=== PATIENT | male | born 1950 | race Caucasian/White ===

== ENCOUNTER 2020-08-14 07:22 | Day surgery (SDC) | payer MEDICARE, SELFPAY ==
[2020-08-08 12:00] VITALS: BMI 36.3
--- NOTE | 2020-08-13 12:37 | HO.ANESPROP2 ---
Documented by User: Aliza Marley 08/13/20 12:39 HPI - Anesthesia Eval Consult details Narrative: 70yo M for colonoscopy PMFSH Past Medical History Medical History Benign prostatic hyperplasia COVID-19 virus antibody negative CVA (cerebral vascular accident) Elevated cholesterol Gout History of postoperative nausea History of snoring HTN (hypertension) Murmur Renal cyst Thyroid nodule Surgical History Surgical History H/O arthroscopic knee surgery H/O partial thyroidectomy H/O varicose vein ligation and stripping Hx of colonoscopy Social History Social History Smoking Status: Never smoker Use of substances other than those prescribed or required for medical reasons: No Advance Directives: No (unknwon) Advance Directives Information Provided: Yes Recently lost weight without trying: No Meds Allergies Allergy/AdvReac Type Severity Reaction Status Date / Time Penicillins Allergy Unknown Verified 08/08/20 12:11 irbesartan AdvReac Stomach Verified 08/14/20 07:37 Upset Home Medications Medication Instructions Recorded Confirmed Type aspirin 81 mg PO DAILY 08/08/20 08/08/20 History atorvastatin 80 mg PO BEDTIME 08/08/20 08/08/20 History finasteride 5 mg PO DAILY 08/08/20 08/08/20 History hydralazine 25 mg PO QAM 08/08/20 08/14/20 History hydralazine 50 mg PO BEDTIME 08/08/20 08/08/20 History losartan 100 mg PO DAILY 08/08/20 08/08/20 History Exam Exam Date and Time: August 13, 2020 1237 Height,Weight and Vital Signs: Height 5 ft 4 in Weight 96.162 kg Pertinent Lab Results Pertinent Lab Results: Laboratory Tests 02/16/20 05/20/20 05/20/20 09:05 10:05 10:05 WBC 5.2 Hgb 13.4 L Hct 40.6 L Plt Count 244 Sodium 145 Potassium 3.3 Chloride 105 Bicarbonate 32 H Anion Gap 11 L BUN 25 H Creatinine 1.68 H Est GFR (Non-Af Amer) 41 Free T4 0.97 TSH 3rd Generation 2.16 Assessment and Plan Assessment Anesthesia Assessment: Chart Reviewed Documented by User: Dominique Gallo 08/14/20 08:02 PMF Past Medical History Medical History Benign prostatic hyperplasia COVID-19 virus antibody negative CVA (cerebral vascular accident) Elevated cholesterol Gout History of postoperative nausea History of snoring HTN (hypertension) Murmur Renal cyst Thyroid nodule Surgical History Surgical History H/O arthroscopic knee surgery H/O partial thyroidectomy H/O varicose vein ligation and stripping Hx of colonoscopy Social History Social History Smoking Status: Never smoker Use of substances other than those prescribed or required for medical reasons: No Advance Directives: No (unknwon) Advance Directives Information Provided: Yes Recently lost weight without trying: No Meds Allergies Allergy/AdvReac Type Severity Reaction Status Date / Time Penicillins Allergy Unknown Verified 08/08/20 12:11 irbesartan AdvReac Stomach Verified 08/14/20 07:37 Upset Home Medications Medication Instructions Recorded Confirmed Type aspirin 81 mg PO DAILY 08/08/20 08/08/20 History atorvastatin 80 mg PO BEDTIME 08/08/20 08/08/20 History finasteride 5 mg PO DAILY 08/08/20 08/08/20 History hydralazine 25 mg PO QAM 08/08/20 08/14/20 History hydralazine 50 mg PO BEDTIME 08/08/20 08/08/20 History losartan 100 mg PO DAILY 08/08/20 08/08/20 History Assessment and Plan Assessment Anesthesia Assessment: Anesthesia Plan Discussed and PAT Visit Final Anesthetic Review NPO: Yes ASA Class: II Final Preanesthetic Review: No Changes in Pt Med Stat, Meds/Allgs Chart Reviewed, Consent Obtained/Reviewed and Anes Risks/Benef Reviewed Patient Risk: Low Procedure Risk: Low Assessment/Block/Sedation in SS: Assess/Block/Sedation-SS Anesthetic Plan Anesthetic Plan: MAC: Disposition: Standard PACU
[2020-08-14 07:54] VITALS: BP 158/111; PULSE 90; RESP 18; TEMP 36.3; O2SAT 95
--- NOTE | 2020-08-14 08:02 | P.CONAN_ITS ---
[facility] Past Medical History Medical History Benign prostatic hyperplasia COVID-19 virus antibody negative CVA (cerebral vascular accident) Elevated cholesterol Gout History of postoperative nausea History of snoring HTN (hypertension) Murmur Renal cyst Thyroid nodule Surgical History Surgical History H/O arthroscopic knee surgery H/O partial thyroidectomy H/O varicose vein ligation and stripping Hx of colonoscopy Social History Social History Smoking Status: Never smoker Use of substances other than those prescribed or required for medical reasons: No Advance Directives: No (unknwon) Advance Directives Information Provided: Yes Recently lost weight without trying: No Meds Allergies Allergy/AdvReac Type Severity Reaction Status Date / Time Penicillins Allergy Unknown Verified 08/08/20 12:11 irbesartan AdvReac Stomach Verified 08/14/20 07:37 Upset Home Medications Medication Instructions Recorded Confirmed Type aspirin 81 mg PO DAILY 08/08/20 08/08/20 History atorvastatin 80 mg PO BEDTIME 08/08/20 08/08/20 History finasteride 5 mg PO DAILY 08/08/20 08/08/20 History hydralazine 25 mg PO QAM 08/08/20 08/14/20 History hydralazine 50 mg PO BEDTIME 08/08/20 08/08/20 History losartan 100 mg PO DAILY 08/08/20 08/08/20 History Exam Exam Date and Time: August 14, 2020 0802 Height,Weight and Vital Signs: Height 5 ft 4 in Weight 96.162 kg Last Vital Signs Temp 97.3 F 08/14/20 07:54 Pulse 90 08/14/20 07:54 Resp 18 08/14/20 07:54 BP 158/111 H 08/14/20 07:54 Pulse Ox 95 08/14/20 07:54 Airway Mallampati Class: II TM Dist: >3cm Neck ROM: Full Heart: RRR Lungs: CTA BL
--- NOTE | 2020-08-14 08:14 | PC.NURSE ---
PATIENT HAS KNOWN GANGLION CYST ON POST R HAND, IV PLACED MEDIALLY TO CYST
[2020-08-14] MEDS: Lactated Ringers 1,000 ML 100 ML IVCONT (08:15)
--- NOTE | 2020-08-14 08:42 | P.HPSUR_ITS ---
Pre-Procedural Eval Section B Chief Complaint: Constipation Details of Present Illness: constipation, rectal bleeding, FH of colon polyps Relevant Family History (Specify if Yes): Yes Relevant Social History: None Present Medications: see Short Stay Collaborative assessment Medical History: Significant History (possible sleep apnea, HTN) History of Previous Operations: Relevant previous surgery/procedure and date(s) (colonoscopy) Allergies: Allergies Allergy/AdvReac Type Severity Reaction Status Date / Time Penicillins Allergy Unknown Verified 08/08/20 12:11 irbesartan AdvReac Stomach Verified 08/14/20 07:37 Upset Review of Systems Sugical H&P ROS: Negative: Constitution, Cardiovascular, Respiratory, Neurological, Psychiatric, Hem-Onc, Allergic/Immunologic, Gastrointestinal, Genitourinary, Musculoskeletal, Integumentary, Endocrine and Eyes /Ears/Nose/Throat Exam Surgical H&P Exam: Normal: HEENT, Normal: Heart, Normal: Lungs, Normal: Extremities, Normal: Abdomen, Normal: Skin and Normal: Neurological Plan Diagnosis/Plan: Unchanged Patient has been examined and remains a candidate for the planned procedure
--- NOTE | 2020-08-14 09:13 | P.BOP_ITS ---
Brief Operative Note Date of procedure: 08/14/20 Pre-op diagnosis: constipation, rectal bleeding Post-op diagnosis: same Procedure: Operative Information Procedure Description: Colonoscopy COLONOSCOPY Instrument: Olympus variable stiffness pediatric scope 190L Colonoscopy Monitoring: Vital signs and clinical assessment, continuous EKG monitoring, Pulse oximetry, Carbon Dioxide monitoring and blood pressure monitoring were done throughout the procedure. Colon withdrawal time was 15 minutes. Procedure: The patient was placed in the left lateral decubitis position and pre-procedure medications were administered. After a digital rectal examination of the ano-rectum, the video colonoscope was inserted into the rectum and advanced through the colon to the cecum/TI. The colonoscope was slowly withdrawn in a retrograde panoramic fashion and the colon mucosa was carefully examined including a retroflexed view of the rectum. Findings and interventions are described below. Procedure Difficulty: Findings: RECTAL EXAM: normal, no masses felt Terminal Ileum-normal Cecum: small polyp 6-7 mm sessile, removed with biopsy forceps Ascending Colon: 8-9 mm sessile polyp removed with cold snare Transverse Colon -normal Descending Colon: 9-10 mm sessile polyp removed w/ cold snare Sigmoid Colon: numeorus diverticual seen of varying sizes with mucosal hypertrophy Rectum: Retroflexion with moderate sized internal hemorrhoids, grade I, prominent erythema noted in distal rectum adjacent to dentate line, bx taken Anorectum - normal Colon preparation: [place] Bowel Preparation Scale Right colon; 3 Transverse colon: 3 Left colon; 3 (0 = Unprepared colon segment with mucosa not seen due to solid stool that cannot be cleared. 1 = Portion of mucosa of the colon segment seen, but other areas of the colon segment not well seen due to staining, residual stool and/or opaque liquid. 2 = Minor amount of residual staining, small fragments of stool and/or opaque liquid, but mucosa of colon segment seen well. 3 = Entire mucosa of colon segment seen well with no residual staining, small fragments of stool or opaque liquid) Impression and Post Procedure Diagnosis: Internal hemerrhoids, inflammed diverticulosis polyps Plan: High fiber diet leaflet Avoid straining at stool, epsom salts and sitz bath, anusol supps or cream Repeat Colonoscopy in 3-5 years or earlier if clinically indicated, pending pathology f/u in office in 4-8 weeks Above findings were reviewed with the patient and relevant handouts were provided if indicated. Surgeon: Sy Navarro MD Anesthesia: MAC Condition: stable Disposition: same day
[2020-08-14 09:15] VITALS: BP 113/73; PULSE 69; RESP 16; TEMP 36.7
[2020-08-14 09:30] VITALS: BP 126/85; PULSE 73; RESP 16; O2SAT 97
[2020-08-14 09:45] VITALS: BP 137/93; PULSE 82; RESP 18; O2SAT 95
[2020-08-14 10:00] VITALS: BP 141/89; PULSE 75; RESP 18; O2SAT 95
--- NOTE | 2020-08-14 10:43 | HO.POSTANES ---
Post Anesthesia Evaluation Post Anesthesia Evaluation Vital Signs: Vital Signs Temp Pulse Resp BP Pulse Ox 08/14/20 10:00 75 18 141/89 H 95 08/14/20 09:45 82 18 137/93 H 95 08/14/20 09:30 73 16 126/85 97 08/14/20 09:15 98.1 F 69 16 113/73 08/14/20 07:54 97.3 F 90 18 158/111 H 95 Anesthesia: Monitored Mental Status: Awake Pain Control: Satisfactory Nausea/Vomiting: None Hydration: Adequate Anesthesia-Related Issues: No Anes. Related Issues
== END 2020-08-14 10:57 | disposition home or self-care (01) ==
PROVIDERS: PCP Internal Medicine; Visit Provider Internal Medicine Gastroenterology
PROC: 0DJD8ZZ Inspection of Lower Intestinal Tract, Via Natural or Artificial Opening Endoscopic (ICD-10-PCS; CPT 45378; principal; 2020-08-14 08:30)
DX: K62.5 Hemorrhage of anus and rectum (principal); K59.00 Constipation, unspecified; Z83.71 Family history of colonic polyps; D12.2 Benign neoplasm of ascending colon; D12.4 Benign neoplasm of descending colon; K63.5 Polyp of colon; K57.30 Diverticulosis of large intestine without perforation or abscess without bleeding; K64.1 Second degree hemorrhoids; K63.89 Other specified diseases of intestine; I10 Essential (primary) hypertension; E78.00 Pure hypercholesterolemia, unspecified; E89.0 Postprocedural hypothyroidism; Z86.73 Personal history of transient ischemic attack (TIA), and cerebral infarction without residual deficits; Z79.899 Other long term (current) drug therapy; Z79.82 Long term (current) use of aspirin; N40.0 Benign prostatic hyperplasia without lower urinary tract symptoms; Z88.0 Allergy status to penicillin; Z88.8 Allergy status to other drugs, medicaments and biological substances
CPT/HCPCS: 45385; 45380; 88305

== ENCOUNTER 2020-08-16 10:41 | Outpatient (REF) | payer MEDICARE, SELFPAY ==
[2020-08-16 12:10] LABS: Basophils Percent Auto 0.8 % (0-2); Eosinophils Absolute Auto 0.2 X10*3/uL (0.0-0.4); Eosinophils Percent Auto 3.9 % (0-4); Hematocrit 40.8 % (42-52); Hemoglobin 13.7 g/dl (14.0-18.0); Imm Gran Abs Auto 0.02 X10*3/uL (0.00-0.03); Imm Gran Pct Auto 0.4 % (0.0-0.4); Lymphocytes Absolute Auto 0.6 X10*3/uL (1.2-4.9); Lymphocytes Percent Auto 13.2 % (20-40); MANUAL DIFF FLAG SCAN; Mean Corpuscular HGB Conc 33.6 g/dl (31.0-36.0); Mean Corpuscular Hemoglobin 28.7 pg (27.0-33.0); Mean Corpuscular Volume 85.4 fL (80-98); Mean Platelet Volume 9.4 fL (9.4-12.4); Monocytes Absolute Auto 0.3 X10*3/uL (0.1-1.2); Monocytes Percent Auto 6.4 % (2-11); Neutrophils Absolute Auto 3.7 X10*3/uL (2.0-8.3); Neutrophils Percent Auto 75.3 % (45-73); Platelet Count 271 X10*3/uL (160-400); Red Blood Count 4.78 X10*6/uL (4.60-5.80); Red Cell Distribution Width 13.3 % (11.0-16.0); SCAN SMEAR FLAG 1; White Blood Count 4.9 X10*3/uL (4.8-10.8)
[2020-08-16 12:38] LABS: Alanine Aminotransferase 19 U/L (0-40); Alkaline Phosphatase 56 U/L (39-117); Anion Gap 11 (12-20); Aspartate Amino Transferase 20 U/L (5-37); Blood Urea Nitrogen 23 mg/dL (9-16); Calcium 8.7 mg/dL (8.4-10.2); Carbon Dioxide 32 mmol/L (22-29); Chloride 104 mmol/L (96-108); Cholesterol 117 mg/dL; Estimated Glomerular Filt Rate 48; Glucose Fasting 96 mg/dL (60-99); HDL Cholesterol 42 mg/dL; LDL Cholesterol Calculated 55 mg/dl; Potassium 3.3 mmol/l (3.3-5.1); Sodium 144 mmol/L (135-145); Total Protein 6.2 g/dL (6.5-8.0); Triglycerides 101 mg/dL
[2020-08-16 13:19] LABS: Glucose Urine UA NEG (NEG); Leukocyte Esterase Urine NEG (NEG); Nitrite Urine NEG (NEG); PH 6.5 (5.0-8.0); Urine Blood NEG (NEG); Urine Ketones NEG (NEG); Urine Protein 1+ MG/DL (NEG-TRACE)
[2020-08-16 13:21] LABS: Appearance Urine CLEAR; Color Urine YELLOW
[2020-08-16 14:12] LABS: Mucus Urine TRACE /LPF; RBC Urine 0 /HPF (0); Squamous Epithelial Cell Urine TRACE /LPF; WBC Urine 0 /HPF (0-4)
[2020-08-16 14:18] LABS: TSH reflex Free T4 1.79 mIU/mL (0.32-4.0)
[2020-08-16 15:08] LABS: SLIDE REVIEW VERIFIED
== END 2020-08-16 10:42 | disposition home or self-care (01) ==
LOC: HO.LAB 10:41
PROVIDERS: PCP Internal Medicine; Referring Provider Internal Medicine; Visit Provider Internal Medicine Endocrinology, Diabetes & Metabolism
DX: E78.5 Hyperlipidemia, unspecified (principal); I10 Essential (primary) hypertension; R73.01 Impaired fasting glucose; E87.6 Hypokalemia; M10.9 Gout, unspecified; Q61.3 Polycystic kidney, unspecified; E55.9 Vitamin D deficiency, unspecified; E03.9 Hypothyroidism, unspecified
CPT/HCPCS: 36415; 80053; 80061; 81001; 82306; 84443; 84550; 85025

== ENCOUNTER → 2020-09-09 12:44 | Outpatient (BNVA) | payer MEDICARE, SELFPAY | PROVIDERS: PCP Internal Medicine; Referring Provider Internal Medicine; Visit Provider Physician Assistant | DX: K57.30 Diverticulosis of large intestine without perforation or abscess without bleeding (principal); K64.9 Unspecified hemorrhoids; D12.2 Benign neoplasm of ascending colon; D12.0 Benign neoplasm of cecum; D12.4 Benign neoplasm of descending colon; Z98.890 Other specified postprocedural states | CPT/HCPCS: 99212 ==

== ENCOUNTER 2020-09-24 12:31 | Outpatient (REF) | payer MEDICARE, SELFPAY ==
[2020-09-24 13:58] LABS: Uric Acid 5.9 mg/dL (3.4-7.0)
[2020-09-24 14:38] LABS: Erythrocyte Sedimentation Rate 3 MM/HR (0-15)
== END 2020-09-24 12:32 | disposition home or self-care (01) ==
LOC: HO.LAB 12:31
PROVIDERS: PCP Internal Medicine; Visit Provider Psychiatry & Neurology Neurology
DX: M10.00 Idiopathic gout, unspecified site (principal); G43.909 Migraine, unspecified, not intractable, without status migrainosus
CPT/HCPCS: 36415; 84550; 85652

== ENCOUNTER 2020-11-21 09:52 | Outpatient (REF) | payer MEDICARE, SELFPAY ==
[2020-11-21 11:18] LABS: MANUAL DIFF FLAG NO
[2020-11-21 11:19] LABS: Glucose Urine UA NEG (NEG); Leukocyte Esterase Urine NEG (NEG); Nitrite Urine NEG (NEG); PH 7.5 (5.0-8.0); Specific Gravity - Urine 1.015 (1.005-1.025); Urine Blood NEG (NEG); Urine Ketones NEG (NEG); Urine Protein 1+ MG/DL (NEG-TRACE)
[2020-11-21 11:24] LABS: Appearance Urine CLEAR; Color Urine STRAW
[2020-11-21 11:33] LABS: Basophils Absolute Auto 0.1 X10*3/uL (0.0-0.2); Basophils Percent Auto 0.9 % (0-2); Eosinophils Absolute Auto 0.3 X10*3/uL (0.0-0.4); Eosinophils Percent Auto 5.1 % (0-4); Hematocrit 41.8 % (42-52); Imm Gran Abs Auto 0.02 X10*3/uL (0.00-0.03); Imm Gran Pct Auto 0.4 % (0.0-0.4); Lymphocytes Absolute Auto 0.8 X10*3/uL (1.2-4.9); Lymphocytes Percent Auto 14.7 % (20-40); Mean Corpuscular HGB Conc 33.5 g/dl (31.0-36.0); Mean Corpuscular Hemoglobin 28.6 pg (27.0-33.0); Mean Corpuscular Volume 85.5 fL (80-98); Mean Platelet Volume 9.4 fL (9.4-12.4); Monocytes Absolute Auto 0.4 X10*3/uL (0.1-1.2); Monocytes Percent Auto 7.7 % (2-11); Neutrophils Absolute Auto 3.8 X10*3/uL (2.0-8.3); Neutrophils Percent Auto 71.2 % (45-73); Platelet Count 275 X10*3/uL (160-400); Red Blood Count 4.89 X10*6/uL (4.60-5.80); Red Cell Distribution Width 12.9 % (11.0-16.0); White Blood Count 5.3 X10*3/uL (4.8-10.8)
[2020-11-21 12:02] LABS: Alanine Aminotransferase 18 U/L (0-40); Albumin Level 3.8 g/dL (3.5-5.0); Alkaline Phosphatase 61 U/L (39-117); Anion Gap 11 (12-20); Aspartate Amino Transferase 18 U/L (5-37); Blood Urea Nitrogen 25 mg/dL (9-16); Calcium 8.7 mg/dL (8.4-10.2); Carbon Dioxide 33 mmol/L (22-29); Chloride 104 mmol/L (96-108); Cholesterol 114 mg/dL; Estimated Glomerular Filt Rate 39; Glucose Fasting 95 mg/dL (60-99); HDL Cholesterol 36 mg/dL; LDL Cholesterol Calculated 58 mg/dl; Potassium 3.7 mmol/l (3.3-5.1); Sodium 144 mmol/L (135-145); Total Protein 6.2 g/dL (6.5-8.0); Triglycerides 103 mg/dL
[2020-11-21 12:23] LABS: TSH reflex Free T4 2.29 mIU/mL (0.32-4.0); Vitamin D 25-OH Total 27.3 ng/mL (>30)
[2020-11-21 13:08] LABS: RBC Urine 0-2 /HPF (0); Squamous Epithelial Cell Urine TRACE /LPF; WBC Urine 0 /HPF (0-4)
== END 2020-11-21 09:53 | disposition home or self-care (01) ==
LOC: HO.LAB 09:52
PROVIDERS: PCP Internal Medicine; Visit Provider Internal Medicine
DX: I13.10 Hypertensive heart and chronic kidney disease without heart failure, with stage 1 through stage 4 chronic kidney disease, or unspecified chronic kidney disease (principal); N18.30 Chronic kidney disease, stage 3 unspecified; R31.9 Hematuria, unspecified; I63.9 Cerebral infarction, unspecified; E78.5 Hyperlipidemia, unspecified; E04.2 Nontoxic multinodular goiter; E55.9 Vitamin D deficiency, unspecified; R73.01 Impaired fasting glucose; E66.9 Obesity, unspecified; Q61.3 Polycystic kidney, unspecified; E87.6 Hypokalemia
CPT/HCPCS: 36415; 80053; 80061; 81001; 82306; 84443; 85025

== ENCOUNTER 2021-02-17 09:23 | Outpatient (REF) | payer MEDICARE, SELFPAY ==
[2021-02-17 10:27] LABS: MANUAL DIFF FLAG NO
[2021-02-17 10:35] LABS: Basophils Absolute Auto 0.1 X10*3/uL (0.0-0.2); Basophils Percent Auto 1.1 % (0-2); Eosinophils Absolute Auto 0.2 X10*3/uL (0.0-0.4); Eosinophils Percent Auto 3.3 % (0-4); Hematocrit 42.9 % (42-52); Hemoglobin 13.8 g/dl (14.0-18.0); Imm Gran Abs Auto 0.01 X10*3/uL (0.00-0.03); Imm Gran Pct Auto 0.2 % (0.0-0.4); Lymphocytes Absolute Auto 0.9 X10*3/uL (1.2-4.9); Lymphocytes Percent Auto 13.7 % (20-40); Mean Corpuscular HGB Conc 32.2 g/dl (31.0-36.0); Mean Corpuscular Hemoglobin 27.7 pg (27.0-33.0); Mean Platelet Volume 9.3 fL (9.4-12.4); Monocytes Absolute Auto 0.4 X10*3/uL (0.1-1.2); Monocytes Percent Auto 6.3 % (2-11); Neutrophils Percent Auto 75.4 % (45-73); Platelet Count 290 X10*3/uL (160-400); Red Blood Count 4.99 X10*6/uL (4.60-5.80); Red Cell Distribution Width 13.5 % (11.0-16.0); White Blood Count 6.6 X10*3/uL (4.8-10.8)
[2021-02-17 10:53] LABS: Glucose Urine UA NEG (NEG); Leukocyte Esterase Urine NEG (NEG); Nitrite Urine NEG (NEG); Urine Blood NEG (NEG); Urine Ketones NEG (NEG); Urine Protein 2+ MG/DL (NEG-TRACE)
[2021-02-17 11:05] LABS: Alanine Aminotransferase 18 U/L (0-40); Alkaline Phosphatase 63 U/L (39-117); Anion Gap 13 (12-20); Aspartate Amino Transferase 18 U/L (5-37); Bilirubin Total 1.1 mg/dL (0.0-1.0); Blood Urea Nitrogen 24 mg/dL (9-16); Calcium 8.8 mg/dL (8.4-10.2); Carbon Dioxide 31 mmol/L (22-29); Chloride 104 mmol/L (96-108); Cholesterol 111 mg/dL; Estimated Glomerular Filt Rate 42; Glucose Fasting 97 mg/dL (60-99); HDL Cholesterol 35 mg/dL; LDL Cholesterol Calculated 50 mg/dl; Potassium 3.6 mmol/L (3.3-5.1); Sodium 144 mmol/L (135-145); Total Protein 6.4 g/dL (6.5-8.0); Triglycerides 131 mg/dL; Uric Acid 6.2 mg/dL (3.4-7.0)
[2021-02-17 11:10] LABS: Appearance Urine CLEAR; Color Urine YELLOW
[2021-02-17 11:23] LABS: RBC Urine 0-2 /HPF (0); Squamous Epithelial Cell Urine TRACE /LPF; WBC Urine 0-2 /HPF (0-4)
[2021-02-17 11:28] LABS: TSH reflex Free T4 1.91 uIU/mL (0.32-4.0); Vitamin D 25-OH Total 33.5 ng/mL (>30)
== END 2021-02-17 09:24 | disposition home or self-care (01) ==
LOC: HO.LAB 09:23
PROVIDERS: PCP Internal Medicine; Visit Provider Internal Medicine
DX: E55.9 Vitamin D deficiency, unspecified (principal); M10.9 Gout, unspecified; E04.2 Nontoxic multinodular goiter; E66.9 Obesity, unspecified; R73.01 Impaired fasting glucose; E78.5 Hyperlipidemia, unspecified; E87.6 Hypokalemia; E78.00 Pure hypercholesterolemia, unspecified; R31.9 Hematuria, unspecified; Q61.3 Polycystic kidney, unspecified; I63.9 Cerebral infarction, unspecified; I12.9 Hypertensive chronic kidney disease with stage 1 through stage 4 chronic kidney disease, or unspecified chronic kidney disease; N18.30 Chronic kidney disease, stage 3 unspecified
CPT/HCPCS: 36415; 80053; 80061; 81001; 81003; 82306; 84443; 84550; 85025

== ENCOUNTER 2021-05-07 12:00 | Outpatient (RCR) | payer MEDICARE, SELFPAY ==
[2021-03-11 12:13] VITALS: BP 154/96; PULSE 61
--- NOTE | 2021-03-11 13:07 | MHC.PT.EP ---
[facility] [place] Office [place] Office [place] Office [address] Silvia Blas [address] [phone] F: [phone] F: [phone] F: [phone] F: [phone] Physical Therapy Plan of Care Date of Evaluation: Date of Surgery: NA Diagnosis: unsteadiness on feet Assessment: 70 year old male referred for unsteadniess on feet . Pt reports of having difficulty with balance in his CVA in 2016. He has PT for the same in 2019 however it was d/c due to COVID. Pt wanted to resume therapy as he found therapy very helpful. On PT examination he presented with decreased muscle strength in L LE, altered posture, impaired static and dynamic balance and impaired gait. He would benefit from skilled PT to address the aforementioned impairments so as to improve his tolerance to standing, walking, stair negotiation, walking on uneven terrain and returning to PLOF. Frequency and Duration: The patient will be seen 2/week for 6 weeks Short Term Goals: 1. Pt will be able to walk on even surfaces for 30 minutes without LOB and fatigue in 3 weeks. 2. Pt will be able to negotiate 1 flight of stairs with one UE support and with good ground clearance in 4 weeks. Unit Aid Goals: 1. 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 2. Pt will be independent with HEPs for symptom management and maintenance following d/c in 6 weeks. Treatment Plan: Modalities to reduce pain, spasms and effusion. Manual therapy to restore motion and function. Therapeutic exercise to improve strength and flexibility. Neuromuscular re-education for posture and balance. Therapeutic activities to return to functional activities of daily living. Electronically signed by: Cheli Negron, PT, DPT Please sign and return to therapist. Thank you for your referral.
--- NOTE | 2021-05-07 12:36 | MHC.PT.DC ---
[facility] [place] Office [place] Office [place] Office [address] Silvia Blas [address] [phone] F: [phone] F: [phone] F: [phone] F: [phone] Physical Therapy Discharge Report Diagnosis: unsteadiness on feet Date of Surgery: NA Date of Evaluation: 03/11/21 Date of Discharge: 05/07/21 Treatments to Date: 13 Cancellations to Date: 1 No Shows to Date: 0 Discharge Status: Achieved Goals Improved Function Independent with HEP Discharge Summary: Wyatt has completed 13 visits with PT. He has shown improvement with his strength, endurance, and static & dynamic balance. He has met all goals and is independent with his HEP. Today was his last visit, this was discussed with him and he is in agreement with this plan. He is discharged from PT. Electronically signed by: Cheli Negron PT DPT Please sign and return to therapist. Thank you for your referral.
== END 2021-05-07 12:37 | disposition home or self-care (01) ==
LOC: HO.PT 12:00
PROVIDERS: Visit Provider Internal Medicine
DX: R26.81 Unsteadiness on feet (principal)
CPT/HCPCS: 97110; 97162; 97530

== ENCOUNTER 2021-05-26 09:28 | Outpatient (REF) | payer MEDICARE, SELFPAY ==
[2021-05-26 10:07] LABS: MANUAL DIFF FLAG NO
[2021-05-26 10:13] LABS: Basophils Percent Auto 0.7 % (0-2); Eosinophils Absolute Auto 0.3 X10*3/uL (0.0-0.4); Eosinophils Percent Auto 4.6 % (0-4); Imm Gran Abs Auto 0.01 X10*3/uL (0.00-0.03); Imm Gran Pct Auto 0.2 % (0.0-0.4); Lymphocytes Absolute Auto 0.8 X10*3/uL (1.2-4.9); Lymphocytes Percent Auto 13.9 % (20-40); Mean Corpuscular HGB Conc 32.6 g/dl (31.0-36.0); Mean Corpuscular Hemoglobin 28.1 pg (27.0-33.0); Mean Corpuscular Volume 86.3 fL (80-98); Mean Platelet Volume 9.3 fL (9.4-12.4); Monocytes Absolute Auto 0.4 X10*3/uL (0.1-1.2); Monocytes Percent Auto 6.2 % (2-11); Neutrophils Absolute Auto 4.3 X10*3/uL (2.0-8.3); Neutrophils Percent Auto 74.4 % (45-73); Platelet Count 281 X10*3/uL (160-400); Red Blood Count 4.98 X10*6/uL (4.60-5.80); Red Cell Distribution Width 13.4 % (11.0-16.0); White Blood Count 5.8 X10*3/uL (4.8-10.8)
[2021-05-26 10:22] LABS: Estimated Average Glucose 114 mg/dL; Hemoglobin A1c % 5.6 %
[2021-05-26 10:48] LABS: Glucose Urine UA NEG (NEG); Leukocyte Esterase Urine NEG (NEG); Nitrite Urine NEG (NEG); PH 6.5 (5.0-8.0); Urine Blood NEG (NEG); Urine Ketones NEG (NEG); Urine Protein 1+ MG/DL (NEG-TRACE)
[2021-05-26 10:50] LABS: Alanine Aminotransferase 17 U/L (0-40); Albumin Level 3.9 g/dL (3.5-5.0); Alkaline Phosphatase 63 U/L (39-117); Anion Gap 9 (12-20); Aspartate Amino Transferase 18 U/L (5-37); Bilirubin Total 0.9 mg/dL (0.0-1.0); Blood Urea Nitrogen 27 mg/dL (9-16); Calcium 9.2 mg/dL (8.4-10.2); Carbon Dioxide 34 mmol/L (22-29); Chloride 105 mmol/L (96-108); Cholesterol 129 mg/dL; Estimated Glomerular Filt Rate 41; Glucose Fasting 104 mg/dL (60-99); HDL Cholesterol 37 mg/dL; LDL Cholesterol Calculated 69 mg/dl; Potassium 3.8 mmol/L (3.3-5.1); Sodium 144 mmol/L (135-145); Total Protein 6.3 g/dL (6.5-8.0); Triglycerides 115 mg/dL; Uric Acid 6.7 mg/dL (3.4-7.0)
[2021-05-26 10:52] LABS: Appearance Urine CLEAR; Color Urine YELLOW
[2021-05-26 11:07] LABS: RBC Urine 0 /HPF (0); WBC Urine 0 /HPF (0-4)
[2021-05-26 11:08] LABS: Free T4 (Free Thyroxine) 1.01 ng/dL (0.71-1.85); Thyroid Stimulating Hormone 2.14 uIU/mL (0.32-4.0); Vitamin D 25-OH Total 37.6 ng/mL (>30)
== END 2021-05-26 09:29 | disposition home or self-care (01) ==
LOC: HO.LAB 09:28
PROVIDERS: PCP Internal Medicine; Visit Provider Internal Medicine
DX: I63.9 Cerebral infarction, unspecified (principal); E04.2 Nontoxic multinodular goiter; I12.9 Hypertensive chronic kidney disease with stage 1 through stage 4 chronic kidney disease, or unspecified chronic kidney disease; N18.30 Chronic kidney disease, stage 3 unspecified; Q61.3 Polycystic kidney, unspecified; R31.9 Hematuria, unspecified; E78.5 Hyperlipidemia, unspecified; M10.9 Gout, unspecified; E87.6 Hypokalemia; E55.9 Vitamin D deficiency, unspecified; R73.01 Impaired fasting glucose
CPT/HCPCS: 36415; 80053; 80061; 81001; 82306; 83036; 84439; 84443; 84550; 85025

== ENCOUNTER 2021-06-30 15:04 | Outpatient (REF) | payer MEDICARE, SELFPAY ==
--- NOTE | ~2021-06-30 | XR_ITS ---
EXAMINATION: XR SHOULDER, RIGHT XR HAND, RIGHT CLINICAL INFORMATION: Pain. COMPARISON: None TECHNIQUE: 3 views of the right hand and 4 views of the right shoulder. FINDINGS: RIGHT HAND: There is mild loss of PIP, DIP joint and 1st MCP joint space with minimal periarticular spurring. No fracture, bony erosive changes or loose body seen. There is moderate dorsal hand soft tissue swelling RIGHT SHOULDER: The glenohumeral joint space and AC joint space is maintained normal. No fracture, dislocation or bony erosive changes seen. The soft tissues are normal. XR/XR hand RT min 3V IMPRESSION: RIGHT HAND: Mild early degenerative changes 1st carpometacarpal joint, PIP and DIP joints. No fracture or dislocation seen. There is moderate dorsal proximal hand soft tissue swelling. RIGHT SHOULDER: Unremarkable right shoulder exam.
--- NOTE | ~2021-06-30 | XR_ITS ---
EXAMINATION: XR SHOULDER, RIGHT XR HAND, RIGHT CLINICAL INFORMATION: Pain. COMPARISON: None TECHNIQUE: 3 views of the right hand and 4 views of the right shoulder. FINDINGS: RIGHT HAND: There is mild loss of PIP, DIP joint and 1st MCP joint space with minimal periarticular spurring. No fracture, bony erosive changes or loose body seen. There is moderate dorsal hand soft tissue swelling RIGHT SHOULDER: The glenohumeral joint space and AC joint space is maintained normal. No fracture, dislocation or bony erosive changes seen. The soft tissues are normal. XR/XR shoulder RT min 2V IMPRESSION: RIGHT HAND: Mild early degenerative changes 1st carpometacarpal joint, PIP and DIP joints. No fracture or dislocation seen. There is moderate dorsal proximal hand soft tissue swelling. RIGHT SHOULDER: Unremarkable right shoulder exam.
== END 2021-06-30 15:05 | disposition home or self-care (01) ==
LOC: HO.XRAY 15:04
PROVIDERS: PCP Internal Medicine; Visit Provider Internal Medicine
DX: M79.644 Pain in right finger(s) (principal); M25.511 Pain in right shoulder
CPT/HCPCS: 73030; 73130

== ENCOUNTER 2021-09-29 08:54 | Outpatient (REF) | payer MEDICARE, SELFPAY ==
[2021-09-29 09:19] LABS: MANUAL DIFF FLAG NO
[2021-09-29 09:36] LABS: Basophils Percent Auto 0.7 % (0-2); Eosinophils Absolute Auto 0.3 X10*3/uL (0.0-0.4); Eosinophils Percent Auto 4.6 % (0-4); Hemoglobin 13.8 g/dl (14.0-18.0); Imm Gran Abs Auto 0.01 X10*3/uL (0.00-0.03); Imm Gran Pct Auto 0.2 % (0.0-0.4); Lymphocytes Absolute Auto 0.7 X10*3/uL (1.2-4.9); Mean Corpuscular HGB Conc 33.7 g/dl (31.0-36.0); Mean Corpuscular Hemoglobin 28.4 pg (27.0-33.0); Mean Corpuscular Volume 84.4 fL (80.0-98.0); Mean Platelet Volume 9.7 fL (9.4-12.4); Monocytes Absolute Auto 0.4 X10*3/uL (0.1-1.2); Monocytes Percent Auto 7.4 % (2-11); Neutrophils Absolute Auto 4.2 x10*3/uL (2.0-8.3); Neutrophils Percent Auto 75.1 % (45-73); Platelet Count 271 X10*3/uL (160-400); Red Blood Count 4.86 X10*6/uL (4.60-5.80); Red Cell Distribution Width 13.4 % (11.0-16.0); White Blood Count 5.7 X10*3/uL (4.8-10.8)
[2021-09-29 09:46] LABS: Estimated Average Glucose 117 mg/dL; Hemoglobin A1c % 5.7 %
[2021-09-29 10:17] LABS: Alanine Aminotransferase 23 U/L (0-40); Albumin Level 3.9 g/dL (3.5-5.0); Alkaline Phosphatase 64 U/L (39-117); Anion Gap 11 (12-20); Aspartate Amino Transferase 20 U/L (5-37); Bilirubin Total 0.9 mg/dL (0.0-1.0); Blood Urea Nitrogen 23 mg/dL (9-16); Calcium 8.9 mg/dL (8.4-10.2); Carbon Dioxide 31 mmol/L (22-29); Chloride 106 mmol/L (96-108); Cholesterol 114 mg/dL; Estimated Glomerular Filt Rate 40; Glucose Fasting 102 mg/dL (60-99); HDL Cholesterol 36 mg/dL; LDL Cholesterol Calculated 56 mg/dl; Potassium 3.4 mmol/L (3.3-5.1); Sodium 145 mmol/L (135-145); Total Protein 6.1 g/dL (6.5-8.0); Triglycerides 113 mg/dL
[2021-09-29 10:25] LABS: Free T4 (Free Thyroxine) 0.93 ng/dL (0.71-1.85); Thyroid Stimulating Hormone 2.46 uIU/mL (0.32-4.0)
[2021-09-29 10:31] LABS: Erythrocyte Sedimentation Rate 3 MM/HR (0-15)
[2021-09-29 10:43] LABS: Folate 14.6 ng/mL (> or = 4.0); Vitamin B12 242 pg/mL (200-900)
[2021-09-29 10:48] LABS: Appearance Urine CLEAR; Color Urine YELLOW; Glucose Urine UA NEG (NEG); Leukocyte Esterase Urine NEG (NEG); Nitrite Urine NEG (NEG); UACC Culture Trigger NO; Urine Blood NEG (NEG); Urine Ketones NEG (NEG); Urine Protein 2+ MG/DL (NEG-TRACE)
[2021-09-29 10:53] LABS: Uric Acid 5.8 mg/dL (3.4-7.0)
[2021-09-29 11:27] LABS: Mucus Urine TRACE /LPF; RBC Urine 0-2 /HPF (0); Squamous Epithelial Cell Urine TRACE /LPF; WBC Urine 0-2 /HPF (0-4)
[2021-09-29 11:34] LABS: Creatinine Urine 121.87 mg/dL; Microalbum/Creatinine Ratio Ur 448.8 ug/mg cr
== END 2021-09-29 08:55 | disposition home or self-care (01) ==
LOC: HO.LAB 08:54
PROVIDERS: PCP Internal Medicine; Visit Provider Internal Medicine
DX: Q61.3 Polycystic kidney, unspecified (principal); E11.22 Type 2 diabetes mellitus with diabetic chronic kidney disease; I12.9 Hypertensive chronic kidney disease with stage 1 through stage 4 chronic kidney disease, or unspecified chronic kidney disease; N18.30 Chronic kidney disease, stage 3 unspecified; E55.9 Vitamin D deficiency, unspecified; E53.8 Deficiency of other specified B group vitamins; M10.9 Gout, unspecified; R73.01 Impaired fasting glucose; E78.00 Pure hypercholesterolemia, unspecified; E03.9 Hypothyroidism, unspecified; M79.7 Fibromyalgia
CPT/HCPCS: 36415; 80053; 80061; 81001; 82043; 82306; 82607; 82746; 83036; 84439; 84443; 84550; 85025; 85652

== ENCOUNTER 2022-01-08 09:17 | Outpatient (REF) | payer MEDICARE, SELFPAY ==
[2022-01-08 09:41] LABS: MANUAL DIFF FLAG NO
[2022-01-08 10:01] LABS: Basophils Absolute Auto 0.1 X10*3/uL (0.0-0.2); Eosinophils Absolute Auto 0.2 X10*3/uL (0.0-0.4); Hematocrit 42.6 % (42.0-52.0); Hemoglobin 13.9 g/dl (14.0-18.0); Imm Gran Abs Auto 0.01 X10*3/uL (0.00-0.03); Imm Gran Pct Auto 0.2 % (0.0-0.4); Lymphocytes Absolute Auto 0.9 X10*3/uL (1.2-4.9); Lymphocytes Percent Auto 14.1 % (20-40); Mean Corpuscular HGB Conc 32.6 g/dl (31.0-36.0); Mean Corpuscular Hemoglobin 27.8 pg (27.0-33.0); Mean Corpuscular Volume 85.2 fL (80.0-98.0); Mean Platelet Volume 9.3 fL (9.4-12.4); Monocytes Absolute Auto 0.5 X10*3/uL (0.1-1.2); Monocytes Percent Auto 7.7 % (2-11); Neutrophils Absolute Auto 4.4 x10*3/uL (2.0-8.3); Platelet Count 275 X10*3/uL (160-400); Red Cell Distribution Width 13.5 % (11.0-16.0)
[2022-01-08 10:25] LABS: Estimated Average Glucose 117 mg/dL; Hemoglobin A1c % 5.7 %
[2022-01-08 10:55] LABS: Appearance Urine CLEAR; Color Urine YELLOW; Glucose Urine UA NEG (NEG); Leukocyte Esterase Urine NEG (NEG); Nitrite Urine NEG (NEG); PH 6.5 (5.0-8.0); Specific Gravity - Urine 1.015 (1.005-1.025); UACC Culture Trigger NO; Urine Blood NEG (NEG); Urine Ketones NEG (NEG); Urine Protein 2+ MG/DL (NEG-TRACE)
[2022-01-08 11:02] LABS: Alanine Aminotransferase 17 U/L (0-40); Albumin Level 4.1 g/dL (3.5-5.0); Alkaline Phosphatase 65 U/L (39-117); Anion Gap 12 (12-20); Aspartate Amino Transferase 20 U/L (5-37); Bilirubin Total 1.2 mg/dL (0.0-1.0); Blood Urea Nitrogen 23 mg/dL (9-16); Calcium 9.5 mg/dL (8.4-10.2); Carbon Dioxide 35 mmol/L (22-29); Chloride 104 mmol/L (96-108); Cholesterol 125 mg/dL; Estimated Glomerular Filt Rate 39; Glucose Fasting 104 mg/dL (60-99); HDL Cholesterol 42 mg/dL; LDL Cholesterol Calculated 57 mg/dl; Potassium 3.6 mmol/L (3.3-5.1); Sodium 147 mmol/L (135-145); Total Protein 6.5 g/dL (6.5-8.0); Triglycerides 133 mg/dL; Uric Acid 6.4 mg/dL (3.4-7.0)
[2022-01-08 11:26] LABS: Free T4 (Free Thyroxine) 1.01 ng/dL (0.71-1.85); Thyroid Stimulating Hormone 1.96 uIU/mL (0.32-4.0); Vitamin D 25-OH Total 43.5 ng/mL (>30)
[2022-01-08 11:27] LABS: RBC Urine 0-2 /HPF (0); Squamous Epithelial Cell Urine TRACE /LPF; WBC Urine 0-2 /HPF (0-4)
[2022-01-08 12:00] LABS: Creatinine Urine 87.56 mg/dL; Microalbum/Creatinine Ratio Ur 751.4 ug/mg cr
== END 2022-01-08 09:18 | disposition home or self-care (01) ==
LOC: HO.LAB 09:17
PROVIDERS: PCP Internal Medicine; Visit Provider Internal Medicine
DX: E78.00 Pure hypercholesterolemia, unspecified (principal); E11.9 Type 2 diabetes mellitus without complications; M10.9 Gout, unspecified; E55.9 Vitamin D deficiency, unspecified; E04.2 Nontoxic multinodular goiter; I10 Essential (primary) hypertension
CPT/HCPCS: 36415; 80053; 80061; 81001; 82043; 82306; 83036; 84439; 84443; 84550; 85025

== ENCOUNTER 2022-03-31 09:56 | Outpatient (REF) | payer MEDICARE, SELFPAY ==
[2022-03-31 10:13] LABS: MANUAL DIFF FLAG NO
[2022-03-31 10:40] LABS: Appearance Urine CLEAR; Color Urine YELLOW; Glucose Urine UA NEG (NEG); Leukocyte Esterase Urine NEG (NEG); Nitrite Urine NEG (NEG); Specific Gravity - Urine 1.015 (1.005-1.025); UACC Culture Trigger NO; Urine Blood NEG (NEG); Urine Ketones NEG (NEG); Urine Protein 2+ MG/DL (NEG-TRACE)
[2022-03-31 10:45] LABS: Basophils Percent Auto 0.8 % (0-2); Eosinophils Absolute Auto 0.3 X10*3/uL (0.0-0.4); Eosinophils Percent Auto 5.2 % (0-4); Hematocrit 42.2 % (42.0-52.0); Hemoglobin 13.8 g/dl (14.0-18.0); Imm Gran Abs Auto 0.01 X10*3/uL (0.00-0.03); Imm Gran Pct Auto 0.2 % (0.0-0.4); Lymphocytes Absolute Auto 0.7 X10*3/uL (1.2-4.9); Lymphocytes Percent Auto 14.5 % (20-40); Mean Corpuscular HGB Conc 32.7 g/dl (31.0-36.0); Mean Corpuscular Hemoglobin 27.9 pg (27.0-33.0); Mean Corpuscular Volume 85.3 fL (80.0-98.0); Mean Platelet Volume 9.8 fL (9.4-12.4); Monocytes Absolute Auto 0.4 X10*3/uL (0.1-1.2); Monocytes Percent Auto 7.1 % (2-11); Neutrophils Absolute Auto 3.6 x10*3/uL (2.0-8.3); Neutrophils Percent Auto 72.2 % (45-73); Platelet Count 254 X10*3/uL (160-400); Red Blood Count 4.95 X10*6/uL (4.60-5.80); Red Cell Distribution Width 13.5 % (11.0-16.0)
[2022-03-31 10:57] LABS: Estimated Average Glucose 114 mg/dL; Hemoglobin A1c % 5.6 %
[2022-03-31 11:00] LABS: RBC Urine 0-2 /HPF (0); Squamous Epithelial Cell Urine TRACE /LPF; WBC Urine 0-2 /HPF (0-4)
[2022-03-31 11:15] LABS: Alanine Aminotransferase 23 U/L (0-40); Albumin Level 3.8 g/dL (3.5-5.0); Alkaline Phosphatase 57 U/L (39-117); Anion Gap 10 (12-20); Aspartate Amino Transferase 20 U/L (5-37); Blood Urea Nitrogen 24 mg/dL (9-16); Calcium 9.5 mg/dL (8.4-10.2); Carbon Dioxide 32 mmol/L (22-29); Chloride 105 mmol/L (96-108); Cholesterol 116 mg/dL; Estimated Glomerular Filt Rate 40; Glucose Fasting 100 mg/dL (60-99); HDL Cholesterol 37 mg/dL; LDL Cholesterol Calculated 56 mg/dl; Potassium 3.9 mmol/L (3.3-5.1); Sodium 143 mmol/L (135-145); Total Protein 6.2 g/dL (6.5-8.0); Triglycerides 119 mg/dL
[2022-03-31 11:36] LABS: TSH reflex Free T4 1.91 uIU/mL (0.32-4.0); Vitamin D 25-OH Total 45.2 ng/mL (>30)
== END 2022-03-31 09:57 | disposition home or self-care (01) ==
LOC: HO.LAB 09:56
PROVIDERS: PCP Internal Medicine; Visit Provider Internal Medicine
DX: I10 Essential (primary) hypertension (principal); E78.00 Pure hypercholesterolemia, unspecified; E11.9 Type 2 diabetes mellitus without complications; E55.9 Vitamin D deficiency, unspecified
CPT/HCPCS: 36415; 80053; 80061; 81001; 82306; 83036; 84443; 85025

== ENCOUNTER 2022-08-19 09:18 | Outpatient (REF) | payer MEDICARE, SELFPAY ==
[2022-08-19 09:37] LABS: MANUAL DIFF FLAG NO
[2022-08-19 10:26] LABS: Basophils Percent Auto 0.7 % (0-2); Eosinophils Absolute Auto 0.2 X10*3/uL (0.0-0.4); Eosinophils Percent Auto 4.8 % (0-4); Hematocrit 42.6 % (42.0-52.0); Hemoglobin 13.9 g/dl (14.0-18.0); Imm Gran Abs Auto 0.02 X10*3/uL (0.00-0.03); Imm Gran Pct Auto 0.5 % (0.0-0.4); Lymphocytes Absolute Auto 0.6 X10*3/uL (1.2-4.9); Lymphocytes Percent Auto 12.5 % (20-40); Mean Corpuscular HGB Conc 32.6 g/dl (31.0-36.0); Mean Corpuscular Hemoglobin 27.1 pg (27.0-33.0); Mean Platelet Volume 9.7 fL (9.4-12.4); Monocytes Absolute Auto 0.4 X10*3/uL (0.1-1.2); Monocytes Percent Auto 8.9 % (2-11); Neutrophils Absolute Auto 3.2 x10*3/uL (2.0-8.3); Neutrophils Percent Auto 72.6 % (45-73); Platelet Count 250 X10*3/uL (160-400); Red Blood Count 5.13 X10*6/uL (4.60-5.80); Red Cell Distribution Width 13.9 % (11.0-16.0); White Blood Count 4.4 X10*3/uL (4.8-10.8)
[2022-08-19 10:32] LABS: Estimated Average Glucose 114 mg/dL; Hemoglobin A1c % 5.6 %
[2022-08-19 10:55] LABS: Appearance Urine Clear; Color Urine Yellow; Glucose Urine UA Negative (Negative); Leukocyte Esterase Urine Negative (Negative); Nitrite Urine Negative (Negative); PH 6.5 (5.0-9.0); Specific Gravity - Urine 1.015 (1.005-1.025); UMIC TRIGGER UACC YES; Urine Blood Negative (Negative); Urine Ketones Negative (Negative); Urine Protein 100 (2+) mg/dL (Neg-Trace)
[2022-08-19 10:58] LABS: Bacteria Urine None Seen (None Seen); Hyaline Casts Urine 0-2 /LPF (0-2); RBC Urine 0-2 /HPF (0-2); Squamous Epithelial Cell Urine 0-2 /HPF (0-2); WBC Urine 0-5 /HPF (0-5)
[2022-08-19 11:10] LABS: Alanine Aminotransferase 21 U/L (0-40); Albumin Level 4.1 g/dL (3.5-5.0); Alkaline Phosphatase 64 U/L (39-117); Anion Gap 16 (12-20); Aspartate Amino Transferase 24 U/L (5-37); Bilirubin Total 0.9 mg/dL (0.0-1.0); Blood Urea Nitrogen 31 mg/dL (9-16); Calcium 8.8 mg/dL (8.4-10.2); Carbon Dioxide 28 mmol/L (22-29); Chloride 105 mmol/L (96-108); Cholesterol 112 mg/dL; Estimated Glomerular Filt Rate 35; Glucose Fasting 93 mg/dL (60-99); HDL Cholesterol 40 mg/dL; LDL Cholesterol Calculated 55 mg/dl; Potassium 3.5 mmol/L (3.3-5.1); Sodium 145 mmol/L (135-145); Total Protein 6.5 g/dL (6.5-8.0); Triglycerides 86 mg/dL; Uric Acid 7.3 mg/dL (3.4-7.0)
[2022-08-19 11:17] LABS: TSH reflex Free T4 1.88 uIU/mL (0.32-4.0)
== END 2022-08-19 09:19 | disposition home or self-care (01) ==
LOC: HO.LAB 09:18
PROVIDERS: PCP Internal Medicine; Visit Provider Internal Medicine
DX: I10 Essential (primary) hypertension (principal); E55.9 Vitamin D deficiency, unspecified; M10.9 Gout, unspecified; E78.00 Pure hypercholesterolemia, unspecified; R73.01 Impaired fasting glucose
CPT/HCPCS: 36415; 80053; 80061; 81001; 82306; 83036; 84443; 84550; 85025

== ENCOUNTER 2022-10-14 14:16 | Outpatient (REF) | payer MEDICARE, SELFPAY ==
--- NOTE | ~2022-10-14 | XR_ITS ---
EXAMINATION: XR ELBOW, LEFT CLINICAL INFORMATION: Pain. COMPARISON: None TECHNIQUE: AP, lateral, and oblique views of the left elbow. FINDINGS: The bones and soft tissues are normal. No fracture or joint effusion. Alignment is anatomic. Joint spaces are maintained. XR/XR elbow LT min 3V IMPRESSION: Normal left elbow.
== END 2022-10-14 14:17 | disposition home or self-care (01) ==
LOC: HO.XRAY 14:16
PROVIDERS: PCP Internal Medicine; Visit Provider Internal Medicine
DX: M25.522 Pain in left elbow (principal); L40.9 Psoriasis, unspecified
CPT/HCPCS: 73080

== ENCOUNTER 2022-11-04 08:58 | Outpatient (REF) | payer MEDICARE, SELFPAY ==
[2022-11-04 09:14] LABS: MANUAL DIFF FLAG NO
[2022-11-04 09:25] LABS: Basophils Percent Auto 0.8 % (0-2); Eosinophils Absolute Auto 0.2 X10*3/uL (0.0-0.4); Hematocrit 44.3 % (42.0-52.0); Hemoglobin 14.4 g/dl (14.0-18.0); Imm Gran Abs Auto 0.01 X10*3/uL (0.00-0.03); Imm Gran Pct Auto 0.2 % (0.0-0.4); Lymphocytes Absolute Auto 0.8 X10*3/uL (1.2-4.9); Mean Corpuscular HGB Conc 32.5 g/dl (31.0-36.0); Mean Corpuscular Hemoglobin 27.5 pg (27.0-33.0); Mean Corpuscular Volume 84.7 fL (80.0-98.0); Mean Platelet Volume 9.2 fL (9.4-12.4); Monocytes Absolute Auto 0.4 X10*3/uL (0.1-1.2); Monocytes Percent Auto 8.7 % (2-11); Neutrophils Absolute Auto 3.4 x10*3/uL (2.0-8.3); Neutrophils Percent Auto 70.3 % (45-73); Platelet Count 265 X10*3/uL (160-400); Red Blood Count 5.23 X10*6/uL (4.60-5.80); White Blood Count 4.8 X10*3/uL (4.8-10.8)
[2022-11-04 10:08] LABS: Alanine Aminotransferase 25 U/L (0-40); Albumin Level 4.1 g/dL (3.5-5.0); Alkaline Phosphatase 69 U/L (39-117); Anion Gap 11 (12-20); Aspartate Amino Transferase 22 U/L (5-37); Bilirubin Total 0.9 mg/dL (0.0-1.0); Blood Urea Nitrogen 34 mg/dL (9-16); C Reactive Protein 0.12 mg/dL (< or = 0.50); Carbon Dioxide 32 mmol/L (22-29); Chloride 104 mmol/L (96-108); Cholesterol 116 mg/dL; Estimated Glomerular Filt Rate 32; Glucose Fasting 109 mg/dL (60-99); HDL Cholesterol 42 mg/dL; LDL Cholesterol Calculated 56 mg/dl; Potassium 3.4 mmol/L (3.3-5.1); Sodium 144 mmol/L (135-145); TSH reflex Free T4 2.41 uIU/mL (0.32-4.0); Total Protein 6.4 g/dL (6.5-8.0); Triglycerides 91 mg/dL; Uric Acid 7.5 mg/dL (3.4-7.0); Vitamin D 25-OH Total 43.4 ng/mL (>30)
[2022-11-04 10:16] LABS: Erythrocyte Sedimentation Rate 2 MM/HR (0-15)
[2022-11-04 10:36] LABS: Appearance Urine Clear; Color Urine Yellow; Glucose Urine UA Negative (Negative); Leukocyte Esterase Urine Negative (Negative); Nitrite Urine Negative (Negative); PH 6.5 (5.0-9.0); Specific Gravity - Urine 1.015 (1.005-1.025); UMIC TRIGGER UACC YES; Urine Blood Negative (Negative); Urine Ketones Negative (Negative); Urine Protein 30 (1+) mg/dL (Neg-Trace)
[2022-11-04 10:41] LABS: Bacteria Urine None Seen (None Seen); Hyaline Casts Urine 0-2 /LPF (0-2); RBC Urine 0-2 /HPF (0-2); Squamous Epithelial Cell Urine 0-2 /HPF (0-2); WBC Urine 0-5 /HPF (0-5)
[2022-11-04 11:30] LABS: Creatinine Urine 75.24 mg/dL; Microalbum/Creatinine Ratio Ur 369.4 ug/mg cr
[2022-11-06 13:59] LABS: IgA 153 mg/dL (70-320); IgG 982 mg/dL (600-1540); IgM 33 mg/dL (50-300)
== END 2022-11-04 08:59 | disposition home or self-care (01) ==
LOC: HO.LAB 08:58
PROVIDERS: PCP Internal Medicine; Visit Provider Internal Medicine
DX: L40.9 Psoriasis, unspecified (principal); M25.522 Pain in left elbow; M79.7 Fibromyalgia; E78.00 Pure hypercholesterolemia, unspecified; E11.9 Type 2 diabetes mellitus without complications; I10 Essential (primary) hypertension; M10.9 Gout, unspecified; E55.9 Vitamin D deficiency, unspecified
CPT/HCPCS: 36415; 80053; 80061; 81001; 82043; 82306; 82784; 84443; 84550; 85025; 85652; 86140

== ENCOUNTER → 2022-12-08 10:59 | Outpatient (BNVA) | payer MEDICARE, SELFPAY | PROVIDERS: PCP Internal Medicine; Visit Provider Physician Assistant | DX: M79.602 Pain in left arm (principal); M25.522 Pain in left elbow | CPT/HCPCS: 99202 ==

== ENCOUNTER 2023-01-11 15:30 | Outpatient (RCR) | payer MEDICARE, SELFPAY ==
--- NOTE | 2022-12-23 16:17 | MHC.OT.EP ---
[address] [phone] Occupational Therapy Plan of Care Date of Evaluation: 12/23/22 Diagnosis: Left elbow pain Pain Location: Left proximal forearm 4 cm distal to lateral epicondyl Pain Score: 3 Pain Scale Used: Numeric (0 - 10) Aggravating Factors: Lifting . With use Alleviating Factors: Resting arm. Assessment: Pt is a 72 old male with complaint of recurrent left lateral elbow pain. 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 Today pt presents with S+S consistent with a diagnosis of mild left lateral epicondylitis He will benefit from OT for education in ergonomics ,jt protection , ther ex for lateral epicondylitis. 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 Thank you once again for your referral.
--- NOTE | 2023-01-11 16:15 | MHC.OT.DC ---
[address] [phone] F: [phone] Occupational Therapy Discharge Note Patient Name: Wyatt Lechuga Provider: Carmen Pulido Diagnosis: Left elbow pain Date of Surgery: Date of Evaluation: 12/23/22 Date of Discharge: 01/11/23 Treatments to Date: 4 Cancellations to Date: 1 No Shows to Date: Discharge Status: Achieved Goals Improved Function Independent with HEP Discharge Summary: Pain improved . 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 Pt is planning to return to the next week. Goals met Electronically Signed By: Nurys Rocha OT CHT CLT Reviewed/agree with student documentation: Therapist: Please Sign and return to therapist, thank you for your referral.
== END 2023-01-11 16:15 | disposition home or self-care (01) ==
LOC: HO.OT 15:30
PROVIDERS: PCP Internal Medicine; Visit Provider Physician Assistant
DX: M79.602 Pain in left arm (principal)
CPT/HCPCS: 97035; 97110; 97140; 97166; 97535

== ENCOUNTER 2023-02-22 08:40 | Outpatient (REF) | payer MEDICARE, SELFPAY ==
[2023-02-22 09:28] LABS: Appearance Urine Clear; Color Urine Yellow; Glucose Urine UA Negative (Negative); Leukocyte Esterase Urine Negative (Negative); Nitrite Urine Negative (Negative); PH 6.5 (5.0-9.0); Specific Gravity - Urine 1.015 (1.005-1.025); UMIC TRIGGER UACC YES; Urine Blood Negative (Negative); Urine Ketones Negative (Negative); Urine Protein 30 (1+) mg/dL (Neg-Trace)
[2023-02-22 09:33] LABS: Bacteria Urine None Seen (None Seen); Hyaline Casts Urine 0-2 /LPF (0-2); RBC Urine 0-2 /HPF (0-2); Squamous Epithelial Cell Urine 0-2 /HPF (0-2); WBC Urine 0-5 /HPF (0-5)
== END 2023-02-22 08:41 | disposition home or self-care (01) ==
LOC: HO.LAB 08:40
PROVIDERS: PCP Internal Medicine; Visit Provider Internal Medicine
DX: I10 Essential (primary) hypertension (principal)
CPT/HCPCS: 81001

== ENCOUNTER 2023-02-26 16:50 | Outpatient (REF) | payer MEDICARE, SELFPAY ==
[2023-02-26 17:01] LABS: MANUAL DIFF FLAG NO
[2023-02-26 18:16] LABS: Eosinophils Absolute Auto 0.2 X10*3/uL (0.0-0.4); Hematocrit 39.8 % (42.0-52.0); Hemoglobin 13.2 g/dl (14.0-18.0); Imm Gran Abs Auto 0.01 X10*3/uL (0.00-0.03); Imm Gran Pct Auto 0.3 % (0.0-0.4); Lymphocytes Absolute Auto 0.6 X10*3/uL (1.2-4.9); Lymphocytes Percent Auto 16.2 % (20-40); Mean Corpuscular HGB Conc 33.2 g/dl (31.0-36.0); Mean Corpuscular Hemoglobin 28.1 pg (27.0-33.0); Mean Corpuscular Volume 84.7 fL (80.0-98.0); Mean Platelet Volume 9.6 fL (9.4-12.4); Monocytes Absolute Auto 0.4 X10*3/uL (0.1-1.2); Neutrophils Absolute Auto 2.5 x10*3/uL (2.0-8.3); Neutrophils Percent Auto 66.5 % (45-73); Platelet Count 260 X10*3/uL (160-400); Red Cell Distribution Width 13.8 % (11.0-16.0); White Blood Count 3.8 X10*3/uL (4.8-10.8)
[2023-02-26 18:29] LABS: Alanine Aminotransferase 18 U/L (0-40); Albumin Level 3.9 g/dL (3.5-5.0); Alkaline Phosphatase 62 U/L (39-117); Anion Gap 11 (12-20); Aspartate Amino Transferase 20 U/L (5-37); Bilirubin Total 0.9 mg/dL (0.0-1.0); Blood Urea Nitrogen 32 mg/dL (9-16); Carbon Dioxide 32 mmol/L (22-29); Chloride 104 mmol/L (96-108); Estimated Glomerular Filt Rate 35; Glucose Random 89 mg/dL (60-115); Potassium 3.6 mmol/L (3.3-5.1); Sodium 143 mmol/L (135-145)
== END 2023-02-26 16:51 | disposition home or self-care (01) ==
LOC: HO.LAB 16:50
PROVIDERS: PCP Internal Medicine; Visit Provider Internal Medicine
DX: I12.9 Hypertensive chronic kidney disease with stage 1 through stage 4 chronic kidney disease, or unspecified chronic kidney disease (principal); N18.30 Chronic kidney disease, stage 3 unspecified
CPT/HCPCS: 36415; 80053; 85025

== ENCOUNTER 2023-03-18 11:41 | Outpatient (REF) | payer MEDICARE, SELFPAY ==
--- NOTE | ~2023-03-18 | US_ITS ---
EXAMINATION: US VENOUS ULTRASOUND WITH DOPPLER LOWER EXTREMITY, LEFT CLINICAL INFORMATION: Swelling COMPARISON: None available. TECHNIQUE: Ultrasound of the deep veins is performed from the hip to the calf with compression sonography and color and pulse Doppler assessment. Spectral analysis with color-flow imaging is performed. FINDINGS: There is normal venous compression and respiratory variation and augmented flow. The visualized common femoral vein, superficial femoral vein, profunda femoral vein, popliteal vein, and the trifurcation region shows no evidence of deep venous thrombosis. There is no significant popliteal fossa cyst. Limited visualization of the peroneals. If the patient's symptoms persist, followup ultrasound in 5 days 7 days might be of value to exclude proximal propagation from a non-visualized calf vein. US/US venous duplex LE LT IMPRESSION: No DVT demonstrated in the left lower extremity.
== END 2023-03-18 11:42 | disposition home or self-care (01) ==
LOC: HO.US 11:41
PROVIDERS: Visit Provider Nurse Practitioner Family
DX: I82.402 Acute embolism and thrombosis of unspecified deep veins of left lower extremity (principal); M79.89 Other specified soft tissue disorders
CPT/HCPCS: 93971

== ENCOUNTER 2023-05-20 07:23 | Outpatient (REF) | payer MEDICARE, SELFPAY ==
[2023-05-20 07:57] LABS: MANUAL DIFF FLAG NO
[2023-05-20 09:10] LABS: Basophils Percent Auto 0.3 % (0-2); Eosinophils Percent Auto 0.2 % (0-4); Hematocrit 37.5 % (42.0-52.0); Hemoglobin 12.4 g/dl (14.0-18.0); Imm Gran Abs Auto 0.07 X10*3/uL (0.00-0.03); Imm Gran Pct Auto 0.6 % (0.0-0.4); Lymphocytes Absolute Auto 0.4 X10*3/uL (1.2-4.9); Lymphocytes Percent Auto 3.8 % (20-40); Mean Corpuscular HGB Conc 33.1 g/dl (31.0-36.0); Mean Corpuscular Volume 84.7 fL (80.0-98.0); Mean Platelet Volume 10.3 fL (9.4-12.4); Monocytes Absolute Auto 0.7 X10*3/uL (0.1-1.2); Monocytes Percent Auto 6.4 % (2-11); Neutrophils Absolute Auto 9.8 x10*3/uL (2.0-8.3); Neutrophils Percent Auto 88.7 % (45-73); Platelet Count 202 X10*3/uL (160-400); Red Blood Count 4.43 X10*6/uL (4.60-5.80); Red Cell Distribution Width 14.4 % (11.0-16.0)
[2023-05-20 09:38] LABS: Appearance Urine Clear; Color Urine Yellow; Glucose Urine UA Negative (Negative); Leukocyte Esterase Urine Negative (Negative); Nitrite Urine Negative (Negative); PH 5.5 (5.0-9.0); Specific Gravity - Urine 1.015 (1.005-1.025); UMIC TRIGGER UACC YES; Urine Blood Negative (Negative); Urine Ketones Negative (Negative); Urine Protein 100 (2+) mg/dL (Neg-Trace)
[2023-05-20 09:44] LABS: Bacteria Urine None Seen (None Seen); RBC Urine 0-2 /HPF (0-2); WBC Urine 0-5 /HPF (0-5)
[2023-05-20 09:53] LABS: Estimated Average Glucose 105 mg/dL; Hemoglobin A1c % 5.3 %
[2023-05-20 09:59] LABS: Alanine Aminotransferase 30 U/L (0-40); Albumin Level 3.5 g/dL (3.5-5.0); Alkaline Phosphatase 46 U/L (39-117); Anion Gap 14 (12-20); Aspartate Amino Transferase 55 U/L (5-37); Bilirubin Total 1.7 mg/dL (0.0-1.0); Blood Urea Nitrogen 44 mg/dL (9-16); Carbon Dioxide 28 mmol/L (22-29); Chloride 105 mmol/L (96-108); Cholesterol 98 mg/dL; Estimated Glomerular Filt Rate 23; Glucose Fasting 106 mg/dL (60-99); HDL Cholesterol 30 mg/dL; LDL Cholesterol Calculated 47 mg/dl; Potassium 2.9 mmol/L (3.3-5.1); Sodium 144 mmol/L (135-145); Total Protein 6.3 g/dL (6.5-8.0); Triglycerides 107 mg/dL
[2023-05-20 10:07] LABS: Prostate Specific Antigen 1.74 ng/mL (<0.05-4.0)
[2023-05-20 10:19] LABS: TSH reflex Free T4 1.12 uIU/mL (0.32-4.0)
[2023-05-20 10:46] LABS: Creatinine Urine 149.45 mg/dL; Microalbum/Creatinine Ratio Ur 190.6 ug/mg cr
== END 2023-05-20 07:24 | disposition home or self-care (01) ==
LOC: HO.LAB 07:23
PROVIDERS: Nurse Practitioner Family; PCP Internal Medicine; Visit Provider Internal Medicine
DX: Z12.5 Encounter for screening for malignant neoplasm of prostate (principal); E11.9 Type 2 diabetes mellitus without complications; E78.00 Pure hypercholesterolemia, unspecified; E55.9 Vitamin D deficiency, unspecified; I10 Essential (primary) hypertension
CPT/HCPCS: 36415; 80053; 80061; 81001; 82043; 82306; 83036; 84153; 84443; 85025

== ENCOUNTER 2023-05-24 15:00 | Outpatient (AMB) | payer MEDICARE, SELFPAY ==
--- NOTE | 2023-05-24 15:31 | AM.OFFWIN_ITS ---
Intake Vital Signs 05/24/23 15:33 Height 5 ft 5 in BP 130/80 Blood Pressure Location Rt brachial Position Sitting Pulse 77 Pulse Source Pulse Oximeter Temp 98.6 F Temp Source Oral Pulse Oximetry (%) 97 Oxygen Delivery Method Room Air Intake Visit Reasons: EP, Left Lower Leg Sw Intake Note: pt is here for c/o left lower leg swollen Patient Tobacco Use Status: Former Tobacco user Allergies Penicillins Allergy (Verified 05/24/23 15:32) Unknown irbesartan Adverse Reaction (Verified 05/24/23 15:32) Stomach Upset HPI EP, Left Lower Leg Sw HPI Details 73-year-old male presents to the office for a sick visit. Patient is complaining of redness and swelling in the left leg. Symptoms are present for the last week. He has had her cellulitis in the leg before. Patient has had elevated blood sugar in the past and would like to be checked for a. [facility] Medical History Benign essential hypertension Benign prostatic hyperplasia Cerebrovascular accident (CVA) Chronic kidney disease (CKD), stage III (moderate) COVID-19 virus antibody negative CVA (cerebral vascular accident) Dyslipidemia Elevated cholesterol Gait instability Gout Hematuria History of postoperative nausea History of snoring Hypokalemia Impaired fasting glucose Left leg DVT Multiple thyroid nodules Murmur Obesity (BMI 30-39.9) Onychomycosis Polycystic kidney disease Pure hypercholesterolemia Renal cyst Thyroid nodule Vitamin D deficiency Surgical History H/O arthroscopic knee surgery H/O partial thyroidectomy (~10/22/14) H/O varicose vein ligation and stripping Hx of colonoscopy (~08/2020) Family History Father Diabetes Mother Chronic mental illness Other Mental health problem Social History Housing: Apartment Alcohol intake: current Alcohol intake frequency: does not drink Alcohol type: beer Patient Tobacco Use Status: Former Tobacco user Second Hand Smoke Exposure: Yes Current occupational status: employed 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 Cognitive needs: No Hearing needs: No Vision needs: Yes Physical Exam Vital Signs: Last Vital Signs Temp 98.6 F 05/24/23 15:33 Pulse 77 05/24/23 15:33 BP 130/80 05/24/23 15:33 Pulse Ox 97 05/24/23 15:33 Oxygen Delivery Method Room Air 05/24/23 15:33 Const General: cooperative and healthy appearing Nutritional Appearance: well nourished Orientation/consciousness: patient oriented x3 Limitations: no limitations HEENT Head: Yes normal to inspection Eyes General: appearance normal, both eyes and all related structures Neck Neck: Yes normal visual inspection Chest Chest palpation & inspection: normal palpation of entire chest wall Resp Effort & Inspection: normal respiratory effort Neuro General: patient oriented x3 Extrem Other: Left leg: Erythema below the knee with induration and edema. Assessment & Plan Assessment & Plan (1) Cellulitis of left leg: Code(s): L03.116 - Cellulitis of left lower limb Plan: Keep leg elevated. Bactrim for 7 days. If symptoms do not improve to follow-up here. Coding Level of Care Code Est Pt Level 3 (52151) Diagnoses Cellulitis of left leg L03.116
[2023-05-24 15:33] VITALS: BP 130/80; PULSE 77; TEMP 37; O2SAT 97
== END 2023-05-24 16:24 | disposition home or self-care (01) ==
PROVIDERS: PCP Internal Medicine; Visit Provider Internal Medicine
DX: L03.116 Cellulitis of left lower limb (principal); Z13.9 Encounter for screening, unspecified
CPT/HCPCS: 82948; 99213

== ENCOUNTER 2023-05-29 09:18 | Outpatient (AMB) | payer MEDICARE, SELFPAY ==
--- NOTE | 2023-05-29 09:54 | AM.OFFWIN_ITS ---
Intake Vital Signs 05/29/23 09:56 Height 5 ft 5 in BP 132/82 Blood Pressure Location Rt brachial Position Sitting Pulse 68 Pulse Source Pulse Oximeter Temp 98.0 F Temp Source Oral Pulse Oximetry (%) 97 Intake Visit Reasons: EST/left leg inf Intake Note: pt is here for left leg infection Patient Tobacco Use Status: Former Tobacco user Allergies Penicillins Allergy (Verified 05/29/23 09:55) Unknown irbesartan Adverse Reaction (Verified 05/29/23 09:55) Stomach Upset Do you need a note to return to daycare/school/sports/work: No HPI HPI Comments History of Present Illness Details This is a 73-year-old male who presents to the office today for sick visit. Patient complaining of persistent left lower extremity erythema. Patient was evaluated here on 05/24/2023 and was diagnosed with left lower extremity cellulitis. He was sent home on p.o. trimethoprim sulfamethoxazole twice a day x7 days. Patient states he has been taking this antibiotic for 4 days but the left lower extremity erythema has not improved. He has also noticed weeping and purulence discharge from the left lower extremity. He denies any fevers or chills. He denies any systemic symptoms this time. [facility] Medical History Benign essential hypertension Benign prostatic hyperplasia Cerebrovascular accident (CVA) Chronic kidney disease (CKD), stage III (moderate) COVID-19 virus antibody negative CVA (cerebral vascular accident) Dyslipidemia Elevated cholesterol Gait instability Gout Hematuria History of postoperative nausea History of snoring Hypokalemia Impaired fasting glucose Left leg DVT Multiple thyroid nodules Murmur Obesity (BMI 30-39.9) Onychomycosis Polycystic kidney disease Pure hypercholesterolemia Renal cyst Thyroid nodule Vitamin D deficiency Surgical History H/O arthroscopic knee surgery H/O partial thyroidectomy (~10/22/14) H/O varicose vein ligation and stripping Hx of colonoscopy (~08/2020) Family History Father Diabetes Mother Chronic mental illness Other Mental health problem Social History Housing: Apartment Alcohol intake: current Alcohol intake frequency: does not drink Alcohol type: beer Patient Tobacco Use Status: Former Tobacco user Second Hand Smoke Exposure: Yes Current occupational status: employed 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 Cognitive needs: No Hearing needs: No Vision needs: Yes Review of Systems Const All systems reviewed & are unremarkable except as noted in HPI and below Reports no additional complaints Eyes Reports no additional complaints ENT Reports no additional complaints Card Reports no additional complaints Resp Reports no additional complaints GI Reports no additional complaints Musc Reports no additional complaints Skin/Breast Reports system reviewed and no additional complaints, except as documented, Reports change in pigmentation and Reports erythema Neuro Reports no additional complaints Psych Reports no additional complaints Endo Reports no additional complaints Ahsan/Lymph Reports no additional complaints Aller/Immun Reports no additional complaints Physical Exam Vital Signs: Last Vital Signs Temp 98.0 F 05/29/23 09:56 Pulse 68 05/29/23 09:56 BP 132/82 05/29/23 09:56 Pulse Ox 97 05/29/23 09:56 Const General: cooperative, healthy appearing, no acute distress and well developed Orientation/consciousness: patient oriented x3 HEENT Head: Yes normal to inspection Ears: hearing grossly normal bilaterally General nose exam: Normal external nose present Face and sinus: Yes normal facial exam Mouth: Normal oral and palatal mucosa present Eyes General: appearance normal, both eyes and all related structures Pupils: Equal, round and reactive pupils present EOM: EOMs intact bilaterally Resp Effort & Inspection: normal respiratory effort and no respiratory distress Auscultation: clear to auscultation bilaterally Cardio Rate: regular rate Rhythm: regular rhythm Heart sounds: no gallops, no murmurs and no rubs Peripheral pulses: Peripheral pulses 2+ throughout GI Inspection: No distended Palpation (GI): Soft to palpation and nontender Auscultation: normal bowel sounds Skin Other: Circumferential erythema of the left lower extremity extending from the ankle to just inferior to his knee. There is an area of induration with overlying purulent drainage and there is significant serosanguineous discharge from the left lower extremity. Neuro General: patient oriented x3 Cranial nerves: Yes CN's II-XII intact bilaterally and Yes Equal, round and reactive pupils present Gait exam (Neuro): Normal gait present Motor exam (neuro): 5/5 motor strength present throughout Extrem General: Yes normal to inspection, Yes full ROM and Yes no clubbing, cyanosis or edema Psych Appearance: grossly normal Mental Status: mental status grossly normal Assessment & Plan Assessment & Plan (1) Cellulitis of left anterior lower leg: Code(s): L03.116 - Cellulitis of left lower limb Plan: This is a 73-year-old male who presents to the office today with persistent left lower extremity erythema and swelling as well as significant drainage/discharge from the left lower extremity. Patient has been on trimethoprim sulfamethoxazole for 4 days but has not noticed any improvement. Given failure of outpatient oral antibiotics, I recommended the patient proceed to the emergency room as he may require IV antibiotics. Patient was initially hesitant but I explained to the patient that extensive infections like he has can travel to his blood stream and cause sepsis. Patient agrees to proceed to the emergency room for further evaluation and management. Coding Level of Care Code Est Pt Level 3 (43843) Diagnoses Cellulitis of left anterior lower leg L03.116
[2023-05-29 09:56] VITALS: BP 132/82; PULSE 68; TEMP 36.7; O2SAT 97
== END 2023-05-29 11:05 | disposition home or self-care (01) ==
PROVIDERS: PCP Internal Medicine; Visit Provider Physician Assistant Medical
DX: L03.116 Cellulitis of left lower limb (principal)
CPT/HCPCS: 99213

== ENCOUNTER 2023-05-29 12:15 | Inpatient (IN) | payer MEDICARE, SELFPAY ==
--- NOTE | ~2023-05-29 | CT_ITS ---
EXAMINATION: CT LOWER EXTREMITY NON JOINT WITHOUT CONTRAST, LEFT CLINICAL INFORMATION: Evaluate for abscess. COMPARISON: None. TECHNIQUE: A noncontrast CT of the left lower leg is performed with sagittal and coronal reformats. This CT examination was performed using dose optimization techniques as appropriate, variously including the following: *Automated exposure control *Adjustment of mA and/or kV according to patient size (this includes techniques or standardized protocols for targeted exams where dose is matched to indication/reason for exam; i.e. extremities or head) *Use of iterative reconstruction technique Dose Length Product: 265 mGycm. FINDINGS: There is diffuse subcutaneous edema throughout the lower leg with areas of skin thickening most prominent anterolaterally. At the anterolateral aspect, within the subcutaneous fat abutting the fascia overlying the muscles of the anterior compartment there is an elongated collection with subtle peripheral rim suggesting an abscess. This measures 4.6 x 1.1 cm in transverse dimensions, approximately 6 cm in length. No acute osseous abnormality. No underlying evidence of osteomyelitis. CT/CT lower leg LT wo IV con IMPRESSION: There is a 4.6 x 1.1 x 6 cm collection within the subcutaneous fat of the anterolateral aspect of the lower leg. This abuts the fascia overlying the muscles of the anterior compartment and may represent an abscess in the setting of infection/cellulitis. A contrast-enhanced study, MRI, or ultrasound may provide better visualization.
[2023-05-29 12:18] VITALS: BP 155/87; PULSE 82; RESP 16; TEMP 36.9; O2SAT 94; BMI 34.9
--- NOTE | 2023-05-29 12:21 | ED_ITS ---
HPI - Skin/Abscess/Foreign Bdy General Chief complaint: Extremity Injury, Lower Stated complaint: infection in legs Time Seen by Provider: 05/29/23 13:17 Related Data Home Medications Medication Instructions Recorded Confirmed aspirin 81 mg tablet 81 mg PO DAILY 08/08/20 05/29/23 losartan 50 mg tablet 50 mg PO DAILY 02/25/23 05/29/23 acetaminophen 500 mg tablet 500 mg PO Q4H PRN Pain 05/29/23 05/29/23 clobetasol 0.05 % topical cream 1 appl topical BID PRN Skin 05/29/23 05/29/23 Irritation diltiazem HCl 240 mg 240 mg PO DAILY 05/29/23 05/29/23 capsule,extended release 24 hr, controlled (DILT-XR) hydralazine 25 mg tablet 50 mg PO BID 05/29/23 05/29/23 sulfamethoxazole 800 1 tab PO BID 05/29/23 05/29/23 mg-trimethoprim 160 mg tablet Previous Rx's Medication Instructions Recorded atorvastatin 80 mg tablet 80 mg PO BEDTIME 90 days #90 tabs 11/11/22 finasteride 5 mg tablet 5 mg PO DAILY 90 days #90 tabs 02/25/23 Allergies Allergy/AdvReac Type Severity Reaction Status Date / Time Penicillins Allergy Unknown Verified 05/29/23 09:55 irbesartan AdvReac Stomach Verified 05/29/23 09:55 Upset PMFSH Past Medical History Medical History (Updated 05/29/23 @ 16:15 by Timmy Hodgson MD) Abscess of leg Benign essential hypertension Benign prostatic hyperplasia Cerebrovascular accident (CVA) Chronic kidney disease (CKD), stage III (moderate) COVID-19 virus antibody negative CVA (cerebral vascular accident) Dyslipidemia Elevated cholesterol Gait instability Gout Hematuria History of postoperative nausea History of snoring Hypokalemia Impaired fasting glucose Multiple thyroid nodules Murmur Obesity (BMI 30-39.9) Onychomycosis Polycystic kidney disease Pure hypercholesterolemia Renal cyst Thyroid nodule Vitamin D deficiency Surgical History H/O arthroscopic knee surgery H/O partial thyroidectomy (~10/22/14) H/O varicose vein ligation and stripping Hx of colonoscopy (~08/2020) Family History Family History Father Diabetes Mother Chronic mental illness Other Mental health problem Social History Social History Household Members: None Housing: Apartment Do you presently have visiting nurse or other home services: No Alcohol intake: current Alcohol intake frequency: does not drink Alcohol type: beer Patient Tobacco Use Status: Former Tobacco user e-Cigarette/Vaping Use: Former Use Second Hand Smoke Exposure: Yes Current occupational status: employed 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 Patient is a 73-year-old male who presents to the emergency department for is evaluated reports in March 2023 sustained laceration to LLE. Has been treated for recurrent infections since then. States earlier this week he was placed on Bactrim by his primary care provider. Today he presented to Urgent Care for wound evaluation and was advised to come to the emergency department for evaluation. He reports that the redness is overall improving however the swelling has increased and he has developed weeping and a lump present with yellow drainage. Medications Administered Discontinued Medications Generic Name Dose Route Start Last Admin Trade Name Lindsay PRN Reason Stop Dose Admin Acetaminophen 650 mg 05/29/23 14:13 05/29/23 16:09 Acetaminophen 325 Mg Tablet PO 650 mg Q6H PRN Administration Pain, Mild (Pain Scale 1-3) Aspirin 81 mg 05/30/23 09:00 05/30/23 08:36 Aspirin Enteric Coated 81 Mg Tablet. PO 81 mg DAILY KENDRICK Administration Atorvastatin Calcium 80 mg 05/29/23 21:00 05/29/23 21:16 Atorvastatin Calcium 80 Mg Tablet PO 80 mg BEDTIME KENDRICK Administration Diltiazem HCl 240 mg 05/30/23 09:00 05/30/23 08:36 Diltiazem Hcl Cd 240 Mg Cap.Er.Deg PO 240 mg DAILY KENDRICK Administration Protocol Finasteride 5 mg 05/30/23 21:00 05/29/23 21:31 Finasteride 5 Mg Tablet PO 5 mg BEDTIME KENDRICK Administration Heparin Sodium (Porcine) 5,000 unit 05/29/23 14:00 05/30/23 05:57 Heparin Sodium,Porcine 5,000 Unit/Ml Vial SUBCUT 5,000 unit Q8H KENDRICK Administration Hydralazine HCl 50 mg 05/29/23 21:00 05/30/23 08:37 Hydralazine Hcl 50 Mg Tablet PO 50 mg BID KENDRICK Administration Protocol Vancomycin HCl 2,000 mg in 500 mls @ 250 mls/hr 05/29/23 13:30 05/29/23 19:45 Vancomycin/Ns IV 05/29/23 15:29 Infused ONCE ONE Infusion Losartan Potassium 50 mg 05/30/23 09:00 05/30/23 08:36 Losartan Potassium 50 Mg Tablet PO 50 mg DAILY KENDRICK Administration Protocol Sodium Chloride 3 ml 05/29/23 16:00 05/30/23 08:40 0.9 % Sodium Chloride Flush 3 Ml Syringe IVFLUSH 3 ml QSHIFT KENDRICK Administration Medical Decision Making Lab Data 05/30/23 06:12 05/30/23 06:12 Labs: Lab Results 05/29/23 05/29/23 05/29/23 Range/Units 12:35 12:35 12:35 WBC 5.3 (4.8-10.8) X10*3/uL RBC 4.22 L (4.60-5.80) X10*6/uL Hgb 11.8 L (14.0-18.0) g/dl Hct 35.9 L (42.0-52.0) % MCV 85.1 (80.0-98.0) fL MCH 28.0 (27.0-33.0) pg MCHC 32.9 (31.0-36.0) g/dl RDW 14.0 (11.0-16.0) % Plt Count 479 H D (160-400) X10*3/uL MPV 9.1 L (9.4-12.4) fL Immature Gran % (Auto) 0.8 H (0.0-0.4) % Neut % (Auto) 85.1 H (45-73) % Lymph % (Auto) 7.3 L (20-40) % [place] % (Auto) 4.7 (2-11) % Eos % (Auto) 1.3 (0-4) % Baso % (Auto) 0.8 (0-2) % Lymph # (Auto) 0.4 L (1.2-4.9) X10*3/uL [place] # (Auto) 0.3 (0.1-1.2) X10*3/uL Eos # (Auto) 0.1 (0.0-0.4) X10*3/uL Baso # (Auto) 0.0 (0.0-0.2) X10*3/uL Abs Immat Gran (auto) 0.04 H (0.00-0.03) X10*3/uL Absolute Neuts (auto) 4.5 (2.0-8.3) x10*3/uL Absolute Nucleated RBC 0.000 (0.0-0.012) X10*3/uL Nucleated RBC % (auto) 0.0 (0.0-0.2) /100WBC Sodium 141 (135-145) mmol/L Potassium 3.3 (3.3-5.1) mmol/L Chloride 104 (96-108) mmol/L Carbon Dioxide 28 (22-29) mmol/L Anion Gap 12 (12-20) BUN 28 H (9-16) mg/dL Creatinine 2.35 H (0.5-1.4) mg/dL Estim Creat Clear Calc 30.5 Estimated GFR 27 Random Glucose 113 (60-115) mg/dL Lactic Acid 0.9 (0.5-2.0) mmol/L Calcium 8.9 (8.4-10.2) mg/dL Discharge Plan Discharge Clinical Impression: Cellulitis of left leg, Renal failure, chronic Patient Disposition: Admitted As Inpatient Discharge Date/Time: 05/29/23 17:22
[2023-05-29 12:42] LABS: MANUAL DIFF FLAG NO
[2023-05-29 12:58] LABS: Lactic Acid 0.9 mmol/L (0.5-2.0)
[2023-05-29 13:00] LABS: Anion Gap 12 (12-20); Blood Urea Nitrogen 28 mg/dL (9-16); Calcium 8.9 mg/dL (8.4-10.2); Carbon Dioxide 28 mmol/L (22-29); Chloride 104 mmol/L (96-108); Creatinine Clr Calc Pharmacy 30.5; Estimated Glomerular Filt Rate 27; Glucose Random 113 mg/dL (60-115); Potassium 3.3 mmol/L (3.3-5.1); Sodium 141 mmol/L (135-145)
[2023-05-29 13:04] LABS: Basophils Percent Auto 0.8 % (0-2); Eosinophils Absolute Auto 0.1 X10*3/uL (0.0-0.4); Eosinophils Percent Auto 1.3 % (0-4); Hematocrit 35.9 % (42.0-52.0); Hemoglobin 11.8 g/dl (14.0-18.0); Imm Gran Abs Auto 0.04 X10*3/uL (0.00-0.03); Imm Gran Pct Auto 0.8 % (0.0-0.4); Lymphocytes Absolute Auto 0.4 X10*3/uL (1.2-4.9); Lymphocytes Percent Auto 7.3 % (20-40); Mean Corpuscular HGB Conc 32.9 g/dl (31.0-36.0); Mean Corpuscular Volume 85.1 fL (80.0-98.0); Mean Platelet Volume 9.1 fL (9.4-12.4); Monocytes Absolute Auto 0.3 X10*3/uL (0.1-1.2); Monocytes Percent Auto 4.7 % (2-11); Neutrophils Absolute Auto 4.5 x10*3/uL (2.0-8.3); Neutrophils Percent Auto 85.1 % (45-73); Platelet Count 479 X10*3/uL (160-400); Red Blood Count 4.22 X10*6/uL (4.60-5.80); White Blood Count 5.3 X10*3/uL (4.8-10.8)
--- NOTE | 2023-05-29 13:21 | ED_ITS ---
HPI - General Adult General Chief complaint: Extremity Injury, Lower Stated complaint: infection in legs Time Seen by Provider: 05/29/23 13:17 Source: patient Mode of arrival: ambulatory Limitations: no limitations History of Present Illness HPI narrative: This is a pleasant 73 years old male presented to the emergency department complaining of left leg infection he has been on antibiotic day 4 (Bactrim), but he states that he has fever and no getting better. He was referred to us by the urgent care ,he has history of chronic renal failure Onset (ago): day(s) (4) Location: lower extremity Radiation: non-radiation Severity: moderate Pain Consistency: constant Relieving factors: none Exacerbating factors: none Associated symptoms: denies other symptoms Related Data Home Medications Medication Instructions Recorded Confirmed aspirin 81 mg tablet 81 mg PO DAILY 08/08/20 05/29/23 losartan 50 mg tablet 50 mg PO DAILY 02/25/23 05/29/23 acetaminophen 500 mg tablet 500 mg PO Q4H PRN Pain 05/29/23 05/29/23 clobetasol 0.05 % topical cream 1 appl topical BID PRN Skin 05/29/23 05/29/23 Irritation diltiazem HCl 240 mg 240 mg PO DAILY 05/29/23 05/29/23 capsule,extended release 24 hr, controlled (DILT-XR) hydralazine 25 mg tablet 50 mg PO BID 05/29/23 05/29/23 sulfamethoxazole 800 1 tab PO BID 05/29/23 05/29/23 mg-trimethoprim 160 mg tablet Previous Rx's Medication Instructions Recorded atorvastatin 80 mg tablet 80 mg PO BEDTIME 90 days #90 tabs 11/11/22 finasteride 5 mg tablet 5 mg PO DAILY 90 days #90 tabs 02/25/23 Allergies Allergy/AdvReac Type Severity Reaction Status Date / Time Penicillins Allergy Unknown Verified 05/29/23 09:55 irbesartan AdvReac Stomach Verified 05/29/23 09:55 Upset Review of Systems Eyes: Eyes: Reports no additional eye complaints ENT: Reports system reviewed and no additional complaints, except as documented Cardiovascular: Cardiovascular: Reports no additional cardiovascular complaints Respiratory: Respiratory: Reports no additional respiratory complaints Musculoskeletal: Musculoskeletal: Reports other (left leg pain) [facility] Past Medical History Medical History (Updated 05/29/23 @ 14:03 by Jimmie Fountain MD) Benign essential hypertension Benign prostatic hyperplasia Cerebrovascular accident (CVA) Chronic kidney disease (CKD), stage III (moderate) COVID-19 virus antibody negative CVA (cerebral vascular accident) Dyslipidemia Elevated cholesterol Gait instability Gout Hematuria History of postoperative nausea History of snoring Hypokalemia Impaired fasting glucose Multiple thyroid nodules Murmur Obesity (BMI 30-39.9) Onychomycosis Polycystic kidney disease Pure hypercholesterolemia Renal cyst Thyroid nodule Vitamin D deficiency Surgical History H/O arthroscopic knee surgery H/O partial thyroidectomy (~10/22/14) H/O varicose vein ligation and stripping Hx of colonoscopy (~08/2020) Family History Family History Father Diabetes Mother Chronic mental illness Other Mental health problem Social History Social History Housing: Apartment Alcohol intake: current Alcohol intake frequency: does not drink Alcohol type: beer Patient Tobacco Use Status: Former Tobacco user Second Hand Smoke Exposure: Yes Advance Directives: No Advance Directives Information Provided: Yes Current occupational status: employed 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 Cognitive needs: No Hearing needs: No Vision needs: Yes Physical Exam ED Vital Signs: Vital Signs - 24 hr 05/29/23 12:18 Temperature 98.4 F Pulse Rate 82 Respiratory Rate 16 Blood Pressure 155/87 H Pulse Oximetry 94 Oxygen Delivery Method Room Air BMI result Body Mass Index 34.9 Const General: cooperative Nutritional Appearance: well nourished Orientation/consciousness: patient oriented x3 Limitations: no limitations HENMT Head: Yes normal to inspection Face and sinus: Yes normal facial exam Neck Neck: Yes normal visual inspection and Yes full ROM Chest Chest palpation & inspection: normal inspection of the chest Resp Effort & Inspection: normal respiratory effort Auscultation: clear to auscultation bilaterally Cardio Jugular venous distension: no JVD Rate: regular rate Rhythm: regular rhythm GI Inspection: Yes normal to inspection Palpation (GI): Soft to palpation, not firm and nontender Auscultation: normal bowel sounds Neuro General: patient oriented x3 Cranial nerves: Yes CN's II-XII intact bilaterally Extrem Other: Redness in the right leg small ulceration see picture Medications Administered Generic Name Dose Route Start Last Admin Trade Name Freq PRN Reason Stop Dose Admin Heparin Sodium (Porcine) 5,000 unit 05/29/23 14:00 05/29/23 15:21 Heparin Sodium,Porcine 5,000 Unit/Ml Vial SUBCUT 5,000 unit Q8H KENDRICK Administration Sodium Chloride 3 ml 05/29/23 16:00 05/29/23 15:20 0.9 % Sodium Chloride Flush 3 Ml Syringe IVFLUSH Not Given QSHIFT KENDRICK Discontinued Medications Generic Name Dose Route Start Last Admin Trade Name Lindsay PRN Reason Stop Dose Admin Vancomycin HCl 2,000 mg in 500 mls @ 250 mls/hr 05/29/23 13:30 05/29/23 14:40 Vancomycin/Ns IV 05/29/23 15:29 250 mls/hr ONCE ONE Administration Medical Decision Making Medical Decision Making [facility] Narrative: Patient presented with cellulitis of of the leg failure of the outpatient antibiotic therapy will admit him for IV antibiotic Differential Diagnosis Differential Diagnoses: The differential diagnosis associated with the presentation includes Cellulitis/osteomyelitis/vasculitis Admission/Observation Consideration of admission/observation: Escalation of care including admission/observation considered Consult Healthcare Provider Management of the patient was discussed with: Hospitalist dr George Lab Data [facility] Lab Attestation statement: I reviewed the patient's lab results. 05/29/23 12:35 05/29/23 12:35 Labs: Lab Results 05/29/23 05/29/23 05/29/23 Range/Units 12:35 12:35 12:35 WBC 5.3 (4.8-10.8) X10*3/uL RBC 4.22 L (4.60-5.80) X10*6/uL Hgb 11.8 L (14.0-18.0) g/dl Hct 35.9 L (42.0-52.0) % MCV 85.1 (80.0-98.0) fL MCH 28.0 (27.0-33.0) pg MCHC 32.9 (31.0-36.0) g/dl RDW 14.0 (11.0-16.0) % Plt Count 479 H D (160-400) X10*3/uL MPV 9.1 L (9.4-12.4) fL Immature Gran % (Auto) 0.8 H (0.0-0.4) % Neut % (Auto) 85.1 H (45-73) % Lymph % (Auto) 7.3 L (20-40) % [place] % (Auto) 4.7 (2-11) % Eos % (Auto) 1.3 (0-4) % Baso % (Auto) 0.8 (0-2) % Lymph # (Auto) 0.4 L (1.2-4.9) X10*3/uL [place] # (Auto) 0.3 (0.1-1.2) X10*3/uL Eos # (Auto) 0.1 (0.0-0.4) X10*3/uL Baso # (Auto) 0.0 (0.0-0.2) X10*3/uL Abs Immat Gran (auto) 0.04 H (0.00-0.03) X10*3/uL Absolute Neuts (auto) 4.5 (2.0-8.3) x10*3/uL Absolute Nucleated RBC 0.000 (0.0-0.012) X10*3/uL Nucleated RBC % (auto) 0.0 (0.0-0.2) /100WBC Sodium 141 (135-145) mmol/L Potassium 3.3 (3.3-5.1) mmol/L Chloride 104 (96-108) mmol/L Carbon Dioxide 28 (22-29) mmol/L Anion Gap 12 (12-20) BUN 28 H (9-16) mg/dL Creatinine 2.35 H (0.5-1.4) mg/dL Estim Creat Clear Calc 30.5 Estimated GFR 27 Random Glucose 113 (60-115) mg/dL Lactic Acid 0.9 (0.5-2.0) mmol/L Calcium 8.9 (8.4-10.2) mg/dL Independent Interpretation I performed an independent interpretation of an: CT Scan Radiology Impression Discussion of test interpretation with radiology: I have reviewed the radiologist's reading. Tests considered The following testing was considered but not selected: I consider an ultrasound normal there is no calf tenderness I do not think he h as DVT Prescription Management I considered prescription management with: Antibiotic Discharge Plan Discharge Clinical Impression: Cellulitis of left leg, Renal failure, chronic Patient Disposition: Admitted As Inpatient
--- NOTE | 2023-05-29 13:52 | PHA.MEDREC ---
Addendum entered by Sherrie Reid RPh 05/29/23 13:59: hydralazine changed to 50mg bid as reflected in list Original Note: Pharmacy Consult ? Medication Reconciliation Pharmacy has completed the medication reconciliation. spoke with patient and confirmed medications.
[2023-05-29 13:58] VITALS: BP 163/101; PULSE 75; RESP 18; TEMP 37.1; O2SAT 95
--- NOTE | 2023-05-29 13:59 | PM.IMHP ---
History of Present Illness Date of Service: 05/29/23 Chief Complaint: LLE drainage 73M PMH CVA (mild residual expressive aphasia), CKD IIIB (polycystic kidney disease), HTN, HLD presented with LLE erythema, pain, drainage. in march 2023 patient tripped on concrete outdoor stairs and scrape his left aguila. at that time was treated for cellulitis. about 2 weeks ptp, patient had recurrence of erythema, swelling, low grade fever, was started on bactrim several days ptp, minimal improvement. has notice drainage. went to urgent care and sent to ED. Review of Systems Review of Systems: Yes all other systems are reviewed and are negative [facility] Medical History (Updated 05/29/23 @ 14:03 by Jimmie Fountain MD) Benign essential hypertension Benign prostatic hyperplasia Cerebrovascular accident (CVA) Chronic kidney disease (CKD), stage III (moderate) COVID-19 virus antibody negative CVA (cerebral vascular accident) Dyslipidemia Elevated cholesterol Gait instability Gout Hematuria History of postoperative nausea History of snoring Hypokalemia Impaired fasting glucose Multiple thyroid nodules Murmur Obesity (BMI 30-39.9) Onychomycosis Polycystic kidney disease Pure hypercholesterolemia Renal cyst Thyroid nodule Vitamin D deficiency Family History Father Diabetes Mother Chronic mental illness Other Mental health problem Surgical History H/O arthroscopic knee surgery H/O partial thyroidectomy (~10/22/14) H/O varicose vein ligation and stripping Hx of colonoscopy (~08/2020) Social History Housing: Apartment Alcohol intake: current Alcohol intake frequency: does not drink Alcohol type: beer Patient Tobacco Use Status: Former Tobacco user Second Hand Smoke Exposure: Yes Advance Directives: No Advance Directives Information Provided: Yes Current occupational status: employed 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 Cognitive needs: No Hearing needs: No Vision needs: Yes Meds Allergies Allergy/AdvReac Type Severity Reaction Status Date / Time Penicillins Allergy Unknown Verified 05/29/23 09:55 irbesartan AdvReac Stomach Verified 05/29/23 09:55 Upset Active Medications: Current Medications Atorvastatin Calcium (Atorvastatin Calcium 80 Mg Tablet) 80 mg PO BEDTIME [facility] Diltiazem HCl (Diltiazem Hcl Cd 240 Mg Cap.Er.Deg) 240 mg PO DAILY [facility]; Protocol Finasteride (Finasteride 5 Mg Tablet) 5 mg PO DAILY [facility] Heparin Sodium (Porcine) (Heparin Sodium,Porcine 5,000 Unit/Ml Vial) 5,000 unit SUBCUT Q8H [facility] Hydralazine HCl (Hydralazine Hcl 50 Mg Tablet) 50 mg PO BID [facility]; Protocol Vancomycin HCl (Vancomycin/Ns) 2,000 mg in 500 mls @ 250 mls/hr IV ONCE ONE Stop: 05/29/23 15:29 Losartan Potassium (Losartan Potassium 50 Mg Tablet) 50 mg PO DAILY [facility]; Protocol Non-Formulary Medication (Acetaminophen) 500 mg PO Q4H PRN PRN Reason: Pain, Mild (Pain Scale 1-3) Non-Formulary Medication (Aspirin) 81 mg PO DAILY [facility] Pharmacy Consult (Consult Rx Vancomycin Dosing) 1 each MISCELLANE DAILY PRN PRN Reason: Consult order Pharmacy Consult (Consult Rx Perform Med Rec) 1 each MISCELLANE ONCE PRN PRN Reason: Consult order Sodium Chloride (0.9 % Sodium Chloride Flush 3 Ml Syringe) [facility] Medications Medication Instructions Recorded Confirmed Last Taken Type aspirin 81 mg tablet 81 mg PO DAILY 08/08/20 05/29/23 Unknown History losartan 50 mg tablet 50 mg PO DAILY 02/25/23 05/29/23 Unknown History acetaminophen 500 mg tablet 500 mg PO Q4H PRN Pain 05/29/23 05/29/23 Unknown History clobetasol 0.05 % topical cream 1 appl topical BID PRN Skin 05/29/23 05/29/23 Unknown History Irritation diltiazem HCl 240 mg 240 mg PO DAILY 05/29/23 05/29/23 Unknown History capsule,extended release 24 hr, controlled (DILT-XR) hydralazine 25 mg tablet 50 mg PO BID 05/29/23 05/29/23 Unknown History sulfamethoxazole 800 1 tab PO BID 05/29/23 05/29/23 05/29/23 History mg-trimethoprim 160 mg tablet Physical Exam Vital Signs and Narrative: Vital Signs: Last Vital Signs Temp 98.7 F 05/29/23 13:58 Pulse 75 05/29/23 13:58 Resp 18 05/29/23 13:58 BP 163/101 H 05/29/23 13:58 Pulse Ox 95 05/29/23 13:58 O2 Del Method Room Air 05/29/23 13:58 BMI result Body Mass Index 34.9 LLE ertyhema, swelling, fluctuance, drainage from wound (see pic in ED note) Results Labs 05/29/23 12:35 05/29/23 12:35 Labs: Laboratory Results - last 24 hr 05/29/23 05/29/23 05/29/23 12:35 12:35 12:35 MCV 85.1 MCH 28.0 MCHC 32.9 RDW 14.0 Plt Count 479 H D MPV 9.1 L Immature Gran % (Auto) 0.8 H Neut % (Auto) 85.1 H Lymph % (Auto) 7.3 L [place] % (Auto) 4.7 Eos % (Auto) 1.3 Baso % (Auto) 0.8 Lymph # (Auto) 0.4 L [place] # (Auto) 0.3 Eos # (Auto) 0.1 Baso # (Auto) 0.0 Abs Immat Gran (auto) 0.04 H Absolute Neuts (auto) 4.5 Absolute Nucleated RBC 0.000 Nucleated RBC % (auto) 0.0 Anion Gap 12 Estim Creat Clear Calc 30.5 Estimated GFR 27 Random Glucose 113 Lactic Acid 0.9 Calcium 8.9 Assessment and Plan (1) Cellulitis of left leg: Status: Acute Plan 73M PMH CVA (mild residual expressive aphasia), CKD IIIB (polycystic kidney disease), HTN, HLD presented with LLE erythema, pain, drainage LLE abscess and cellulitis iv vanc, cultures, CT, surgery eval obesity weight loss recommended history of CVA asa, statin CKD IIIB, polycystic kidneys monitor HTN losartan, hydralazine, cardizem hld statin dvt prophylaxis - hep sq full code patient with failure of po abx, requiring iv abx, will likely need 2 midnights inpatient Time Spent With Patient Time: Total time managing care of this patient today ____ minutes. Quality Stroke Does the patient have a stroke diagnosis?: No VTE Prior VTE?: No VTE Risk Level:: Medical - moderate - high VTE Device Contraindication: Treatment Not Indicated VTE Drug Contraindication: N/A - Med Ordered
[2023-05-29] MEDS: vancomycin/NS 2,000 MG/500 ML PLAST..BAG 250 MG IV (14:40)
--- NOTE | 2023-05-29 14:51 | PHA.PROG ---
Admission Date/Time: May 29, 2023 13:57 Indication: skin Weight in k.254 kg Adjusted body weight in Kg: [place] body weight in Kg: Obesity Dosing Indication % IBW: Serum Creatinine - Last 168 Hours 05/29/23 12:35 Creatinine 2.35 H Estimated CrCl and GFR - Last 168 Hours 05/29/23 12:35 Estim Creat Clear Calc 30.5 Estimated GFR 27 Vancomycin Loading Dose: 2000mg Current Vancomycin Dosing Regimen: 750mg q24h Vancomycin Monitoring using AUC goal of 400 - 600 range with trough as surrogate marker: auc 552, trough 18.2 Date and Time for next Vancomycin Level to be drawn: random 05/31 @1300 Pharmacist Comments on Vancomycin Plan: Vancomycin dosing will take advantage of [employer] [place] as a clinical decision support tool that uses Bayesian modeling to calculate individual patient's pharmacokinetic parameters and forecast the patient's drug concentration time course with the target goal AUC 24 range of 400 - 600 mg/L/hr.
--- NOTE | 2023-05-29 14:59 | PC.NURSE ---
pt ambulates independently in the department, he does have some leaking from left lower leg wound site. IV antibiotics infusing
[2023-05-29] MEDS: Heparin Sodium,Porcine 5,000 UNIT/ML VIAL 5000 UNIT SUBCUT ×2 (15:21→21:17)
--- NOTE | 2023-05-29 16:08 | P.CONGS_ITS ---
History of Present Illness Consult details Consult date: 05/29/23 Narrative: 73M referred for left leg cellulitis and question of abscess. The patient describes having fallen last March 2023, hitting his left lower leg on a hard surface with subsequent swelling on an area on the anterolateral aspect. He says this improved but he has has some mild persistent swelling and redness since then. About 10 days ago, he says this seemed to have worsened again. He was brought to the ED by his sister who lives outside of [place]. The patient lives alone and seems to have had limited mobility. He has multiple medical problems including previous CVA, Polyscystic kidney, and CKD. He describes pain and drainage on this area. Review of Systems Constitutional: Constitutional: Denies chills and Denies fever(s) Cardiovascular: Cardiovascular: Denies chest pain and Reports dyspnea on exertion Respiratory: Respiratory: Denies cough and Reports dyspnea on exertion Gastrointestinal: Gastrointestinal: Denies abdominal pain Genitourinary: Genitourinary: Denies dysuria Musculoskeletal: Musculoskeletal: Reports abnormal gait Neurologic: Reports abnormal gait [facility] Past Medical History Medical History (Updated 05/29/23 @ 16:15 by Timmy Hodgson MD) Abscess of leg Benign essential hypertension Benign prostatic hyperplasia Cerebrovascular accident (CVA) Chronic kidney disease (CKD), stage III (moderate) COVID-19 virus antibody negative CVA (cerebral vascular accident) Dyslipidemia Elevated cholesterol Gait instability Gout Hematuria History of postoperative nausea History of snoring Hypokalemia Impaired fasting glucose Multiple thyroid nodules Murmur Obesity (BMI 30-39.9) Onychomycosis Polycystic kidney disease Pure hypercholesterolemia Renal cyst Thyroid nodule Vitamin D deficiency Family History Family History Father Diabetes Mother Chronic mental illness Other Mental health problem Surgical History Surgical History H/O arthroscopic knee surgery H/O partial thyroidectomy (~10/22/14) H/O varicose vein ligation and stripping Hx of colonoscopy (~08/2020) Social History Social History Housing: Apartment Alcohol intake: current Alcohol intake frequency: does not drink Alcohol type: beer Patient Tobacco Use Status: Former Tobacco user Second Hand Smoke Exposure: Yes Advance Directives: No Advance Directives Information Provided: Yes Current occupational status: employed 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 Cognitive needs: No Hearing needs: No Vision needs: Yes Meds Allergies Allergy/AdvReac Type Severity Reaction Status Date / Time Penicillins Allergy Unknown Verified 05/29/23 09:55 irbesartan AdvReac Stomach Verified 05/29/23 09:55 Upset Active Medications: Current Medications Acetaminophen (Acetaminophen 325 Mg Tablet) 650 mg PO Q6H PRN PRN Reason: Pain, Mild (Pain Scale 1-3) Aspirin (Aspirin Enteric Coated 81 Mg Tablet.Dr) 81 mg PO DAILY [facility] Atorvastatin Calcium (Atorvastatin Calcium 80 Mg Tablet) 80 mg PO BEDTIME [facility] Diltiazem HCl (Diltiazem Hcl Cd 240 Mg Cap.Er.Deg) 240 mg PO DAILY [facility]; Protocol Finasteride (Finasteride 5 Mg Tablet) 5 mg PO DAILY [facility] Heparin Sodium (Porcine) (Heparin Sodium,Porcine 5,000 Unit/Ml Vial) 5,000 unit SUBCUT Q8H [facility] Last Admin: 05/29/23 15:21 Dose: 5,000 unit Hydralazine HCl (Hydralazine Hcl 50 Mg Tablet) 50 mg PO BID [facility]; Protocol Vancomycin HCl 750 mg/ Sodium (Chloride) 265 mls @ 265 mls/hr IV Q24H [facility] Losartan Potassium (Losartan Potassium 50 Mg Tablet) 50 mg PO DAILY [facility]; Protocol Pharmacy Consult (Consult Rx Vancomycin Dosing) 1 each MISCELLANE DAILY PRN PRN Reason: Consult order Pharmacy Consult (Consult Rx Perform Med Rec) 1 each MISCELLANE ONCE PRN PRN Reason: Consult order Sodium Chloride (0.9 % Sodium Chloride Flush 3 Ml Syringe) 3 ml IVFLUSH QSHIFT [facility] Last Admin: 05/29/23 15:20 Dose: Not Given Home Medications Medication Instructions Recorded Confirmed Last Taken Type aspirin 81 mg tablet 81 mg PO DAILY 08/08/20 05/29/23 Unknown History losartan 50 mg tablet 50 mg PO DAILY 02/25/23 05/29/23 Unknown History acetaminophen 500 mg tablet 500 mg PO Q4H PRN Pain 05/29/23 05/29/23 Unknown History clobetasol 0.05 % topical cream 1 appl topical BID PRN Skin 05/29/23 05/29/23 Unknown History Irritation diltiazem HCl 240 mg 240 mg PO DAILY 05/29/23 05/29/23 Unknown History capsule,extended release 24 hr, controlled (DILT-XR) hydralazine 25 mg tablet 50 mg PO BID 05/29/23 05/29/23 Unknown History sulfamethoxazole 800 1 tab PO BID 05/29/23 05/29/23 05/29/23 History mg-trimethoprim 160 mg tablet Physical Exam Vital Signs: Vital Signs: Last Vital Signs Temp 98.7 F 05/29/23 13:58 Pulse 75 05/29/23 13:58 Resp 18 05/29/23 13:58 BP 163/101 H 05/29/23 13:58 Pulse Ox 95 05/29/23 13:58 O2 Del Method Room Air 05/29/23 13:58 BMI result Body Mass Index 34.9 Const: General: comfortable and no acute distress Resp: Effort & Inspection: normal respiratory effort Cardio: Rate: regular rate GI: Palpation (GI): Soft to palpation and nontender Extrem: Other: left lower leg on anterolateral aspect - redness, induration about 6 cm, with central fluctuance, sone skin breakdown with weeping in the middle Results Labs 05/29/23 12:35 05/29/23 12:35 Labs: Abnormal lab results 05/29/23 05/29/23 Range/Units 12:35 12:35 RBC 4.22 L (4.60-5.80) X10*6/uL Hgb 11.8 L (14.0-18.0) g/dl Hct 35.9 L (42.0-52.0) % Plt Count 479 H D (160-400) X10*3/uL MPV 9.1 L (9.4-12.4) fL Immature Gran % (Auto) 0.8 H (0.0-0.4) % Neut % (Auto) 85.1 H (45-73) % Lymph % (Auto) 7.3 L (20-40) % Lymph # (Auto) 0.4 L (1.2-4.9) X10*3/uL Abs Immat Gran (auto) 0.04 H (0.00-0.03) X10*3/uL BUN 28 H (9-16) mg/dL Creatinine 2.35 H (0.5-1.4) mg/dL Short CBC 05/29/23 Range/Units 12:35 WBC 5.3 (4.8-10.8) X10*3/uL Hgb 11.8 L (14.0-18.0) g/dl Hct 35.9 L (42.0-52.0) % Plt Count 479 H D (160-400) X10*3/uL BMP 05/29/23 12:35 Sodium 141 Potassium 3.3 Chloride 104 Carbon Dioxide 28 BUN 28 H Creatinine 2.35 H Calcium 8.9 All other labs normal. Laboratory Results WBC 5.3 X10*3/uL (4.8-10.8) 05/29/23 12:35 RBC 4.22 X10*6/uL (4.60-5.80) L 05/29/23 12:35 Hgb 11.8 g/dl (14.0-18.0) L 05/29/23 12:35 Hct 35.9 % (42.0-52.0) L 05/29/23 12:35 MCV 85.1 fL (80.0-98.0) 05/29/23 12:35 MCH 28.0 pg (27.0-33.0) 05/29/23 12:35 MCHC 32.9 g/dl (31.0-36.0) 05/29/23 12:35 RDW 14.0 % (11.0-16.0) 05/29/23 12:35 Plt Count 479 X10*3/uL (160-400) H D 05/29/23 12:35 MPV 9.1 fL (9.4-12.4) L 05/29/23 12:35 Immature Gran % (Auto) 0.8 % (0.0-0.4) H 05/29/23 12:35 Neut % (Auto) 85.1 % (45-73) H 05/29/23 12:35 Lymph % (Auto) 7.3 % (20-40) L 05/29/23 12:35 [place] % (Auto) 4.7 % (2-11) 05/29/23 12:35 Eos % (Auto) 1.3 % (0-4) 05/29/23 12:35 Baso % (Auto) 0.8 % (0-2) 05/29/23 12:35 Lymph # (Auto) 0.4 X10*3/uL (1.2-4.9) L 05/29/23 12:35 [place] # (Auto) 0.3 X10*3/uL (0.1-1.2) 05/29/23 12:35 Eos # (Auto) 0.1 X10*3/uL (0.0-0.4) 05/29/23 12:35 Baso # (Auto) 0.0 X10*3/uL (0.0-0.2) 05/29/23 12:35 Abs Immat Gran (auto) 0.04 X10*3/uL (0.00-0.03) H 05/29/23 12:35 Absolute Neuts (auto) 4.5 x10*3/uL (2.0-8.3) 05/29/23 12:35 Absolute Nucleated RBC 0.000 X10*3/uL (0.0-0.012) 05/29/23 12:35 Nucleated RBC % (auto) 0.0 /100WBC (0.0-0.2) 05/29/23 12:35 Sodium 141 mmol/L (135-145) 05/29/23 12:35 Potassium 3.3 mmol/L (3.3-5.1) 05/29/23 12:35 Chloride 104 mmol/L (96-108) 05/29/23 12:35 Carbon Dioxide 28 mmol/L (22-29) 05/29/23 12:35 Anion Gap 12 (12-20) 05/29/23 12:35 BUN 28 mg/dL (9-16) H 05/29/23 12:35 Creatinine 2.35 mg/dL (0.5-1.4) H 05/29/23 12:35 Estim Creat Clear Calc 30.5 05/29/23 12:35 Estimated GFR 27 05/29/23 12:35 Random Glucose 113 mg/dL (60-115) 05/29/23 12:35 Lactic Acid 0.9 mmol/L (0.5-2.0) 05/29/23 12:35 Calcium 8.9 mg/dL (8.4-10.2) 05/29/23 12:[address] 05/29/23 15:01 IMPRESSION: There is a 4.6 x 1.1 x 6 cm collection within the subcutaneous fat of the anterolateral aspect of the lower leg. This abuts the fascia overlying the muscles of the anterior compartment and may represent an abscess in the setting of infection/cellulitis. A contrast-enhanced study, MRI, or ultrasound may provide better visualization. Assessment and Plan (1) Cellulitis of left leg: Status: Acute (2) Abscess of leg: Status: Acute In view of the fluctuant area, cellulitis and CT scan findings, I explained to h im it is best to proceed with I and D. I explained to him the technique of the procedure. I reviewed the risks, benefits and alternatives and he had given verbal consent. I prepped and draped the area. Lidocaine 1% was used for local anesthesia. I made a cruciate incision on the skin using a blade 11 and carried this down throught the full thickness of the skin into the suncutanoeus layer. A cavity with fluid collection was entered. Large amounts of thick, oily-looking fluid was drained. This appeared to be c/w subcutaneous falt necrosis. I blunty debrided the cavity with a qtip. I then applied dressings and wrapped the leg with Kerlix and Scooby. Cultures were taken. He tolerated the procedure well. The cultures should be followed. Dressing changes daily with dry gauze should be done. He has been started on antibiotics. Time Spent With Patient Time: Total time managing care of this patient today ____ minutes. Procedures Date of Service Date of Service: 05/29/23 Abscess I/D Consent for Procedure: Elective - informed consent obtained Site: lower extremity Anesthetic used: lidocaine 1% Technique: incised with #11 blade Amount of fluid (mL): 5 Irrigation: No Packing used?: none
[2023-05-29] MEDS: Acetaminophen 325 MG TABLET 650 MG PO (16:09)
--- NOTE | 2023-05-29 16:13 | PC.NURSE ---
DR ZENG AT THE BEDSIDE TO I+D LEFT LOWER LEG ABSCESS, WOUND CULTURE OBTAINED AND SENT, PT TOLERATED THE PROCEDURE AND WAS MEDICATED FOR RESIDUAL PAIN, DSD REPLACED
[2023-05-29 16:21] VITALS: BP 155/87; PULSE 68; RESP 16; TEMP 36.8; O2SAT 96
[2023-05-29 17:12] VITALS: BP 159/96; PULSE 68; RESP 20; TEMP 36.7; O2SAT 94
[2023-05-29 19:45] VITALS: BP 134/84; PULSE 64; RESP 16; TEMP 36.3; O2SAT 94
[2023-05-29] MEDS: hydrALAZINE HCl 50 MG TABLET PO (21:16)
[2023-05-29] MEDS: Atorvastatin Calcium 80 MG TABLET PO (21:16)
[2023-05-29] MEDS: 0.9 % Sodium Chloride Flush 3 ML SYRINGE IVFLUSH (21:18)
[2023-05-29] MEDS: Finasteride 5 MG TABLET PO (21:31)
[2023-05-30] MEDS: Heparin Sodium,Porcine 5,000 UNIT/ML VIAL 5000 UNIT SUBCUT (05:57)
[2023-05-30 06:47] LABS: Hematocrit 35.2 % (42.0-52.0); Hemoglobin 11.5 g/dl (14.0-18.0); Mean Corpuscular HGB Conc 32.7 g/dl (31.0-36.0); Mean Corpuscular Hemoglobin 27.8 pg (27.0-33.0); Mean Platelet Volume 9.2 fL (9.4-12.4); Platelet Count 422 X10*3/uL (160-400); Red Blood Count 4.14 X10*6/uL (4.60-5.80); Red Cell Distribution Width 13.9 % (11.0-16.0)
[2023-05-30 07:02] LABS: Anion Gap 13 (12-20); Blood Urea Nitrogen 22 mg/dL (9-16); Calcium 8.6 mg/dL (8.4-10.2); Carbon Dioxide 26 mmol/L (22-29); Chloride 105 mmol/L (96-108); Creatinine Clr Calc Pharmacy 36.1; Estimated Glomerular Filt Rate 33; Glucose Fasting 94 mg/dL (60-99); Potassium 3.5 mmol/L (3.3-5.1); Sodium 140 mmol/L (135-145)
[2023-05-30 08:00] VITALS: BP 170/100; PULSE 84; RESP 16; TEMP 36.3; O2SAT 94
[2023-05-30] MEDS: dilTIAZem HCL CD 240 MG CAP.ER.DEG PO (08:36)
[2023-05-30] MEDS: Losartan Potassium 50 MG TABLET PO (08:36)
[2023-05-30] MEDS: Aspirin Enteric Coated 81 MG TABLET.DR PO (08:36)
[2023-05-30] MEDS: hydrALAZINE HCl 50 MG TABLET PO (08:37)
[2023-05-30] MEDS: 0.9 % Sodium Chloride Flush 3 ML SYRINGE IVFLUSH (08:40)
--- NOTE | 2023-05-30 08:43 | PM.DS ---
DS: Providers Provider Date of Service: 05/30/23 Date of admission: 05/29/23 13:57 Primary care physician: Bhavesh Arora MD Consults: 05/29/23 13:55 Consult to General Surgery Routine Consulting Provider: [facility] General Surgeons Reason for consultation: LLE ?abscess DS: Diagnosis Discharge Diagnosis (1) Cellulitis of left leg: Status: Acute (2) Abscess of leg: Status: Acute DS: Summary Hospital Course Hospital Course: from initial hpi: 73M PMH CVA (mild residual expressive aphasia), CKD IIIB (polycystic kidney disease), HTN, HLD presented with LLE erythema, pain, drainage. in march 2023 patient tripped on concrete outdoor stairs and scrape his left aguila. at that time was treated for cellulitis. about 2 weeks ptp, patient had recurrence of erythema, swelling, low grade fever, was started on bactrim several days ptp, minimal improvement. has notice drainage. went to urgent care and sent to ED. hospital course: Patient was admitted for left lower extremity abscess and cellulitis. He was started on IV vancomycin. Cultures were done and are still pending, this should be followed up as outpatient. Underwent CT which revealed 6 cm abscess. Was seen by surgery performed incision and drainage and to cultures which are pending. Recommendations were for daily dry gauze dressing. Patient will be discharged home to complete course of Bactrim (to be adjusted as needed once culture results back). He will follow up outpatient with surgery. For obesity weight loss recommended. For history of CVA he was continued on aspirin statin. For CKD 3B due to polycystic kidney disease he was stable. For hypertension he was continued on losartan, hydralazine, diltiazem. Hyperlipidemia is continue on statin. Patient is feeling better will be discharged home. Time Spent with Patient Time attestation: Total time managing care of this patient today ____ minutes. Discharge coordination time: Greater than 30 minutes Quality: Safe Use of Opioids Does Pt have an Active Cancer Diagnosis on the Problem List?: No Quality: Stroke Does the patient have a stroke diagnosis?: No Physical Exam Vital Signs: Vital Signs: Last Vital Signs Temp 97.4 F 05/30/23 08:00 Pulse 84 05/30/23 08:00 Resp 16 05/30/23 08:00 BP 170/100 H 05/30/23 08:00 Pulse Ox 94 07/23/23 08:00 O2 Del Method Room Air 05/30/23 08:00 BMI result Body Mass Index 34.9 General: AO X 3, no acute distress Resp: CTA bilateral, no accessory muscles used CVS: S1,S2,RRR GI: soft, non tender, non distended Psych: appropriate affect, appropriate insight DS: Data Data Completed and Pending Labs on day of discharge: Laboratory Results - last 24 hr 05/29/23 05/29/23 05/29/23 12:35 12:35 12:35 WBC 5.3 RBC 4.22 L Hgb 11.8 L Hct 35.9 L MCV 85.1 MCH 28.0 MCHC 32.9 RDW 14.0 Plt Count 479 H D MPV 9.1 L Immature Gran % (Auto) 0.8 H Neut % (Auto) 85.1 H Lymph % (Auto) 7.3 L [place] % (Auto) 4.7 Eos % (Auto) 1.3 Baso % (Auto) 0.8 Lymph # (Auto) 0.4 L [place] # (Auto) 0.3 Eos # (Auto) 0.1 Baso # (Auto) 0.0 Abs Immat Gran (auto) 0.04 H Absolute Neuts (auto) 4.5 Absolute Nucleated RBC 0.000 Nucleated RBC % (auto) 0.0 Sodium 141 Potassium 3.3 Chloride 104 Carbon Dioxide 28 Anion Gap 12 BUN 28 H Creatinine 2.35 H Estim Creat Clear Calc 30.5 Estimated GFR 27 Random Glucose 113 Fasting Glucose Lactic Acid 0.9 Calcium 8.9 05/30/23 05/30/23 06:12 06:12 WBC 4.0 L RBC 4.14 L Hgb 11.5 L Hct 35.2 L MCV 85.0 MCH 27.8 MCHC 32.7 RDW 13.9 Plt Count 422 H MPV 9.2 L Immature Gran % (Auto) Neut % (Auto) Lymph % (Auto) [place] % (Auto) Eos % (Auto) Baso % (Auto) Lymph # (Auto) [place] # (Auto) Eos # (Auto) Baso # (Auto) Abs Immat Gran (auto) Absolute Neuts (auto) Absolute Nucleated RBC 0.000 Nucleated RBC % (auto) 0.0 Sodium 140 Potassium 3.5 Chloride 105 Carbon Dioxide 26 Anion Gap 13 BUN 22 H Creatinine 1.99 H Estim Creat Clear Calc 36.1 Estimated GFR 33 Random Glucose Fasting Glucose 94 Lactic Acid Calcium 8.6 Discharge Plan Discharge Anticipated Discharge Date/Time: 05/30/23 08:40 Patient Disposition: Home, Self-Care Discharge Diagnosis: abscess Referrals: Bhavesh Arora MD [Primary Care Provider] - 1 Week Timmy Hodgson MD [Physician] - 1 Week Discharge Medications: Continued aspirin 81 mg Tablet 81 mg PO DAILY hydralazine 25 mg tablet 50 mg PO BID diltiazem HCl [DILT-XR] 240 mg capsule,ext.rel 24h degradable 240 mg PO DAILY clobetasol 0.05 % cream 1 appl topical BID PRN (Reason: Skin Irritation) sulfamethoxazole-trimethoprim 800-160 mg tablet 1 tab PO BID acetaminophen 500 mg Tablet 500 mg PO Q4H PRN (Reason: Pain) atorvastatin 80 mg tablet 80 mg PO BEDTIME 90 Days Qty: 90 3RF losartan 50 mg tablet 50 mg PO DAILY finasteride 5 mg tablet 5 mg PO DAILY 90 Days Qty: 90 3RF Discharge Orders: Discharge Order (Routine); Ordered 05/30/23 Ordered By: Jimmie Fountain Diet: Advance to usual diet Activity on Discharge: As tolerated Stand Alone Forms: Patient Portal Discharge page Care Plan Goals: recovery Health Concerns: abscess Plan of Treatment: daily dressing changes with dry gauze, follow up with surgery, complete bactrim course Assessment: see above
--- NOTE | 2023-05-30 08:52 | MHC.CM.PN ---
PT CLEARED TO DC HOME TODAY WITH NO SERVICES
[2023-05-30 09:14] VITALS: BP 146/90
--- NOTE | 2023-05-30 10:08 | P.PNGS_ITS ---
Subjective Subjective Date of Service: 05/30/23 Interval history: no new complaints feels well Physical Exam Vital Signs: Vital Signs: Last Vital Signs Temp 97.4 F 05/30/23 08:00 Pulse 84 05/30/23 08:00 Resp 16 05/30/23 08:00 BP 146/90 H 05/30/23 09:14 Pulse Ox 94 05/30/23 08:00 O2 Del Method Room Air 05/30/23 08:00 BMI result Body Mass Index 34.9 Const: General: comfortable and no acute distress Resp: Effort & Inspection: normal respiratory effort Cardio: Rate: regular rate GI: Palpation (GI): Soft to palpation Extrem: Other: left lower leg - some redness, I and D site dry, no pus, induration better Objective Data Active Medications Acetaminophen (Acetaminophen 325 Mg Tablet) 650 mg PO Q6H PRN PRN Reason: Pain, Mild (Pain Scale 1-3) Last Admin: 05/29/23 16:09 Dose: 650 mg Documented By: BANDAR Aspirin (Aspirin Enteric Coated 81 Mg Tablet.Dr) 81 mg PO DAILY [facility] Last Admin: 05/30/23 08:36 Dose: 81 mg Documented By: DORIS Atorvastatin Calcium (Atorvastatin Calcium 80 Mg Tablet) 80 mg PO BEDTIME [facility] Last Admin: 05/29/23 21:16 Dose: 80 mg Documented By: JU Diltiazem HCl (Diltiazem Hcl Cd 240 Mg Cap.Er.Deg) 240 mg PO DAILY [facility]; Protocol Last Admin: 05/30/23 08:36 Dose: 240 mg Documented By: DORIS Finasteride (Finasteride 5 Mg Tablet) 5 mg PO BEDTIME [facility] Last Admin: 05/29/23 21:31 Dose: 5 mg Documented By: JU Heparin Sodium (Porcine) (Heparin Sodium,Porcine 5,000 Unit/Ml Vial) 5,000 unit SUBCUT Q8H [facility] Last Admin: 05/30/23 05:57 Dose: 5,000 unit Documented By: JU Hydralazine HCl (Hydralazine Hcl 50 Mg Tablet) 50 mg PO BID [facility]; Protocol Last Admin: 05/30/23 08:37 Dose: 50 mg Documented By: DORIS Vancomycin HCl 750 mg/ Sodium (Chloride) 265 mls @ 265 mls/hr IV Q24H [facility] Losartan Potassium (Losartan Potassium 50 Mg Tablet) 50 mg PO DAILY [facility]; Protocol Last Admin: 05/30/23 08:36 Dose: 50 mg Documented By: DORIS Oxycodone HCl (Oxycodone Hcl Immed Release 5 Mg Tablet) 5 mg PO Q4H PRN PRN Reason: Pain, Moderate(Pain Scale 4-6) Pharmacy Consult (Consult Rx Vancomycin Dosing) 1 each MISCELLANE DAILY PRN PRN Reason: Consult order Pharmacy Consult (Consult Rx Perform Med Rec) 1 each MISCELLANE ONCE PRN PRN Reason: Consult order Sodium Chloride (0.9 % Sodium Chloride Flush 3 Ml Syringe) 3 ml IVFLUSH QSHIFT [facility] Last Admin: 05/30/23 08:40 Dose: 3 ml Documented By: DORIS Labs 05/30/23 06:12 05/30/23 06:12 Labs: Laboratory Results - last 24 hr 05/29/23 05/29/23 05/29/23 12:35 12:35 12:35 MCV 85.1 MCH 28.0 MCHC 32.9 RDW 14.0 Plt Count 479 H D MPV 9.1 L Immature Gran % (Auto) 0.8 H Neut % (Auto) 85.1 H Lymph % (Auto) 7.3 L Douglas % (Auto) 4.7 Eos % (Auto) 1.3 Baso % (Auto) 0.8 Lymph # (Auto) 0.4 L Douglas # (Auto) 0.3 Eos # (Auto) 0.1 Baso # (Auto) 0.0 Abs Immat Gran (auto) 0.04 H Absolute Neuts (auto) 4.5 Absolute Nucleated RBC 0.000 Nucleated RBC % (auto) 0.0 Anion Gap 12 Estim Creat Clear Calc 30.5 Estimated GFR 27 Random Glucose 113 Fasting Glucose Lactic Acid 0.9 Calcium 8.9 05/30/23 05/30/23 06:12 06:12 MCV 85.0 MCH 27.8 MCHC 32.7 RDW 13.9 Plt Count 422 H MPV 9.2 L Immature Gran % (Auto) Neut % (Auto) Lymph % (Auto) Douglas % (Auto) Eos % (Auto) Baso % (Auto) Lymph # (Auto) Douglas # (Auto) Eos # (Auto) Baso # (Auto) Abs Immat Gran (auto) Absolute Neuts (auto) Absolute Nucleated RBC 0.000 Nucleated RBC % (auto) 0.0 Anion Gap 13 Estim Creat Clear Calc 36.1 Estimated GFR 33 Random Glucose Fasting Glucose 94 Lactic Acid Calcium 8.6 Procedures Date of Service Date of Service: 05/30/23 Progress Note: A&P Assessment and plan (1) Abscess of leg: Status: Acute Assessment and Plan: I and D done likely has subcutaneous fat necrosis induration better I changed his dressings wrapped leg with walker roll ffup cultures dry dressing changes daily Time Spent With Patient Time: Total time managing care of this patient today ____ minutes. Quality Stroke Does the patient have a stroke diagnosis?: No VTE Prior VTE?: No VTE Risk Level:: Medical - moderate - high VTE Device Contraindication: Treatment Not Indicated VTE Drug Contraindication: N/A - Med Ordered
== END 2023-05-30 12:58 | disposition home or self-care (01) | DRG 580 ==
LOC: HO.ED 13:32 → HO.EDOVER 14:00 → HO.S3 15:47
PROVIDERS: Nurse Practitioner Family; Admitting Provider Internal Medicine; Emergency Provider Emergency Medicine; PCP Internal Medicine; Visit Provider Internal Medicine
DX: L02.416 Cutaneous abscess of left lower limb (principal); Q61.3 Polycystic kidney, unspecified; L03.116 Cellulitis of left lower limb; I69.320 Aphasia following cerebral infarction; N18.32 Chronic kidney disease, stage 3b; E66.9 Obesity, unspecified; Z68.34 Body mass index [BMI] 34.0-34.9, adult; Z71.3 Dietary counseling and surveillance; M79.89 Other specified soft tissue disorders; I12.9 Hypertensive chronic kidney disease with stage 1 through stage 4 chronic kidney disease, or unspecified chronic kidney disease; E78.5 Hyperlipidemia, unspecified; Z87.891 Personal history of nicotine dependence; Z88.0 Allergy status to penicillin; Z79.82 Long term (current) use of aspirin; Z79.899 Other long term (current) drug therapy
CPT/HCPCS: 36415; 73700; 80048; 83605; 85025; 85027; 87040; 87070; 87147; 87205; 99283; J1643; J3370

== ENCOUNTER → 2023-05-29 13:57 | Outpatient (BNV) | payer MEDICARE, SELFPAY | PROVIDERS: Admitting Provider Internal Medicine; Emergency Provider Emergency Medicine; PCP Internal Medicine; Visit Provider Internal Medicine | DX: L03.116 Cellulitis of left lower limb (principal); L02.416 Cutaneous abscess of left lower limb | CPT/HCPCS: 99223; 99239 ==

== ENCOUNTER → 2023-05-29 13:57 | Outpatient (BNV) | payer MEDICARE, SELFPAY | PROVIDERS: Admitting Provider Internal Medicine; Emergency Provider Emergency Medicine; PCP Internal Medicine; Visit Provider Surgery | DX: L02.419 Cutaneous abscess of limb, unspecified (principal) | CPT/HCPCS: 10060; 99223; 99232 ==

== ENCOUNTER 2023-06-01 12:30 | Outpatient (AMB) | payer MEDICARE, SELFPAY ==
[2023-06-01 12:32] VITALS: BP 128/80; PULSE 82; O2SAT 96; BMI 35.2
--- NOTE | 2023-06-01 12:32 | A.OFFPC_ITS ---
Vital Signs 06/01/23 12:32 Height 5 ft 5 in Weight 211 lb 6 oz BMI 35.2 BP 128/80 Blood Pressure Location Lt brachial Position Sitting Pulse 82 Pulse Source Pulse Oximeter Pulse Oximetry (%) 96 Oxygen Delivery Method Room Air Intake Visit Reasons: CKD, hyperlipidemia, HTN Cigarette Examiner Required: No Accompanied by: Self / Same As Patient Allergies Penicillins Allergy (Verified 06/01/23 12:54) Unknown irbesartan Adverse Reaction (Verified 06/01/23 12:54) Stomach Upset Medication List - Last Reconciled 06/01/23 by Bhavesh Arora MD acetaminophen 500 mg PO Q4H PRN aspirin 81 mg PO DAILY atorvastatin 80 mg PO BEDTIME 90 days clobetasol 0.05% 1 appl topical BID PRN diltiazem HCl ER (DILT-XR) 240 mg PO DAILY finasteride 5 mg PO DAILY 90 days hydralazine 50 mg PO BID losartan 50 mg PO DAILY sulfamethoxazole-trimethoprim 800-160 mg 1 tab PO BID Tobacco use date assessed: 06/01/23 Fall risk assessment: 1 Fall in past year Last assessed Fall Risk: 06/01/23 Dental Screening Dental Screen Date: 06/01/23 Did you have a dental visit in the last 12 months?: Yes Did you have a dental problem in the last 6 months where you did not have access to dental care?: No Was dental information given to patient?: Patient has dentist HPI CKD, hyperlipidemia, HTN HPI Details Patient comes in today for his follow up visit Was [place] [facility] [place] last week for left lower extremity abscess and cellulitis - states that the infection started at the same area where he hit his aguila on the edge of the stairs when he tripped back in March 2023 States that he was treated for something similar with oral Abx by [facility] here back in April 2023 Went to the walk-in clinic last week when he started running a low grade fever and he noticed that the area on his left leg was getting red and somewhat swollen - was started on oral Bactrim DS at the time but he went to the ER a few days later when his leg symptoms got worse despite being on oral Abx and he was subsequently admitted An I & D was performed in the ER when a leg CT done confirmed the presence of an abscess He was given a dose of IV Vancomycin and after the I & D was done, was switched back to oral Bactrim DS and discharged home upon patient's request States that his left leg wound still has some oozing at present but is feeling a lot better - has been doing dry dressing changes as instructed Is currently still finishing up on his oral Bactrim DS He denies any fever, headaches or dizziness Denies any chest pains, no SOB No nausea/vomiting, no abdominal pain No change in bowel habits noted Needs his Hydralazine Rx refilled Had his follow up labs done a couple of weeks ago - to discuss his results Adds that he has a skin tag near his groin area that has been present for years but noticed recently that it appears to be changing in appearance - turning black, and is requesting for a referral to dermatology to get this checked out Would also like to request for a referral to a dietitian if possible to help him improve his diet PFS Medical History Abscess of leg Benign essential hypertension Benign prostatic hyperplasia Cerebrovascular accident (CVA) Chronic kidney disease (CKD), stage III (moderate) COVID-19 virus antibody negative CVA (cerebral vascular accident) Dyslipidemia Elevated cholesterol Gait instability Gout Hematuria History of postoperative nausea History of snoring Hypokalemia Impaired fasting glucose Multiple thyroid nodules Murmur Obesity (BMI 30-39.9) Onychomycosis Polycystic kidney disease Pure hypercholesterolemia Renal cyst Thyroid nodule Vitamin D deficiency Surgical History H/O arthroscopic knee surgery H/O partial thyroidectomy (~10/22/14) H/O varicose vein ligation and stripping Hx of colonoscopy (~08/2020) Family History Father Diabetes Mother Chronic mental illness Other Mental health problem Social History Household Members: None Housing: Apartment Do you presently have visiting nurse or other home services: No Alcohol intake: current Alcohol intake frequency: does not drink Alcohol type: beer Patient Tobacco Use Status: Former Tobacco user e-Cigarette/Vaping Use: Former Use Second Hand Smoke Exposure: Yes Current occupational status: employed 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 1. Little interest or pleasure in doing things: not at all 2. Feeling down, depressed, or hopeless: not at all 3. Trouble falling or staying asleep, or sleeping too much: not at all 4. Feeling tired or having little energy: several days 5. Poor appetite or overeating: not at all 6. Feeling bad about yourself - or that you are a failure or have let yourself or your family down: not at all 7. Trouble concentrating on things, such as reading the newspaper or watching television: not at all 8. Moving or speaking so slowly that other people could have noticed. Or the opposite - being so fidgety or restless that you have been moving around a lot more than usual: several days 9. Thoughts that you would be better off or of hurting yourself in some way: not at all Total score: 2 Depression Screening Interpretation: Negative [id number] - PHQ-9 Billing: Yes Source: Developed by Drs. Dilip Tian, Mirna Banuelos, Juan Lipscomb and colleagues, with an educational attila from [employer]. Thrive Questionnaire Date Thrive assessed: 06/01/23 I am a: Patient What is your living situation today?: I have a steady place to live Within the past 12 months, did the food you bought not last and you didn't have the money to get more?: Never true Within the past 12 months, did you worry whether your food would run out before you got money to buy more?: Never true Do you have trouble paying for medicines?: No Do you have trouble getting transportation to medical appointments?: No Do you have trouble paying your heating and electricity bill?: No Do you have trouble taking care of your child, family member or friend?: No Do you have trouble with day-to-day activities such as bathing, preparing meals, shopping, managing finances, etc.?: No Are you currently unemployed and looking for a job?: No Are you interested in more education?: No Please select the resources that you would like help with: None Currently or been in a relationship where the following occur: no concerns reported AUDIT C Alcohol Use Questionnaire (AUDIT-C) 1. How often do you have a drink containing alcohol?: Never 3. How often do you have six or more drinks on one occasion?: Never Total Score: 0 Score Reviewed/Action Taken: Yes MARIA ESTHER-7 AMB Questionnaire MARIA ESTHER-7 Date MARIA ESTHER - 7 assessed: 06/01/23 Feeling nervous, anxious, or on edge: 0 = Not at all Not being able to stop or control worryin = Not at all Worrying too much about different things: 0 = Not at all Trouble relaxin = Not at all Being so restless that it is hard to sit still: 0 = Not at all Becoming easily annoyed or irritable: 0 = Not at all Feeling afraid as if something awful might happen: 0 = Not at all Total MARIA ESTHER-7 score (0-4 normal; 5-9 mild; 10-14 moderate; 15-21 severe): 0 Source: Developed by Drs. Dilip Tian, Mirna Banuelos, Juan Lipscomb and colleagues, with an educational attila from [employer]. MARIA ESTHER-7 Assessment Billing MARIA ESTHER-7 Assessment Tool: MARIA ESTHER-7 Assessment 51673 Review of Systems Const Denies chills, Denies fatigue, Denies fever(s) and Denies headache(s) ENT Denies dysphagia, Denies dizziness, Denies otalgia, Denies headache(s) and Denies sore throat Card Denies chest pain, Denies palpitations and Denies dyspnea Resp Denies cough, Denies dyspnea and Denies wheezing GI Denies abdominal pain, Denies constipation, Denies dysphagia, Denies heartburn, Denies diarrhea, Denies nausea and Denies vomiting Denies dysuria, Denies nocturia and Denies urinary frequency Musc Reports abnormal gait (poor balance) Skin/Breast Details: (+) redness and some swelling over the anterior aspect of the left lower leg; (+) bandages in place at this time Reports rash (over extensor surface of both elbows) Neuro Reports abnormal gait (poor balance), Denies dizziness and Denies headache(s) Endo Denies fatigue and Denies palpitations Aller/Immun Denies wheezing Physical exam (Primary Care) Vital Signs: Last Vital Signs Pulse 82 06/01/23 12:32 BP 128/80 06/01/23 12:32 Pulse Ox 96 06/01/23 12:32 Oxygen Delivery Method Room Air 06/01/23 12:32 BMI result Body Mass Index 35.2 Tobacco/Smoking Status: Tobacco use Status Tobacco use date assessed 06/01/23 06/01/23 12:40 Patient Tobacco Use Status Former Tobacco user 06/01/23 12:40 e-Cigarette/Vaping Use Former Use 06/01/23 12:40 PHQ-9: PHQ-9 Score PHQ-9: Total score 2 06/01/23 12:40 Depression Screening Interpretation: Negative Thrive Assessment: Date of Thrive Assessment Date Thrive assessed 06/01/23 06/01/23 12:40 Currently or been in a relationship where the following occur: no concerns reported Const General: no acute distress and alert HENMT Ears: TM's normal bilaterally and EAC's normal Throat: Yes posterior oropharynx normal and Yes tonsils normal (no TP congestion noted) Neck Neck: Yes no lymphadenopathy and Yes supple Resp Auscultation: clear to auscultation bilaterally, no rales and no wheezes Cardio Rate: regular rate Rhythm: regular rhythm Heart sounds: no murmurs GI Palpation (GI): Soft to palpation and nontender Auscultation: normal bowel sounds Skin Other: (+) patchy scaling rash (with whitish/silvery scales) over the extensor aspect of both elbows Extrem Other: (+) erythema with a small open wound over the anterior aspect of the left lower leg; (+) minimal clear fluid oozing from the wound - leg is covered with a dry dressing and wrapped up in bandages General: No clubbing, No cyanosis and Yes edema (2+ bipedal edema) Results Reviewed Results Reviewed: Laboratory Tests 05/20/23 05/20/23 05/20/23 07:54 07:54 07:54 WBC 11.0 H Hgb 12.4 L Hct 37.5 L Plt Count 202 Sodium 144 Potassium 2.9 L Creatinine 2.72 H Estimated GFR 23 Fasting Glucose 106 H Hemoglobin A1c % Calcium 9.0 AST 55 H ALT 30 Triglycerides 107 Cholesterol 98 LDL Cholesterol, Calc 47 HDL Cholesterol 30 Prostate Specific Ag 25-OH Vitamin D Total 24.0 TSH 1.12 Ur Specific [place] 1.015 Urine Protein 100 (2+) H Urine Glucose (UA) Negative Urine Blood Negative 07/13/23 07/13/23 07/23/23 07:54 07:54 06:12 WBC Hgb Hct Plt Count Sodium Potassium 3.5 Creatinine 1.99 H Estimated GFR 33 Fasting Glucose Hemoglobin A1c % 5.3 Calcium AST ALT Triglycerides Cholesterol LDL Cholesterol, Calc HDL Cholesterol Prostate Specific Ag 1.74 25-OH Vitamin D Total TSH Ur Specific [place] Urine Protein Urine Glucose (UA) Urine Blood Assessment and Plan Assessment & Plan (1) Cellulitis of left leg: Code(s): L03.116 - Cellulitis of left lower limb Plan: Resolving - S/P I & D and 1 dose of IV Vancomycin Continue Bactrim DS 1 tablet BID Wound C & S done recently grew only (+) Strep Instructed to continue with daily wound care (2) Benign essential hypertension: Code(s): I10 - Essential (primary) hypertension Plan: Reinforced? low-sodium diet -? goal is systolic BP of at least 130 to 140 mm or less due to his CKD Patient reminded to continue monitoring his blood pressure regularly Continue Diltiazem ER 240 mg QD, Hydralazine 50 mg BID (Rx refilled) and Losartan 50 mg QD Follow up with nephrology as scheduled (3) Chronic kidney disease (CKD), stage III (moderate): Code(s): N18.30 - Chronic kidney disease, stage 3 unspecified Qualifiers: Chronic kidney disease stage 3 subtype: unspecified whether 3a or 3b Qualified Code(s): N18.30 - Chronic kidney disease, stage 3 unspecified Plan: Advised that his serum creatinine and GFR have been mostly stable but his numbers have also been slowly declining over the past year or so and he is now bordering on stage 4 CKD Will continue to monitor his renal function regularly Follow up with nephrology as scheduled (4) Polycystic kidney disease: Comment: MRI of the abdomen and pelvis done on 07/04/2019 revealed multiple bilateral renal cysts compatible with polycystic kidney disease Code(s): Q61.3 - Polycystic kidney, unspecified Plan: Patient remains asymptomatic at present and will continue to monitor his renal function closely (5) Pure hypercholesterolemia: Code(s): E78.00 - Pure hypercholesterolemia, unspecified Plan: Results of his labs done a couple of weeks ago reviewed and discussed with patient Reinforced low cholesterol diet Continue Atorvastatin 80 mg QD Will recheck labs in 3 months for follow up (6) Cerebrovascular accident (CVA): Comment: 2015 Code(s): I63.9 - Cerebral infarction, unspecified Qualifiers: CVA mechanism: unspecified Qualified Code(s): I63.9 - Cerebral infarction, unspecified Plan: Patient currently has minimal residual neurologic deficits from his CVA that occurred back in 2016 Follow-up with Neurology as scheduled or as needed (7) Impaired fasting glucose: Code(s): R73.01 - Impaired fasting glucose Plan: HgbA1c remains normal at 5.3% on his labs done a couple of weeks ago; in-office HgbA1c was at 5.5% a few months ago Reinforced low calorie diet/exercise as tolerated Have reassured patient that he is not a diabetic and does not need to see dietitian at this time as there is a chance that his insurance will not cover his visit as he does not have diabetes (8) Multiple thyroid nodules: Code(s): E04.2 - Nontoxic multinodular goiter Plan: Follow up with [facility] endocrinology as scheduled S/P FNA biopsy a couple of years ago - results came back normal/benign Will continue to monitor his TFTs closely (9) Gout: Code(s): M10.9 - Gout, unspecified Qualifiers: Gout site: unspecified site Gout etiology: idiopathic Chronicity: unspecified Qualified Code(s): M10.00 - Idiopathic gout, unspecified site Plan: Reinforced low purine diet -? patient has had no acute gout flares for several months Will recheck his serum uric acid level in 3 months for follow up (10) Vitamin D deficiency: Code(s): E55.9 - Vitamin D deficiency, unspecified Plan: Continue Vitamin-D 04899 units once a week Will recheck vitamin-D level in 3 months for follow-up (11) Hypokalemia: Code(s): E87.6 - Hypokalemia Plan: Corrected previously and currently remains normal -?will continue to monitor serum potassium level Continue Potassium Chloride ER 10 mEq?BID (12) Acquired skin tag: Code(s): L91.8 - Other hypertrophic disorders of the skin Plan: Per request, will refer him to dermatology for further evaluation and management (13) Hematuria: Code(s): R31.9 - Hematuria, unspecified Qualifiers: Hematuria type: unspecified type Qualified Code(s): R31.9 - Hematuria, unspecified Plan: Resolved with no recurrence lately -?sees urology for follow-up (14) Obesity (BMI 30-39.9): Code(s): E66.9 - Obesity, unspecified Plan: Reinforced diet/exercise as tolerated/lose weight Plan Follow up in 3 months Orders: Orders Comprehensive [place]. Panel Fast 3 Months E78.00 - Pure hypercholesterolemia, un specified Lipid Panel 3 Months E78.00 - Pure hypercholesterolemia, unspecified TSH reflex Free T4 3 Months E78.00 - Pure hypercholesterolemia, unspecified Vitamin D 25-OH Total 3 Months E55.9 - Vitamin D deficiency, unspecified Complete Blood Count Auto Diff 3 Months I10 - Essential (primary) hypertension UA CC w/rflx Micro + Cult 3 Months R30.0 - Dysuria Uric Acid 3 Months M10.9 - Gout, unspecified Referrals Dermatology Referral L91.8 - Other hypertrophic disorders of the skin Medications: Changed From hydralazine 50 mg PO BID To hydralazine 50 mg (2 x 25 mg) PO BID 90 days 360 tabs 1RF Discontinued diltiazem HCl ER 240 mg PO QAM 90 caps 0RF I10 - Essential (primary) hypertension Coding Level of Care Code Est Pt Level 4 (97310) Diagnoses Cellulitis of left leg L03.116 Benign essential hypertension I10 Chronic kidney disease (CKD), stage III (moderate) N18.30 Chronic kidney disease stage 3 subtype: unspecified whether 3a or 3b Polycystic kidney disease Q61.3 Pure hypercholesterolemia E78.00 Cerebrovascular accident (CVA) I63.9 CVA mechanism: unspecified Impaired fasting glucose R73.01 Multiple thyroid nodules E04.2 Gout M10.00 Gout site: unspecified site Gout etiology: idiopathic Chronicity: unspecified Vitamin D deficiency E55.9 Hypokalemia E87.6 Acquired skin tag L91.8 Hematuria R31.9 Hematuria type: unspecified type Obesity (BMI 30-39.9) E66.9 Additional Codes MARIA ESTHER-7 Assessment Billing - MARIA ESTHER-7 Assessment Tool: MARIA ESTHER-7 Assessment [id number] ([id number])
== END 2023-06-01 13:24 | disposition home or self-care (01) ==
PROVIDERS: PCP Internal Medicine; Visit Provider Internal Medicine
DX: L03.116 Cellulitis of left lower limb (principal); I12.9 Hypertensive chronic kidney disease with stage 1 through stage 4 chronic kidney disease, or unspecified chronic kidney disease; N18.30 Chronic kidney disease, stage 3 unspecified; Z86.73 Personal history of transient ischemic attack (TIA), and cerebral infarction without residual deficits; E04.2 Nontoxic multinodular goiter; Q61.3 Polycystic kidney, unspecified; E78.00 Pure hypercholesterolemia, unspecified; R73.01 Impaired fasting glucose; M10.00 Idiopathic gout, unspecified site; E55.9 Vitamin D deficiency, unspecified; E87.6 Hypokalemia; L91.8 Other hypertrophic disorders of the skin
CPT/HCPCS: 99214

== ENCOUNTER 2023-06-02 13:02 | Outpatient (AMB) | payer MEDICARE, SELFPAY ==
--- NOTE | 2023-06-02 13:11 | MHC.OFFVIS ---
Intake Vital Signs 06/02/23 13:30 Height 5 ft 5 in Weight 205 lb BMI 34.1 BP 117/66 Blood Pressure Location Lt brachial Position Sitting Pulse 73 Intake Visit Reasons: Pre colonoscopy screening Intake Note: Patient follow up for pre colonoscopy screening. Patient denies any GI issues. 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 Accompanied by: Self / Same As Patient Allergies Penicillins Allergy (Verified 06/02/23 13:28) Unknown irbesartan Adverse Reaction (Verified 06/02/23 13:28) Stomach Upset Medication List - Last Reconciled 06/02/23 by Helen Glasgow PA-C acetaminophen 500 mg PO Q4H PRN aspirin 81 mg PO DAILY atorvastatin 80 mg PO BEDTIME 90 days clobetasol 0.05% 1 appl topical BID PRN diltiazem HCl ER (DILT-XR) 240 mg PO DAILY finasteride 5 mg PO DAILY 90 days hydralazine 50 mg (2 x 25 mg) PO BID 90 days losartan 50 mg PO DAILY sulfamethoxazole-trimethoprim 800-160 mg 1 tab PO BID HPI HPI Comments History of Present Illness Details A 73 y/o male history of colon polyps 2019- here for 3 year repeat colonoscopy discussion Normal stool pattern-typically did have some upset well he was had on a course of antibiotics for a recent leg abscess. He is now recovering well. appetite is good- No respiratory or cardiac issues Lives alone, walks with a cane He has no nausea, vomiting, hematemesis, hematochezia fever or chills PFSH Medical History Abscess of leg Benign essential hypertension Benign prostatic hyperplasia Cerebrovascular accident (CVA) Chronic kidney disease (CKD), stage III (moderate) COVID-19 virus antibody negative CVA (cerebral vascular accident) Dyslipidemia Elevated cholesterol Gait instability Gout Hematuria History of postoperative nausea History of snoring Hypokalemia Impaired fasting glucose Multiple thyroid nodules Murmur Obesity (BMI 30-39.9) Onychomycosis Polycystic kidney disease Pure hypercholesterolemia Renal cyst Thyroid nodule Vitamin D deficiency Surgical History H/O arthroscopic knee surgery H/O partial thyroidectomy (~10/22/14) H/O varicose vein ligation and stripping Hx of colonoscopy (~08/2020) Family History Father Diabetes Mother Chronic mental illness Other Mental health problem Social History Household Members: None Housing: Apartment Do you presently have visiting nurse or other home services: No Alcohol intake: current Alcohol intake frequency: does not drink Alcohol type: beer Patient Tobacco Use Status: Former Tobacco user e-Cigarette/Vaping Use: Former Use Second Hand Smoke Exposure: Yes Current occupational status: employed 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 Cognitive needs: No Hearing needs: No Vision needs: Yes Review of Systems Const All systems reviewed & are unremarkable except as noted in HPI and below Card Denies chest pain and Denies dyspnea Resp Denies dyspnea GI Denies abdominal pain, Denies change in bowel habits and Denies heartburn Physical Exam Vital Signs: Last Vital Signs Pulse 73 06/02/23 13:30 BP 117/66 06/02/23 13:30 BMI result Body Mass Index 34.1 Const General: cooperative, healthy appearing and comfortable Orientation/consciousness: patient oriented x3 Limitations: no limitations Resp Effort & Inspection: normal respiratory effort and able to speak in complete sentences Auscultation: clear to auscultation bilaterally Cardio Rate: regular rate Rhythm: regular rhythm Heart sounds: S1 normal heart sound present and S2 normal heart sound present GI Palpation (GI): Soft to palpation and nontender Auscultation: normal bowel sounds Skin General skin exam: ecchymosis (upper extremities- s/p IV-soft NT) Neuro General: patient oriented x3 Extrem Left lower extremity: abnormal to inspection (christ wrap-D&I) Psych Appearance: grossly normal and well kempt Mental Status: mental status grossly normal Speech and movement: Normal speech and movement present and Clear speech present Attitude: cooperative Thought process: Normal thought process present Thought content: Normal thought content present Results Reviewed Results Reviewed: Impression and Post Procedure Diagnosis: Internal hemerrhoids, inflammed diverticulosis polyps Plan: High fiber diet leaflet Avoid straining at stool, epsom salts and sitz bath, anusol supps or cream Repeat Colonoscopy in 3-5 years or earlier if clinically indicated, pending pathology f/u in office in 4-8 weeks Name:?Wyatt Lechuga Specimen #:?[id number] Age/Sex: 70/M Attending: Sy Navarro MD : 1950 Submitted by: Sy Navarro MD Collected: 08/14/20 MR #: [id number] Received: 08/14/20 Status: [facility] [place] Location: [facility] Diagnosis A.? Cecum, polypectomy:? Colonic mucosa with focally dilated crypt suggestive of sessile serrated polyp. B.? Colon, ascending, polypectomy:? Tubular adenoma; no high grade dysplasia or carcinoma seen. C.? Colon, descending, polypectomy:? Tubular adenoma; no high grade dysplasia or carcinoma seen. D.? Rectum, biopsy:? Rectal mucosa with prolapse changes and lamina propria congestion. Clinical History Pre-Op Dx:? Constipation Post-Op Dx: Colon polyps, diverticulosis, hemorrhoids Assessment & Plan Assessment & Plan (1) Tubular adenoma: Comment: Dr. Navarro Code(s): D36.9 - Benign neoplasm, unspecified site Plan 3 yr repeat colon w/ Melanie MG prep Orders: Orders Colonoscopy - GI Use Only 06/02/23 D36.9 - Benign neoplasm, unspecified site Medications: New bisacodyl (Dulcolax (bisacodyl)) Take 4 tablets by mouth at 12:00pm the day before your procedure. 20 mg (4 x 5 mg) PO ONCE 1 day 4 tabs 0RF colonoscopy prep Z12.11 - Encounter for screening for malignant neoplasm of colon polyethylene glycol 3350 (Miralax) Take as directed by mouth the day before your procedure. 238 grams PO ONCE 1 day PRN 238 grams 0RF laxative effect Discontinued diltiazem HCl ER 240 mg PO QAM 90 caps 0RF I10 - Essential (primary) hypertension Patient Instructions: Very pleasant alert 73-year-old male no GI complaints Three year Polyp surveillance colonoscopy-with Dr. Navarro MiraLax Gatorade prep Needs escort due to anesthesia Coding Level of Care Code Est Pt Level 3 (10882) Diagnoses Tubular adenoma D36.9 Time Spent (min) 30
[2023-06-02 13:30] VITALS: BP 117/66; PULSE 73; BMI 34.1
== END 2023-06-02 14:26 | disposition home or self-care (01) ==
PROVIDERS: PCP Nurse Practitioner Family; Visit Provider Physician Assistant
DX: D36.9 Benign neoplasm, unspecified site (principal)
CPT/HCPCS: 99213

== ENCOUNTER → 2023-06-02 13:02 | Outpatient (BNVA) | payer MEDICARE, SELFPAY | PROVIDERS: PCP Nurse Practitioner Family; Visit Provider Physician Assistant | DX: D36.9 Benign neoplasm, unspecified site (principal) | CPT/HCPCS: 99212 ==

== ENCOUNTER 2023-06-09 12:40 | Outpatient (AMB) | payer MEDICARE, SELFPAY ==
--- NOTE | 2023-06-09 12:43 | MHC.OFFWIV ---
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 Patient Tobacco Use Status: Former Tobacco user Allergies Penicillins Allergy (Verified 06/09/23 12:59) Unknown irbesartan Adverse Reaction (Verified 06/09/23 12:59) Stomach Upset Medication List - Last Reconciled 06/09/23 by Medhat Pires MD acetaminophen 500 mg PO Q4H PRN aspirin 81 mg PO DAILY atorvastatin 80 mg PO BEDTIME 90 days bisacodyl (Dulcolax (bisacodyl)) 20 mg (4 x 5 mg) PO ONCE 1 day clobetasol 0.05% 1 appl topical BID PRN diltiazem HCl ER (DILT-XR) 240 mg PO DAILY finasteride 5 mg PO DAILY 90 days hydralazine 50 mg (2 x 25 mg) PO BID 90 days losartan 50 mg PO DAILY polyethylene glycol 3350 (Miralax) 238 grams PO ONCE PRN 1 day sulfamethoxazole-trimethoprim 800-160 mg 1 tab PO BID Do you need a note to return to daycare/school/sports/work: No 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 Patient was seen on May 24 for cellulitis in the leg. He completed a 10 day course of antibiotics. He is returning to the office to have his wound checked. Patient has not followed up with his primary care provider. [facility] Medical History Abscess of leg Benign essential hypertension Benign prostatic hyperplasia Cerebrovascular accident (CVA) Chronic kidney disease (CKD), stage III (moderate) COVID-19 virus antibody negative CVA (cerebral vascular accident) Dyslipidemia Elevated cholesterol Gait instability Gout Hematuria History of postoperative nausea History of snoring Hypokalemia Impaired fasting glucose Multiple thyroid nodules Murmur Obesity (BMI 30-39.9) Onychomycosis Polycystic kidney disease Pure hypercholesterolemia Renal cyst Thyroid nodule Vitamin D deficiency Surgical History H/O arthroscopic knee surgery H/O partial thyroidectomy (~10/22/14) H/O varicose vein ligation and stripping Hx of colonoscopy (~08/2020) Family History Father Diabetes Mother Chronic mental illness Other Mental health problem Social History Household Members: None Housing: Apartment Do you presently have visiting nurse or other home services: No Alcohol intake: current Alcohol intake frequency: does not drink Alcohol type: beer Patient Tobacco Use Status: Former Tobacco user e-Cigarette/Vaping Use: Former Use Second Hand Smoke Exposure: Yes Current occupational status: employed 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 surrounding erythema, swelling and minimal in duration. No tenderness. Assessment & Plan Assessment & Plan (1) Cellulitis of left leg: Code(s): L03.116 - Cellulitis of left lower limb Plan: Additional antibiotics are not required. Patient needs evaluation at the [facility]. He should follow-up with his primary care provider and get an appointment. Medications: Discontinued diltiazem HCl ER 240 mg PO QAM 90 caps 0RF I10 - Essential (primary) hypertension Coding Level of Care Code Est Pt Level 3 (13453) Diagnoses Cellulitis of left leg L03.116
[2023-06-09 12:44] VITALS: BP 132/70; PULSE 74; TEMP 36.3; O2SAT 98
== END 2023-06-09 13:01 | disposition home or self-care (01) ==
PROVIDERS: PCP Nurse Practitioner Family; Visit Provider Internal Medicine
DX: L03.116 Cellulitis of left lower limb (principal)
CPT/HCPCS: 99213

== ENCOUNTER 2023-06-15 10:38 | Outpatient (AMB) | payer MEDICARE, SELFPAY ==
[2023-06-15 10:44] VITALS: BP 138/90; PULSE 72; O2SAT 97; BMI 35.1
--- NOTE | 2023-06-15 10:44 | MHC.PC.OV ---
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 Allergies Penicillins Allergy (Verified 06/15/23 10:52) Unknown irbesartan Adverse Reaction (Verified 06/15/23 10:52) Stomach Upset Medication List - Last Reconciled 06/15/23 by KATERINA Salmon acetaminophen 500 mg PO Q4H PRN aspirin 81 mg PO DAILY atorvastatin 80 mg PO BEDTIME 90 days bisacodyl (Dulcolax (bisacodyl)) 20 mg (4 x 5 mg) PO ONCE 1 day clobetasol 0.05% 1 appl topical BID PRN diltiazem HCl ER (DILT-XR) 240 mg PO DAILY finasteride 5 mg PO DAILY 90 days hydralazine 50 mg (2 x 25 mg) PO BID 90 days losartan 50 mg PO DAILY polyethylene glycol 3350 (Miralax) 238 grams PO ONCE PRN 1 day Tobacco use date assessed: 06/15/23 Fall risk assessment: No Falls in past year Last assessed Fall Risk: 06/15/23 HPI Follow up from walk in, left leg swelling HPI Details Patient is a 73-year-old male who presents today to follow-up after walk-in visit 06/09/2023 due to left leg swelling. Patient of Dr. Arora. Patient was seen in the emergency department 05/30/2023 for left lower extremity abscess, he did have I&D and was treated with Bactrim. Patient was seen in the walk-in clinic no need for antibiotics, patient was advised to follow up with PCP to request wound care referral. Patient denies fever or chills, reports intermittent bloody discharge from left lower extremity. Reports changing dressing daily. [facility] Medical History Abscess of leg Benign essential hypertension Benign prostatic hyperplasia Cerebrovascular accident (CVA) Chronic kidney disease (CKD), stage III (moderate) COVID-19 virus antibody negative CVA (cerebral vascular accident) Dyslipidemia Elevated cholesterol Gait instability Gout Hematuria History of postoperative nausea History of snoring Hypokalemia Impaired fasting glucose Multiple thyroid nodules Murmur Obesity (BMI 30-39.9) Onychomycosis Polycystic kidney disease Pure hypercholesterolemia Renal cyst Thyroid nodule Vitamin D deficiency Surgical History H/O arthroscopic knee surgery H/O partial thyroidectomy (~10/22/14) H/O varicose vein ligation and stripping Hx of colonoscopy (~08/2020) Family History Father Diabetes Mother Chronic mental illness Other Mental health problem Social History Household Members: None Housing: Apartment Do you presently have visiting nurse or other home services: No Alcohol intake: current Alcohol intake frequency: does not drink Alcohol type: beer Patient Tobacco Use Status: Former Tobacco user e-Cigarette/Vaping Use: Former Use Second Hand Smoke Exposure: Yes Current occupational status: employed 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 How often do you have a drink containing alcohol?: Never 3. How often do you have six or more drinks on one occasion?: Never Total Score: 0 Score Reviewed/Action Taken: No MARIA ESTHER-7 AMB Questionnaire MARIA ESTHER-7 Date MARIA ESTHER - 7 assessed: 06/01/23 Source: Developed by Drs. Dilip Tian, Mirna Banuelos, Juan Lipscomb and colleagues, with an educational attila from [employer]. Review of Systems Const Denies body aches, Denies chills, Denies fever(s) and Denies headache(s) Eyes Denies change in vision ENT Denies dizziness, Denies otalgia, Denies headache(s), Denies nasal discharge, Denies sinus pain and Denies sore throat Card Denies chest pain, Denies edema, Denies lightheadedness and Denies dyspnea Resp Denies cough and Denies dyspnea GI Denies constipation, Denies diarrhea, Denies nausea and Denies vomiting Denies dysuria Musc Denies myalgias Skin/Breast Reports as per HPI and Denies rash Neuro Denies dizziness and Denies headache(s) Physical exam (Primary Care) Vital Signs: Last Vital Signs Pulse 72 06/15/23 10:44 BP 138/90 H 06/15/23 10:44 Pulse Ox 97 06/15/23 10:44 Oxygen Delivery Method Room Air 06/15/23 10:44 BMI result Body Mass Index 35.1 Tobacco/Smoking Status: Tobacco use Status Tobacco use date assessed 06/15/23 06/15/23 10:48 Patient Tobacco Use Status Former Tobacco user 06/15/23 10:44 e-Cigarette/Vaping Use Former Use 06/15/23 10:44 Thrive Assessment: Date of Thrive Assessment Date Thrive assessed 06/01/23 06/15/23 10:44 Const General: cooperative and no acute distress Orientation/consciousness: patient oriented x3 HENMT Head: Yes normocephalic and Yes atraumatic Throat: Yes posterior oropharynx normal Eyes General: appearance normal, both eyes and all related structures Neck Neck: Yes normal visual inspection and Yes full ROM Resp Effort & Inspection: normal respiratory effort and able to speak in complete sentences Auscultation: clear to auscultation bilaterally, no crackles, no rales, no rhonchi and no wheezes Cardio Rate: regular rate Rhythm: regular rhythm Heart sounds: S1 normal heart sound present and S2 normal heart sound present GI Auscultation: normal bowel sounds Skin Other: Left lower extremity lateral aspect wound [id number], slough noted, mild erythema surrounding wound, nontender, mild swelling noted, mild bloody discharge noted on dressing Neuro General: patient oriented x3 Gait exam (Neuro): Normal gait present Extrem General: Yes full ROM Assessment and Plan Assessment & Plan (1) Leg wound, left: Code(s): S81.802A - Unspecified open wound, left lower leg, initial encounter Plan: Left lower extremity lateral aspect wound [id number], slough noted, mild erythema surrounding wound, nontender, mild swelling noted, mild bloody discharge noted on dressing. Wound was cleansed with normal saline and NAD and rolling gauze applied. Patient is to change dressing daily. Urgent referral to wound care. No need for p.o. antibiotic at this time. Patient agreed with the plan. Signs and symptoms reviewed when to notify provider or go to the emergency department. Orders: Referrals Wound Care Referral S81.805U - Unspecified open wound, left lower leg, initial encounter Medications: Discontinued diltiazem HCl ER 240 mg PO QAM 90 caps 0RF I10 - Essential (primary) hypertension Coding Level of Care Code Est Pt Level 3 (29023) Diagnoses Leg wound, left S81.642P
== END 2023-06-15 11:13 | disposition home or self-care (01) ==
PROVIDERS: PCP Internal Medicine; Visit Provider Nurse Practitioner Family
DX: S81.802A Unspecified open wound, left lower leg, initial encounter (principal)
CPT/HCPCS: 99213

== ENCOUNTER 2023-06-28 13:00 | Outpatient (RCR) | payer MEDICARE, SELFPAY ==
--- NOTE | 2023-05-17 12:49 | MHC.PT.EP ---
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 THE Pt WOUILD BENEFIT FROM PT TO ADDRESS THE ABOVE FINDINGS AND IMPROVE DYNAMIC BALANCE. Frequency and Duration: The patient will be seen 2 x WK x 5 WKS Short Term Goals: *INCREASE FLEXIBILITY IN PRIYANKA LEs *DEV HEP TO ADDRESS LEs STRENGTH *IMPROVE STATIC-> DYNAMIC BALANCE W GAIT ON LEVEL AND STAIRS Hardware Developer Goals: *Pt INDEP W HEP AND SELF-SX MGMT TECHN *Pt DEMON EFFICIENT GAIT MECH ON LEVEL GROUND, STAIRS, OUTSIDE TERRAIN *IMPROVED TUG TEST (AT EVAL 24 SEC) Treatment Plan: Modalities to reduce pain, spasms and effusion. Manual therapy to restore motion and function. Therapeutic exercise to improve strength and flexibility. Neuromuscular re-education for posture and balance. Therapeutic activities to return to functional activities of daily living. Electronically signed by: ZACH PUENTESPT Please sign and return to therapist. Thank you for your referral.
--- NOTE | 2023-07-14 07:19 | MHC.PT.DC ---
[facility] [place] [facility] [place] [facility] [place] [facility] [address] Silvia Blas [address] [facility] [phone] F: [phone] F: [phone] F: [phone] F: [phone] Physical Therapy Discharge Report Diagnosis: BALANCE DISORDER, ABNORMAL GAIT Date of Surgery: Date of Evaluation: 05/17/23 Date of Discharge: 07/14/23 Treatments to Date: 6 Cancellations to Date: 4 No Shows to Date: 1 Discharge Status: Improved Function Independent with HEP Patient Elected to Stop Discharge Summary: THE Pt HAS A THOROUGH HEP AND HE VOCALIZED HE WAS PLANNING TO RETURN TO THE GYM. 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 HE HAS MET HIS PT GOALS TO MAX POTENTIAL AT THIS TIME- HE HAD SOME OTHER MEDIUCAL DXS WARRANTING HIS ATTENTION. Electronically signed by: ZACH PUENTES,PT Please sign and return to therapist. Thank you for your referral.
== END 2023-07-14 07:20 | disposition home or self-care (01) ==
LOC: HO.PT 13:00
PROVIDERS: PCP Internal Medicine; Visit Provider Nurse Practitioner Family
DX: R26.89 Other abnormalities of gait and mobility (principal)
CPT/HCPCS: 97110; 97112; 97162

== ENCOUNTER 2023-06-29 09:19 | Outpatient (RCR) | payer MEDICARE, SELFPAY | END 2023-08-10 16:10 | disposition home or self-care (01) | LOC: HO.WCC 09:19 | PROVIDERS: PCP Internal Medicine; Visit Provider Physician Assistant | DX: I87.312 Chronic venous hypertension (idiopathic) with ulcer of left lower extremity (principal); L97.821 Non-pressure chronic ulcer of other part of left lower leg limited to breakdown of skin; I12.9 Hypertensive chronic kidney disease with stage 1 through stage 4 chronic kidney disease, or unspecified chronic kidney disease; N18.30 Chronic kidney disease, stage 3 unspecified; Z86.73 Personal history of transient ischemic attack (TIA), and cerebral infarction without residual deficits | CPT/HCPCS: 11042; 97597; 99212; 99213 ==

== ENCOUNTER 2023-08-25 08:50 | Outpatient (REF) | payer MEDICARE, SELFPAY ==
[2023-08-25 09:02] LABS: MANUAL DIFF FLAG NO
[2023-08-25 09:15] LABS: Basophils Absolute Auto 0.1 X10*3/uL (0.0-0.2); Basophils Percent Auto 1.4 % (0-2); Eosinophils Absolute Auto 0.2 X10*3/uL (0.0-0.4); Eosinophils Percent Auto 4.9 % (0-4); Hematocrit 39.2 % (42.0-52.0); Hemoglobin 13.2 g/dl (14.0-18.0); Imm Gran Abs Auto 0.01 X10*3/uL (0.00-0.03); Imm Gran Pct Auto 0.3 % (0.0-0.4); Lymphocytes Absolute Auto 0.6 X10*3/uL (1.2-4.9); Lymphocytes Percent Auto 16.8 % (20-40); Mean Corpuscular HGB Conc 33.7 g/dl (31.0-36.0); Mean Corpuscular Volume 86.2 fL (80.0-98.0); Mean Platelet Volume 8.9 fL (9.4-12.4); Monocytes Absolute Auto 0.4 X10*3/uL (0.1-1.2); Monocytes Percent Auto 10.2 % (2-11); Neutrophils Absolute Auto 2.4 x10*3/uL (2.0-8.3); Neutrophils Percent Auto 66.4 % (45-73); Platelet Count 235 X10*3/uL (160-400); Red Blood Count 4.55 X10*6/uL (4.60-5.80); Red Cell Distribution Width 13.5 % (11.0-16.0); White Blood Count 3.6 X10*3/uL (4.8-10.8)
[2023-08-25 09:44] LABS: Alanine Aminotransferase 17 U/L (0-40); Alkaline Phosphatase 57 U/L (39-117); Anion Gap 14 (12-20); Aspartate Amino Transferase 20 U/L (5-37); Bilirubin Total 0.9 mg/dL (0.0-1.0); Blood Urea Nitrogen 28 mg/dL (9-16); Carbon Dioxide 30 mmol/L (22-29); Chloride 104 mmol/L (96-108); Cholesterol 119 mg/dL (<200); Estimated Glomerular Filt Rate 38; Glucose Fasting 98 mg/dL (60-99); HDL Cholesterol 42 mg/dL (>40); LDL Cholesterol Calculated 60 mg/dL (<100); Potassium 3.5 mmol/L (3.3-5.1); Sodium 144 mmol/L (135-145); Total Protein 6.5 g/dL (6.5-8.0); Triglycerides 89 mg/dL (<150)
[2023-08-25 10:00] LABS: Uric Acid 7.1 mg/dL (3.4-7.0)
[2023-08-25 10:08] LABS: TSH reflex Free T4 1.99 uIU/mL (0.32-4.0); Vitamin D 25-OH Total 30.7 ng/mL (>30)
[2023-08-25 10:41] LABS: Appearance Urine Clear; Color Urine Yellow; Glucose Urine UA Negative (Negative); Leukocyte Esterase Urine Negative (Negative); Nitrite Urine Negative (Negative); PH 6.5 (5.0-9.0); Specific Gravity - Urine 1.015 (1.005-1.025); UMIC TRIGGER UACC YES; Urine Blood Negative (Negative); Urine Ketones Negative (Negative); Urine Protein 30 (1+) mg/dL (Neg-Trace)
[2023-08-25 10:43] LABS: Bacteria Urine None Seen (None Seen); Hyaline Casts Urine 0-2 /LPF (0-2); RBC Urine 0-2 /HPF (0-2); Squamous Epithelial Cell Urine 0-2 /HPF (0-2); WBC Urine 0-5 /HPF (0-5)
== END 2023-08-25 08:51 | disposition home or self-care (01) ==
LOC: HO.LAB 08:50
PROVIDERS: PCP Internal Medicine; Visit Provider Internal Medicine
DX: I10 Essential (primary) hypertension (principal); E78.00 Pure hypercholesterolemia, unspecified; M10.9 Gout, unspecified; E55.9 Vitamin D deficiency, unspecified
CPT/HCPCS: 36415; 80053; 80061; 81001; 82306; 84443; 84550; 85025

== ENCOUNTER 2023-09-01 13:05 | Outpatient (AMB) | payer MEDICARE, SELFPAY ==
[2023-09-01 13:07] VITALS: BP 122/80; PULSE 57; O2SAT 97; BMI 34.8
--- NOTE | 2023-09-01 13:07 | MHC.PC.OV ---
Vital Signs 09/01/23 13:07 Height 5 ft 5 in Weight 209 lb 2 oz BMI 34.8 BP 122/80 Blood Pressure Location Lt brachial Position Sitting Pulse 57 Pulse Source Pulse Oximeter Pulse Oximetry (%) 97 Oxygen Delivery Method Room Air Intake Visit Reasons: HTN, CKD, hyperlipidemia Hop Grower Required: No Accompanied by: Self / Same As Patient Allergies Penicillins Allergy (Verified 09/01/23 13:17) Unknown irbesartan Adverse Reaction (Verified 09/01/23 13:17) Stomach Upset Medication List - Last Reconciled 09/01/23 by Bhavesh Arora MD acetaminophen 500 mg PO Q4H PRN aspirin 81 mg PO DAILY atorvastatin 80 mg PO BEDTIME 90 days bisacodyl (Dulcolax (bisacodyl)) 20 mg (4 x 5 mg) PO ONCE 1 day clobetasol 0.05% 1 appl topical BID PRN diltiazem HCl ER (DILT-XR) 240 mg PO QAM finasteride 5 mg PO DAILY 90 days hydralazine 50 mg (2 x 25 mg) PO BID 90 days losartan 50 mg PO DAILY polyethylene glycol 3350 (Miralax) 238 grams PO ONCE PRN 1 day Tobacco use date assessed: 09/01/23 Fall risk assessment: No Falls in past year Last assessed Fall Risk: 09/01/23 Dental Screening Dental Screen Date: 09/01/23 Did you have a dental visit in the last 12 months?: Yes Did you have a dental problem in the last 6 months where you did not have access to dental care?: No Was dental information given to patient?: Patient has dentist HPI HTN, CKD, hyperlipidemia HPI Details Patient comes in today for his follow up visit States that he feels okay He denies any headaches or dizziness Denies any chest pains, no SOB No nausea/vomiting, no abdominal pain No change in bowel habits noted States that he has been experiencing a recurrent sharp pain over his left lower back / left flank area for the past few days now - notes that the pain feels worse towards the end of the day or when he is upright for an extended period of time Needs his Diltiazem and Hydralazine Rx refilled Would also like to get a referral to see Dr. Parra here at [facility] - was seeing Dr. Parra in [place] for follow up of his CKD but Dr. Parra has now moved here to [facility] and he would like to continue following up with him here Had his follow up labs done last week - to discuss his results [facility] Medical History Abscess of leg Pure hypercholesterolemia Onychomycosis Chronic kidney disease (CKD), stage III (moderate) Obesity (BMI 30-39.9) Hematuria Gait instability Vitamin D deficiency Hypokalemia Polycystic kidney disease Multiple thyroid nodules Impaired fasting glucose Cerebrovascular accident (CVA) Dyslipidemia Benign essential hypertension History of postoperative nausea Gout Thyroid nodule Renal cyst Benign prostatic hyperplasia CVA (cerebral vascular accident) COVID-19 virus antibody negative History of snoring Murmur Elevated cholesterol Surgical History H/O partial thyroidectomy (~10/22/14) H/O arthroscopic knee surgery H/O varicose vein ligation and stripping Hx of colonoscopy (~08/2020) Family History Father Diabetes Mother Chronic mental illness Other Mental health problem Social History Household Members: None Housing: Apartment Do you presently have visiting nurse or other home services: No Alcohol intake: current Alcohol intake frequency: does not drink Alcohol type: beer Patient Tobacco Use Status: Former Tobacco user e-Cigarette/Vaping Use: Former Use Second Hand Smoke Exposure: Yes Current occupational status: employed 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 1. Little interest or pleasure in doing things: not at all 2. Feeling down, depressed, or hopeless: not at all 3. Trouble falling or staying asleep, or sleeping too much: not at all 4. Feeling tired or having little energy: several days 5. Poor appetite or overeating: not at all 6. Feeling bad about yourself - or that you are a failure or have let yourself or your family down: not at all 7. Trouble concentrating on things, such as reading the newspaper or watching television: not at all 8. Moving or speaking so slowly that other people could have noticed. Or the opposite - being so fidgety or restless that you have been moving around a lot more than usual: several days 9. Thoughts that you would be better off or of hurting yourself in some way: not at all Total score: 2 Depression Screening Interpretation: Negative Depression Screening Done: Yes 46153 - PHQ-9 Billing: Yes Source: Developed by Drs. Dilip Tian, Mirna Banuelos, Juan Lipscomb and colleagues, with an educational attila from [employer]. Thrive Questionnaire Date Thrive assessed: 09/01/23 I am a: Patient What is your living situation today?: I have a steady place to live Within the past 12 months, did the food you bought not last and you didn't have the money to get more?: Never true Within the past 12 months, did you worry whether your food would run out before you got money to buy more?: Never true Do you have trouble paying for medicines?: No Do you have trouble getting transportation to medical appointments?: No Do you have trouble paying your heating and electricity bill?: No Do you have trouble taking care of your child, family member or friend?: No Do you have trouble with day-to-day activities such as bathing, preparing meals, shopping, managing finances, etc.?: No Are you currently unemployed and looking for a job?: No Are you interested in more education?: No Please select the resources that you would like help with: None Currently or been in a relationship where the following occur: no concerns reported AUDIT C Alcohol Use Questionnaire (AUDIT-C) 1. How often do you have a drink containing alcohol?: Never 3. How often do you have six or more drinks on one occasion?: Never Total Score: 0 Score Reviewed/Action Taken: Yes MARIA ESTHER-7 AMB Questionnaire MARIA ESTHER-7 Date MARIA ESTHER - 7 assessed: 09/01/23 Feeling nervous, anxious, or on edge: 0 = Not at all Not being able to stop or control worryin = Not at all Worrying too much about different things: 0 = Not at all Trouble relaxin = Not at all Being so restless that it is hard to sit still: 0 = Not at all Becoming easily annoyed or irritable: 0 = Not at all Feeling afraid as if something awful might happen: 0 = Not at all Total MARIA ESTHER-7 score (0-4 normal; 5-9 mild; 10-14 moderate; 15-21 severe): 0 Source: Developed by Drs. Dilip Tian, Mirna Banuelos, Juan Lipscomb and colleagues, with an educational attila from [employer]. Review of Systems Const Denies chills, Denies fatigue, Denies fever(s) and Denies headache(s) ENT Denies dysphagia, Denies dizziness, Denies otalgia, Denies headache(s), Denies odynophagia and Denies sore throat Card Denies chest pain, Denies palpitations and Denies dyspnea Resp Denies cough, Denies dyspnea and Denies wheezing GI Denies abdominal pain, Denies constipation, Denies dysphagia, Denies heartburn, Denies diarrhea, Denies nausea, Denies odynophagia and Denies vomiting Denies dysuria, Denies nocturia and Denies urinary frequency Musc Reports abnormal gait (poor balance) and Reports back pain (recurrent, over the left lower back/flank area) Skin/Breast Reports rash (over extensor surface of both elbows) Neuro Reports abnormal gait (poor balance), Denies dizziness and Denies headache(s) Endo Denies fatigue and Denies palpitations Aller/Immun Denies wheezing Physical exam (Primary Care) Vital Signs: Last Vital Signs Pulse 57 09/01/23 13:07 BP 122/80 09/01/23 13:07 Pulse Ox 97 09/01/23 13:07 Oxygen Delivery Method Room Air 09/01/23 13:07 BMI result Body Mass Index 34.8 Tobacco/Smoking Status: Tobacco use Status Tobacco use date assessed 09/01/23 09/01/23 13:13 Patient Tobacco Use Status Former Tobacco user 09/01/23 13:13 e-Cigarette/Vaping Use Former Use 09/01/23 13:13 PHQ-9: PHQ-9 Score PHQ-9: Total score 2 09/01/23 13:17 Depression Screening Interpretation: Negative Thrive Assessment: Date of Thrive Assessment Date Thrive assessed 09/01/23 09/01/23 13:13 Currently or been in a relationship where the following occur: no concerns reported Const General: no acute distress and alert HENMT Ears: TM's normal bilaterally and EAC's normal Throat: Yes posterior oropharynx normal and Yes tonsils normal (no TP congestion noted) Neck Neck: Yes no lymphadenopathy and Yes supple Resp Auscultation: clear to auscultation bilaterally, no rales and no wheezes Cardio Rate: regular rate Rhythm: regular rhythm Heart sounds: no murmurs GI Palpation (GI): Soft to palpation and nontender Auscultation: normal bowel sounds General: Yes CVA tenderness (left - mild) Back/Spine/Pelvis Back: CVA tenderness (left - mild) Skin Other: (+) patchy scaling rash (with whitish/silvery scales) over the extensor aspect of both elbows Extrem General: No clubbing, No cyanosis and Yes edema (1+ bipedal edema) Results Reviewed Results Reviewed: Laboratory Tests 08/25/23 08/25/23 08/25/23 08:55 09:02 09:02 WBC 3.6 L Hgb 13.2 L Hct 39.2 L Plt Count 235 D Sodium 144 Potassium 3.5 Creatinine 1.79 H Estimated GFR 38 Fasting Glucose 98 Uric Acid 7.1 H Calcium 9.0 AST 20 ALT 17 Triglycerides 89 Cholesterol 119 LDL Cholesterol, Calc 60 HDL Cholesterol 42 25-OH Vitamin D Total 30.7 L TSH 1.99 Ur Specific [place] 1.015 Urine Protein 30 (1+) H Urine Glucose (UA) Negative Urine Blood Negative Assessment and Plan Assessment & Plan (1) Benign essential hypertension: Code(s): I10 - Essential (primary) hypertension Plan: Reinforced? low-sodium diet -? goal is systolic BP of at least 130 to 140 mm or less due to his CKD Continue Diltiazem ER 240 mg QD, Hydralazine 50 mg BID (Rx refilled) and Losartan 50 mg QD Patient is reminded to continue monitoring his blood pressure regularly Follow up with nephrology as scheduled (2) Chronic kidney disease (CKD), stage III (moderate): Code(s): N18.30 - Chronic kidney disease, stage 3 unspecified Qualifiers: Chronic kidney disease stage 3 subtype: unspecified whether 3a or 3b Qualified Code(s): N18.30 - Chronic kidney disease, stage 3 unspecified Plan: Advised that his serum creatinine and GFR have been mostly stable and his numbers have improved slightly from previous on his recent labs Will continue to monitor his renal function regularly Follow up with nephrology as scheduled - referral to Dr. Fidel alvarez at [facility] made out, per patient request (3) Polycystic kidney disease: Comment: MRI of the abdomen and pelvis done on 07/04/2019 revealed multiple bilateral renal cysts compatible with polycystic kidney disease Code(s): Q61.3 - Polycystic kidney, unspecified Plan: Patient remains asymptomatic at present Will continue to monitor his renal function closely (4) Pure hypercholesterolemia: Code(s): E78.00 - Pure hypercholesterolemia, unspecified Plan: Results of his labs done last week reviewed and discussed with patient Reinforced low cholesterol diet Continue Atorvastatin 80 mg QD Will recheck his labs and fasting lipids in 3 months for follow up (5) Cerebrovascular accident (CVA): Comment: 2015 Code(s): I63.9 - Cerebral infarction, unspecified Qualifiers: CVA mechanism: unspecified Qualified Code(s): I63.9 - Cerebral infarction, unspecified Plan: Patient currently has minimal residual neurologic deficits from his CVA that occurred back in 2015 Follow-up with Neurology as scheduled or as needed (6) Impaired fasting glucose: Code(s): R73.01 - Impaired fasting glucose Plan: HgbA1c was normal at 5.3% and 5.5% when previously checked Reinforced low calorie/low carb diet; exercise as tolerated (7) Multiple thyroid nodules: Code(s): E04.2 - Nontoxic multinodular goiter Plan: S/P FNA biopsy a couple of years ago - results came back normal/benign Will continue to monitor his TFTs regularly Follow up with [facility] as scheduled (8) Gout: Code(s): M10.9 - Gout, unspecified Qualifiers: Gout site: unspecified site Gout etiology: idiopathic Chronicity: unspecified Qualified Code(s): M10.00 - Idiopathic gout, unspecified site Plan: Reinforced low purine diet -? patient has had no acute gout flares for several months Will recheck his serum uric acid level in 3 months for follow up (9) Vitamin D deficiency: Code(s): E55.9 - Vitamin D deficiency, unspecified Plan: Continue Vitamin-D 73090 units once a week Will recheck his Vitamin-D level in 3 months for follow-up (10) Hypokalemia: Code(s): E87.6 - Hypokalemia Plan: Corrected previously and his serum potassium level currently remains normal Continue Potassium Chloride ER 10 mEq?BID Will continue to monitor his serum potassium level regularly (11) Hematuria: Code(s): R31.9 - Hematuria, unspecified Qualifiers: Hematuria type: unspecified type Qualified Code(s): R31.9 - Hematuria, unspecified Plan: Resolved with no recurrence lately -?sees urology for follow-up (12) Acute left-sided low back pain: Code(s): M54.50 - Low back pain, unspecified Qualifiers: Sciatica presence: unspecified whether sciatica present Qualified Code(s): M54.50 - Low back pain, unspecified Plan: Advised patient that his symptoms are most likely musculoskeletal in origin - can try applying some warm compress over his left flank area PRN Lumbar spine x-rays done back in 2019 revealed (+) sclerotic facet arthrosis that is most severe at L5-S1; (+) mild multilevel endplate spurring and no compression fractures or significant loss of disc height noted Will send patient for repeat lumbar spine x-rays for further evaluation (13) Obesity (BMI 30-39.9): Code(s): E66.9 - Obesity, unspecified Plan: Reinforced diet/exercise as tolerated/lose weight Plan Follow up in 3 months Orders: Orders Complete Blood Count Auto Diff 3 Months I10 - Essential (primary) hypertension Comprehensive [place]. Panel Fast 3 Months E78.00 - Pure hypercholesterolemia, unspecified XR lumbar spine 2-3V Today M54.50 - Low back pain, unspecified Lipid Panel 3 Months E78.00 - Pure hypercholesterolemia, unspecified TSH reflex Free T4 3 Months E78.00 - Pure hypercholesterolemia, unspecified UA CC w/rflx Micro + Cult 3 Months R30.0 - Dysuria Vitamin D 25-OH Total 3 Months E55.9 - Vitamin D deficiency, unspecified Referrals Nephrology Referral N18.30 - Chronic kidney disease, stage 3 unspecified Medications: Refilled hydralazine 50 mg (2 x 25 mg) PO BID 90 days 360 tabs 1RF diltiazem HCl ER (DILT-XR) 240 mg PO QAM 90 caps 1RF I10 - Essential (primary) hypertension Coding Level of Care Code Est Pt Level 4 (91400) Diagnoses Benign essential hypertension I10 Stage 3 chronic kidney disease, unspecified whether stage 3a or 3b CKD N18.30 Chronic kidney disease stage 3 subtype: unspecified whether 3a or 3b Polycystic kidney disease Q61.3 Pure hypercholesterolemia E78.00 Cerebrovascular accident (CVA), unspecified mechanism I63.9 CVA mechanism: unspecified Impaired fasting glucose R73.01 Multiple thyroid nodules E04.2 Idiopathic gout, unspecified chronicity, unspecified site M10.00 Gout site: unspecified site Gout etiology: idiopathic Chronicity: unspecified Vitamin D deficiency E55.9 Hypokalemia E87.6 Hematuria, unspecified type R31.9 Hematuria type: unspecified type Acute left-sided low back pain, unspecified whether sciatica present M54.50 Sciatica presence: unspecified whether sciatica present Obesity (BMI 30-39.9) E66.9
== END 2023-09-01 14:01 | disposition home or self-care (01) ==
PROVIDERS: PCP Internal Medicine; Visit Provider Internal Medicine
DX: I12.9 Hypertensive chronic kidney disease with stage 1 through stage 4 chronic kidney disease, or unspecified chronic kidney disease (principal); N18.30 Chronic kidney disease, stage 3 unspecified; E78.00 Pure hypercholesterolemia, unspecified; R73.01 Impaired fasting glucose; E04.2 Nontoxic multinodular goiter; M10.00 Idiopathic gout, unspecified site; E55.9 Vitamin D deficiency, unspecified; E87.6 Hypokalemia; R31.9 Hematuria, unspecified; M54.50 Low back pain, unspecified; I69.319 Unspecified symptoms and signs involving cognitive functions following cerebral infarction
CPT/HCPCS: 99214

== ENCOUNTER 2023-09-21 16:23 | Outpatient (REF) | payer MEDICARE, SELFPAY ==
--- NOTE | ~2023-09-21 | XR_ITS ---
EXAMINATION: XR LUMBOSACRAL SPINE CLINICAL INFORMATION: Low back pain. COMPARISON: Lumbar spine 12/26/2019. TECHNIQUE: Three views of the lumbosacral spine. FINDINGS: Again seen are some spondylitic endplate changes at L1-L2 and at the superior endplates of L5 and L4. Vertebral body heights are well maintained as are disc spaces. Compared to the study from 12/26/2019, there has been no significant interval change. XR/XR lumbar spine 2-3V IMPRESSION: Mild degenerative changes. No interval change.
[2023-09-21 16:42] LABS: MANUAL DIFF FLAG NO
[2023-09-21 17:10] LABS: Basophils Percent Auto 0.8 % (0-2); Eosinophils Absolute Auto 0.3 X10*3/uL (0.0-0.4); Hematocrit 37.8 % (42.0-52.0); Hemoglobin 12.5 g/dl (14.0-18.0); Imm Gran Abs Auto 0.01 X10*3/uL (0.00-0.03); Imm Gran Pct Auto 0.2 % (0.0-0.4); Lymphocytes Absolute Auto 0.6 X10*3/uL (1.2-4.9); Lymphocytes Percent Auto 12.6 % (20-40); Mean Corpuscular HGB Conc 33.1 g/dl (31.0-36.0); Mean Corpuscular Volume 87.7 fL (80.0-98.0); Mean Platelet Volume 9.6 fL (9.4-12.4); Monocytes Absolute Auto 0.4 X10*3/uL (0.1-1.2); Monocytes Percent Auto 7.7 % (2-11); Neutrophils Absolute Auto 3.5 x10*3/uL (2.0-8.3); Neutrophils Percent Auto 71.7 % (45-73); Platelet Count 262 X10*3/uL (160-400); Red Blood Count 4.31 X10*6/uL (4.60-5.80); Red Cell Distribution Width 13.2 % (11.0-16.0); White Blood Count 4.8 X10*3/uL (4.8-10.8)
[2023-09-21 17:37] LABS: Creatinine Urine 100.84 mg/dL; Protein/Creatinine Ratio, Ur 0.32 (<0.2); Total Protein Urine Random 32 mg/dL (<12)
[2023-09-21 17:39] LABS: Anion Gap 12 (12-20); Blood Urea Nitrogen 38 mg/dL (9-16); Calcium 8.8 mg/dL (8.4-10.2); Carbon Dioxide 30 mmol/L (22-29); Chloride 106 mmol/L (96-108); Estimated Glomerular Filt Rate 36; Phosphorus 3.5 mg/dL (2.7-4.5); Potassium 3.4 mmol/L (3.3-5.1); Sodium 145 mmol/L (135-145)
[2023-09-21 17:56] LABS: Vitamin D 25-OH Total 29.2 ng/mL (>30)
[2023-09-22 16:28] LABS: Calcium (PTHI) 8.9 mg/dL (8.6-10.3); PTHI 101 pg/mL (16-77)
== END 2023-09-21 16:24 | disposition home or self-care (01) ==
LOC: HO.LAB 16:23
PROVIDERS: PCP Internal Medicine; Visit Provider Internal Medicine Nephrology
DX: N18.30 Chronic kidney disease, stage 3 unspecified (principal); M54.50 Low back pain, unspecified
CPT/HCPCS: 36415; 72100; 80051; 82306; 82310; 82565; 82570; 83970; 84100; 84156; 84520; 85025

== ENCOUNTER 2023-09-22 11:32 | Outpatient (AMB) | payer MEDICARE, SELFPAY ==
--- NOTE | 2023-09-22 11:39 | HO.NEPHOV_ITS ---
HPI HPI Comments History of Present Illness Details I had the pleasure of meeting Mr Lechuga in follow-up of his chronic kidney disease and hypertension on a backdrop of her polycystic kidney disease. He has been having left flank pain without any fever, nausea, vomiting, hematuria. He had undergone some x-rays which were unrevealing as per the patient. His vitamin-D levels had been on the low side. He is on multiple antihypertensive medications including losartan, hydralazine and diltiazem. His blood pressure control is quite optimal. He recently had COVID and was taking Paxalovid over. He denies nausea, vomiting, diarrhea, chest pain, shortness of breath, hematuria. He has not had any recent antibiotic intake. He tries to maintain good hydration. He feels well otherwise. [facility] Medical History Abscess of leg Pure hypercholesterolemia Onychomycosis Chronic kidney disease (CKD), stage III (moderate) Obesity (BMI 30-39.9) Hematuria Gait instability Vitamin D deficiency Hypokalemia Polycystic kidney disease Multiple thyroid nodules Impaired fasting glucose Cerebrovascular accident (CVA) Dyslipidemia Benign essential hypertension History of postoperative nausea Gout Thyroid nodule Renal cyst Benign prostatic hyperplasia CVA (cerebral vascular accident) COVID-19 virus antibody negative History of snoring Murmur Elevated cholesterol Surgical History H/O partial thyroidectomy (~10/22/14) H/O arthroscopic knee surgery H/O varicose vein ligation and stripping Hx of colonoscopy (~08/2020) Family History Father Diabetes Mother Chronic mental illness Other Mental health problem Social History Household Members: None Housing: Apartment Do you presently have visiting nurse or other home services: No Alcohol intake: current Alcohol intake frequency: does not drink Alcohol type: beer Patient Tobacco Use Status: Former Tobacco user e-Cigarette/Vaping Use: Former Use Second Hand Smoke Exposure: Yes Current occupational status: employed 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 Cognitive needs: No Hearing needs: No Vision needs: Yes Vital Signs 09/22/23 11:40 Height 5 ft 5 in Weight 215 lb BMI 35.8 BP 140/92 H Blood Pressure Location Rt brachial Position Sitting Pulse 73 Pulse Source Pulse Oximeter Physical Exam Vital Signs: Last Vital Signs Pulse 73 09/22/23 11:40 BP 140/92 H 09/22/23 11:40 BMI result Body Mass Index 35.8 Const General: comfortable and no acute distress Orientation/consciousness: patient oriented x3 HEENT Head: Yes normocephalic Mouth: Normal oral and palatal mucosa present Eyes EOM: EOMs intact bilaterally Neck Neck: Yes supple Resp Auscultation: clear to auscultation bilaterally Cardio Jugular venous distension: no JVD Rate: regular rate GI Palpation (GI): Soft to palpation Auscultation: normal bowel sounds General: Yes no CVA tenderness Back/Spine/Pelvis Back: no CVA tenderness Skin General skin exam: no rashes or lesions noted Neuro General: patient oriented x3 and moves all extremities Extrem General: Yes no pedal edema Assessment & Plan Assessment & Plan (1) Chronic kidney disease (CKD), stage III (moderate): Code(s): N18.30 - Chronic kidney disease, stage 3 unspecified Qualifiers: Chronic kidney disease stage 3 subtype: unspecified whether 3a or 3b Qualified Code(s): N18.30 - Chronic kidney disease, stage 3 unspecified (2) Polycystic kidney disease: Comment: MRI of the abdomen and pelvis done on 07/04/2019 revealed multiple bilateral renal cysts compatible with polycystic kidney disease Code(s): Q61.3 - Polycystic kidney, unspecified (3) Benign essential hypertension: Code(s): I10 - Essential (primary) hypertension Plan Wyatt has polycystic kidney disease. His renal function had been pretty stable. His blood pressure is at goal. He is tolerating angiotensin receptor juvencio. He is not taking any nonsteroidal anti-inflammatories. He had been having left flank pain without any hematuria. I have ordered a renal ultrasound to see whether he has any nephrolithiasis or bleeding into the cyst. He may be a candidate for tolvaptan. Genetic studies for polycystic kidney disease has not been done for him. He is on statins. He tries to remain himself well hydrated . I did not make any medication changes today. All his questions were answered. Follow-up blood work and urine studies were ordered. Time for treatment of data, coordinating care, documentation and patient encounter 31 minutes. Orders: Orders Electrolytes Today N18.30 - Chronic kidney disease, stage 3 unspecified Blood Urea Nitrogen Today N18.30 - Chronic kidney disease, stage 3 unspecified US renal BI Today M54.50 - Low back pain, unspecified Creatinine Today N18.30 - Chronic kidney disease, stage 3 unspecified Calcium Today N18.30 - Chronic kidney disease, stage 3 unspecified Medications: New cholecalciferol (vitamin D3) 10 mcg PO DAILY 90 caps 11RF Coding Level of Care Code Est Pt Level 4 (53762) Diagnoses Stage 3 chronic kidney disease, unspecified whether stage 3a or 3b CKD N18.30 Chronic kidney disease stage 3 subtype: unspecified whether 3a or 3b Polycystic kidney disease Q61.3 Benign essential hypertension I10
[2023-09-22 11:40] VITALS: BP 140/92; PULSE 73; BMI 35.8
== END 2023-09-22 12:17 | disposition home or self-care (01) ==
PROVIDERS: PCP Internal Medicine; Referring Provider Internal Medicine; Visit Provider Internal Medicine Nephrology
DX: I12.9 Hypertensive chronic kidney disease with stage 1 through stage 4 chronic kidney disease, or unspecified chronic kidney disease (principal); N18.30 Chronic kidney disease, stage 3 unspecified; R10.32 Left lower quadrant pain; Q61.3 Polycystic kidney, unspecified
CPT/HCPCS: 99214

== ENCOUNTER → 2023-09-22 11:32 | Outpatient (BNVA) | payer MEDICARE, SELFPAY | PROVIDERS: PCP Internal Medicine; Referring Provider Internal Medicine; Visit Provider Internal Medicine Nephrology | DX: I11.0 Hypertensive heart disease with heart failure (principal); N18.30 Chronic kidney disease, stage 3 unspecified; Q61.3 Polycystic kidney, unspecified | CPT/HCPCS: 99212 ==

== ENCOUNTER 2023-10-14 11:36 | Outpatient (AMB) | payer MEDICARE, SELFPAY ==
--- NOTE | 2023-10-14 11:44 | A.OFFVIS_ITS ---
Intake Intake Visit Reasons: VV w/ pain Intake Note: [employer]/ VV bilateral LE w/ Hx of vein stripping on both legs in the 1969's at [facility], has had VV for many years, states he has large VV, no itching or burning. Pt does work out at the weekly and states it does help w/ swelling. Pt wears compression socks daily Accompanied by: Self / Same As Patient Allergies Penicillins Allergy (Verified 10/14/23 11:51) Unknown irbesartan Adverse Reaction (Verified 10/14/23 11:51) Stomach Upset HPI VV w/ pain HPI Details Very pleasant 73-year-old gentle patient presents for painful varicose veins. Complaints include pain over varicosities, swelling of lower extremities, cramping, fatigue, and heaviness of the lower extremities. Of note he had a fall in March of 2023 and developed an ulcer on the left leg. 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 It is noted more so in left leg. Patient denies any previous venous surgery or injections. He was seen by Dr. Oropeza back in 2016 and was actually scheduled for right lower extremity ablation. It was canceled due to insurance issues Patient denies any history of DVT/ PE. Patient denies any history of phlebitis. Trial of compression includes - prescription compression of 20-30 mmHg They now present for vascular evaluation regarding their varicose veins. [facility] Medical History Abscess of leg Pure hypercholesterolemia Onychomycosis Chronic kidney disease (CKD), stage III (moderate) Obesity (BMI 30-39.9) Hematuria Gait instability Vitamin D deficiency Hypokalemia Polycystic kidney disease Multiple thyroid nodules Impaired fasting glucose Cerebrovascular accident (CVA) Dyslipidemia Benign essential hypertension History of postoperative nausea Gout Thyroid nodule Renal cyst Benign prostatic hyperplasia CVA (cerebral vascular accident) COVID-19 virus antibody negative History of snoring Murmur Elevated cholesterol Surgical History H/O partial thyroidectomy (~10/22/14) H/O arthroscopic knee surgery H/O varicose vein ligation and stripping Hx of colonoscopy (~08/2020) Family History Father Diabetes Mother Chronic mental illness Other Mental health problem Social History Household Members: None Housing: Apartment Do you presently have visiting nurse or other home services: No Alcohol intake: current Alcohol intake frequency: does not drink Alcohol type: beer Patient Tobacco Use Status: Former Tobacco user e-Cigarette/Vaping Use: Former Use Second Hand Smoke Exposure: Yes Current occupational status: employed 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 Cognitive needs: No Hearing needs: No Vision needs: Yes Review of Systems Const Reports as per HPI ENT Reports no additional complaints Card Denies chest pain, Denies chest pain at rest and Denies chest pain with activity Resp Denies chest congestion and Denies cough GI Reports no additional complaints Musc Details: pain over varicosities, aching of lower extremities, swelling, cramping, heaviness and tiredness, itching Denies abnormal gait Skin/Breast Reports pruritus and Denies wounds Neuro Reports no additional complaints and Denies abnormal gait Psych Denies no additional complaints Physical Exam Const General: cooperative, healthy appearing and comfortable Orientation/consciousness: oriented to person, oriented to place and oriented to time Neck Carotids: no bruits Chest Chest palpation & inspection: normal inspection of the chest and normal palpation of entire chest wall Resp Effort & Inspection: normal respiratory effort and able to speak in complete sentences Cardio Rate: regular rate Heart sounds: S1 normal heart sound present and S2 normal heart sound present Peripheral pulses: Peripheral pulses 2+ throughout GI Inspection: Yes normal to inspection Skin Other: +2 edema, large rope-like varicosities greater than 4 mm CEAP Classification C5 - evidence of healed ulceration Ep - Etiology Primary As - superficial veins P - reflux General skin exam: dry skin Neuro General: oriented to person, oriented to place and oriented to time Extrem Right lower extremity: full ROM, normal capillary refill and edema Left lower extremity: full ROM, normal capillary refill and edema Psych Mental Status: mental status grossly normal Results Reviewed Results Reviewed: Venous insufficiency testing from 06/15/2017 demonstrates bilateral great saphenous vein reflux right greater than left. Written report reviewed only Assessment & Plan Assessment & Plan (1) Varicose veins of left lower extremity with inflammation: Code(s): I83.12 - Varicose veins of left lower extremity with inflammation Plan: In short, the patient has evidence of venous insufficiency. I have discussed the pathophysiology with the patient. In addition I have provided informational material regarding venous disease to the patient. We have discussed conservative measures including compression, elevation, and exercise. I have also provided a handout regarding appropriate use of compression stockings and where to purchase good compression stockings as well. I have taken the liberty of ordering venous insufficiency testing with the patient. They will follow up with me after testing. The patient had an opportunity to ask questions regarding the treatment plan. All questions were answered. Imaging studies, laboratory studies and physical exam results were discussed and reviewed in detail. No major barriers to understanding were identified. The patient expressed understanding and agreement with the above treatment plan. The patient is aware they should contact our office by phone for worsening of the current condition or the appearance of new symptoms. Thank you for allowing me to participate in the vascular care of this patient. If you have any questions or concerns regarding the treatment for the above condition please do not hesitate to contact me. The office telephone contact is [phone]. This note is constructed using voice recognition software. While every effort has been made to ensure accuracy, emery wheel molder errors may have been included. Thank you for allowing me to participate in the care of your patient. Yours sincerely, Wood Newberry MD, FACS, R.P.V.I. Orders: Orders US venous duplex LE BI 1 Week I83.12 - Varicose veins of left lower extremity with inflammation Coding Level of Care Code Est Pt Level 4 (52235) Diagnoses Varicose veins of left lower extremity with inflammation I83.12
== END 2023-10-14 12:24 | disposition home or self-care (01) ==
PROVIDERS: PCP Internal Medicine; Visit Provider Surgery Vascular Surgery
DX: I83.12 Varicose veins of left lower extremity with inflammation (principal)
CPT/HCPCS: 99213

== ENCOUNTER → 2023-10-14 11:36 | Outpatient (BNVA) | payer MEDICARE, SELFPAY | PROVIDERS: PCP Internal Medicine; Visit Provider Surgery Vascular Surgery | DX: I83.12 Varicose veins of left lower extremity with inflammation (principal) | CPT/HCPCS: 99212 ==

== ENCOUNTER 2023-10-27 10:30 | Outpatient (REF) | payer MEDICARE, SELFPAY ==
--- NOTE | ~2023-10-27 | US_ITS ---
EXAMINATION: US LOWER EXTREMITY VENOUS (REFLUX EXAM), BILATERAL CLINICAL INDICATION: Varicose veins of left lower extremity with inflammation COMPARISON: Left lower extremity venous ultrasound with Doppler dated 03/18/2023 TECHNIQUE: Color flow triplex imaging and compression Doppler was performed to evaluate both the deep and the superficial systems bilaterally. To evaluate the superficial system, the examination was performed in the upright position. Color-flow Doppler ultrasound and compression ultrasound were utilized. In addition, maneuvers were utilized to demonstrate reflux. FINDINGS: 1. DEEP VENOUS ULTRASOUND OF THE RIGHT LOWER EXTREMITY: Common Femoral Vein: Compressible, normal respiratory variation and augmented flow. Femoral Vein: Compressible, normal color flow and augmentation. Popliteal Vein: Compressible, normal augmentation. Deep Reflux: There is no evidence of reflux in the deep system in either the common femoral vein, superficial femoral or the popliteal vein. There is no evidence of a Schulte's cyst. 2. SUPERFICIAL ULTRASOUND WITH DOPPLER OF RIGHT LOWER EXTREMITY: GREAT SAPHENOUS VEIN: Saphenofemoral Junction: 0.8 cm; Reflux: 0 ms Proximal Thigh: 0.7 cm; Reflux: 2180 ms Mid Thigh: 0.5 cm; Reflux: 2764 ms Above Knee: 0.5 cm; Reflux: 2744 ms At Knee: 0.2 cm; Reflux: 0 ms Below Knee: 0.2 cm; Reflux: 1600 ms Mid Calf: 0.1 cm; Reflux: 0 ms Ankle: 0.2 cm; Reflux: 0 ms DUPLICATED MEDIAL GREAT SAPHENOUS VEIN: Diameter: None imaged Reflux: NA DUPLICATED LATERAL GREAT SAPHENOUS VEIN: Diameter: None imaged Reflux: NA SMALL SAPHENOUS VEIN: Proximal: 0.3 cm; Reflux: 0 ms Distal: 0.3 cm; Reflux: 2980 ms VEIN OF GIACOMINI: Size: NA Reflux: NA PERFORATORS: Location: Distal SSV Size: 0.3 Reflux: 0 Location: Mid calf Size: 0.4 Reflux: 1804 VARICOSITIES: Location: Distal thigh Size: 0.6 Reflux: 2688 VARICOSITIES: Location: At knee Size: 0.6 Reflux: 2816 VARICOSITIES: Location: Mid calf Size: 0.2 Reflux: 2868 3. DEEP VENOUS ULTRASOUND OF THE LEFT LOWER EXTREMITY: Common Femoral Vein: Compressible, normal respiratory variation and augmented flow. Femoral Vein: Compressible, normal color flow and augmentation. Popliteal Vein: Compressible, normal augmentation. Deep Reflux: There is 1004 ms reflux in the left popliteal vein. There is no evidence of reflux in the remainder of the deep system in either the common femoral vein or superficial femoral vein. There is no evidence of a Schulte's cyst. 4. SUPERFICIAL ULTRASOUND WITH DOPPLER OF LEFT LOWER EXTREMITY: GREAT SAPHENOUS VEIN: Saphenofemoral Junction: 1.1 cm; Reflux: 0 ms Proximal Thigh: 0.3 cm; Reflux: 0 ms Mid Thigh: 0.3 cm; Reflux: 0 ms Above Knee: 0.2 cm; Reflux: 0 ms At Knee: 0.3 cm; Reflux: 0 ms Below Knee: 0.3 cm; Reflux: 0 ms Mid Calf: 0.1 cm; Reflux: 0 ms Ankle: 0.2 cm; Reflux: 740 ms DUPLICATED MEDIAL GREAT SAPHENOUS VEIN: Diameter: None imaged Reflux: NA DUPLICATED LATERAL GREAT SAPHENOUS VEIN: Diameter: 1.1 Reflux: 2280 SMALL SAPHENOUS VEIN: Proximal: 0.3 cm; Reflux: 0 ms Distal: 0.2 cm; Reflux: 0 ms VEIN OF GIACOMINI: Size: NA Reflux: NA PERFORATORS: Location: Mid calf Size: 0.4 Reflux: 0 Location: Proximal calf Size: 0.4 Reflux: 0 Location: Mid calf Size: 0.2 Reflux: 1404 Location: Distal calf Size: 0.3 Reflux: 0 VARICOSITIES: Location: Mid ASV Size: 0.7 Reflux: 2452 Location: Proximal thigh, lateral from ASV Size: 0.4 Reflux: 1828 US/US venous duplex LE BI IMPRESSION: Right: 1. No DVT or reflux in the deep system. 2. Reflux of the right great saphenous vein from the proximal thigh to below the knee. 3. Reflux of the small saphenous vein in the distal calf. 4. Large varices with reflux in the thigh, knee, and midcalf. Left: 1. No DVT. 2. Report from the left popliteal vein. No reflex in the remaining deep system. 3. Duplicated lateral great saphenous vein with reflux from the junction to the midthigh. 4. Several perforators in the calf, one of which has reflux in the mid calf. 5. Large varices with reflux in the proximal and mid thigh.
== END 2023-10-27 10:31 | disposition home or self-care (01) ==
LOC: HO.US 10:30
PROVIDERS: PCP Internal Medicine; Visit Provider Surgery Vascular Surgery
DX: I83.12 Varicose veins of left lower extremity with inflammation (principal)
CPT/HCPCS: 93970

== ENCOUNTER 2023-10-28 15:01 | Outpatient (REF) | payer MEDICARE, SELFPAY ==
--- NOTE | ~2023-10-28 | US_ITS ---
EXAMINATION: US RETROPERITONEAL LIMITED (RENAL ONLY) CLINICAL INFORMATION: Low back pain. Left flank pain with polycystic kidney disease. COMPARISON: None available. TECHNIQUE: Routine retroperitoneal ultrasound was performed. FINDINGS: RIGHT KIDNEY: 11.7 x 7.22 x 7.8 cm (SAG x AP x TRV). The kidney is normal in size, contour, and echogenicity. Renal cortical thickness is normal. No calculi or focal parenchymal lesions. No hydronephrosis. There are multiple anechoic cysts. The largest cyst midpole measures 5.8 x 5.7 x 5.7 cm. LEFT KIDNEY: 12.4 x 6.5 x 4.3 cm (SAG x AP x TRV). The kidney is normal in size, contour, and echogenicity. Renal cortical thickness is normal. No calculi or focal parenchymal lesions. No hydronephrosis. There are multiple anechoic cysts. The largest upper pole cyst measures 11.3 x 6.0 x 9.6 cm and has septation. US/US renal BI IMPRESSION: Bilateral multiple renal cysts. The largest upper pole left renal cyst is complex cyst with septation. No echogenic stones or hydronephrosis seen.
== END 2023-10-28 15:02 | disposition home or self-care (01) ==
LOC: HO.US 15:01
PROVIDERS: PCP Internal Medicine; Visit Provider Internal Medicine Nephrology
DX: M54.50 Low back pain, unspecified (principal)
CPT/HCPCS: 76775

== ENCOUNTER 2023-11-10 09:59 | Outpatient (AMB) | payer MEDICARE, SELFPAY ==
--- NOTE | 2023-11-10 10:50 | MHC.OFFWIV ---
Intake Vital Signs 11/10/23 10:58 Height 5 ft 5 in Weight 216 lb BMI 35.9 BP 140/80 H Blood Pressure Location Lt brachial Position Sitting Pulse 74 Pulse Source Pulse Oximeter Temp 97.6 F Temp Source Temporal Artery Scan Pulse Oximetry (%) 97 Oxygen Delivery Method Room Air Intake Visit Reasons: EP cough congestion loose stool [id number] Intake Note: Pt is here c/o cough, congestion and loose stool for three days. Patient Tobacco Use Status: Former Tobacco user Allergies Penicillins Allergy (Verified 11/10/23 10:50) Unknown irbesartan Adverse Reaction (Verified 11/10/23 10:50) Stomach Upset Do you need a note to return to daycare/school/sports/work: No HPI EP cough congestion loose stool [id number] HPI Details This is a 73 year old male patient who presents today with a 3 day history of cough, nasal congestion, and loose stool. He states he feels the loose stool is a side effect of the Tussin otc he has been taking. Denies any fever/chills. Denies known exposure to sick contacts. Had a headache this morning for which he took Tylenol. [facility] Medical History Abscess of leg Pure hypercholesterolemia Onychomycosis Chronic kidney disease (CKD), stage III (moderate) Obesity (BMI 30-39.9) Hematuria Gait instability Vitamin D deficiency Hypokalemia Polycystic kidney disease Multiple thyroid nodules Impaired fasting glucose Cerebrovascular accident (CVA) Dyslipidemia Benign essential hypertension History of postoperative nausea Gout Thyroid nodule Renal cyst Benign prostatic hyperplasia CVA (cerebral vascular accident) COVID-19 virus antibody negative History of snoring Murmur Elevated cholesterol Surgical History H/O partial thyroidectomy (~10/22/14) H/O arthroscopic knee surgery H/O varicose vein ligation and stripping Hx of colonoscopy (~08/2020) Family History Father Diabetes Mother Chronic mental illness Other Mental health problem Social History Household Members: None Housing: Apartment Do you presently have visiting nurse or other home services: No Alcohol intake: current Alcohol intake frequency: does not drink Alcohol type: beer Patient Tobacco Use Status: Former Tobacco user e-Cigarette/Vaping Use: Former Use Second Hand Smoke Exposure: Yes Current occupational status: employed 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 Cognitive needs: No Hearing needs: No Vision needs: Yes Review of Systems Const All systems reviewed & are unremarkable except as noted in HPI and below Physical Exam Vital Signs: Last Vital Signs Temp 97.6 F 11/10/23 10:58 Pulse 74 11/10/23 10:58 BP 140/80 H 11/10/23 10:58 Pulse Ox 97 11/10/23 10:58 Oxygen Delivery Method Room Air 11/10/23 10:58 BMI result Body Mass Index 35.9 Const General: cooperative and no acute distress HEENT Head: Yes normal to inspection Ears: hearing grossly normal bilaterally General nose exam: Normal external nose present and Normal nasal mucous membranes and turbinates present Face and sinus: Yes normal facial exam Mouth: Normal oral and palatal mucosa present and moist mucous membranes Throat: Yes posterior oropharynx normal Neck Neck: Yes no lymphadenopathy Resp Effort & Inspection: normal respiratory effort, able to speak in complete sentences and Actively coughing Quality: dry Auscultation: clear to auscultation bilaterally Cardio Jugular venous distension: no JVD Palpation: normal PMI Rate: regular rate Rhythm: regular rhythm Skin General skin exam: no rashes or lesions noted Extrem General: Yes capillary refill normal and Yes no clubbing, cyanosis or edema Psych Appearance: grossly normal Mental Status: mental status grossly normal Speech and movement: Normal speech and movement present Assessment & Plan Assessment & Plan (1) Upper respiratory infection: Code(s): J06.9 - Acute upper respiratory infection, unspecified Qualifiers: URI type: unspecified viral URI Qualified Code(s): J06.9 - Acute upper respiratory infection, unspecified Plan: Symptoms consistent with viral URI. Advised ongoing conservative measures with otc cold/flu products for symptomatic treatment. Will prescribe Benzonatate as he feels the Tussin is causing him to have loose stool. Covid/Flu/RSV swab obtained and he is aware he will be notified of results once these are available. If he does not improve with time and conservative measures, he should return to the clinic for further evalution. He verbalizes understanding and agrees to plan. Orders: Orders SARS-CoV2/FLU/RSV Today J06.9 - Acute upper respiratory infection, unspecified Medications: New benzonatate 100 mg PO BID PRN 14 caps 0RF cough 7 days R05.9 - Cough, unspecified Coding Level of Care Code Est Pt Level 3 (31182) Diagnoses Viral upper respiratory tract infection J06.9 URI type: unspecified viral URI
[2023-11-10 10:58] VITALS: BP 140/80; PULSE 74; TEMP 36.4; O2SAT 97; BMI 35.9
== END 2023-11-10 11:29 | disposition home or self-care (01) ==
PROVIDERS: PCP Internal Medicine; Visit Provider Nurse Practitioner Family
DX: J06.9 Acute upper respiratory infection, unspecified (principal)
CPT/HCPCS: 99213

== ENCOUNTER 2023-11-10 11:16 | Outpatient (REF) | payer MEDICARE, SELFPAY | END 2023-11-10 11:17 | disposition home or self-care (01) | LOC: HO.LAB 11:16 | PROVIDERS: Visit Provider Nurse Practitioner Family | DX: J06.9 Acute upper respiratory infection, unspecified (principal); Z11.52 Encounter for screening for COVID-19 | CPT/HCPCS: 0241U ==

== ENCOUNTER 2023-12-14 09:48 | Outpatient (AMB) | payer MEDICARE, SELFPAY ==
[2023-12-14 09:54] VITALS: BMI 35.9
--- NOTE | 2023-12-14 09:54 | MHC.OFFVIS ---
Intake Vital Signs 12/14/23 09:54 Height 5 ft 5 in Weight 216 lb BMI 35.9 Intake Visit Reasons: follow up US 10/27/2023 Intake Note: follow up bilateral LE VV w/ swelling. Pt states left LE may be worse than the right leg but it varies. Pt does exercise daily and goes to the , states he wears compression stockings as well. Hx Hx of bilateral LE stripping in the 1970s @ [facility] but still has large VV Accompanied by: Self / Same As Patient Allergies Penicillins Allergy (Verified 12/14/23 09:58) Unknown irbesartan Adverse Reaction (Verified 12/14/23 09:58) Stomach Upset HPI follow up 10/27/2023 HPI Details Very pleasant 73-year-old gentleman presents for follow-up with venous insufficiency. He reports that he does have significant swelling of bilateral lower extremities. Does report that he does have a prior history of a stripping many years ago. He was not exactly sure what was done. He does wear compression which has provided minimal relief. He now presents with follow-up testing [facility] Medical History Abscess of leg Pure hypercholesterolemia Onychomycosis Chronic kidney disease (CKD), stage III (moderate) Obesity (BMI 30-39.9) Hematuria Gait instability Vitamin D deficiency Hypokalemia Polycystic kidney disease Multiple thyroid nodules Impaired fasting glucose Cerebrovascular accident (CVA) Dyslipidemia Benign essential hypertension History of postoperative nausea Gout Thyroid nodule Renal cyst Benign prostatic hyperplasia CVA (cerebral vascular accident) COVID-19 virus antibody negative History of snoring Murmur Elevated cholesterol Surgical History H/O partial thyroidectomy (~10/22/14) H/O arthroscopic knee surgery H/O varicose vein ligation and stripping Hx of colonoscopy (~08/2020) Family History Father Diabetes Mother Chronic mental illness Other Mental health problem Social History Household Members: None Housing: Apartment Do you presently have visiting nurse or other home services: No Alcohol intake: current Alcohol intake frequency: does not drink Alcohol type: beer Patient Tobacco Use Status: Former Tobacco user e-Cigarette/Vaping Use: Former Use Second Hand Smoke Exposure: Yes Current occupational status: employed 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 Cognitive needs: No Hearing needs: No Vision needs: Yes Review of Systems Const All systems reviewed & are unremarkable except as noted in HPI and below Reports no additional complaints ENT Reports Normal hearing present Card Denies chest pain, Denies chest pain at rest, Denies chest pain with activity and Denies pedal edema Resp Denies cough GI Denies abdominal pain Musc Details: pain over varicosities, aching of lower extremities, swelling, cramping, heaviness and tiredness, itching Denies abnormal gait, Denies muscle cramps and Denies radiating pain into limb Skin/Breast Denies skin ulcer and Denies wounds Neuro Reports Normal hearing present and Denies abnormal gait Psych Reports no additional complaints Physical Exam Vital Signs: BMI result Body Mass Index 35.9 Const General: cooperative, healthy appearing and comfortable Orientation/consciousness: oriented to person, oriented to place and oriented to time HEENT Head: Yes normal to inspection Neck Neck: Yes normal visual inspection Carotids: no bruits Chest Chest palpation & inspection: normal inspection of the chest Resp Effort & Inspection: normal respiratory effort and able to speak in complete sentences Auscultation: clear to auscultation bilaterally, no crackles, no rales, no rhonchi and no wheezes Cardio Rate: regular rate Rhythm: regular rhythm Heart sounds: S1 normal heart sound present and S2 normal heart sound present Bruits: no carotid bruits Peripheral pulses: Peripheral pulses 2+ throughout GI Inspection: Yes normal to inspection Skin Other: +2 edema, large rope-like varicosities greater than 4 mm CEAP Classification C4 - skin color changes Ep - Etiology Primary As - superficial veins P - reflux General skin exam: dry skin Wounds: no wounds Hair: normal Neuro General: oriented to person, oriented to place and oriented to time Cranial nerves: Yes CN's II-XII intact bilaterally and Yes Normal hearing present Cognition (Neuro): normal cognition Motor exam (neuro): 5/5 motor strength present throughout Extrem Other: venous exam: No significant superficial varicosities or spider telangiectasias, minimal edema General: No clubbing, No cyanosis and No edema Right lower extremity: full ROM, normal capillary refill and edema Left lower extremity: full ROM, normal capillary refill and edema Psych Appearance: grossly normal Mental Status: mental status grossly normal Speech and movement: Normal speech and movement present Results Reviewed Results Reviewed: Brief summary of venous insufficiency testing is as follows: right great saphenous vein: Positive right small saphenous vein: negative right accessory vein: none present left great saphenous vein: negative left small saphenous vein: negative left accessory vein: Present and positive Please note there is no evidence of any venous aneurysms or significant tortuosity Assessment & Plan Assessment & Plan (1) Varicose veins of right lower extremity with inflammation: Code(s): I83.11 - Varicose veins of right lower extremity with inflammation Plan: This patient has varicose veins with inflammation. They continue to be a source of discomfort for the patient. The patient has tried conservative treatment with compression, leg elevation and exercise program for over 3 months time. They have been compliant with all treatment. This has provided minimal relief for the patient. I do not anticipate this course of treatment will alter the underlying etiology. The patient has been scheduled for lower extremity venous treatment inclusive of --- right great saphenous vein Cyanoacralate ablation. Risks, benefits, and complications of this procedure has been discussed in detail with the patient including but not limited to bleeding, infection, and the development of a DVT. The patient has demonstrated a clear understanding and has consented. We will schedule the patient as soon as possible. Thank you for allowing us to participate in this patient's care. If there are any questions or concerns please do not hesitate to contact us. Coding Level of Care Code Est Pt Level 4 (41759) Diagnoses Varicose veins of right lower extremity with inflammation I83.11
== END 2023-12-14 10:29 | disposition home or self-care (01) ==
PROVIDERS: PCP Internal Medicine; Visit Provider Surgery Vascular Surgery
DX: I83.11 Varicose veins of right lower extremity with inflammation (principal)
CPT/HCPCS: 99214

== ENCOUNTER → 2023-12-14 09:48 | Outpatient (BNVA) | payer MEDICARE, SELFPAY | PROVIDERS: PCP Internal Medicine; Visit Provider Surgery Vascular Surgery | DX: I83.11 Varicose veins of right lower extremity with inflammation (principal) | CPT/HCPCS: 99212 ==

== ENCOUNTER 2023-12-15 08:17 | Outpatient (REF) | payer MEDICARE, SELFPAY ==
[2023-12-15 08:33] LABS: MANUAL DIFF FLAG NO
[2023-12-15 08:42] LABS: Eosinophils Absolute Auto 0.3 X10*3/uL (0.0-0.4); Eosinophils Percent Auto 6.5 % (0-4); Hematocrit 39.3 % (42.0-52.0); Hemoglobin 13.2 g/dl (14.0-18.0); Imm Gran Abs Auto 0.01 X10*3/uL (0.00-0.03); Imm Gran Pct Auto 0.3 % (0.0-0.4); Lymphocytes Absolute Auto 0.6 X10*3/uL (1.2-4.9); Lymphocytes Percent Auto 14.9 % (20-40); Mean Corpuscular HGB Conc 33.6 g/dl (31.0-36.0); Mean Corpuscular Hemoglobin 28.8 pg (27.0-33.0); Mean Corpuscular Volume 85.8 fL (80.0-98.0); Mean Platelet Volume 8.9 fL (9.4-12.4); Monocytes Absolute Auto 0.4 X10*3/uL (0.1-1.2); Monocytes Percent Auto 9.2 % (2-11); Neutrophils Absolute Auto 2.6 x10*3/uL (2.0-8.3); Neutrophils Percent Auto 68.1 % (45-73); Platelet Count 233 X10*3/uL (160-400); Red Blood Count 4.58 X10*6/uL (4.60-5.80); Red Cell Distribution Width 13.2 % (11.0-16.0); White Blood Count 3.8 X10*3/uL (4.8-10.8)
[2023-12-15 09:13] LABS: Alanine Aminotransferase 17 U/L (0-40); Albumin Level 3.8 g/dL (3.5-5.0); Alkaline Phosphatase 61 U/L (39-117); Anion Gap 12 (12-20); Aspartate Amino Transferase 21 U/L (5-37); Bilirubin Total 0.8 mg/dL (0.0-1.0); Blood Urea Nitrogen 31 mg/dL (9-16); Calcium 9.3 mg/dL (8.4-10.2); Carbon Dioxide 32 mmol/L (22-29); Chloride 105 mmol/L (96-108); Cholesterol 116 mg/dL (<200); Estimated Glomerular Filt Rate 34; Glucose Fasting 99 mg/dL (60-99); HDL Cholesterol 41 mg/dL (>40); LDL Cholesterol Calculated 62 mg/dL (<100); Potassium 3.4 mmol/L (3.3-5.1); Sodium 146 mmol/L (135-145); Total Protein 6.5 g/dL (6.5-8.0); Triglycerides 68 mg/dL (<150)
[2023-12-15 10:49] LABS: Appearance Urine Clear; Color Urine Yellow; Glucose Urine UA Negative (Negative); Leukocyte Esterase Urine Negative (Negative); Nitrite Urine Negative (Negative); Specific Gravity - Urine 1.015 (1.005-1.025); UMIC TRIGGER UACC YES; Urine Blood Negative (Negative); Urine Ketones Negative (Negative); Urine Protein 30 (1+) mg/dL (Neg-Trace)
[2023-12-15 10:52] LABS: Bacteria Urine None Seen (None Seen); Hyaline Casts Urine 0-2 /LPF (0-2); RBC Urine 0-2 /HPF (0-2); Squamous Epithelial Cell Urine 0-2 /HPF (0-2); WBC Urine 0-5 /HPF (0-5)
[2023-12-15 11:59] LABS: TSH reflex Free T4 1.57 uIU/mL (0.32-4.0); Vitamin D 25-OH Total 33.6 ng/mL (>30)
== END 2023-12-15 08:18 | disposition home or self-care (01) ==
LOC: HO.LAB 08:17
PROVIDERS: PCP Internal Medicine; Visit Provider Internal Medicine
DX: I10 Essential (primary) hypertension (principal); E78.00 Pure hypercholesterolemia, unspecified; E55.9 Vitamin D deficiency, unspecified
CPT/HCPCS: 36415; 80053; 80061; 81001; 82306; 84443; 85025

== ENCOUNTER 2023-12-17 09:03 | Outpatient (AMB) | payer MEDICARE, SELFPAY ==
[2023-12-17 09:06] VITALS: BP 122/76; PULSE 67; O2SAT 96; BMI 35.2
--- NOTE | 2023-12-17 09:06 | A.OFFPC_ITS ---
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 Airline Lounge Required: No Accompanied by: Self / Same As Patient Allergies Penicillins Allergy (Verified 12/17/23 09:14) Unknown irbesartan Adverse Reaction (Verified 12/17/23 09:14) Stomach Upset Medication List - Last Reconciled 12/17/23 by Bhavesh Arora MD acetaminophen 500 mg PO Q4H PRN aspirin 81 mg PO DAILY atorvastatin 80 mg PO BEDTIME 90 days benzonatate 100 mg PO BID PRN 7 days cholecalciferol (vitamin D3) 10 mcg PO DAILY clobetasol 0.05% 1 appl topical BID PRN diltiazem HCl ER (DILT-XR) 240 mg PO QAM finasteride 5 mg PO DAILY 90 days hydralazine 50 mg (2 x 25 mg) PO BID 90 days losartan 50 mg PO DAILY Tobacco use date assessed: 12/17/23 Fall risk assessment: 1 Fall in past year Last assessed Fall Risk: 12/17/23 Dental Screening Dental Screen Date: 12/17/23 Did you have a dental visit in the last 12 months?: Yes Did you have a dental problem in the last 6 months where you did not have access to dental care?: No Was dental information given to patient?: Patient has dentist HPI 4 month f/u HPI Details Patient comes in today for his follow up visit States that he feels okay He denies any headaches or dizziness Denies any chest pains, no SOB No nausea/vomiting, no abdominal pain No change in bowel habits noted Needs a couple of his Rx refilled Had his follow up labs done a couple of days ago - to discuss his results [facility] Medical History (Updated 12/17/23 @ 09:36 by Bhavesh Arora MD) Lumbar degenerative disc disease Abscess of leg Pure hypercholesterolemia Onychomycosis Chronic kidney disease (CKD), stage III (moderate) Obesity (BMI 30-39.9) Hematuria Gait instability Vitamin D deficiency Hypokalemia Polycystic kidney disease Multiple thyroid nodules Impaired fasting glucose Cerebrovascular accident (CVA) Dyslipidemia Benign essential hypertension History of postoperative nausea Gout Thyroid nodule Renal cyst Benign prostatic hyperplasia CVA (cerebral vascular accident) COVID-19 virus antibody negative History of snoring Murmur Elevated cholesterol Surgical History H/O partial thyroidectomy (~10/22/14) H/O arthroscopic knee surgery H/O varicose vein ligation and stripping Hx of colonoscopy (~08/2020) Family History Father Diabetes Mother Chronic mental illness Other Mental health problem Social History Household Members: None Housing: Apartment Do you presently have visiting nurse or other home services: No Alcohol intake: current Alcohol intake frequency: does not drink Alcohol type: beer Patient Tobacco Use Status: Former Tobacco user e-Cigarette/Vaping Use: Former Use Second Hand Smoke Exposure: Yes Current occupational status: employed 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 1. Little interest or pleasure in doing things: not at all 2. Feeling down, depressed, or hopeless: not at all 3. Trouble falling or staying asleep, or sleeping too much: not at all 4. Feeling tired or having little energy: several days 5. Poor appetite or overeating: not at all 6. Feeling bad about yourself - or that you are a failure or have let yourself or your family down: not at all 7. Trouble concentrating on things, such as reading the newspaper or watching television: not at all 8. Moving or speaking so slowly that other people could have noticed. Or the opposite - being so fidgety or restless that you have been moving around a lot more than usual: several days 9. Thoughts that you would be better off or of hurting yourself in some way: not at all Total score: 2 Depression Screening Interpretation: Negative Depression Screening Done: Yes 57513 - PHQ-9 Billing: Yes Source: Developed by Drs. Dilip Tian, Mirna Banuelos, Juan Lipscomb and colleagues, with an educational attila from [employer]. Thrive Questionnaire Date Thrive assessed: 12/17/23 I am a: Patient What is your living situation today?: I have a steady place to live Within the past 12 months, did the food you bought not last and you didn't have the money to get more?: Never true Within the past 12 months, did you worry whether your food would run out before you got money to buy more?: Never true Do you have trouble paying for medicines?: No Do you have trouble getting transportation to medical appointments?: No Do you have trouble paying your heating and electricity bill?: No Do you have trouble taking care of your child, family member or friend?: No Do you have trouble with day-to-day activities such as bathing, preparing meals, shopping, managing finances, etc.?: No Are you currently unemployed and looking for a job?: No Are you interested in more education?: No Please select the resources that you would like help with: None Currently or been in a relationship where the following occur: no concerns reported THRIVE Score: 0 AUDIT C Alcohol Use Questionnaire (AUDIT-C) 1. How often do you have a drink containing alcohol?: Never 3. How often do you have six or more drinks on one occasion?: Never Total Score: 0 Score Reviewed/Action Taken: Yes MARIA ESTHER-7 AMB Questionnaire MARIA ESTHER-7 Date MARIA ESTHER - 7 assessed: 12/17/23 Feeling nervous, anxious, or on edge: 0 = Not at all Not being able to stop or control worryin = Not at all Worrying too much about different things: 0 = Not at all Trouble relaxin = Not at all Being so restless that it is hard to sit still: 0 = Not at all Becoming easily annoyed or irritable: 0 = Not at all Feeling afraid as if something awful might happen: 0 = Not at all Total MARIA ESTHER-7 score (0-4 normal; 5-9 mild; 10-14 moderate; 15-21 severe): 0 Source: Developed by Drs. Dilip Tina, Mirna Banuelos, Juan Lipscomb and colleagues, with an educational attila from [employer]. Review of Systems Const Denies chills, Denies fatigue, Denies fever(s) and Denies headache(s) ENT Denies dysphagia, Denies dizziness, Denies otalgia, Denies headache(s), Denies neck pain, Denies odynophagia and Denies sore throat Card Denies chest pain, Denies palpitations and Denies dyspnea Resp Denies cough, Denies dyspnea and Denies wheezing GI Denies abdominal pain, Denies constipation, Denies dysphagia, Denies heartburn, Denies diarrhea, Denies nausea, Denies odynophagia and Denies vomiting Denies dysuria, Denies nocturia and Denies urinary frequency Musc Reports abnormal gait (poor balance), Reports back pain (recurrent, over the left lower back/flank area) and Denies neck pain Skin/Breast Reports rash (over extensor surface of both elbows) Neuro Reports abnormal gait (poor balance), Denies dizziness and Denies headache(s) Endo Denies fatigue and Denies palpitations Aller/Immun Denies wheezing Physical exam (Primary Care) Vital Signs: Last Vital Signs Pulse 67 12/17/23 09:06 BP 122/76 12/17/23 09:06 Pulse Ox 96 12/17/23 09:06 Oxygen Delivery Method Room Air 12/17/23 09:06 BMI result Body Mass Index 35.2 Tobacco/Smoking Status: Tobacco use Status Tobacco use date assessed 12/17/23 12/17/23 09:12 Patient Tobacco Use Status Former Tobacco user 12/17/23 09:12 e-Cigarette/Vaping Use Former Use 12/17/23 09:12 PHQ-9: PHQ-9 Score PHQ-9: Total score 2 12/17/23 09:12 Depression Screening Interpretation: Negative Thrive Assessment: Date of Thrive Assessment Date Thrive assessed 12/17/23 12/17/23 09:12 Currently or been in a relationship where the following occur: no concerns reported Const General: no acute distress and alert HENMT Ears: TM's normal bilaterally and EAC's normal Throat: Yes posterior oropharynx normal and Yes tonsils normal (no TP congestion noted) Neck Neck: Yes no lymphadenopathy and Yes supple Resp Auscultation: clear to auscultation bilaterally, no rales and no wheezes Cardio Rate: regular rate Rhythm: regular rhythm Heart sounds: no murmurs GI Palpation (GI): Soft to palpation and nontender Auscultation: normal bowel sounds General: Yes CVA tenderness (left - mild) Back/Spine/Pelvis Back: CVA tenderness (left - mild) Skin Other: (+) patchy scaling rash (with whitish/silvery scales) over the extensor aspect of both elbows Extrem General: No clubbing, No cyanosis and Yes edema (1+ bipedal edema) Results Reviewed Results Reviewed: Laboratory Tests 09/21/23 12/15/23 12/15/23 16:39 08:26 08:28 WBC 3.8 L Hgb 13.2 L Hct 39.3 L Plt Count 233 Sodium 146 H Potassium 3.4 Creatinine 1.93 H Estimated GFR 34 Fasting Glucose 99 Calcium 9.3 AST 21 ALT 17 Triglycerides Cholesterol LDL Cholesterol, Calc 62 HDL Cholesterol 41 25-OH Vitamin D Total 33.6 TSH 1.57 Calcium (PTH Intact) 8.9 Ur Specific Macy 1.015 Urine Protein 30 (1+) H Urine Glucose (UA) Negative Urine Blood Negative Urine Nitrite Negative Ur Leukocyte Esterase Negative 12/15/23 08:28 WBC Hgb Hct Plt Count Sodium Potassium Creatinine Estimated GFR Fasting Glucose Calcium AST ALT Triglycerides 68 Cholesterol 116 LDL Cholesterol, Calc HDL Cholesterol 25-OH Vitamin D Total TSH Calcium (PTH Intact) Ur Specific Macy Urine Protein Urine Glucose (UA) Urine Blood Urine Nitrite Ur Leukocyte Esterase Assessment and Plan Assessment & Plan (1) Benign essential hypertension: Code(s): I10 - Essential (primary) hypertension Plan: Reinforced? low-sodium diet -? goal is systolic BP of at least 130 to 140 mm or less due to his CKD Continue Diltiazem ER 240 mg QD, Hydralazine 50 mg BID and Losartan 50 mg QD Patient is reminded to continue monitoring his blood pressure regularly Follow up with nephrology as scheduled (2) Chronic kidney disease (CKD), stage III (moderate): Code(s): N18.30 - Chronic kidney disease, stage 3 unspecified Qualifiers: Chronic kidney disease stage 3 subtype: unspecified whether 3a or 3b Qualified Code(s): N18.30 - Chronic kidney disease, stage 3 unspecified Plan: Advised that his serum creatinine and GFR have been mostly stable Will continue to monitor his renal function regularly Follow up with nephrology (Dr. Parra) as scheduled (3) Polycystic kidney disease: Comment: MRI of the abdomen and pelvis done on 07/04/2019 revealed multiple bilateral renal cysts compatible with polycystic kidney disease Code(s): Q61.3 - Polycystic kidney, unspecified Plan: Patient remains asymptomatic at present Renal US done back in September 2023 revealed (+) multiple bilateral renal cysts with the largest cyst on the upper pole of the left kidney, which appears as a complex cyst with multiple septations Will continue to monitor his renal function closely (4) Pure hypercholesterolemia: Code(s): E78.00 - Pure hypercholesterolemia, unspecified Plan: Results of his labs done couple of days ago reviewed and discussed with patient Reinforced low cholesterol diet Continue Atorvastatin 80 mg QD Will recheck his labs and fasting lipids in 3 months for follow up (5) Cerebrovascular accident (CVA): Comment: 2015 Code(s): I63.9 - Cerebral infarction, unspecified Qualifiers: CVA mechanism: unspecified Qualified Code(s): I63.9 - Cerebral infarction, unspecified Plan: Patient currently has minimal residual neurologic deficits from his CVA that occurred back in 2015 Follow-up with Neurology as scheduled or as needed (6) Impaired fasting glucose: Code(s): R73.01 - Impaired fasting glucose Plan: HgbA1c was normal at 5.3% and 5.5% when previously checked Reinforced low calorie/low carb diet; exercise as tolerated (7) Multiple thyroid nodules: Code(s): E04.2 - Nontoxic multinodular goiter Plan: S/P FNA biopsy a couple of years ago - results came back normal/benign TSH remains normal on his recent labs Will continue to monitor his TFTs regularly Thyroid US last done in 2017 revealed enlarged left lobe with multiple bilateral thyroid nodules - 2 nodules appear increased in size and there appears to be a new nodule as well and recommended continued ultrasound follow up He had US ordered in 2019 but did not get that done Will send him for a follow up thyroid US EDD (8) Gout: Code(s): M10.9 - Gout, unspecified Qualifiers: Gout site: unspecified site Gout etiology: idiopathic Chronicity: unspecified Qualified Code(s): M10.00 - Idiopathic gout, unspecified site Plan: Reinforced low purine diet -? patient has had no acute gout flares for several months Will recheck his serum uric acid level in 3 months for follow up (9) Vitamin D deficiency: Code(s): E55.9 - Vitamin D deficiency, unspecified Plan: Corrected - continue Vitamin-D 11091 units once a week (10) Hypokalemia: Code(s): E87.6 - Hypokalemia Plan: Corrected previously and his serum potassium level currently remains normal Continue Potassium Chloride ER 10 mEq?BID Will continue to monitor his serum potassium level regularly (11) Hematuria: Code(s): R31.9 - Hematuria, unspecified Qualifiers: Hematuria type: unspecified type Qualified Code(s): R31.9 - Hematuria, unspecified Plan: Resolved with no recurrence lately -?sees urology for follow-up (12) Lumbar degenerative disc disease: Code(s): M51.36 - Other intervertebral disc degeneration, lumbar region Plan: Lumbar spine x-rays done back in 2019 revealed (+) sclerotic facet arthrosis that is most severe at L5-S1; (+) mild multilevel endplate spurring and no compression fractures or significant loss of disc height noted Repeat x-rays done in September 2023 revealed no interval change Reinforced activity and weight-lifting restrictions (13) Obesity (BMI 30-39.9): Code(s): E66.9 - Obesity, unspecified Plan: Reinforced diet/exercise as tolerated/lose weight Plan Follow up in 3 months Orders: Orders Uric Acid 3 Months M10.9 - Gout, unspecified Complete Blood Count Auto Diff 3 Months D64.9 - Anemia, unspecified Microalbumin, Random (w Creat) 3 Months E11.9 - Type 2 diabetes mellitus without complications TSH reflex Free T4 3 Months E78.00 - Pure hypercholesterolemia, unspecified Lipid Panel 3 Months E78.00 - Pure hypercholesterolemia, unspecified Vitamin D 25-OH Total 3 Months E55.9 - Vitamin D deficiency, unspecified US thyroid Today E04.2 - Nontoxic multinodular goiter Comprehensive [place]. Panel Fast 3 Months E78.00 - Pure hypercholesterolemia, unspecified Hemoglobin A1c 3 Months R73.01 - Impaired fasting glucose Medications: Refilled diltiazem HCl ER (DILT-XR) 240 mg PO QAM 90 caps 1RF I10 - Essential (primary) hypertension hydralazine 50 mg (2 x 25 mg) PO BID 90 days 360 tabs 1RF Coding Level of Care Code Est Pt Level 4 (92423) Diagnoses Benign essential hypertension I10 Stage 3 chronic kidney disease, unspecified whether stage 3a or 3b CKD N18.30 Chronic kidney disease stage 3 subtype: unspecified whether 3a or 3b Polycystic kidney disease Q61.3 Pure hypercholesterolemia E78.00 Cerebrovascular accident (CVA), unspecified mechanism I63.9 CVA mechanism: unspecified Impaired fasting glucose R73.01 Multiple thyroid nodules E04.2 Idiopathic gout, unspecified chronicity, unspecified site M10.00 Gout site: unspecified site Gout etiology: idiopathic Chronicity: unspecified Vitamin D deficiency E55.9 Hypokalemia E87.6 Hematuria, unspecified type R31.9 Hematuria type: unspecified type Lumbar degenerative disc disease M51.36 Obesity (BMI 30-39.9) E66.9
== END 2023-12-17 09:49 | disposition home or self-care (01) ==
PROVIDERS: PCP Internal Medicine; Visit Provider Internal Medicine
DX: I12.9 Hypertensive chronic kidney disease with stage 1 through stage 4 chronic kidney disease, or unspecified chronic kidney disease (principal); Z86.73 Personal history of transient ischemic attack (TIA), and cerebral infarction without residual deficits; N18.30 Chronic kidney disease, stage 3 unspecified; Q61.3 Polycystic kidney, unspecified; E78.00 Pure hypercholesterolemia, unspecified; R73.01 Impaired fasting glucose; E04.2 Nontoxic multinodular goiter; M10.00 Idiopathic gout, unspecified site; E55.9 Vitamin D deficiency, unspecified; E87.6 Hypokalemia; R31.9 Hematuria, unspecified; M51.36 Other intervertebral disc degeneration, lumbar region
CPT/HCPCS: 99214

== ENCOUNTER 2023-12-29 11:35 | Outpatient (AMB) | payer MEDICARE, SELFPAY ==
[2023-12-29 11:57] VITALS: BP 128/80; PULSE 67; O2SAT 97; BMI 35.0
--- NOTE | 2023-12-29 11:57 | HO.NEPHOV ---
HPI HPI Comments History of Present Illness Details I had the pleasure of meeting Mr Lechuga in follow-up of his chronic kidney disease and hypertension on a backdrop of her polycystic kidney disease. He has no flank pain, any fever, nausea, vomiting, hematuria. He had undergone some x-rays which were unrevealing as per the patient. His vitamin-D levels had been on the low side. He is on multiple antihypertensive medications including losartan, hydralazine and diltiazem. His blood pressure control is quite optimal. He denies nausea, vomiting, diarrhea, chest pain, shortness of breath, hematuria. He has not had any recent antibiotic intake. He tries to maintain good hydration. He has been having edema. He feels well otherwise [facility] Medical History (Updated 12/17/23 @ 09:36 by Bhavesh Arora MD) Lumbar degenerative disc disease Abscess of leg Pure hypercholesterolemia Onychomycosis Chronic kidney disease (CKD), stage III (moderate) Obesity (BMI 30-39.9) Hematuria Gait instability Vitamin D deficiency Hypokalemia Polycystic kidney disease Multiple thyroid nodules Impaired fasting glucose Cerebrovascular accident (CVA) Dyslipidemia Benign essential hypertension History of postoperative nausea Gout Thyroid nodule Renal cyst Benign prostatic hyperplasia CVA (cerebral vascular accident) COVID-19 virus antibody negative History of snoring Murmur Elevated cholesterol Surgical History H/O partial thyroidectomy (~10/22/14) H/O arthroscopic knee surgery H/O varicose vein ligation and stripping Hx of colonoscopy (~08/2020) Family History Father Diabetes Mother Chronic mental illness Other Mental health problem Social History Household Members: None Housing: Apartment Do you presently have visiting nurse or other home services: No Alcohol intake: current Alcohol intake frequency: does not drink Alcohol type: beer Patient Tobacco Use Status: Former Tobacco user e-Cigarette/Vaping Use: Former Use Second Hand Smoke Exposure: Yes Current occupational status: employed 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 Cognitive needs: No Hearing needs: No Vision needs: Yes Vital Signs 12/29/23 11:57 Height 5 ft 5 in Weight 210 lb 6 oz BMI 35.0 BP 128/80 Blood Pressure Location Rt brachial Position Sitting Pulse 67 Pulse Source Pulse Oximeter Pulse Oximetry (%) 97 Oxygen Delivery Method Room Air Physical Exam Vital Signs: Last Vital Signs Pulse 67 12/29/23 11:57 BP 142/90 H 12/29/23 11:57 Pulse Ox 97 12/29/23 11:57 Oxygen Delivery Method Room Air 12/29/23 11:57 BMI result Body Mass Index 35.0 Const General: comfortable and no acute distress Orientation/consciousness: patient oriented x3 HEENT Head: Yes normocephalic Mouth: Normal oral and palatal mucosa present Eyes EOM: EOMs intact bilaterally Neck Neck: Yes supple Resp Auscultation: clear to auscultation bilaterally Cardio Jugular venous distension: no JVD Rate: regular rate GI Palpation (GI): Soft to palpation Auscultation: normal bowel sounds General: Yes no CVA tenderness Back/Spine/Pelvis Back: no CVA tenderness Skin General skin exam: no rashes or lesions noted Neuro General: patient oriented x3 and moves all extremities Assessment & Plan Assessment & Plan (1) Polycystic kidney disease: Comment: MRI of the abdomen and pelvis done on 07/04/2019 revealed multiple bilateral renal cysts compatible with polycystic kidney disease Code(s): Q61.3 - Polycystic kidney, unspecified (2) Chronic kidney disease (CKD), stage III (moderate): Code(s): N18.30 - Chronic kidney disease, stage 3 unspecified Qualifiers: Chronic kidney disease stage 3 subtype: unspecified whether 3a or 3b Qualified Code(s): N18.30 - Chronic kidney disease, stage 3 unspecified Plan Wyatt has polycystic kidney disease. His renal function had been pretty stable. His blood pressure is at goal. He is tolerating angiotensin receptor juvencio. He is not taking any nonsteroidal anti-inflammatories. His renal ultrasound showed a complex cyst which will need Urology follow up in the future. He is having some edema likely from Diltiazem which may need a change in edema remains an issue. He may be a candidate for tolvaptan. Genetic studies for polycystic kidney disease has not been done for him. He is on statins. He tries to remain himself well hydrated . I did not make any medication changes today. All his questions were answered. Follow-up blood work ordered. Orders: Orders Creatinine Today N18.30 - Chronic kidney disease, stage 3 unspecified, Q61.3 - Polycystic kidney, unspecified Blood Urea Nitrogen Today N18.30 - Chronic kidney disease, stage 3 unspecified, Q61.3 - Polycystic kidney, unspecified Electrolytes Today N18.30 - Chronic kidney disease, stage 3 unspecified, Q61.3 - Polycystic kidney, unspecified Coding Level of Care Code Est Pt Level 3 (76551) Diagnoses Polycystic kidney disease Q61.3 Stage 3 chronic kidney disease, unspecified whether stage 3a or 3b CKD N18.30 Chronic kidney disease stage 3 subtype: unspecified whether 3a or 3b Results Reviewed Nephrology Results: Hgb 13.2 g/dl (14.0-18.0) L 12/15/23 WBC 3.8 X10*3/uL (4.8-10.8) L 12/15/23 Plt Count 233 X10*3/uL (160-400) 12/15/23 Sodium 146 mmol/L (135-145) H 12/15/23 Potassium 3.4 mmol/L (3.3-5.1) 12/15/23 Chloride 105 mmol/L (96-108) 12/15/23 Carbon Dioxide 32 mmol/L (22-29) H 12/15/23 BUN 31 mg/dL (9-16) H 12/15/23 Creatinine 1.93 mg/dL (0.5-1.4) H 12/15/23 Calcium 9.3 mg/dL (8.4-10.2) 12/15/23 Urine Protein 30 (1+) mg/dL (Neg-Trace) H 12/15/23 Renal US 10/28/23
== END 2023-12-29 12:48 | disposition home or self-care (01) ==
PROVIDERS: PCP Internal Medicine; Visit Provider Internal Medicine Nephrology
DX: Q61.3 Polycystic kidney, unspecified (principal); N18.30 Chronic kidney disease, stage 3 unspecified
CPT/HCPCS: 99213

== ENCOUNTER → 2023-12-29 11:35 | Outpatient (BNVA) | payer MEDICARE, SELFPAY | PROVIDERS: PCP Internal Medicine; Visit Provider Internal Medicine Nephrology | DX: Q61.3 Polycystic kidney, unspecified (principal); N18.30 Chronic kidney disease, stage 3 unspecified | CPT/HCPCS: 99212 ==

== ENCOUNTER 2023-12-30 13:22 | Emergency (ER) | payer MEDICARE, SELFPAY ==
--- NOTE | ~2023-12-30 | CT_ITS ---
EXAMINATION: CT HEAD WITHOUT CONTRAST CLINICAL INFORMATION: Dizziness since 9:30 AM. COMPARISON: None available. TECHNIQUE: Contiguous axial imaging was performed from the skull base to vertex without intravenous administration of contrast. This CT examination was performed using dose optimization techniques as appropriate, variously including the following: *Automated exposure control *Adjustment of mA and/or kV according to patient size (this includes techniques or standardized protocols for targeted exams where dose is matched to indication/reason for exam; i.e. extremities or head) *Use of iterative reconstruction technique DLP: 604 mGy-cm FINDINGS: There is no acute intra-axial, extra-axial bleed, masses or midline shift. There is no acute infarction in evolution. There is no edema. The juarez to white matter differentiation is maintained normal. The lateral ventricles are symmetrical in size but moderately enlarged. Bone windows reveal no calvarial abnormality. Bilateral paranasal sinuses and mastoid air cells are well-aerated. No scalp soft tissue abnormality seen. CT/CT head/brain wo IV con IMPRESSION: No acute intracranial process seen.
[2023-12-30 13:45] VITALS: BP 160/105; PULSE 75; RESP 20; TEMP 36.6; O2SAT 97; BMI 35.1
--- NOTE | 2023-12-30 13:45 | ED_ITS ---
HPI - Dizziness General Chief Complaint: Dizziness Stated Complaint: Dizziness/HBP/Lightheaded Time Seen by Provider: 12/30/23 14:50 Source: patient Mode of arrival: ambulatory Limitations: no limitations History of Present Illness HPI Narrative: Patient presents with lightheadedness and was concerned that he was having a stroke. Patient presents 6 hours after his symptoms started. Patient drove himself to the hospital and walked into the ED MD elicited complaint: lightheadedness Timing: gradual onset Severity: mild Related Data Home Medications Medication Instructions Recorded Confirmed aspirin 81 mg tablet 81 mg PO DAILY 08/08/20 12/17/23 losartan 50 mg tablet 50 mg PO DAILY 02/25/23 12/17/23 acetaminophen 500 mg tablet 500 mg PO Q4H PRN Pain 05/29/23 12/17/23 clobetasol 0.05 % topical cream 1 appl topical BID PRN Skin 05/29/23 12/17/23 Irritation Previous Rx's Medication Instructions Recorded finasteride 5 mg tablet 5 mg PO DAILY 90 days #90 tabs 02/25/23 cholecalciferol (vitamin D3) 10 10 mcg PO DAILY #90 caps 09/22/23 mcg (400 unit) capsule benzonatate 100 mg capsule 100 mg PO BID PRN cough 7 days #14 11/10/23 caps diltiazem HCl 240 mg 240 mg PO QAM #90 caps 12/17/23 capsule,extended release 24 hr, controlled (DILT-XR) hydralazine 25 mg tablet 50 mg (2 x 25 mg) PO BID 90 days 12/17/23 #360 tabs atorvastatin 80 mg tablet 80 mg PO BEDTIME 90 days #90 tabs 12/27/23 Allergies Allergy/AdvReac Type Severity Reaction Status Date / Time Penicillins Allergy Unknown Verified 12/30/23 13:45 irbesartan AdvReac Stomach Verified 12/30/23 13:45 Upset Review of Systems 2 Review of Systems: Yes all other systems are reviewed and are negative Neurologic: Denies Sensory deficit (Neuro) PMFSH Past Medical History Medical History Lumbar degenerative disc disease Abscess of leg Pure hypercholesterolemia Onychomycosis Chronic kidney disease (CKD), stage III (moderate) Obesity (BMI 30-39.9) Hematuria Gait instability Vitamin D deficiency Hypokalemia Polycystic kidney disease Multiple thyroid nodules Impaired fasting glucose Cerebrovascular accident (CVA) Dyslipidemia Benign essential hypertension History of postoperative nausea Gout Thyroid nodule Renal cyst Benign prostatic hyperplasia CVA (cerebral vascular accident) COVID-19 virus antibody negative History of snoring Murmur Elevated cholesterol Surgical History H/O partial thyroidectomy (~10/22/14) H/O arthroscopic knee surgery H/O varicose vein ligation and stripping Hx of colonoscopy (~08/2020) Family History Family History Father Diabetes Mother Chronic mental illness Other Mental health problem Social History Social History Household Members: None Housing: Apartment Do you presently have visiting nurse or other home services: No Alcohol intake: current Alcohol intake frequency: does not drink Alcohol type: beer Patient Tobacco Use Status: Former Tobacco user Smoked in Last 30 Days: No e-Cigarette/Vaping Use: Former Use Second Hand Smoke Exposure: Yes Use of substances other than those prescribed or required for medical reasons: No Advance Directives: No Advance Directives Information Provided: No Current occupational status: employed 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 Cognitive needs: No Hearing needs: No Vision needs: Yes Physical Exam 2 Vital Signs: Vital Signs: Last Vital Signs Temp 98 F 12/30/23 13:45 Pulse 74 12/30/23 16:37 Resp 16 12/30/23 16:37 BP 167/98 H 12/30/23 16:37 Pulse Ox 94 12/30/23 16:37 O2 Del Method Room Air 12/30/23 16:37 BMI result Body Mass Index 35.1 Const: General: healthy appearing Nutritional Appearance: average body habitus Orientation/consciousness: oriented to person and patient oriented x3 Limitations: no limitations HEENT: Head: Yes normal to inspection Ears: external ears normal General nose exam: Normal external nose present Mouth: Normal oral and palatal mucosa present and oropharynx normal Throat: Yes posterior oropharynx normal Eyes: General: appearance normal, both eyes and all related structures Neck: Other: supple Neck: Yes normal visual inspection Chest: Chest palpation & inspection: normal inspection of the chest Resp: Auscultation: clear to auscultation bilaterally Cardio: Jugular venous distension: no JVD Rate: regular rate Rhythm: r egular rhythm Heart sounds: S1 normal heart sound present and S2 normal heart sound present GI: Inspection: Yes normal to inspection Palpation (GI): Soft to palpation, nontender and No hepatosplenomegaly present Auscultation: normal bowel sounds : General: Yes no CVA tenderness Back/Spine/Pelvis: Back: no CVA tenderness Skin: General skin exam: no rashes or lesions noted Neuro: General: oriented to person and patient oriented x3 Cranial nerves: Yes CN's II-XII intact bilaterally Motor exam (neuro): 5/5 motor strength present throughout Sensory Exam: No Sensory deficit (Neuro) Extrem: General: Yes normal to inspection Psych: Appearance: grossly normal Course Course Course Narrative: This is a rapid medical exam. Deferred additional HPI, ROS, PE to primary provider. 73 yo male with history of CVA, CKD, HTN, HLD here with complaints of dizziness, nausea, legs heavy since 930am with waking. Woke up at [facility] at 630am. Last felt normal at 630am. Will obtain labs, EKG, CT head, orthos VSS Reevaluation(s) Reevaluation #1: NIH stroke scale was a 0 Time: 19:04 Reevaluation #2: No evidence of stroke will dc home Time: 19:04 Medications Administered Generic Name Dose Route Start Last Admin Trade Name Freq PRN Reason Stop Dose Admin Sodium Chloride 1,000 mls @ 200 mls/hr 12/30/23 15:00 12/30/23 15:11 Ns IVCONT 12/30/23 19:59 200 mls/hr .Q5H KENDRICK Administration Discontinued Medications Generic Name Dose Route Start Last Admin Trade Name Freq PRN Reason Stop Dose Admin Ondansetron HCl 4 mg 12/30/23 14:56 12/30/23 15:11 Ondansetron Hcl 4 Mg/2 Ml Vial IVPUSH 12/30/23 14:57 4 mg ONCE ONE Administration Medical Decision Making Differential Diagnosis Differential Diagnoses: The differential diagnosis associated with the presentation includes (CVA, vertigo, lightheadedness, electrolyte abnormality, anemia) Admission/Observation Consideration of admission/observation: Escalation of care including admission/observation considered (Upon arrival patient was considered for admission) Lab Data 12/30/23 17:06 12/30/23 17:06 Labs: Lab Results 12/30/23 Range/Units 17:06 WBC 5.4 (4.8-10.8) X10*3/uL RBC 4.55 L (4.60-5.80) X10*6/uL Hgb 14.0 (14.0-18.0) g/dl Hct 38.4 L (42.0-52.0) % MCV 84.4 (80.0-98.0) fL MCH 30.8 (27.0-33.0) pg MCHC 36.5 H (31.0-36.0) g/dl RDW 13.3 (11.0-16.0) % Plt Count 288 (160-400) X10*3/uL MPV 9.9 (9.4-12.4) fL Immature Gran % (Auto) 1.1 H (0.0-0.4) % Neut % (Auto) 90.6 H (45-73) % Lymph % (Auto) 4.4 L (20-40) % [place] % (Auto) 3.1 (2-11) % Eos % (Auto) 0.4 (0-4) % Baso % (Auto) 0.4 (0-2) % Lymph # (Auto) 0.2 L (1.2-4.9) X10*3/uL [place] # (Auto) 0.2 (0.1-1.2) X10*3/uL Eos # (Auto) 0.0 (0.0-0.4) X10*3/uL Baso # (Auto) 0.0 (0.0-0.2) X10*3/uL Abs Immat Gran (auto) 0.06 H (0.00-0.03) X10*3/uL Absolute Neuts (auto) 4.9 (2.0-8.3) x10*3/uL Absolute Nucleated RBC 0.000 (0.0-0.012) X10*3/uL Nucleated RBC % (auto) 0.0 (0.0-0.2) /100WBC Smear Tech's Comments VERIFIED PT 12.8 (11.1-13.3) SEC INR 1.1 (0.9-1.1) Sodium 144 (135-145) mmol/L Potassium 3.0 L (3.3-5.1) mmol/L Chloride 105 (96-108) mmol/L Carbon Dioxide 30 H (22-29) mmol/L Anion Gap 12 (12-20) BUN 24 H (9-16) mg/dL Creatinine 1.56 H (0.5-1.4) mg/dL Estim Creat Clear Calc 46.1 Estimated GFR 44 Random Glucose 132 H (60-115) mg/dL Calcium 9.0 (8.4-10.2) mg/dL Magnesium 1.9 (1.6-2.6) mg/dL Total Bilirubin 0.7 (0.0-1.0) mg/dL Direct Bilirubin 0.3 (0.0-0.5) mg/dL AST 21 (5-37) U/L ALT 18 (0-40) U/L Alkaline Phosphatase 63 (39-117) U/L Troponin I High Sens 7.8 (<3.5-35.0) ng/L Total Protein 6.6 (6.5-8.0) g/dL Albumin 3.9 (3.5-5.0) g/dL COVID-19 ([place]) Negative (Negative) COVID-19 Clin Com See Note Independent Interpretation I performed an independent interpretation of an: EKG (sinus 70, old inferior wall RI, no st or twave changes) and CT Scan (no bleed) Radiology Impression Discussion of test interpretation with radiology: I have reviewed the radiologist's reading. (agree) External Record Review External record reviewed: Outpatient record Tests considered The following testing was considered but not selected: MRI of brain considered but patient with NIH stroke scale 0 Chronic Conditions Patient?s care impacted by: Hypertension and Other (stroke) Discharge Plan Discharge Clinical Impression: Dizziness Patient Disposition: Home, Self-Care Instructions: Dizziness (ED) Prescriptions: No Action atorvastatin 80 mg tablet 80 mg PO BEDTIME 90 Days Qty: 90 3RF aspirin 81 mg Tablet 81 mg PO DAILY clobetasol 0.05 % cream 1 appl topical BID PRN (Reason: Skin Irritation) acetaminophen 500 mg Tablet 500 mg PO Q4H PRN (Reason: Pain) losartan 50 mg tablet 50 mg PO DAILY finasteride 5 mg tablet 5 mg PO DAILY 90 Days Qty: 90 3RF benzonatate 100 mg capsule 100 mg PO BID PRN (Reason: cough) 7 Days Qty: 14 0RF diltiazem HCl [DILT-XR] 240 mg capsule,ext.rel 24h degradable 240 mg PO QAM Qty: 90 1RF hydralazine 25 mg tablet 50 mg PO BID 90 Days Qty: 360 1RF cholecalciferol (vitamin D3) 10 mcg (400 unit) capsule 10 mcg PO DAILY Qty: 90 11RF Referrals: Bhavesh Arora MD [Primary Care Provider] - 5 days
--- NOTE | 2023-12-30 13:49 | ECG_ITS ---
Test Reason : DIZZINESS Blood Pressure : / mmHG Vent. Rate : 076 BPM Atrial Rate : 076 BPM P-R Int : 198 ms QRS Dur : 090 ms QT Int : 404 ms P-R-T Axes : 045 -13 074 degrees QTc Int : 454 ms Sinus rhythm with Premature atrial complexes Inferior infarct , age undetermined Abnormal ECG When compared with ECG of 21-JUL-2016 23:55, Premature atrial complexes are now Present Inferior infarct is now Present Nonspecific T wave abnormality no longer evident in Inferior leads Nonspecific T wave abnormality now evident in Lateral leads Referred By: Sandra Kim Electronically Signed By:MAXIME TREVINO MD
[2023-12-30] MEDS: ondansetron HCL 4 MG/2 ML VIAL IVPUSH (15:11)
[2023-12-30] MEDS: 0.9 % Sodium Chloride 1,000 ML 200 ML IVCONT (15:11)
[2023-12-30 16:37] VITALS: BP 167/98; PULSE 74; RESP 16; O2SAT 94
[2023-12-30 17:17] LABS: INTERNATIONAL NORM RATIO 1.1 (0.9-1.1); Prothrombin Time 12.8 SEC (11.1-13.3)
[2023-12-30 17:24] LABS: IDNOW Serial# 152EDE1D
[2023-12-30 17:25] LABS: COVID-19 Test Negative (Negative)
[2023-12-30 17:27] LABS: Alanine Aminotransferase 18 U/L (0-40); Albumin Level 3.9 g/dL (3.5-5.0); Alkaline Phosphatase 63 U/L (39-117); Anion Gap 12 (12-20); Aspartate Amino Transferase 21 U/L (5-37); Bilirubin Direct 0.3 mg/dL (0.0-0.5); Bilirubin Total 0.7 mg/dL (0.0-1.0); Blood Urea Nitrogen 24 mg/dL (9-16); Carbon Dioxide 30 mmol/L (22-29); Chloride 105 mmol/L (96-108); Creatinine Clr Calc Pharmacy 46.1; Estimated Glomerular Filt Rate 44; Glucose Random 132 mg/dL (60-115); Magnesium 1.9 mg/dL (1.6-2.6); Sodium 144 mmol/L (135-145); Total Protein 6.6 g/dL (6.5-8.0)
[2023-12-30 17:29] LABS: Basophils Percent Auto 0.4 % (0-2); Eosinophils Percent Auto 0.4 % (0-4); Hematocrit 38.4 % (42.0-52.0); Imm Gran Abs Auto 0.06 X10*3/uL (0.00-0.03); Imm Gran Pct Auto 1.1 % (0.0-0.4); Lymphocytes Absolute Auto 0.2 X10*3/uL (1.2-4.9); Lymphocytes Percent Auto 4.4 % (20-40); MANUAL DIFF FLAG SCAN; Mean Corpuscular HGB Conc 36.5 g/dl (31.0-36.0); Mean Corpuscular Hemoglobin 30.8 pg (27.0-33.0); Mean Corpuscular Volume 84.4 fL (80.0-98.0); Mean Platelet Volume 9.9 fL (9.4-12.4); Monocytes Absolute Auto 0.2 X10*3/uL (0.1-1.2); Monocytes Percent Auto 3.1 % (2-11); Neutrophils Absolute Auto 4.9 x10*3/uL (2.0-8.3); Neutrophils Percent Auto 90.6 % (45-73); Platelet Count 288 X10*3/uL (160-400); Red Blood Count 4.55 X10*6/uL (4.60-5.80); Red Cell Distribution Width 13.3 % (11.0-16.0); SCAN SMEAR FLAG 1; White Blood Count 5.4 X10*3/uL (4.8-10.8)
[2023-12-30 17:33] LABS: Troponin-I High Sensitivity 7.8 ng/L (<3.5-35.0)
[2023-12-30 17:45] LABS: SLIDE REVIEW VERIFIED
[2023-12-30] MEDS: Potassium Chloride ER 20 MEQ TAB.ER.PRT PO (19:11)
[2023-12-30] MEDS: Meclizine HCl 25 MG TABLET PO (19:15)
== END 2023-12-30 19:21 | disposition home or self-care (01) ==
PROVIDERS: Nurse Practitioner Family; Emergency Provider Emergency Medicine; PCP Internal Medicine
DX: R42 Dizziness and giddiness (principal); R94.31 Abnormal electrocardiogram [ECG] [EKG]; Z11.52 Encounter for screening for COVID-19; Z79.899 Other long term (current) drug therapy; Z87.891 Personal history of nicotine dependence
CPT/HCPCS: 36415; 70450; 80048; 80076; 83735; 84484; 85025; 85610; 87635; 93005; 96361; 96374; 99284; 99285; J2405

== ENCOUNTER → 2023-12-30 13:49 | Outpatient (BNV) | payer MEDICARE, SELFPAY | PROVIDERS: Emergency Provider Emergency Medicine; PCP Internal Medicine; Visit Provider Internal Medicine Cardiovascular Disease | DX: R94.31 Abnormal electrocardiogram [ECG] [EKG] (principal) | CPT/HCPCS: 93010 ==

== ENCOUNTER 2024-01-13 13:03 | Outpatient (REF) | payer MEDICARE, SELFPAY ==
--- NOTE | ~2024-01-13 | US_ITS ---
EXAMINATION: US THYROID CLINICAL INFORMATION: Nontoxic multinodular goiter, follow up. COMPARISON: Thyroid ultrasound 09/09/2018 and 05/21/2016. TECHNIQUE: Linear transducer juarez-scale and color Doppler examination with attention to the region of the thyroid. FINDINGS: SIZE: Measurements of the solitary left thyroid lobe and nodules are given in sagittal, anteroposterior and transverse dimensions, respectively. Right Thyroid Lobe: Surgically absent. Left Thyroid Lobe: 6.2 x 4.3 x 4.2 cm, volume 57.7 mL. Previously 6.3 x 4.0 x 3.3 cm, volume 42.7 mL. Parenchyma: The gland echotexture is heterogeneous. Thyroid vascularity is increased. Isthmus: Not seen. Previously 0.2 cm. Estimated total number of nodules greater than or equal to 1 cm: 4. Prototype Engineer Manager nodules are described as follows: 1. Location: Left mid. Size: 2.5 x 2.7 x 2.4 cm, volume 8.46 mL. Previously: 2.6 x 2.6 x 2.5 cm, volume 8.84 mL. Nodule characteristics: Composition: Mixed cystic and solid (1). Echogenicity: Cannot be determined (1). Shape: Not taller than wide (0). Margins: Smooth (0). Echogenic Foci: None (0). ACR TI-RADS total points: 2. ACR TI-RADS category: 2. Significant change in size (>/= 20% in 2 dimensions and minimal increase of 2 mm or 50% or greater increase in volume): No. Change in features: No. Change in ACR TI-RADS risk category: No. 2. Location: Left mid. Size: 1.8 x 2.2 x 1.5 cm, volume 3.11 mL. Previously: 2.1 x 1.3 x 1.8 cm, volume 2.57 mL. Nodule characteristics: Composition: Solid/almost completely solid (2). Echogenicity: Isoechoic (1). Shape: Not taller than wide (0). Margins: Smooth (0). Echogenic Foci: None (0). ACR TI-RADS total points: 3. ACR TI-RADS category: 3. Significant change in size (>/= 20% in 2 dimensions and minimal increase of 2 mm or 50% or greater increase in volume): No. Change in features: No. Change in ACR TI-RADS risk category: No. 3. Location: Left superior. Size: 1.0 x 0.9 x 0.6 cm, volume 0.30 mL. Previously: 0.9 x 0.8 x 0.8 cm, volume 0.30 mL. Nodule characteristics: Composition: Solid/almost completely solid (2). Echogenicity: Isoechoic (1). Shape: Not taller than wide (0). Margins: Smooth (0). Echogenic Foci: None (0). ACR TI-RADS total points: 3. ACR TI-RADS category: 3. Significant change in size (>/= 20% in 2 dimensions and minimal increase of 2 mm or 50% or greater increase in volume): No. Change in features: No. Change in ACR TI-RADS risk category: No. 4. Location: Left superior. Size: 1.2 x 1.3 x 1.0 cm, volume 0.83 mL. Previously: Not seen on the previous study. Nodule characteristics: Composition: Mixed cystic and solid (1). Echogenicity: Cannot be determined (1). Shape: Not taller than wide (0). Margins: Smooth (0). Echogenic Foci: None (0). ACR TI-RADS total points: 2. ACR TI-RADS category: 2. NODES: No lymphadenopathy is seen in the tissue surrounding the thyroid gland. US/US thyroid IMPRESSION: Status post right hemithyroidectomy. Enlarged heterogeneous hypervascular left thyroid with multiple nodules, only one of which meets criteria for follow-up (nodule #2 above). Follow-up study in one year is recommended. ACR TI-RADS RECOMMENDATION REFERENCE: Ultrasound-guided fine-needle aspiration, follow up ultrasound, no further followup. * TR1 (0 point) and TR2 (2 points): No FNA or followup * TR3 (3 points): FNA if more than or equal to 2.5 cm in maximum dimension, follow up ultrasound in 1, 3 and 5 years if 1.5 to 2.4 cm in maximum dimension. * TR4 (4-6 points): FNA if more than or equal to 1.5 cm in maximum dimension, follow up ultrasound in 1, 2, 3 and 5 years if 1 to 1.4 cm in maximum dimension. * TR5 (more than or equal to 7 points): FNA if more than or equal to 1 cm in maximum dimension, follow up ultrasound every year for 5 years if 0.5 to 0.9 cm in maximum dimension. * TR3, TR4 or TR5 nodules that are below the size threshold for follow up receive no followup.
== END 2024-01-13 13:04 | disposition home or self-care (01) ==
LOC: HO.US 13:03
PROVIDERS: PCP Internal Medicine; Visit Provider Internal Medicine
DX: E04.2 Nontoxic multinodular goiter (principal)
CPT/HCPCS: 76536

== ENCOUNTER 2024-01-18 09:31 | Day surgery (SDC) | payer MEDICARE, SELFPAY ==
--- NOTE | 2024-01-17 10:53 | HO.ANESPROP2 ---
Documented by User: Aliza Marley NP 01/17/24 11:00 HPI - Anesthesia Eval Consult details Narrative: 73yo M for Colonoscopy Pt to ED with dizziness 12/2023. T/C to patient 01/17/24, dizziness resolved. Also, has been monitoring BP at home and today reports 122/76. Pt had some stressors that he got rid of . PMFSH Active Problems Active Problems: All Active Problems (Updated 12/31/23 @ 00:01 by Olvin Cabrera) Lumbar degenerative disc disease (Acute) Varicose veins of right lower extremity with inflammation (Acute) Varicose veins of left lower extremity with inflammation (Acute) Acute left-sided low back pain (Acute) Leg wound, left (Acute) Acquired skin tag (Acute) Abscess of leg (Acute) Cellulitis of left leg (Acute) Renal failure, chronic (Acute) Cellulitis of left leg (Acute) Screening for prostate cancer (Acute) Balance disorder (Acute) Swelling of left lower extremity (Acute) Colon cancer screening (Acute) Left arm pain (Acute) Left elbow pain (Acute) Pure hypercholesterolemia (Acute) Phlebitis (Acute) Adult general medical exam (Acute) Pain of right thumb (Acute) Right shoulder pain (Acute) Lesion of right upper eyelid (Acute) Onychomycosis (Acute) Hemorrhoids (Acute) Diverticulosis large intestine w/o perforation or abscess w/o bleeding (Acute) Tubular adenoma (Acute) Headache (Acute) Chronic kidney disease (CKD), stage III (moderate) (Acute) Obesity (BMI 30-39.9) (Acute) Hematuria (Acute) Gait instability (Acute) Gout (Acute) Vitamin D deficiency (Acute) Hypokalemia (Acute) Polycystic kidney disease (Acute) Multiple thyroid nodules (Acute) Impaired fasting glucose (Acute) Cerebrovascular accident (CVA) (Acute) Dyslipidemia (Acute) Benign essential hypertension (Acute) Past Medical History Medical History Lumbar degenerative disc disease Abscess of leg Pure hypercholesterolemia Onychomycosis Chronic kidney disease (CKD), stage III (moderate) Obesity (BMI 30-39.9) Hematuria Gait instability Vitamin D deficiency Hypokalemia Polycystic kidney disease Multiple thyroid nodules Impaired fasting glucose Cerebrovascular accident (CVA) Dyslipidemia Benign essential hypertension History of postoperative nausea Gout Thyroid nodule Renal cyst Benign prostatic hyperplasia CVA (cerebral vascular accident) COVID-19 virus antibody negative History of snoring Murmur Elevated cholesterol Family History Family History Father Diabetes Mother Chronic mental illness Other Mental health problem Surgical History Surgical History H/O partial thyroidectomy (~10/22/14) H/O arthroscopic knee surgery H/O varicose vein ligation and stripping Hx of colonoscopy (~08/2020) Social History Social History Household Members: None Housing: Apartment Do you presently have visiting nurse or other home services: No Alcohol intake: current Alcohol intake frequency: does not drink Alcohol type: beer Patient Tobacco Use Status: Former Tobacco user e-Cigarette/Vaping Use: Former Use Second Hand Smoke Exposure: Yes Advance Directives: No Advance Directives Information Provided: Yes Current occupational status: employed 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 Cognitive needs: No Hearing needs: No Vision needs: Yes Meds Allergies Allergy/AdvReac Type Severity Reaction Status Date / Time Penicillins Allergy Unknown Verified 01/18/24 10:49 irbesartan AdvReac Stomach Verified 01/18/24 10:49 Upset Home Medications Medication Instructions Recorded Confirmed Last Taken Type aspirin 81 mg tablet 81 mg PO DAILY 08/08/20 01/18/24 Unknown History losartan 50 mg tablet 50 mg PO DAILY 02/25/23 01/18/24 01/18/24 02:45 History acetaminophen 500 mg tablet 500 mg PO Q4H PRN Pain 05/29/23 01/18/24 01/18/24 02:45 History clobetasol 0.05 % topical cream 1 appl topical BID PRN Skin 05/29/23 01/18/24 Unknown History Irritation Exam Pertinent Lab Results Pertinent Lab Results: Laboratory Tests 12/30/23 17:06 WBC 5.4 Hgb 14.0 Hct 38.4 L Plt Count 288 Sodium 144 Potassium 3.0 L Chloride 105 Carbon Dioxide 30 H BUN 24 H Creatinine 1.56 H Narrative Narrative: EKG 12/2023 Vent. Rate : 076 BPM Atrial Rate : 076 BPM P-R Int : 198 ms QRS Dur : 090 ms QT Int : 404 ms P-R-T Axes : 045 -13 074 degrees QTc Int : 454 ms Sinus rhythm with Premature atrial complexes Inferior infarct , age undetermined Abnormal ECG When compared with ECG of 21-JUL-2016 23:55, Premature atrial complexes are now Present Inferior infarct is now Present Nonspecific T wave abnormality no longer evident in Inferior leads Nonspecific T wave abnormality now evident in Lateral leads Assessment and Plan Assessment Anesthesia Assessment: Chart Reviewed Documented by User: Zenaida Robles MD 01/18/24 10:58 [facility] Past Medical History Medical History Lumbar degenerative disc disease Abscess of leg Pure hypercholesterolemia Onychomycosis Chronic kidney disease (CKD), stage III (moderate) Obesity (BMI 30-39.9) Hematuria Gait instability Vitamin D deficiency Hypokalemia Polycystic kidney disease Multiple thyroid nodules Impaired fasting glucose Cerebrovascular accident (CVA) Dyslipidemia Benign essential hypertension History of postoperative nausea Gout Thyroid nodule Renal cyst Benign prostatic hyperplasia CVA (cerebral vascular accident) COVID-19 virus antibody negative History of snoring Murmur Elevated cholesterol Family History Family History Father Diabetes Mother Chronic mental illness Other Mental health problem Family history of problems with anesthesia: No Surgical History Surgical History H/O partial thyroidectomy (~10/22/14) H/O arthroscopic knee surgery H/O varicose vein ligation and stripping Hx of colonoscopy (~08/2020) History of Problems with Anesthesia: No Social History Social History Household Members: None Housing: Apartment Do you presently have visiting nurse or other home services: No Alcohol intake: current Alcohol intake frequency: does not drink Alcohol type: beer Patient Tobacco Use Status: Former Tobacco user e-Cigarette/Vaping Use: Former Use Second Hand Smoke Exposure: Yes Advance Directives: No Advance Directives Information Provided: Yes Current occupational status: employed 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 Cognitive needs: No Hearing needs: No Vision needs: Yes Meds Allergies Allergy/AdvReac Type Severity Reaction Status Date / Time Penicillins Allergy Unknown Verified 01/18/24 10:49 irbesartan AdvReac Stomach Verified 01/18/24 10:49 Upset Home Medications Medication Instructions Recorded Confirmed Last Taken Type aspirin 81 mg tablet 81 mg PO DAILY 08/08/20 01/18/24 Unknown History losartan 50 mg tablet 50 mg PO DAILY 02/25/23 01/18/24 01/18/24 02:45 History acetaminophen 500 mg tablet 500 mg PO Q4H PRN Pain 05/29/23 01/18/24 01/18/24 02:45 History clobetasol 0.05 % topical cream 1 appl topical BID PRN Skin 05/29/23 01/18/24 Unknown History Irritation Exam Airway Mallampati Class: II TM Dist: >3cm Neck ROM: Full Heart: rrr Lungs: ta Assessment and Plan Assessment Anesthesia Assessment: Anesthesia Plan Discussed Final Anesthetic Review Family History of Problems with Anesthesia: No History of Problems with Anesthesia: No NPO: Yes ASA Class: III Final Preanesthetic Review: No Changes in Pt Med Stat, Meds/Allgs Chart Reviewed, Consent Obtained/Reviewed and Anes Risks/Benef Reviewed Patient Risk: Intermediate Procedure Risk: Low Anesthetic Plan Anesthetic Plan: MAC: Disposition: Inp. Admit - [facility]
[2024-01-18 10:44] VITALS: BMI 36.0
--- NOTE | 2024-01-18 10:48 | MHC.SHP ---
Pre-Procedural Eval Section A - 24 Hr Update-Section A only Date of Service: 01/18/24 Section B - Complete if H&P > 30 days Chief Complaint: Benign neoplasm, unspecified site Relevant Family History (Specify if Yes): No Relevant Social History: None Present Medications: see Short Stay Collaborative assessment Medical History: Significant History ( Lumbar degenerative disc disease Abscess of leg Pure hypercholesterolemia Onychomycosis Chronic kidney disease (CKD), stage III (moderate) Obesity (BMI 30-39.9) Hematuria Gait instability Vitamin D deficiency Hypokalemia Polycystic kidney disease Multiple thyroid nodules Impaired fasting glucose Ce) History of Previous Operations: Relevant previous surgery/procedure and date(s) ( H/O partial thyroidectomy (~10/22/14) H/O arthroscopic knee surgery H/O varicose vein ligation and stripping Hx of colonoscopy (~08/2020)) Allergies: Allergies Allergy/AdvReac Type Severity Reaction Status Date / Time Penicillins Allergy Unknown Verified 12/30/23 13:45 irbesartan AdvReac Stomach Verified 12/30/23 13:45 Upset Review of Systems Sugical H&P ROS: Negative: Constitution, Cardiovascular, Respiratory, Neurological, Psychiatric, Hem-Onc, Allergic/Immunologic, Gastrointestinal, Genitourinary, Musculoskeletal, Integumentary, Endocrine and Eyes/Ears/Nose/Throat Exam Surgical H&P Exam: Normal: HEENT, Normal: Heart, Normal: Lungs, Normal: Extremities, Normal: Abdomen, Normal: Skin and Normal: Neurological Plan Diagnosis/Plan: Unchanged I have reviewed the history and physical and performed a pertinent physical examination on my patient. No changes have occurred unless specified. Time Spent With Patient Time: Total time managing care of this patient today ____ minutes.
--- NOTE | 2024-01-18 11:35 | P.OP_ITS ---
Operative Note Operative Note Date of Service: 01/18/24 Narrative: Operative Information Procedure Description: Colonoscopy Indication: hx of colon polyps Anesthesia: MAC COLONOSCOPY Instrument: Olympus variable stiffness ADULT scope 190L Colonoscopy Monitoring: Vital signs and clinical assessment, continuous EKG monitoring, Pulse oximetry, Carbon Dioxide monitoring and blood pressure monitoring were done throughout the procedure. Colon withdrawal time was 15 minutes. Procedure: The patient was placed in the left lateral decubitis position and pre-procedure medications were administered. After a digital rectal examination of the ano-rectum, the video colonoscope was inserted into the rectum and advanced through the colon to the cecum/TI. The colonoscope was slowly withdrawn in a retrograde panoramic fashion and the colon mucosa was carefully examined including a retroflexed view of the rectum. Findings and interventions are described below. Procedure Difficulty: easy Findings: Terminal Ileum-normal Cecum:normal Ascending Colon: 11-12 mm sessile polyp removed with cold snare and one clip applied for hemostasis Transverse Colon -normal Descending Colon: 5-7 mm sessile polyp removed with cold forceps Sigmoid Colon:moderate severe diverticulosis with mucosal hypertrophy Rectum: Retroflexion with medium sized internal hemorrhoids seen, grade I, 12 mm sessile polyp removed with cold snare Anorectum - normal Intervention: cold snare and cold forceps polypectomy Colon preparation: [place] Bowel Preparation Scale Right colon; 2 Transverse colon: 2 Left colon; 2 (0 = Unprepared colon segment with mucosa not seen due to solid stool that sandy ot be cleared. 1 = Portion of mucosa of the colon segment seen, but other areas of the colon segment not well seen due to staining, residual stool and/or opaque liquid. 2 = Minor amount of residual staining, small fragments of stool and/or opaque liquid, but mucosa of colon segment seen well. 3 = Entire mucosa of colon segment seen well with no residual staining, small fragments of stool or opaque liquid) Impression and Post Procedure Diagnosis: diverticulosis colon polyps internal hemorrhoids Plan: High fiber diet leaflet Avoid straining at stool, epsom salts and sitz bath, anusol supps or cream Repeat Colonoscopy in 3-4 years or earlier if clinically indicated Above findings were reviewed with the patient and relevant handouts were provided if indicated.
[2024-01-18 12:26] VITALS: BP 134/84; PULSE 61; RESP 16; TEMP 36.3; O2SAT 94
[2024-01-18 12:41] VITALS: BP 127/84; PULSE 68; RESP 20; TEMP 37.1; O2SAT 96
== END 2024-01-18 13:30 | disposition home or self-care (01) ==
PROVIDERS: PCP Internal Medicine; Visit Provider Internal Medicine Gastroenterology
PROC: 0DJD8ZZ Inspection of Lower Intestinal Tract, Via Natural or Artificial Opening Endoscopic (ICD-10-PCS; CPT 45378; principal; 2024-01-18 11:50)
DX: Z12.11 Encounter for screening for malignant neoplasm of colon (principal); D12.2 Benign neoplasm of ascending colon; D12.8 Benign neoplasm of rectum; K57.30 Diverticulosis of large intestine without perforation or abscess without bleeding; K64.0 First degree hemorrhoids; Z86.010 Personal history of colon polyps; I12.9 Hypertensive chronic kidney disease with stage 1 through stage 4 chronic kidney disease, or unspecified chronic kidney disease; N18.30 Chronic kidney disease, stage 3 unspecified; E78.00 Pure hypercholesterolemia, unspecified; Z87.891 Personal history of nicotine dependence; Z79.82 Long term (current) use of aspirin; Z79.02 Long term (current) use of antithrombotics/antiplatelets; Z79.899 Other long term (current) drug therapy
CPT/HCPCS: 45385; 45380; 88305; J2704

== ENCOUNTER → 2024-01-18 09:31 | Outpatient (BNV) | payer MEDICARE, SELFPAY | PROVIDERS: PCP Internal Medicine; Visit Provider Internal Medicine Gastroenterology | DX: Z12.11 Encounter for screening for malignant neoplasm of colon (principal); Z86.010 Personal history of colon polyps; K63.5 Polyp of colon; D12.8 Benign neoplasm of rectum; K57.30 Diverticulosis of large intestine without perforation or abscess without bleeding; K64.0 First degree hemorrhoids | CPT/HCPCS: 45380; 45385 ==

== ENCOUNTER 2024-01-31 09:33 | Outpatient (REF) | payer MEDICARE, SELFPAY ==
[2024-01-31 09:56] LABS: MANUAL DIFF FLAG NO
[2024-01-31 10:16] LABS: Basophils Percent Auto 0.7 % (0-2); Eosinophils Absolute Auto 0.2 X10*3/uL (0.0-0.4); Eosinophils Percent Auto 5.7 % (0-4); Hematocrit 38.6 % (42.0-52.0); Hemoglobin 12.8 g/dl (14.0-18.0); Imm Gran Abs Auto 0.01 X10*3/uL (0.00-0.03); Imm Gran Pct Auto 0.2 % (0.0-0.4); Lymphocytes Absolute Auto 0.6 X10*3/uL (1.2-4.9); Lymphocytes Percent Auto 13.8 % (20-40); Mean Corpuscular HGB Conc 33.2 g/dl (31.0-36.0); Mean Corpuscular Hemoglobin 29.3 pg (27.0-33.0); Mean Corpuscular Volume 88.3 fL (80.0-98.0); Mean Platelet Volume 9.2 fL (9.4-12.4); Monocytes Absolute Auto 0.4 X10*3/uL (0.1-1.2); Monocytes Percent Auto 9.1 % (2-11); Neutrophils Absolute Auto 2.9 x10*3/uL (2.0-8.3); Neutrophils Percent Auto 70.5 % (45-73); Platelet Count 225 X10*3/uL (160-400); Red Blood Count 4.37 X10*6/uL (4.60-5.80); Red Cell Distribution Width 13.4 % (11.0-16.0); White Blood Count 4.1 X10*3/uL (4.8-10.8)
[2024-01-31 10:29] LABS: Estimated Average Glucose 105 mg/dL; Hemoglobin A1c % 5.3 % (<6.0)
[2024-01-31 11:07] LABS: Alanine Aminotransferase 23 U/L (0-40); Albumin Level 3.8 g/dL (3.5-5.0); Alkaline Phosphatase 68 U/L (39-117); Anion Gap 10 (12-20); Aspartate Amino Transferase 21 U/L (5-37); Bilirubin Total 0.8 mg/dL (0.0-1.0); Blood Urea Nitrogen 26 mg/dL (9-16); Calcium 8.9 mg/dL (8.4-10.2); Carbon Dioxide 32 mmol/L (22-29); Chloride 107 mmol/L (96-108); Cholesterol 117 mg/dL (<200); Estimated Glomerular Filt Rate 43; Glucose Fasting 99 mg/dL (60-99); HDL Cholesterol 43 mg/dL (>40); LDL Cholesterol Calculated 60 mg/dL (<100); Potassium 3.2 mmol/L (3.3-5.1); Sodium 146 mmol/L (135-145); Total Protein 6.4 g/dL (6.5-8.0); Triglycerides 73 mg/dL (<150); Uric Acid 6.5 mg/dL (3.4-7.0)
[2024-01-31 11:14] LABS: Vitamin D 25-OH Total 32.8 ng/mL (>30)
[2024-01-31 11:15] LABS: Appearance Urine Clear; Color Urine Yellow; Glucose Urine UA Negative (Negative); Leukocyte Esterase Urine Negative (Negative); Nitrite Urine Negative (Negative); PH 6.5 (5.0-9.0); Specific Gravity - Urine 1.015 (1.005-1.025); UMIC TRIGGER UACC YES; Urine Blood Negative (Negative); Urine Ketones Negative (Negative); Urine Protein 100 (2+) mg/dL (Neg-Trace)
[2024-01-31 11:33] LABS: Microalbum/Creatinine Ratio Ur 304.8 ug/mg cr (<30)
[2024-01-31 13:03] LABS: Bacteria Urine None Seen (None Seen); Hyaline Casts Urine 0-2 /LPF (0-2); RBC Urine 0-2 /HPF (0-2); Squamous Epithelial Cell Urine 0-2 /HPF (0-2); WBC Urine 0-5 /HPF (0-5)
== END 2024-01-31 09:34 | disposition home or self-care (01) ==
LOC: HO.LAB 09:33
PROVIDERS: PCP Internal Medicine; Visit Provider Internal Medicine
DX: E78.00 Pure hypercholesterolemia, unspecified (principal); E55.9 Vitamin D deficiency, unspecified; M10.9 Gout, unspecified; D64.9 Anemia, unspecified; E11.9 Type 2 diabetes mellitus without complications; R73.01 Impaired fasting glucose; D36.9 Benign neoplasm, unspecified site; K57.30 Diverticulosis of large intestine without perforation or abscess without bleeding; R30.0 Dysuria; Z79.899 Other long term (current) drug therapy
CPT/HCPCS: 36415; 80053; 80061; 81001; 81003; 82043; 82306; 82570; 83036; 84443; 84550; 85025; 99212

== ENCOUNTER 2024-01-31 10:37 | Outpatient (AMB) | payer MEDICARE, SELFPAY ==
--- NOTE | 2024-01-31 10:44 | MHC.OFFVIS ---
Intake Vital Signs 01/31/24 10:45 Height 5 ft 4 in Weight 213 lb 6.519 oz BMI 36.6 BP 140/77 H Blood Pressure Location Lt brachial Position Sitting Pulse 70 Intake Visit Reasons: S/P [place]; Dr. Navarro Intake Note: Wyatt returns to in office follow up s/p colonoscopy. CC: Patient reports doing well today and denies having any GI concerns. 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: No Accompanied by: Self / Same As Patient Allergies Penicillins Allergy (Verified 01/31/24 10:46) Unknown irbesartan Adverse Reaction (Verified 01/31/24 10:46) Stomach Upset Medication List - Last Reconciled 01/31/24 by Helen Glasgow PA-C acetaminophen 500 mg PO Q4H PRN aspirin 81 mg PO DAILY atorvastatin 80 mg PO BEDTIME 90 days cholecalciferol (vitamin D3) 1,000 units PO DAILY clobetasol 0.05% 1 appl topical BID PRN diltiazem HCl ER (DILT-XR) 240 mg PO QAM finasteride 5 mg PO DAILY 90 days hydralazine 50 mg (2 x 25 mg) PO BID 90 days losartan 50 mg PO DAILY meclizine 25 mg PO TID PRN HPI HPI Comments History of Present Illness Details A 73 y/o male with hx colon polyps f/u after colonoscopy with poypectomy He is very anxious about results Reviewed procedure peport, path and recommendations in detail-recommend repeat colonoscopy he prefers 3 years, Questions answered- to his understanding Follows a high fiber diet No GI complaints Appetite is good Bowels are normal PFSH Medical History Lumbar degenerative disc disease Abscess of leg Pure hypercholesterolemia Onychomycosis Chronic kidney disease (CKD), stage III (moderate) Obesity (BMI 30-39.9) Hematuria Gait instability Vitamin D deficiency Hypokalemia Polycystic kidney disease Multiple thyroid nodules Impaired fasting glucose Cerebrovascular accident (CVA) Dyslipidemia Benign essential hypertension History of postoperative nausea Gout Thyroid nodule Renal cyst Benign prostatic hyperplasia CVA (cerebral vascular accident) COVID-19 virus antibody negative History of snoring Murmur Elevated cholesterol Surgical History H/O partial thyroidectomy (~12/15/14) H/O arthroscopic knee surgery H/O varicose vein ligation and stripping Hx of colonoscopy (~08/2020) Family History Father Diabetes Mother Chronic mental illness Other Mental health problem Social History Household Members: None Housing: Apartment Do you presently have visiting nurse or other home services: No Alcohol intake: current Alcohol intake frequency: holidays/special occasions only Alcohol type: beer Patient Tobacco Use Status: Former Tobacco user e-Cigarette/Vaping Use: Former Use Second Hand Smoke Exposure: Yes Current occupational status: employed 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 Cognitive needs: No Hearing needs: No Vision needs: Yes Review of Systems Const All systems reviewed & are unremarkable except as noted in HPI and below Physical Exam Vital Signs: Last Vital Signs Pulse 70 01/31/24 10:45 BP 140/77 H 01/31/24 10:45 BMI result Body Mass Index 36.6 Const General: cooperative, healthy appearing, comfortable and no acute distress Eyes Sclerae: sclerae normal Resp Effort & Inspection: normal respiratory effort and able to speak in complete sentences Extrem General: Yes full ROM Results Reviewed Results Reviewed: Findings: Terminal Ileum-normal Cecum:normal Ascending Colon: 11-12 mm sessile polyp removed with cold snare and one clip applied for hemostasis Transverse Colon -normal Descending Colon: 5-7 mm sessile polyp removed with cold forceps Sigmoid Colon:moderate severe diverticulosis with mucosal hypertrophy Rectum: Retroflexion with medium sized internal hemorrhoids seen, grade I, 12 mm sessile polyp removed with cold snare Anorectum - normal Intervention: cold snare and cold forceps polypectomy Colon preparation: [place] Bowel Preparation Scale Right colon; 2 Transverse colon: 2 Left colon; 2 (0 = Unprepared colon segment with mucosa not seen due to solid stool that cannot be cleared. 1 = Portion of mucosa of the colon segment seen, but other areas of the colon segment not well seen due to staining, residual stool and/or opaque liquid. 2 = Minor amount of residual staining, small fragments of stool and/or opaque liquid, but mucosa of colon segment seen well. 3 = Entire mucosa of colon segment seen well with no residual staining, small fragments of stool or opaque liquid) Impression and Post Procedure Diagnosis: diverticulosis colon polyps internal hemorrhoids Plan: High fiber diet leaflet Avoid straining at stool, epsom salts and sitz bath, anusol supps or cream Repeat Colonoscopy in 3-4 years or earlier if clinically indicated vicente: Wyatt Lechuga Age/Sex: 73/M Attending: Sy Navarro MD : 1950 Submitted by: Sy Navarro MD Copies to: Bhavesh Arora MD MR #: [id number] Status: [facility] Collected: 01/18/24 Location: [facility] Received: 01/18/24 Diagnosis A. Colon, ascending, polyp: Sessile serrated lesion/polyp without dysplasia. B. Colon, descending, polyp: Polypoid colonic mucosa with no specific change; no adenomatous dysplasia seen. C. Colon, rectal polyp: Tubular adenoma; negative for high-grade dysplasia and carcinoma. Clinical History Pre-Op Dx: Screening Post-Op Dx: Colon polyp, diverticulosis, hemorrhoids Microscopic Description Microscopic sections reviewed. Material Received A. Ascending colon polyp B. Descending colon polyp C. Rectal polyp Gross Description Received in 3 parts. Part A: Received in formalin labeled ?ascending colon polyp? along with scant debris are 5 traedwell and treadwell- pink irregular and papular tissue fragments, submitted in toto in a cassette labeled A. Part B: Received formalin labeled ?descending colon polyp? is a 0.3 cm treadwell-pink irregular tissue fragment, submitted in toto in a cassette labeled B. Part C: Received in formalin labeled ?rectal polyp? are 2 treadwell irregular tissue fragments measuring 0.2 and 0.25 cm, submitted in toto in a cassette labeled C. CEDS Copies To Bhavesh Arora MD [address] [address] Patient: Wyatt Lechuga Age/Sex: 73/M MR#: [id number] Page 1 of 2 Assessment & Plan Assessment & Plan (1) Tubular adenoma: Comment: Pleasant, anxious [place] 2019- & 2023-Dr. Navarro Code(s): D36.9 - Benign neoplasm, unspecified site (2) Diverticulosis large intestine w/o perforation or abscess w/o bleeding: Comment: review symptoms of diverticulitis, importance of high-fiber diet, avoid constipation Code(s): K57.30 - Diverticulosis of large intestine without perforation or abscess without bleeding Plan: HFD ER protocol Plan 3 year repeat colon- hx polypsArmond Navarro HFD ER protocol-diverticular DZ Medications: Changed From cholecalciferol (vitamin D3) 10 mcg PO DAILY 90 caps 11RF To cholecalciferol (vitamin D3) 1,000 units PO DAILY From meclizine 25 mg PO TID 20 tabs 0RF To meclizine 25 mg PO TID PRN Patient Instructions: 3 year repeat colon- hx polypsArmond Navarro-will bring back in 2-1/2 years per his request HFD-literature ER protocol-diverticular DZ Encouraged to call with questions or concerns Coding Level of Care Code Est Pt Level 3 (08053) Diagnoses Tubular adenoma D36.9 Diverticulosis large intestine w/o perforation or abscess w/o bleeding K57.30 Time Spent (min) 20
[2024-01-31 10:45] VITALS: BP 140/77; PULSE 70; BMI 36.6
== END 2024-01-31 11:53 | disposition home or self-care (01) ==
PROVIDERS: PCP Internal Medicine; Visit Provider Physician Assistant
DX: D36.9 Benign neoplasm, unspecified site (principal); K57.30 Diverticulosis of large intestine without perforation or abscess without bleeding
CPT/HCPCS: 99213

== ENCOUNTER 2024-03-06 11:09 | Outpatient (AMB) | payer MEDICARE, SELFPAY ==
[2024-03-06 12:54] VITALS: BP 138/82; PULSE 65; TEMP 36.8; O2SAT 97; BMI 36.1
--- NOTE | 2024-03-06 12:54 | MHC.OFFWIV ---
Intake Vital Signs 03/06/24 12:54 Height 5 ft 4 in Weight 210 lb 6 oz BMI 36.1 BP 138/82 Blood Pressure Location Lt brachial Position Sitting Pulse 65 Pulse Source Pulse Oximeter Temp 98.2 F Temp Source Oral Pulse Oximetry (%) 97 Oxygen Delivery Method Room Air Intake Visit Reasons: EP congestion, mucus Intake Note: Pt presents to the office today for congestion, cough, and mucus that started about 4 days ago. Patient Tobacco Use Status: Former Tobacco user Allergies Penicillins Allergy (Verified 03/06/24 12:57) Unknown irbesartan Adverse Reaction (Verified 03/06/24 12:57) Stomach Upset HPI HPI Comments History of Present Illness Details Patient presents to the walk in for 1 week cough, congestion, fatigue Denies known sick contacts Denies fever, chest pain, shortness of breath, palpitations, syncope, weakness Denies headache, ear pain, sore throat. Has been taking OTC medications with minimal improvement. PFSH Medical History Lumbar degenerative disc disease Abscess of leg Pure hypercholesterolemia Onychomycosis Chronic kidney disease (CKD), stage III (moderate) Obesity (BMI 30-39.9) Hematuria Gait instability Vitamin D deficiency Hypokalemia Polycystic kidney disease Multiple thyroid nodules Impaired fasting glucose Cerebrovascular accident (CVA) Dyslipidemia Benign essential hypertension History of postoperative nausea Gout Thyroid nodule Renal cyst Benign prostatic hyperplasia CVA (cerebral vascular accident) COVID-19 virus antibody negative History of snoring Murmur Elevated cholesterol Surgical History H/O partial thyroidectomy (~10/22/14) H/O arthroscopic knee surgery H/O varicose vein ligation and stripping Hx of colonoscopy (~08/2020) Family History Father Diabetes Mother Chronic mental illness Other Mental health problem Social History Household Members: None Housing: Apartment Do you presently have visiting nurse or other home services: No Alcohol intake: current Alcohol intake frequency: holidays/special occasions only Alcohol type: beer Patient Tobacco Use Status: Former Tobacco user e-Cigarette/Vaping Use: Former Use Second Hand Smoke Exposure: Yes Current occupational status: employed 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 Answers questions appropriately. Fully engaged in examination. Skin: warm, dry, intact HEENT: TMs intact bilaterally, no redness. Posterior pharynx without erythema or exudate. Sclera without icterus or injection. Cardiac: External chest normal in appearance. Respiratory: +cough. LSCTAB. Abdomen: without gross distension. Neurological: Oriented to person, place, time and situation. Thought process intact. Psychiatric: Appropriate mood and affect. Good judgment and insight. Assessment & Plan Assessment & Plan (1) URI (upper respiratory infection): Code(s): J06.9 - Acute upper respiratory infection, unspecified Plan Z-Damian as directed Benzonatate 100mg po bid as needed Rest, drink plenty of fluids, tylenol or motrin as needed. Follow up with pcp or in clinic for any new or worsening symptoms. Go to ER for shortness of breath, chest pain, palpitations, weakness, dizziness. Medications: New azithromycin For 250 mg dose pack: take 500 mg today (day 1), then 250 mg for 4 days (days 2-5) PO 6 tabs 0RF benzonatate 100 mg PO BID PRN 20 caps 0RF cough Coding Level of Care Code Est Pt Level 3 (81920) Diagnoses URI (upper respiratory infection) J06.9
== END 2024-03-06 13:31 | disposition home or self-care (01) ==
PROVIDERS: PCP Internal Medicine; Visit Provider Registered Nurse Emergency
DX: J06.9 Acute upper respiratory infection, unspecified (principal)
CPT/HCPCS: 99213

== ENCOUNTER 2024-03-17 09:08 | Outpatient (AMB) | payer MEDICARE, SELFPAY ==
[2024-03-17 09:18] VITALS: BP 142/90; PULSE 113; TEMP 36.6; O2SAT 98; BMI 36.0
--- NOTE | 2024-03-17 09:18 | MHC.OFFWIV ---
Intake Vital Signs 03/17/24 09:18 Height 5 ft 4 in Weight 210 lb BMI 36.0 BP 142/90 H Blood Pressure Location Lt brachial Position Sitting Pulse 113 H Pulse Source Pulse Oximeter Temp 97.8 F Temp Source Temporal Artery Scan Pulse Oximetry (%) 98 Oxygen Delivery Method Room Air Intake Visit Reasons: EP cough Intake Note: pt is here today for cough that started a few weeks ago. He states he came in to urgent care on 03/06/24 and was given antibiotics. He states he is still having a cough with mucus. Patient Tobacco Use Status: Former Tobacco user Allergies Penicillins Allergy (Verified 03/17/24 09:32) Unknown irbesartan Adverse Reaction (Verified 03/17/24 09:32) Stomach Upset HPI HPI Comments History of Present Illness Details 73 y/o male patient presents to walk in clinic with c/o persistent cough since 02/2024. Pt was seen here at [facility] 03/02 and given Antibiotics. Today he returns because the cough never went away. [facility] Medical History Lumbar degenerative disc disease Abscess of leg Pure hypercholesterolemia Onychomycosis Chronic kidney disease (CKD), stage III (moderate) Obesity (BMI 30-39.9) Hematuria Gait instability Vitamin D deficiency Hypokalemia Polycystic kidney disease Multiple thyroid nodules Impaired fasting glucose Cerebrovascular accident (CVA) Dyslipidemia Benign essential hypertension History of postoperative nausea Gout Thyroid nodule Renal cyst Benign prostatic hyperplasia CVA (cerebral vascular accident) COVID-19 virus antibody negative History of snoring Murmur Elevated cholesterol Surgical History H/O partial thyroidectomy (~10/22/14) H/O arthroscopic knee surgery H/O varicose vein ligation and stripping Hx of colonoscopy (~08/2020) Family History Father Diabetes Mother Chronic mental illness Other Mental health problem Social History Household Members: None Housing: Apartment Do you presently have visiting nurse or other home services: No Alcohol intake: current Alcohol intake frequency: holidays/special occasions only Alcohol type: beer Patient Tobacco Use Status: Former Tobacco user e-Cigarette/Vaping Use: Former Use Second Hand Smoke Exposure: Yes Current occupational status: employed 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 Cognitive needs: No Hearing needs: No Vision needs: Yes Review of Systems Const All systems reviewed & are unremarkable except as noted in HPI and below Physical Exam Vital Signs: Last Vital Signs Temp 97.8 F 03/17/24 09:18 Pulse 113 H 03/17/24 09:18 BP 142/90 H 03/17/24 09:18 Pulse Ox 98 03/17/24 09:18 Oxygen Delivery Method Room Air 03/17/24 09:18 BMI result Body Mass Index 36.0 Const General: comfortable and no acute distress Nutritional Appearance: overweight Orientation/consciousness: patient oriented x3 Resp Effort & Inspection: normal respiratory effort and able to speak in complete sentences Auscultation: clear to auscultation bilaterally, no crackles, no rales, no rhonchi and no wheezes Cardio Rate: regular rate Rhythm: regular rhythm Neuro General: patient oriented x3 Assessment & Plan Assessment & Plan (1) Cough in adult: Code(s): R05.9 - Cough, unspecified Plan: - Chest Xray - SARs - No need for more Abx for now, unless Chest Xray positive. - Home remedies. - Bilateral lungs CTA Orders: Orders XR chest 2V Today R05.9 - Cough, unspecified SARS-CoV2/FLU/RSV Today R05.9 - Cough, unspecified, R09.89 - Other specified symptoms and signs involving the circulatory and respiratory systems Coding Level of Care Code Est Pt Level 3 (46148) Diagnoses Cough in adult R05.9 Time Spent (min) 15
== END 2024-03-17 11:12 | disposition home or self-care (01) ==
PROVIDERS: PCP Internal Medicine; Visit Provider Nurse Practitioner Family
DX: R05.9 Cough, unspecified (principal)
CPT/HCPCS: 99213

== ENCOUNTER 2024-03-17 10:06 | Outpatient (REF) | payer MEDICARE, SELFPAY ==
[2024-03-17 13:51] LABS: Influenza A PCR NEGATIVE (Negative); Influenza B PCR NEGATIVE (Negative); Resp Syncy Virus RNA Qual PCR NEGATIVE (Negative); SARS COV2 PCR INHOUSE NEGATIVE (Negative)
== END 2024-03-17 10:07 | disposition home or self-care (01) ==
LOC: HO.LAB 10:06
PROVIDERS: Visit Provider Nurse Practitioner Family
DX: Z13.89 Encounter for screening for other disorder (principal)
CPT/HCPCS: 0241U

== ENCOUNTER 2024-03-17 10:11 | Outpatient (REF) | payer MEDICARE, SELFPAY ==
--- NOTE | ~2024-03-17 | XR_ITS ---
EXAMINATION: XR CHEST CLINICAL INFORMATION: Cough. COMPARISON: Chest radiograph 07/18/2018. TECHNIQUE: 2 views of the chest were obtained. FINDINGS: Stable prominence of the cardiomediastinal silhouette. Similar degree of slightly increased interstitial markings. No new focal airspace densities. No pleural effusion or pneumothorax. No acute osseous findings. Visualized upper abdomen is within normal limits. XR/XR chest 2V IMPRESSION: No acute cardiopulmonary findings compared to 07/18/2018.
== END 2024-03-17 10:12 | disposition home or self-care (01) ==
LOC: HO.HMGCX 10:11
PROVIDERS: PCP Internal Medicine; Visit Provider Nurse Practitioner Family
DX: R05.9 Cough, unspecified (principal); J06.9 Acute upper respiratory infection, unspecified
CPT/HCPCS: 0241U; 71046

== ENCOUNTER 2024-03-27 16:15 | Outpatient (REF) | payer MEDICARE, SELFPAY ==
[2024-03-27 17:42] LABS: Anion Gap 13 (12-20); Blood Urea Nitrogen 30 mg/dL (9-16); Carbon Dioxide 28 mmol/L (22-29); Chloride 106 mmol/L (96-108); Estimated Glomerular Filt Rate 35; Potassium 3.1 mmol/L (3.3-5.1); Sodium 144 mmol/L (135-145)
== END 2024-03-27 16:16 | disposition home or self-care (01) ==
LOC: HO.LAB 16:15
PROVIDERS: PCP Internal Medicine; Visit Provider Internal Medicine Nephrology
DX: Q61.3 Polycystic kidney, unspecified (principal); N18.30 Chronic kidney disease, stage 3 unspecified
CPT/HCPCS: 36415; 80051; 82565; 84520

== ENCOUNTER 2024-03-29 11:18 | Outpatient (AMB) | payer MEDICARE, SELFPAY ==
--- NOTE | 2024-03-29 11:22 | HO.NEPHOV ---
Vital Signs 03/29/24 11:23 Height 5 ft 4 in Weight 209 lb BMI 35.9 BP 122/80 Blood Pressure Location Rt brachial Position Sitting Pulse 70 Pulse Source Pulse Oximeter Pulse Oximetry (%) 96 Oxygen Delivery Method Room Air Intake Visit Reasons: CKD/ 3 MO FU/ Confirmed Cardiovascular Physician Assistant Required: No Accompanied by: Self / Same As Patient Allergies Penicillins Allergy (Verified 03/29/24 11:24) Unknown irbesartan Adverse Reaction (Verified 03/29/24 11:24) Stomach Upset HPI Comments Details: I had the pleasure of meeting Mr Lechuga in follow-up of his chronic kidney disease and hypertension on a backdrop of her polycystic kidney disease. He has no flank pain, any fever, nausea, vomiting, hematuria. His vitamin-D levels had been on the low side. He is on multiple antihypertensive medications including losartan, hydralazine and diltiazem. His blood pressure control is quite optimal. He denies nausea, vomiting, diarrhea, chest pain, shortness of breath, hematuria. He tries to maintain good hydration. He has been having edema. His K has been low and was replaced recently. He feels well otherwise [facility] Medical History Lumbar degenerative disc disease Abscess of leg Pure hypercholesterolemia Onychomycosis Chronic kidney disease (CKD), stage III (moderate) Obesity (BMI 30-39.9) Hematuria Gait instability Vitamin D deficiency Hypokalemia Polycystic kidney disease Multiple thyroid nodules Impaired fasting glucose Cerebrovascular accident (CVA) Dyslipidemia Benign essential hypertension History of postoperative nausea Gout Thyroid nodule Renal cyst Benign prostatic hyperplasia CVA (cerebral vascular accident) COVID-19 virus antibody negative History of snoring Murmur Elevated cholesterol Surgical History H/O partial thyroidectomy (~10/22/14) H/O arthroscopic knee surgery H/O varicose vein ligation and stripping Hx of colonoscopy (~08/2020) Family History Father Diabetes Mother Chronic mental illness Other Mental health problem Social History Household Members: None Housing: Apartment Do you presently have visiting nurse or other home services: No Alcohol intake: current Alcohol intake frequency: holidays/special occasions only Alcohol type: beer Patient Tobacco Use Status: Former Tobacco user e-Cigarette/Vaping Use: Former Use Second Hand Smoke Exposure: Yes Current occupational status: employed 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 Cognitive needs: No Hearing needs: No Vision needs: Yes Physical Exam Vital Signs: Last Vital Signs Pulse 70 03/29/24 11:23 BP 122/80 03/29/24 11:23 Pulse Ox 96 03/29/24 11:23 Oxygen Delivery Method Room Air 03/29/24 11:23 BMI result Body Mass Index 35.9 Const General: comfortable and no acute distress Orientation/consciousness: patient oriented x3 HEENT Head: Yes normocephalic Mouth: Normal oral and palatal mucosa present Eyes EOM: EOMs intact bilaterally Neck Neck: Yes supple Resp Auscultation: clear to auscultation bilaterally Cardio Jugular venous distension: no JVD Rate: regular rate GI Palpation (GI): Soft to palpation Auscultation: normal bowel sounds General: Yes no CVA tenderness Back/Spine/Pelvis Back: no CVA tenderness Skin General skin exam: no rashes or lesions noted Neuro General: patient oriented x3 and moves all extremities Extrem General: Yes no pedal edema Results Reviewed Nephrology Results: Hgb 12.8 g/dl (14.0-18.0) L 01/31/24 WBC 4.1 X10*3/uL (4.8-10.8) L 01/31/24 Plt Count 225 X10*3/uL (160-400) 01/31/24 Sodium 144 mmol/L (135-145) 03/27/24 Potassium 3.1 mmol/L (3.3-5.1) L 03/27/24 Chloride 106 mmol/L (96-108) 03/27/24 Carbon Dioxide 28 mmol/L (22-29) 03/27/24 BUN 30 mg/dL (9-16) H 03/27/24 Creatinine 1.92 mg/dL (0.5-1.4) H 03/27/24 Calcium 8.9 mg/dL (8.4-10.2) 01/31/24 Urine Protein 100 (2+) mg/dL (Neg-Trace) H 01/31/24 Urine Creatinine 113.50 mg/dL 01/31/24 Assessment & Plan Assessment & Plan (1) Chronic kidney disease (CKD), stage III (moderate): Code(s): N18.30 - Chronic kidney disease, stage 3 unspecified Category: Medical Qualifiers: Chronic kidney disease stage 3 subtype: unspecified whether 3a or 3b Qualified Code(s): N18.30 - Chronic kidney disease, stage 3 unspecified (2) Benign essential hypertension: Code(s): I10 - Essential (primary) hypertension Category: Medical (3) Polycystic kidney disease: Comment: MRI of the abdomen and pelvis done on 07/04/2019 revealed multiple bilateral renal cysts compatible with polycystic kidney disease Code(s): Q61.3 - Polycystic kidney, unspecified Category: Medical Plan Wyatt has polycystic kidney disease. His renal function had been pretty stable. His blood pressure is at goal. He is tolerating angiotensin receptor juvencio. He is not taking any nonsteroidal anti-inflammatories. His renal ultrasound showed a complex cyst which will need Urology follow up in the future. He is having some edema likely from Diltiazem which may need a change in edema remains an issue. He may be a candidate for tolvaptan. Genetic studies for polycystic kidney disease has not been done for him. He is on statins. He tries to remain himself well hydrated . I did not make any medication changes today. All his questions were answered. Follow-up blood work ordered. Orders: Orders Creatinine Today I10 - Essential (primary) hypertension, N18.30 - Chronic kidney disease, stage 3 unspecified, Q61.3 - Polycystic kidney, unspecified Vitamin D 25-OH Total Today I10 - Essential (primary) hypertension, N18.30 - Chronic kidney disease, stage 3 unspecified, Q61.3 - Polycystic kidney, unspecified Blood Urea Nitrogen Today I10 - Essential (primary) hypertension, N18.30 - Chronic kidney disease, stage 3 unspecified, Q61.3 - Polycystic kidney, unspecified Electrolytes Today I10 - Essential (primary) hypertension, N18.30 - Chronic kidney disease, stage 3 unspecified, Q61.3 - Polycystic kidney, unspecified Calcium Today I10 - Essential (primary) hypertension, N18.30 - Chronic kidney disease, stage 3 unspecified, Q61.3 - Polycystic kidney, unspecified Complete Blood Count no Diff Today I10 - Essential (primary) hypertension, N18.30 - Chronic kidney disease, stage 3 unspecified, Q61.3 - Polycystic kidney, unspecified Coding Level of Care Code Est Pt Level 4 (97425) Diagnoses Stage 3 chronic kidney disease, unspecified whether stage 3a or 3b CKD N18.30 Chronic kidney disease stage 3 subtype: unspecified whether 3a or 3b Benign essential hypertension I10 Polycystic kidney disease Q61.3
[2024-03-29 11:23] VITALS: BP 122/80; PULSE 70; O2SAT 96; BMI 35.9
== END 2024-03-29 11:39 | disposition home or self-care (01) ==
PROVIDERS: PCP Internal Medicine; Visit Provider Internal Medicine Nephrology
DX: N18.30 Chronic kidney disease, stage 3 unspecified (principal); I10 Essential (primary) hypertension; Q61.3 Polycystic kidney, unspecified
CPT/HCPCS: 99214

== ENCOUNTER → 2024-03-29 11:18 | Outpatient (BNVA) | payer MEDICARE, SELFPAY | PROVIDERS: PCP Internal Medicine; Visit Provider Internal Medicine Nephrology | DX: I10 Essential (primary) hypertension (principal); N18.30 Chronic kidney disease, stage 3 unspecified; Q61.3 Polycystic kidney, unspecified | CPT/HCPCS: 99212 ==

== ENCOUNTER 2024-04-04 09:13 | Outpatient (REF) | payer MEDICARE, SELFPAY ==
[2024-04-04 10:22] LABS: Hemoglobin 12.9 g/dl (14.0-18.0); Mean Corpuscular HGB Conc 33.9 g/dl (31.0-36.0); Mean Corpuscular Hemoglobin 29.3 pg (27.0-33.0); Mean Corpuscular Volume 86.4 fL (80.0-98.0); Mean Platelet Volume 9.8 fL (9.4-12.4); Platelet Count 242 X10*3/uL (160-400); Red Cell Distribution Width 13.6 % (11.0-16.0); White Blood Count 3.9 X10*3/uL (4.8-10.8)
[2024-04-04 10:34] LABS: Appearance Urine Clear; Color Urine Yellow; Glucose Urine UA Negative (Negative); Leukocyte Esterase Urine Negative (Negative); Nitrite Urine Negative (Negative); Specific Gravity - Urine 1.015 (1.005-1.025); UMIC TRIGGER UACC YES; Urine Blood Negative (Negative); Urine Ketones Negative (Negative); Urine Protein 30 (1+) mg/dL (Neg-Trace)
[2024-04-04 10:41] LABS: Bacteria Urine None Seen (None Seen); Hyaline Casts Urine 0-2 /LPF (0-2); RBC Urine 0-2 /HPF (0-2); Squamous Epithelial Cell Urine 0-2 /HPF (0-2); WBC Urine 0-5 /HPF (0-5)
[2024-04-04 11:16] LABS: Anion Gap 12 (12-20); Blood Urea Nitrogen 28 mg/dL (9-16); Calcium 8.7 mg/dL (8.4-10.2); Carbon Dioxide 28 mmol/L (22-29); Chloride 110 mmol/L (96-108); Estimated Glomerular Filt Rate 38; Potassium 3.2 mmol/L (3.3-5.1); Sodium 147 mmol/L (135-145)
[2024-04-04 11:33] LABS: Vitamin D 25-OH Total 36.8 ng/mL (>30)
== END 2024-04-04 09:14 | disposition home or self-care (01) ==
LOC: HO.LAB 09:13
PROVIDERS: Internal Medicine Nephrology; PCP Internal Medicine; Visit Provider Internal Medicine
DX: Q61.3 Polycystic kidney, unspecified (principal); I12.9 Hypertensive chronic kidney disease with stage 1 through stage 4 chronic kidney disease, or unspecified chronic kidney disease; N18.30 Chronic kidney disease, stage 3 unspecified
CPT/HCPCS: 36415; 80051; 81001; 82306; 82310; 82565; 84520; 85027

== ENCOUNTER 2024-04-11 13:30 | Outpatient (AMB) | payer MEDICARE, SELFPAY ==
[2024-04-11 13:34] VITALS: BP 130/84; PULSE 59; O2SAT 98; BMI 35.7
--- NOTE | 2024-04-11 13:34 | A.OFFPC_ITS ---
Vital Signs 04/11/24 13:34 Height 5 ft 4 in Weight 208 lb BMI 35.7 BP 130/84 Blood Pressure Location Lt brachial Position Sitting Pulse 59 Pulse Source Pulse Oximeter Pulse Oximetry (%) 98 Oxygen Delivery Method Room Air Intake Visit Reasons: 3 Month F/U Moisture Meter Operator Required: No Command And Control Officer: Not Required per policy Accompanied by: Self / Same As Patient Allergies Penicillins Allergy (Verified 04/11/24 14:23) Unknown irbesartan Adverse Reaction (Verified 04/11/24 14:23) Stomach Upset Medication List - Last Reconciled 04/11/24 by Bhavesh Arora MD acetaminophen 500 mg PO Q4H PRN aspirin 81 mg PO DAILY atorvastatin 80 mg PO BEDTIME 90 days cholecalciferol (vitamin D3) 1,000 units PO DAILY clobetasol 0.05% 1 appl topical BID PRN diltiazem HCl ER (DILT-XR) 240 mg PO QAM finasteride 5 mg PO DAILY 90 days hydralazine 50 mg (2 x 25 mg) PO BID 90 days losartan 50 mg PO DAILY meclizine 25 mg PO TID PRN potassium chloride ER 10 mEq PO DAILY Tobacco use date assessed: 12/17/23 Fall risk assessment: No Falls in past year Last assessed Fall Risk: 04/11/24 Dental Screening Dental Screen Date: 12/17/23 HPI 3 Month F/U HPI Details Patient comes in today for his follow up visit States that he feels okay He denies any headaches or dizziness Denies any chest pains, no SOB No nausea/vomiting, no abdominal pain No change in bowel habits noted He had his follow up labs done last week - to discuss his results He would also like to get a referral to see dermatology to get his skin checked out for possible skin cancer lesions [facility] Medical History (Updated 04/11/24 @ 14:34 by Bhavesh Arora MD) Lumbar degenerative disc disease Abscess of leg Pure hypercholesterolemia Onychomycosis Chronic kidney disease (CKD), stage III (moderate) Obesity (BMI 30-39.9) Hematuria Gait instability Vitamin D deficiency Hypokalemia Polycystic kidney disease Multiple thyroid nodules Impaired fasting glucose Cerebrovascular accident (CVA) Benign essential hypertension History of postoperative nausea Gout Thyroid nodule Renal cyst Benign prostatic hyperplasia CVA (cerebral vascular accident) COVID-19 virus antibody negative History of snoring Surgical History H/O partial thyroidectomy (~10/22/14) H/O arthroscopic knee surgery H/O varicose vein ligation and stripping Hx of colonoscopy (~08/2020) Family History Father Diabetes Mother Chronic mental illness Other Mental health problem Social History Household Members: None Housing: Apartment Do you presently have visiting nurse or other home services: No Alcohol intake: current Alcohol intake frequency: holidays/special occasions only Alcohol type: beer Patient Tobacco Use Status: Former Tobacco user e-Cigarette/Vaping Use: Former Use Second Hand Smoke Exposure: Yes Current occupational status: employed 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 Dilip Tian, Mirna Banuelos, Juan Lipscomb and colleagues, with an educational attila from [employer]. Review of Systems Const Denies chills, Denies fatigue, Denies fever(s) and Denies headache(s) ENT Denies dysphagia, Denies dizziness, Denies otalgia, Denies headache(s), Denies neck pain, Denies odynophagia and Denies sore throat Card Denies chest pain, Denies palpitations and Denies dyspnea Resp Denies cough, Denies dyspnea and Denies wheezing GI Denies abdominal pain, Denies constipation, Denies dysphagia, Denies heartburn, Denies diarrhea, Denies nausea, Denies odynophagia and Denies vomiting Denies dysuria, Denies nocturia and Denies urinary frequency Musc Reports abnormal gait (poor balance), Reports back pain (recurrent, over the left lower back/flank area) and Denies neck pain Skin/Breast Reports rash (over extensor surface of both elbows) Neuro Reports abnormal gait (poor balance), Denies dizziness and Denies headache(s) Endo Denies fatigue and Denies palpitations Aller/Immun Denies wheezing Physical exam (Primary Care) Vital Signs: Last Vital Signs Pulse 59 04/11/24 13:34 BP 130/84 04/11/24 13:34 Pulse Ox 98 04/11/24 13:34 Oxygen Delivery Method Room Air 04/11/24 13:34 BMI result Body Mass Index 35.7 Tobacco/Smoking Status: Tobacco use Status Tobacco use date assessed 12/17/23 04/11/24 13:35 Patient Tobacco Use Status Former Tobacco user 04/11/24 13:35 e-Cigarette/Vaping Use Former Use 04/11/24 13:35 Thrive Assessment: Date of Thrive Assessment Date Thrive assessed 12/17/23 04/11/24 13:35 Const General: no acute distress and alert HENMT Ears: TM's normal bilaterally and EAC's normal Throat: Yes posterior oropharynx normal and Yes tonsils normal (no TP congestion noted) Neck Neck: Yes no lymphadenopathy and Yes supple Thyroid: Thyroid normal Resp Auscultation: clear to auscultation bilaterally, no rales and no wheezes Cardio Rate: regular rate Rhythm: regular rhythm Heart sounds: no murmurs GI Palpation (GI): Soft to palpation and nontender Auscultation: normal bowel sounds General: Yes no CVA tenderness Back/Spine/Pelvis Back: no CVA tenderness Thoracic/Lumbar Spine: No lumbar spinal tenderness Skin Other: (+) patchy scaling rash (with whitish/silvery scales) over the extensor aspect of both elbows Extrem General: No clubbing, No cyanosis and Yes edema (trace bipedal edema) Results Reviewed Results Reviewed: Laboratory Tests 01/31/24 01/31/24 04/04/24 09:50 09:55 09:33 WBC 3.9 L Hgb 12.9 L Hct 38.0 L Plt Count 242 Sodium 147 H Potassium 3.2 L Chloride 110 H Creatinine 1.77 H Estimated GFR 38 Hemoglobin A1c % 5.3 Calcium 8.7 AST 21 ALT 23 Triglycerides 73 Cholesterol 117 LDL Cholesterol, Calc 60 HDL Cholesterol 43 25-OH Vitamin D Total 36.8 TSH 1.80 Ur Specific [place] Urine Protein Urine Glucose (UA) Urine Blood Urine Nitrite Ur Leukocyte Esterase Microalb/Creat Ratio 304.8 H 04/04/24 09:44 WBC Hgb Hct Plt Count Sodium Potassium Chloride Creatinine Estimated GFR Hemoglobin A1c % Calcium AST ALT Triglycerides Cholesterol LDL Cholesterol, Calc HDL Cholesterol 25-OH Vitamin D Total TSH Ur Specific [place] 1.015 Urine Protein 30 (1+) H Urine Glucose (UA) Negative Urine Blood Negative Urine Nitrite Negative Ur Leukocyte Esterase Negative Microalb/Creat Ratio Assessment and Plan Assessment & Plan (1) Pure hypercholesterolemia: Code(s): E78.00 - Pure hypercholesterolemia, unspecified Plan: Results of his labs done last week reviewed and discussed with patient Reinforced low cholesterol diet Continue Atorvastatin 80 mg QD Will recheck his labs and fasting lipids in 3 months for follow up (2) Benign essential hypertension: Code(s): I10 - Essential (primary) hypertension Plan: Reinforced?low-sodium diet -? goal is systolic BP of at least 130 to 140 mm or less due to his CKD Continue Diltiazem ER 240 mg QD, Hydralazine 50 mg BID and Losartan 50 mg QD Patient is reminded to continue monitoring his blood pressure regularly (3) Chronic kidney disease (CKD), stage III (moderate): Code(s): N18.30 - Chronic kidney disease, stage 3 unspecified Qualifiers: Chronic kidney disease stage 3 subtype: unspecified whether 3a or 3b Qualified Code(s): N18.30 - Chronic kidney disease, stage 3 unspecified Plan: Advised that his serum creatinine and GFR have been mostly stable Will continue to monitor his renal function regularly Follow up with nephrology (Dr. Parra) as scheduled (4) Polycystic kidney disease: Comment: MRI of the abdomen and pelvis done on 07/04/2019 revealed multiple bilateral renal cysts compatible with polycystic kidney disease Code(s): Q61.3 - Polycystic kidney, unspecified Plan: Patient remains asymptomatic at present Renal US done back in September 2023 revealed (+) multiple bilateral renal cysts with the largest cyst on the upper pole of the left kidney, which appears as a complex cyst with multiple septations Will continue to monitor his renal function closely (5) Cerebrovascular accident (CVA): Comment: 2015 Code(s): I63.9 - Cerebral infarction, unspecified Qualifiers: CVA mechanism: unspecified Qualified Code(s): I63.9 - Cerebral infarc tion, unspecified Plan: Patient currently has minimal residual neurologic deficits from his CVA that occurred back in 2015 Follow-up with Neurology as scheduled or as needed (6) Impaired fasting glucose: Code(s): R73.01 - Impaired fasting glucose Plan: HgbA1c was normal at 5.3% and 5.5% when previously checked - was at 5.3% most recently in January 2024 Reinforced low calorie/low carb diet; exercise as tolerated (7) Multiple thyroid nodules: Code(s): E04.2 - Nontoxic multinodular goiter Plan: S/P FNA biopsy a couple of years ago - results came back normal/benign TSH remains normal on his recent labs Will continue to monitor his TFTs regularly Thyroid US last done in 2017 revealed enlarged left lobe with multiple bilateral thyroid nodules - 2 nodules appear increased in size and there appears to be a new nodule as well and recommended continued ultrasound follow up He had US ordered in 2019 but did not get that done US was reordered at his last visit and he finally had this done in January 2024, which showed (+) Status post right hemithyroidectomy. Enlarged heterogeneous hypervascular left thyroid with multiple nodules, only one of which meets criteria for follow-up - recommend follow-up study in one year (8) Gout: Code(s): M10.9 - Gout, unspecified Qualifiers: Gout site: unspecified site Gout etiology: idiopathic Chronicity: unspecified Qualified Code(s): M10.00 - Idiopathic gout, unspecified site Plan: Reinforced low purine diet -? patient has had no acute gout flares for several months Will recheck his serum uric acid level in 3 months for follow up (9) Vitamin D deficiency: Code(s): E55.9 - Vitamin D deficiency, unspecified Plan: Corrected - continue Vitamin-D 53156 units once a week (10) Hypokalemia: Code(s): E87.6 - Hypokalemia Plan: Corrected previously but his serum potassium level is again slightly low at 3.2 on his recent labs Continue Potassium Chloride ER 10 mEq?BID Will continue to monitor his serum potassium level regularly (11) Hematuria: Code(s): R31.9 - Hematuria, unspecified Qualifiers: Hematuria type: unspecified type Qualified Code(s): R31.9 - Hematuria, unspecified Plan: Resolved with no recurrence lately -?sees urology for follow-up (12) Lumbar degenerative disc disease: Code(s): M51.36 - Other intervertebral disc degeneration, lumbar region Plan: Lumbar spine x-rays done back in 2019 revealed (+) sclerotic facet arthrosis that is most severe at L5-S1; (+) mild multilevel endplate spurring and no compression fractures or significant loss of disc height noted Repeat x-rays done in September 2023 revealed no interval change Reinforced activity and weight-lifting restrictions (13) Obesity (BMI 30-39.9): Code(s): E66.9 - Obesity, unspecified Plan: Reinforced diet/exercise as tolerated/lose weight (14) Skin exam for malignant neoplasm: Code(s): Z12.83 - Encounter for screening for malignant neoplasm of skin Plan: Per request, will refer him to dermatology for further evaluation and management Plan Follow up in 3 months Orders: Orders Complete Blood Count Auto Diff 3 Months D64.9 - Anemia, unspecified Lipid Panel 3 Months E78.00 - Pure hypercholesterolemia, unspecified Microalbumin, Random (w Creat) 3 Months E11.9 - Type 2 diabetes mellitus without complications Vitamin B12 and Folate 3 Months E53.8 - Deficiency of other specified B group vitamins Prostate Specific Antigen 3 Months N40.0 - Benign prostatic hyperplasia without lower urinary tract symptoms Comprehensive [place]. Panel Fast 3 Months E78.00 - Pure hypercholesterolemia, unspecified TSH reflex Free T4 3 Months E78.00 - Pure hypercholesterolemia, unspecified UA CC w/rflx Micro + Cult 3 Months R30.0 - Dysuria Hemoglobin A1c 3 Months E11.9 - Type 2 diabetes mellitus without complications Vitamin D 25-OH Total 3 Months E55.9 - Vitamin D deficiency, unspecified Uric Acid 3 Months M10.9 - Gout, unspecified Referrals Dermatology Referral Z12.83 - Encounter for screening for malignant neoplasm of skin Coding Level of Care Code Est Pt Level 4 (33665) Complex EM visit Add On G2211 Diagnoses Pure hypercholesterolemia E78.00 Benign essential hypertension I10 Stage 3 chronic kidney disease, unspecified whether stage 3a or 3b CKD N18.30 Chronic kidney disease stage 3 subtype: unspecified whether 3a or 3b Polycystic kidney disease Q61.3 Cerebrovascular accident (CVA), unspecified mechanism I63.9 CVA mechanism: unspecified Impaired fasting glucose R73.01 Multiple thyroid nodules E04.2 Idiopathic gout, unspecified chronicity, unspecified site M10.00 Gout site: unspecified site Gout etiology: idiopathic Chronicity: unspecified Vitamin D deficiency E55.9 Hypokalemia E87.6 Hematuria, unspecified type R31.9 Hematuria type: unspecified type Lumbar degenerative disc disease M51.36 Obesity (BMI 30-39.9) E66.9 Skin exam for malignant neoplasm Z12.83
== END 2024-04-11 14:31 | disposition home or self-care (01) ==
PROVIDERS: PCP Internal Medicine; Visit Provider Internal Medicine
DX: E78.00 Pure hypercholesterolemia, unspecified (principal); I12.9 Hypertensive chronic kidney disease with stage 1 through stage 4 chronic kidney disease, or unspecified chronic kidney disease; N18.30 Chronic kidney disease, stage 3 unspecified; Q61.3 Polycystic kidney, unspecified; R73.01 Impaired fasting glucose; E04.2 Nontoxic multinodular goiter; M10.00 Idiopathic gout, unspecified site; E55.9 Vitamin D deficiency, unspecified; E87.6 Hypokalemia; R31.9 Hematuria, unspecified; M51.36 Other intervertebral disc degeneration, lumbar region
CPT/HCPCS: 99214; G2211

== ENCOUNTER 2024-04-19 12:43 | Outpatient (AMB) | payer MEDICARE, SELFPAY ==
--- NOTE | 2024-04-19 12:43 | AM.OFFVISMDC ---
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 Allergies Penicillins Allergy (Verified 07/11/24 00:21) Unknown irbesartan Adverse Reaction (Verified 07/11/24 00:21) Stomach Upset Medication List - Last Reconciled 07/11/24 by Bhavesh Arora MD acetaminophen 500 mg PO Q4H PRN aspirin 81 mg PO DAILY atorvastatin 80 mg PO BEDTIME 90 days cholecalciferol (vitamin D3) 1,000 units PO DAILY clobetasol 0.05% 1 appl topical BID PRN diltiazem HCl ER (DILT-XR) 240 mg PO QAM finasteride 5 mg PO DAILY 90 days hydralazine 50 mg (2 x 25 mg) PO BID 90 days losartan 50 mg PO DAILY meclizine 25 mg PO TID PRN potassium chloride ER 10 mEq PO DAILY HPI [facility] HPI Details Patient comes in today for his Medicare Annual Wellness Exam States that he feels okay and currently has no acute issues or complaints He denies any headaches or dizziness Denies any chest pains, no SOB No nausea/vomiting, no abdominal pain No change in bowel habits noted IPPE/AWV: c/o of Annual Wellness Visit, subsequent visit. Medical / Social History Reviewed Past Medical History Yes . [place] of Care / Care Team list updated Yes . Surgical/Hospitalization History Yes . Current Medications (including OTC and supplements) Yes . Family History Yes . Tobacco Control form Yes . AUDIT-C (Alcohol use) form Yes . Illicit drug use in Social History Yes . Current diagnosis of depression? No Appropriate PHQ2/PHQ9 completed Yes . Data entered by Harvesting Contractor and reviewed by provider Home Safety Throw rugs? No Grab bars? No Raised toilet seats? No Working smoke detectors? Yes Working carbon monoxide detectors? Yes Data entered by Harvesting Contractor and reviewed by provider Activities of Daily Living (ADLs) Difficulty bathing or showering? No Difficulty dressing? No Difficulty using the toilet? No Difficulty getting in and out of bed? No Difficulty walking? No Receives help from another person with any of the above tasks? No Instrumental Activities of Daily Living (IADLs) Uses the telephone without help Gets to places out of walking distance without help Goes shopping for groceries without help Prepares own meals without help Does own minor home maintenance without help Does own laundry without help Does own housework without help Manages own money without help Currently takes medications? Yes Takes medication without help End-of-Life Planning Discussed advance directive Yes Advance directive on file Discussed wishes expressed in advance directive agreed to following patient's wishes Fall Risk: Fall History Have you had any falls with injury in the past year? No . Have you had two or more falls in the past year? No . Fall Risk Assessment: No falls in the past year . HRA filled out by the patient, reviewed by Provider and scanned. [facility] Medical History Lumbar degenerative disc disease Abscess of leg Pure hypercholesterolemia Onychomycosis Chronic kidney disease (CKD), stage III (moderate) Obesity (BMI 30-39.9) Hematuria Gait instability Vitamin D deficiency Hypokalemia Polycystic kidney disease Multiple thyroid nodules Impaired fasting glucose Cerebrovascular accident (CVA) Benign essential hypertension History of postoperative nausea Gout Thyroid nodule Renal cyst Benign prostatic hyperplasia CVA (cerebral vascular accident) COVID-19 virus antibody negative History of snoring Surgical History H/O partial thyroidectomy (~10/22/14) H/O arthroscopic knee surgery H/O varicose vein ligation and stripping Hx of colonoscopy (~08/2020) Family History Father Diabetes Mother Chronic mental illness Other Mental health problem Social History Household Members: None Housing: Apartment Do you presently have visiting nurse or other home services: No Alcohol intake: current Alcohol intake frequency: holidays/special occasions only Alcohol type: beer Patient Tobacco Use Status: Former Tobacco user e-Cigarette/Vaping Use: Former Use Second Hand Smoke Exposure: Yes Current occupational status: employed 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 Cognitive needs: No Hearing needs: No Vision needs: Yes (glasses) Questionnaire Medicare Wellness Checkup [age] What gender do you identify with?: male During the past 4 weeks, how much have you been bothered by emotional problems such as feeling anxious, depressed, irritable, sad or downhearted, and blue?: slightly During the past 4 weeks, has your physical & emotional health limited your social activities with family, friends, neighbors, or groups?: not at all During the past 4 weeks, how much bodily pain have you generally had?: no pain During the past 4 weeks, was someone available to help you if you needed & wanted help?: yes, as much as I wanted During the past 4 weeks, what was the hardest physical activity you could do for at least 2 minutes?: heavy Can you get to places out of walking distance without help? (For eg., can you travel alone on buses, taxis or drive your car?): Yes Can you go shopping for groceries or clothes without someone's help?: Yes Can you prepare your own meals?: Yes Can you do your housework without help?: Yes Because of any health problems, do you need the help of another person with your personal care needs such as eating, bathing, dressing or getting around the house?: No Can you handle your own money without help?: Yes During the past 4 weeks, how would you rate your health in general?: very good During the past 4 weeks how have things been going for you?: pretty well Are you having difficulties driving your car?: no Do you always fasten your seat belt when you are in a car?: yes, usually During past 4 weeks, have you been bothered by the following: never: Falling or dizzy when standing up, Trouble eating well?, Teeth or denture problems? and Problems using the telephone? and seldom: Sexual problems? and Tiredness or fatigue? Have you fallen 2 or more times in the past year?: Yes Are you afraid of falling?: No Are you a smoker?: no During the past 4 weeks, how many drinks of wine, beer, or other alcoholic beverages did you have?: no alcohol at all Do you exercise for about 20 minutes 3 or more times a week?: yes, some of the time Have you been given information to help with the following?: yes: Hazards in your house that might hurt you? and yes: Keeping track of your medications? How often do you have trouble taking medicines the way you have been told to take them?: I always take medicine as prescribed How confident are you that you can control & manage most of your health problems?: somewhat confident What is your race?: White Mini Mental State Exam (MMSE) Orientation What is the (year) (season) (date) (day) (month)?: year, season, date, day and month Where are we (state) (county) (town or city) (hospital) (floor)?: state, county, town or city, hospital/clinic and floor Score Score: 10 Activity of Daily Living Bathing - sponge bath, tub bath or shower: receives no assistance (gets in/out by self, if usual bathing means Dressing - getting clothes from closets & drawers, including inner/outer garments & fasteners.: gets clothes & gets completely dressed without help Toileting - going to the 'toilet room' for urine/bowel elimination & cleaning self/arranging clothes: goes to toilet room, cleans self, arranges clothes without help Transfer: moves in & out of bed and chair without help (may use support object) Continence: controls urination/bowel movements completely by self Feeding: feeds self without help Total Score: 0 Information obtained from: patient Using telephone: independent Traveling: independent Shopping: independent Preparing meals: independent Housework: independent Taking medicine: independent Managing money: independent PHQ-9 Over the last 2 weeks, how often have you been bothered by any of the following problems? 1. Little interest or pleasure in doing things: not at all 2. Feeling down, depressed, or hopeless: several days 3. Trouble falling or staying asleep, or sleeping too much: not at all 4. Feeling tired or having little energy: several days 5. Poor appetite or overeating: not at all 6. Feeling bad about yourself - or that you are a failure or have let yourself or your family down: not at all 7. Trouble concentrating on things, such as reading the newspaper or watching television: not at all 8. Moving or speaking so slowly that other people could have noticed. Or the opposite - being so fidgety or restless that you have been moving around a lot more than usual: several days 9. Thoughts that you would be better off or of hurting yourself in some way: not at all Total score: 3 Depression Screening Interpretation: Negative Depression Screening Done: Yes 14960 - PHQ-9 Billing: Yes Source: Developed by Drs. Dilip Tian, Mirna Banuelos, Juan Lipscomb and colleagues, with an educational attila from [email or web address]. Review of Systems Const Denies chills, Denies fatigue, Denies fever(s) and Denies headache(s) ENT Denies dysphagia, Denies dizziness, Denies otalgia, Denies headache(s), Denies neck pain, Denies odynophagia and Denies sore throat Card Denies chest pain, Denies palpitations and Denies dyspnea Resp Denies cough, Denies dyspnea and Denies wheezing GI Denies abdominal pain, Denies constipation, Denies dysphagia, Denies heartburn, Denies diarrhea, Denies nausea, Denies odynophagia and Denies vomiting Denies dysuria, Denies nocturia and Denies urinary frequency Musc Reports abnormal gait (poor balance), Reports back pain (recurrent, over the left lower back/flank area) and Denies neck pain Skin/Breast Reports rash (over extensor surface of both elbows) Neuro Reports abnormal gait (poor balance), Denies dizziness and Denies headache(s) Endo Denies fatigue and Denies palpitations Aller/Immun Denies wheezing Physical Exam Vital Signs: Last Vital Signs Pulse 64 04/19/24 12:44 BP 130/72 04/19/24 12:44 Pulse Ox 96 04/19/24 12:44 Oxygen Delivery Method Room Air 04/19/24 12:44 BMI result Body Mass Index 36.1 IPPE/AWV: Balance Romberg Yes . Tandem walk No Walk and Turn No . Rise from sit to stand Yes . Vision Corrective lens Yes Vision screen pass Hearing Whisper test pass . Urinary incont. no. EKG Not clinically necessary. Const General: no acute distress and alert HEENT Ears: TM's normal bilaterally and EAC's normal Throat: Yes posterior oropharynx normal and Yes tonsils normal (no TP congestion noted) Neck Neck: Yes no lymphadenopathy and Yes supple Thyroid: Thyroid normal Resp Auscultation: clear to auscultation bilaterally, no rales and no wheezes Cardio Rate: regular rate Rhythm: regular rhythm Heart sounds: no murmurs GI Palpation (GI): Soft to palpation and nontender Auscultation: normal bowel sounds General: Yes no CVA tenderness Back/Spine/Pelvis Back: no CVA tenderness Thoracic/Lumbar Spine: lumbar spinal tenderness Skin Rashes: no rashes Nails: other ((+) onycholysis of multiple toenails on both feet) Extrem General: Yes no clubbing, cyanosis or edema Assessment & Plan Assessment & Plan (1) Medicare annual wellness visit, subsequent: Code(s): Z00.00 - Encounter for general adult medical examination without abnormal findings Plan: HRA form discussed and completed with patient - form(s) will be scanned into patient's chart ZOE and med list updated Plan To return as scheduled in July 2024 for his next follow up visit Quality Reporting (2019) Depression/Bipolar (159/160/161/177) PHQ-9: Total score: 3 Coding Level of Care Code Medicare Subsequent (G0439) Diagnoses Medicare annual wellness visit, subsequent Z00.00
[2024-04-19 12:44] VITALS: BP 130/72; PULSE 64; O2SAT 96; BMI 36.1
== END 2024-04-19 13:27 | disposition home or self-care (01) ==
PROVIDERS: PCP Nurse Practitioner Family; Visit Provider Internal Medicine
DX: Z00.00 Encounter for general adult medical examination without abnormal findings (principal)
CPT/HCPCS: G0439

== ENCOUNTER 2024-07-11 13:18 | Outpatient (REF) | payer MEDICARE, SELFPAY ==
[2024-07-11 15:18] LABS: Anion Gap 12 (12-20); Blood Urea Nitrogen 40 mg/dL (9-16); Calcium 9.1 mg/dL (8.4-10.2); Carbon Dioxide 28 mmol/L (22-29); Chloride 108 mmol/L (96-108); Estimated Glomerular Filt Rate 34; Potassium 2.9 mmol/L (3.3-5.1); Sodium 145 mmol/L (135-145)
== END 2024-07-11 13:19 | disposition home or self-care (01) ==
LOC: HO.LAB 13:18
PROVIDERS: PCP Internal Medicine; Visit Provider Internal Medicine Nephrology
DX: Q61.3 Polycystic kidney, unspecified (principal); I12.9 Hypertensive chronic kidney disease with stage 1 through stage 4 chronic kidney disease, or unspecified chronic kidney disease; N18.30 Chronic kidney disease, stage 3 unspecified
CPT/HCPCS: 36415; 80051; 82310; 82565; 84520

== ENCOUNTER → 2024-07-12 15:13 | Outpatient (BNVA) | payer MEDICARE, SELFPAY | PROVIDERS: PCP Internal Medicine; Visit Provider Internal Medicine Nephrology | DX: I12.9 Hypertensive chronic kidney disease with stage 1 through stage 4 chronic kidney disease, or unspecified chronic kidney disease (principal); N18.30 Chronic kidney disease, stage 3 unspecified; Q61.3 Polycystic kidney, unspecified | CPT/HCPCS: 99212 ==

== ENCOUNTER 2024-07-12 15:15 | Outpatient (AMB) | payer MEDICARE, SELFPAY ==
--- NOTE | 2024-07-12 15:27 | HO.NEPHOV_ITS ---
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 He has no flank pain, any fever, nausea, vomiting, hematuria. His serum potassium levels had been on the low side and was initiated on replacement. He is on multiple antihypertensive medications including losartan, hydralazine and diltiazem. His blood pressure control is quite optimal. He denies nausea, vomiting, diarrhea, chest pain, shortness of breath, hematuria. He tries to maintain good hydration. He feels well otherwise [facility] Medical History Lumbar degenerative disc disease Abscess of leg Pure hypercholesterolemia Onychomycosis Chronic kidney disease (CKD), stage III (moderate) Obesity (BMI 30-39.9) Hematuria Gait instability Vitamin D deficiency Hypokalemia Polycystic kidney disease Multiple thyroid nodules Impaired fasting glucose Cerebrovascular accident (CVA) Benign essential hypertension History of postoperative nausea Gout Thyroid nodule Renal cyst Benign prostatic hyperplasia CVA (cerebral vascular accident) COVID-19 virus antibody negative History of snoring Surgical History H/O partial thyroidectomy (~10/22/14) H/O arthroscopic knee surgery H/O varicose vein ligation and stripping Hx of colonoscopy (~08/2020) Family History Father Diabetes Mother Chronic mental illness Other Mental health problem Social History Household Members: None Housing: Apartment Do you presently have visiting nurse or other home services: No Alcohol intake: current Alcohol intake frequency: holidays/special occasions only Alcohol type: beer Patient Tobacco Use Status: Former Tobacco user e-Cigarette/Vaping Use: Former Use Second Hand Smoke Exposure: Yes Current occupational status: employed 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 Cognitive needs: No Hearing needs: No Vision needs: Yes (glasses) Review of Systems Const All systems reviewed & are unremarkable except as noted in HPI and below Physical Exam Vital Signs: Last Vital Signs Pulse 62 07/12/24 15:28 BP 124/70 07/12/24 15:28 Pulse Ox 96 07/12/24 15:28 Oxygen Delivery Method Room Air 07/12/24 15:28 BMI result Body Mass Index 37.0 Const General: comfortable and no acute distress Orientation/consciousness: patient oriented x3 HEENT Head: Yes normocephalic Mouth: Normal oral and palatal mucosa present Eyes EOM: EOMs intact bilaterally Neck Neck: Yes supple Resp Auscultation: clear to auscultation bilaterally Cardio Jugular venous distension: no JVD Rate: regular rate GI Palpation (GI): Soft to palpation Auscultation: normal bowel sounds General: Yes no CVA tenderness Back/Spine/Pelvis Back: no CVA tenderness Skin General skin exam: no rashes or lesions noted Neuro General: patient oriented x3 and moves all extremities Extrem General: Yes no pedal edema Results Reviewed Nephrology Results: Hgb 12.9 g/dl (14.0-18.0) L 04/04/24 WBC 3.9 X10*3/uL (4.8-10.8) L 04/04/24 Plt Count 242 X10*3/uL (160-400) 04/04/24 Sodium 145 mmol/L (135-145) 07/11/24 Potassium 2.9 mmol/L (3.3-5.1) L* 07/11/24 Chloride 108 mmol/L (96-108) 07/11/24 Carbon Dioxide 28 mmol/L (22-29) 07/11/24 BUN 40 mg/dL (9-16) H 07/11/24 Creatinine 1.95 mg/dL (0.5-1.4) H 07/11/24 Calcium 9.1 mg/dL (8.4-10.2) 07/11/24 Urine Protein 30 (1+) mg/dL (Neg-Trace) H 04/04/24 Assessment & Plan Assessment & Plan (1) Chronic kidney disease (CKD), stage III (moderate): Code(s): N18.30 - Chronic kidney disease, stage 3 unspecified Category: Medical Qualifiers: Chronic kidney disease stage 3 subtype: unspecified whether 3a or 3b Qualified Code(s): N18.30 - Chronic kidney disease, stage 3 unspecified (2) Polycystic kidney disease: Comment: MRI of the abdomen and pelvis done on 07/04/2019 revealed multiple bilateral renal cysts compatible with polycystic kidney disease Code(s): Q61.3 - Polycystic kidney, unspecified Category: Medical (3) Benign essential hypertension: Code(s): I10 - Essential (primary) hypertension Category: Medical Plan Wyatt has polycystic kidney disease. His renal function had been pretty stable. His blood pressure is at goal. He is tolerating angiotensin receptor juvencio. He is not taking any nonsteroidal anti-inflammatories. His renal ultrasound showed a complex cyst which will need Urology follow up in the future. He may be a candidate for tolvaptan. Genetic studies for polycystic kidney disease has not been done for him. He is on statins. He tries to remain himself well hydrated . I did not make any medication changes today. All his questions were answered Orders: Orders Creatinine Today N18.30 - Chronic kidney disease, stage 3 unspecified Blood Urea Nitrogen Today N18.30 - Chronic kidney disease, stage 3 unspecified Electrolytes Today N18.30 - Chronic kidney disease, stage 3 unspecified Coding Level of Care Code Est Pt Level 4 (82267) Diagnoses Stage 3 chronic kidney disease, unspecified whether stage 3a or 3b CKD N18.30 Chronic kidney disease stage 3 subtype: unspecified whether 3a or 3b Polycystic kidney disease Q61.3 Benign essential hypertension I10
[2024-07-12 15:28] VITALS: BP 124/70; PULSE 62; O2SAT 96; BMI 37.0
== END 2024-07-12 16:05 | disposition home or self-care (01) ==
PROVIDERS: PCP Internal Medicine; Visit Provider Internal Medicine Nephrology
DX: N18.30 Chronic kidney disease, stage 3 unspecified (principal); Q61.3 Polycystic kidney, unspecified; I10 Essential (primary) hypertension
CPT/HCPCS: 99214

== ENCOUNTER 2024-07-25 09:30 | Outpatient (REF) | payer MEDICARE, SELFPAY ==
[2024-07-25 09:49] LABS: MANUAL DIFF FLAG NO
[2024-07-25 10:32] LABS: Basophils Percent Auto 0.9 % (0-2); Eosinophils Absolute Auto 0.2 X10*3/uL (0.0-0.4); Eosinophils Percent Auto 5.4 % (0-4); Hematocrit 38.5 % (42.0-52.0); Imm Gran Abs Auto 0.01 X10*3/uL (0.00-0.03); Imm Gran Pct Auto 0.2 % (0.0-0.4); Lymphocytes Absolute Auto 0.6 X10*3/uL (1.2-4.9); Lymphocytes Percent Auto 12.9 % (20-40); Mean Corpuscular HGB Conc 33.8 g/dl (31.0-36.0); Mean Corpuscular Hemoglobin 29.4 pg (27.0-33.0); Mean Corpuscular Volume 87.1 fL (80.0-98.0); Mean Platelet Volume 9.5 fL (9.4-12.4); Monocytes Absolute Auto 0.4 X10*3/uL (0.1-1.2); Monocytes Percent Auto 8.7 % (2-11); Neutrophils Absolute Auto 3.1 x10*3/uL (2.0-8.3); Neutrophils Percent Auto 71.9 % (45-73); Platelet Count 243 X10*3/uL (160-400); Red Blood Count 4.42 X10*6/uL (4.60-5.80); Red Cell Distribution Width 12.9 % (11.0-16.0); White Blood Count 4.3 X10*3/uL (4.8-10.8)
[2024-07-25 10:38] LABS: Appearance Urine Clear; Color Urine Yellow; Glucose Urine UA Negative (Negative); Leukocyte Esterase Urine Negative (Negative); Nitrite Urine Negative (Negative); Specific Gravity - Urine 1.015 (1.005-1.025); UMIC TRIGGER UACC YES; Urine Blood Negative (Negative); Urine Ketones Negative (Negative); Urine Protein 30 (1+) mg/dL (Neg-Trace)
[2024-07-25 10:40] LABS: Bacteria Urine None Seen (None Seen); Hyaline Casts Urine 0-2 /LPF (0-2); RBC Urine 0-2 /HPF (0-2); Squamous Epithelial Cell Urine 0-2 /HPF (0-2); WBC Urine 0-5 /HPF (0-5)
[2024-07-25 10:54] LABS: Estimated Average Glucose 108 mg/dL; Hemoglobin A1c % 5.4 % (<6.0)
[2024-07-25 11:17] LABS: Blood Urea Nitrogen 27 mg/dL (9-16)
[2024-07-25 11:26] LABS: Alanine Aminotransferase 22 U/L (0-40); Albumin Level 3.9 g/dL (3.5-5.0); Alkaline Phosphatase 61 U/L (39-117); Anion Gap 10 (12-20); Aspartate Amino Transferase 24 U/L (5-37); Blood Urea Nitrogen 28 mg/dL (9-16); Calcium 8.8 mg/dL (8.4-10.2); Carbon Dioxide 31 mmol/L (22-29); Chloride 107 mmol/L (96-108); Cholesterol 107 mg/dL (<200); Estimated Glomerular Filt Rate 33; Glucose Fasting 105 mg/dL (60-99); HDL Cholesterol 40 mg/dL (>40); LDL Cholesterol Calculated 52 mg/dL (<100); Potassium 3.3 mmol/L (3.3-5.1); Sodium 145 mmol/L (135-145); Total Protein 6.3 g/dL (6.5-8.0); Triglycerides 75 mg/dL (<150)
[2024-07-25 11:30] LABS: Creatinine Urine 94.08 mg/dL; Microalbum/Creatinine Ratio Ur 207.2 ug/mg cr (<30)
[2024-07-25 11:31] LABS: TSH reflex Free T4 1.92 uIU/mL (0.32-4.0); Vitamin D 25-OH Total 36.7 ng/mL (>30)
[2024-07-25 11:38] LABS: Folate 14.4 ng/mL (> or = 4.0); Prostate Specific Antigen 1.49 ng/mL (<0.05-4.0); Vitamin B12 240 pg/mL (200-900)
[2024-07-25 11:46] LABS: Uric Acid 6.6 mg/dL (3.4-7.0)
== END 2024-07-25 09:31 | disposition home or self-care (01) ==
LOC: HO.LAB 09:30
PROVIDERS: Internal Medicine Nephrology; PCP Internal Medicine; Visit Provider Internal Medicine
DX: E11.22 Type 2 diabetes mellitus with diabetic chronic kidney disease (principal); N18.30 Chronic kidney disease, stage 3 unspecified; R30.0 Dysuria; E55.9 Vitamin D deficiency, unspecified; E53.8 Deficiency of other specified B group vitamins; M10.9 Gout, unspecified; N40.0 Benign prostatic hyperplasia without lower urinary tract symptoms; E78.00 Pure hypercholesterolemia, unspecified; D63.1 Anemia in chronic kidney disease; Z12.5 Encounter for screening for malignant neoplasm of prostate
CPT/HCPCS: 36415; 80053; 80061; 81001; 82043; 82306; 82570; 82607; 82746; 83036; 84153; 84443; 84520; 84550; 85025

== ENCOUNTER 2024-07-26 12:29 | Outpatient (AMB) | payer MEDICARE, SELFPAY ==
--- NOTE | 2024-07-26 12:32 | A.OFFPC_ITS ---
Vital Signs 07/26/24 12:33 Height 5 ft 4 in Weight 213 lb BMI 36.6 BP 130/84 Blood Pressure Location Lt brachial Position Sitting Pulse 64 Pulse Source Pulse Oximeter Pulse Oximetry (%) 97 Oxygen Delivery Method Room Air Intake Visit Reasons: 3mo f/u - see comments Distance Learning Technician Required: No Accompanied by: Self / Same As Patient Allergies Penicillins Allergy (Verified 07/26/24 12:33) Unknown irbesartan Adverse Reaction (Verified 07/26/24 12:33) Stomach Upset Tobacco use date assessed: 07/26/24 Fall risk assessment: No Falls in past year Last assessed Fall Risk: 07/26/24 Dental Screening Dental Screen Date: 07/26/24 Did you have a dental visit in the last 12 months?: Yes Did you have a dental problem in the last 6 months where you did not have access to dental care?: No Was dental information given to patient?: Patient has dentist HPI 3mo f/u - see comments HPI Details Patient comes in today for his follow up visit States that he feels okay He denies any headaches or dizziness Denies any chest pains, no SOB No nausea/vomiting, no abdominal pain No change in bowel habits noted He had his follow up labs done yesterday - to discuss his results States that he was started on some oral potassium supplements by Dr. Parra for about 10 days and he just finished his Rx a couple of days ago - would like to know if his potassium level is now back up to normal or not [facility] Medical History Psoriasis Lumbar degenerative disc disease Abscess of leg Pure hypercholesterolemia Onychomycosis Chronic kidney disease (CKD), stage III (moderate) Obesity (BMI 30-39.9) Hematuria Gait instability Vitamin D deficiency Hypokalemia Polycystic kidney disease Multiple thyroid nodules Impaired fasting glucose Cerebrovascular accident (CVA) Benign essential hypertension History of postoperative nausea Gout Thyroid nodule Renal cyst Benign prostatic hyperplasia CVA (cerebral vascular accident) COVID-19 virus antibody negative History of snoring Surgical History H/O partial thyroidectomy (~10/22/14) H/O arthroscopic knee surgery H/O varicose vein ligation and stripping Hx of colonoscopy (~08/2020) Family History Father Diabetes Mother Chronic mental illness Other Mental health problem Social History Household Members: None Housing: Apartment Do you presently have visiting nurse or other home services: No Alcohol intake: current Alcohol intake frequency: holidays/special occasions only Alcohol type: beer Patient Tobacco Use Status: Former Tobacco user e-Cigarette/Vaping Use: Former Use Second Hand Smoke Exposure: Yes Current occupational status: employed 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 1. Little interest or pleasure in doing things: not at all 2. Feeling down, depressed, or hopeless: several days 3. Trouble falling or staying asleep, or sleeping too much: not at all 4. Feeling tired or having little energy: several days 5. Poor appetite or overeating: not at all 6. Feeling bad about yourself - or that you are a failure or have let yourself or your family down: not at all 7. Trouble concentrating on things, such as reading the newspaper or watching t elevision: not at all 8. Moving or speaking so slowly that other people could have noticed. Or the opposite - being so fidgety or restless that you have been moving around a lot more than usual: several days 9. Thoughts that you would be better off or of hurting yourself in some way: not at all Total score: 3 Depression Screening Interpretation: Negative Depression Screening Done: Yes 45053 - PHQ-9 Billing: Yes Source: Developed by Drs. Dilip Tian, Mirna Banuelos, Juan Lipscomb and colleagues, with an educational attila from [employer]. Thrive Questionnaire Date Thrive assessed: 07/26/24 I am a: Patient What is your living situation today?: I have a steady place to live Within the past 12 months, did the food you bought not last and you didn't have the money to get more?: Never true Within the past 12 months, did you worry whether your food would run out before you got money to buy more?: Never true Do you have trouble paying for medicines?: No Do you have trouble getting transportation to medical appointments?: No Do you have trouble paying your heating and electricity bill?: No Do you have trouble taking care of your child, family member or friend?: No Do you have trouble with day-to-day activities such as bathing, preparing meals, shopping, managing finances, etc.?: No Are you currently unemployed and looking for a job?: No Are you interested in more education?: No Please select the resources that you would like help with: None Currently or been in a relationship where the following occur: No concerns reported THRIVE Score: 0 AUDIT C Alcohol Use Questionnaire (AUDIT-C) 1. How often do you have a drink containing alcohol?: Never 3. How often do you have six or more drinks on one occasion?: Never Total Score: 0 Score Reviewed/Action Taken: Yes MARIA ESTHER-7 AMB Questionnaire MARIA ESTHER-7 Date MARIA ESTHER - 7 assessed: 07/26/24 Feeling nervous, anxious, or on edge: 0 = Not at all Not being able to stop or control worryin = Not at all Worrying too much about different things: 0 = Not at all Trouble relaxin = Not at all Being so restless that it is hard to sit still: 0 = Not at all Becoming easily annoyed or irritable: 0 = Not at all Feeling afraid as if something awful might happen: 0 = Not at all Total MARIA ESTHER-7 score (0-4 normal; 5-9 mild; 10-14 moderate; 15-21 severe): 0 Source: Developed by Drs. Dilip Tian, Mirna Banuelos, Juan Lipscomb and colleagues, with an educational attila from [employer]. Review of Systems Const Denies chills, Denies fatigue, Denies fever(s) and Denies headache(s) ENT Denies dysphagia, Denies dizziness, Denies otalgia, Denies headache(s), Denies neck pain, Denies odynophagia and Denies sore throat Card Denies chest pain, Denies palpitations and Denies dyspnea Resp Denies cough, Denies dyspnea and Denies wheezing GI Denies abdominal pain, Denies constipation, Denies dysphagia, Denies heartburn, Denies diarrhea, Denies nausea, Denies odynophagia and Denies vomiting Denies dysuria, Denies nocturia and Denies urinary frequency Musc Reports abnormal gait (poor balance), Reports back pain (recurrent, over the left lower back/flank area) and Denies neck pain Skin/Breast Reports rash (over extensor surface of both elbows) Neuro Reports abnormal gait (poor balance), Denies dizziness and Denies headache(s) Endo Denies fatigue and Denies palpitations Aller/Immun Denies wheezing Physical exam (Primary Care) Vital Signs: Last Vital Signs Pulse 64 07/26/24 12:33 BP 130/84 07/26/24 12:33 Pulse Ox 97 07/26/24 12:33 Oxygen Delivery Method Room Air 07/26/24 12:33 BMI result Body Mass Index 36.6 Tobacco/Smoking Status: Tobacco use Status Tobacco use date assessed 07/26/24 07/26/24 12:34 Patient Tobacco Use Status Former Tobacco user 07/26/24 12:34 e-Cigarette/Vaping Use Former Use 07/26/24 12:34 PHQ-9: PHQ-9 Score PHQ-9: Total score 3 07/26/24 12:46 Depression Screening Interpretation: Negative Thrive Assessment: Date of Thrive Assessment Date Thrive assessed 07/26/24 07/26/24 12:34 Currently or been in a relationship where the following occur: No concerns reported Const General: no acute distress and alert HENMT Ears: TM's normal bilaterally and EAC's normal Throat: Yes posterior oropharynx normal and Yes tonsils normal (no TP congestion noted) Neck Neck: Yes no lymphadenopathy and Yes supple Thyroid: Thyroid normal Resp Auscultation: clear to auscultation bilaterally, no rales and no wheezes Cardio Rate: regular rate Rhythm: regular rhythm Heart sounds: no murmurs GI Palpation (GI): Soft to palpation and nontender Auscultation: normal bowel sounds General: Yes no CVA tenderness Back/Spine/Pelvis Back: no CVA tenderness Thoracic/Lumbar Spine: No lumbar spinal tenderness Skin Other: (+) patchy scaling rash (with whitish/silvery scales) over the extensor aspect of both elbows Extrem General: No clubbing, No cyanosis and Yes edema (trace bipedal edema) Results Reviewed Results Reviewed: Laboratory Tests 07/25/24 07/25/24 09:40 09:48 WBC 4.3 L Hgb 13.0 L Hct 38.5 L Plt Count 243 Sodium 145 Potassium 3.3 Creatinine 1.98 H Estimated GFR 33 Fasting Glucose 105 H Hemoglobin A1c % 5.4 Uric Acid 6.6 Calcium 8.8 AST 24 ALT 22 Triglycerides 75 Cholesterol 107 LDL Cholesterol, Calc 52 HDL Cholesterol 40 L Prostate Specific Ag 1.49 Vitamin B12 240 25-OH Vitamin D Total 36.7 TSH 1.92 Ur Specific [place] 1.015 Urine Protein 30 (1+) H Urine Glucose (UA) Negative Urine Blood Negative Urine Nitrite Negative Ur Leukocyte Esterase Negative Microalb/Creat Ratio 207.2 H Assessment and Plan Assessment & Plan (1) Pure hypercholesterolemia: Code(s): E78.00 - Pure hypercholesterolemia, unspecified Plan: Results of his labs done yesterday reviewed and discussed with patient Reinforced low cholesterol diet Continue Atorvastatin 80 mg QD Will recheck his labs and fasting lipids in 3 months for follow up (2) Benign essential hypertension: Code(s): I10 - Essential (primary) hypertension Plan: Reinforced?low-sodium diet -? goal is systolic BP of at least 130 to 140 mm or less due to his CKD Continue Diltiazem ER 240 mg QD, Hydralazine 50 mg BID and Losartan 50 mg QD Patient is reminded to continue monitoring his blood pressure regularly (3) Chronic kidney disease (CKD), stage III (moderate): Code(s): N18.30 - Chronic kidney disease, stage 3 unspecified Qualifiers: Chronic kidney disease stage 3 subtype: unspecified whether 3a or 3b Qualified Code(s): N18.30 - Chronic kidney disease, stage 3 unspecified Plan: Patient is again advised that his serum creatinine and GFR have been mostly stable on his recent labs We will continue to monitor his renal function regularly Follow up with nephrology (Dr. Parra) as scheduled (4) Polycystic kidney disease: Comment: MRI of the abdomen and pelvis done on 07/04/2019 revealed multiple bilateral renal cysts compatible with polycystic kidney disease Code(s): Q61.3 - Polycystic kidney, unspecified Plan: Patient remains asymptomatic at present Renal US done back in September 2023 revealed (+) multiple bilateral renal cysts with the largest cyst on the upper pole of the left kidney, which appears as a complex cyst with multiple septations Will continue to monitor his renal function closely; will also probably recheck his renal US in a couple of years for follow up and if (+) progression, may need urologic intervention (5) Cerebrovascular accident (CVA): Comment: 2016 Code(s): I63.9 - Cerebral infarction, unspecified Qualifiers: CVA mechanism: unspecified Qualified Code(s): I63.9 - Cerebral infarction, unspecified Plan: Patient currently has minimal residual neurologic deficits from his CVA that occurred back in 2016 Follow-up with Neurology as scheduled or as needed (6) Impaired fasting glucose: Code(s): R73.01 - Impaired fasting glucose Plan: His HgbA1c was again normal at 5.4% on his labs done yesterday; his HgbA1c have consistently been normal at 5.3% and 5.5% a few times when previously checked Reinforced low calorie/low carb diet; exercise as tolerated (7) Multiple thyroid nodules: Code(s): E04.2 - Nontoxic multinodular goiter Plan: S/P FNA biopsy a couple of years ago - results came back normal/benign TSH remains normal on his recent labs Will continue to monitor his TFTs regularly Thyroid US last done in 2017 revealed enlarged left lobe with multiple bilateral thyroid nodules - 2 nodules appear increased in size and there appears to be a new nodule as well and recommended continued ultrasound follow up He had US ordered in 2019 but did not get that done US was reordered at his last visit and he finally had this done in January 2024, which showed (+) status post right hemithyroidectomy. Enlarged heterogeneous hypervascular left thyroid with multiple nodules, only one of which meets criteria for follow-up - recommend follow-up study in one year (8) Gout: Code(s): M10.9 - Gout, unspecified Qualifiers: Gout site: unspecified site Gout etiology: idiopathic Chronicity: unspecified Qualified Code(s): M10.00 - Idiopathic gout, unspecified site Plan: Reinforced low purine diet -? patient has had no acute gout flares for several months His serum uric acid level was normal at 6.6 on his recent labs (9) Psoriasis: Code(s): L40.9 - Psoriasis, unspecified Plan: Mostly mild Continue Clobetasol 0.05% cream BID PRN (10) Vitamin D deficiency: Code(s): E55.9 - Vitamin D deficiency, unspecified Plan: Continue Vitamin-D 04632 units once a week (11) Hypokalemia: Code(s): E87.6 - Hypokalemia Plan: His serum potassium level is corrected on his recent labs as he just finished a 10 days Rx for potassium supplements prescribed by nephrology at the beginning of the month As his potassium level at this time is just above the cut off for the normal threshold and his previous numbers have been consistently low, will have patient continue on oral potassium supplements daily for an additional month Continue Potassium Chloride ER 20 mEq?QD x 30 days (Rx refilled) Will continue to monitor his serum potassium level regularly (12) Hematuria: Code(s): R31.9 - Hematuria, unspecified Qualifiers: Hematuria type: unspecified type Qualified Code(s): R31.9 - Hematuria, unspecified Plan: Resolved with no recurrence lately - may be related to his renal cysts Follow up with urology as scheduled (13) Lumbar degenerative disc disease: Code(s): M51.36 - Other intervertebral disc degeneration, lumbar region Plan: Lumbar spine x-rays done back in 2019 revealed (+) sclerotic facet arthrosis that is most severe at L5-S1; (+) mild multilevel endplate spurring and no compression fractures or significant loss of disc height noted Repeat x-rays done in September 2023 revealed no interval change Reinforced activity and weight-lifting restrictions (14) Obesity (BMI 30-39.9): Code(s): E66.9 - Obesity, unspecified Plan: Reinforced diet/exercise as tolerated/lose weight Plan Follow up in 3 months Orders: Orders Complete Blood Count Auto Diff 3 Months D64.9 - Anemia, unspecified Comprehensive [facility]. Panel Fast 3 Months E78.00 - Pure hypercholesterolemia, unspecified Lipid Panel 3 Months E78.00 - Pure hypercholesterolemia, unspecified TSH reflex Free T4 3 Months E78.00 - Pure hypercholesterolemia, unspecified UA CC w/rflx Micro + Cult 3 Months R30.0 - Dysuria Vitamin D 25-OH Total 3 Months E55.9 - Vitamin D deficiency, unspecified Magnesium 3 Months E83.42 - Hypomagnesemia Hemoglobin A1c 3 Months R73.01 - Impaired fasting glucose Uric Acid 3 Months M10.9 - Gout, unspecified Medications: Changed From potassium chloride ER 20 mEq PO DAILY 10 tabs 0RF To potassium chloride ER 20 mEq PO DAILY 30 days 30 tabs 0RF Coding Level of Care Code Est Pt Level 4 (25944) Complex EM visit Add On G2211 Diagnoses Pure hypercholesterolemia E78.00 Benign essential hypertension I10 Stage 3 chronic kidney disease, unspecified whether stage 3a or 3b CKD N18.30 Chronic kidney disease stage 3 subtype: unspecified whether 3a or 3b Polycystic kidney disease Q61.3 Cerebrovascular accident (CVA), unspecified mechanism I63.9 CVA mechanism: unspecified Impaired fasting glucose R73.01 Multiple thyroid nodules E04.2 Idiopathic gout, unspecified chronicity, unspecified site M10.00 Gout site: unspecified site Gout etiology: idiopathic Chronicity: unspecified Psoriasis L40.9 Vitamin D deficiency E55.9 Hypokalemia E87.6 Hematuria, unspecified type R31.9 Hematuria type: unspecified type Lumbar degenerative disc disease M51.36 Obesity (BMI 30-39.9) E66.9
[2024-07-26 12:33] VITALS: BP 130/84; PULSE 64; O2SAT 97; BMI 36.6
== END 2024-07-26 13:16 | disposition home or self-care (01) ==
PROVIDERS: PCP Internal Medicine; Visit Provider Internal Medicine
DX: E78.00 Pure hypercholesterolemia, unspecified (principal); I10 Essential (primary) hypertension; N18.30 Chronic kidney disease, stage 3 unspecified; I63.9 Cerebral infarction, unspecified; Q61.3 Polycystic kidney, unspecified; R73.01 Impaired fasting glucose; E04.2 Nontoxic multinodular goiter; M10.00 Idiopathic gout, unspecified site; L40.9 Psoriasis, unspecified; E55.9 Vitamin D deficiency, unspecified; E87.6 Hypokalemia; R31.9 Hematuria, unspecified; M51.36 Other intervertebral disc degeneration, lumbar region; E66.9 Obesity, unspecified

== ENCOUNTER → 2024-07-26 12:29 | Outpatient (BNVA) | payer MEDICARE, SELFPAY | PROVIDERS: PCP Internal Medicine; Visit Provider Internal Medicine | DX: E78.00 Pure hypercholesterolemia, unspecified (principal); I12.9 Hypertensive chronic kidney disease with stage 1 through stage 4 chronic kidney disease, or unspecified chronic kidney disease; N18.30 Chronic kidney disease, stage 3 unspecified; Q61.3 Polycystic kidney, unspecified; I63.9 Cerebral infarction, unspecified; R73.01 Impaired fasting glucose; E04.2 Nontoxic multinodular goiter; E66.9 Obesity, unspecified | CPT/HCPCS: 99212 ==

== ENCOUNTER 2024-08-02 09:09 | Outpatient (AMB) | payer MEDICARE, SELFPAY ==
--- NOTE | 2024-08-02 09:40 | MHC.OFFWIV ---
Intake Vital Signs 08/02/24 09:41 Height 5 ft 4 in Weight 218 lb BMI 37.4 BP 126/80 Blood Pressure Location Lt brachial Position Sitting Pulse 71 Pulse Source Pulse Oximeter Temp 98.0 F Temp Source Oral Pulse Oximetry (%) 98 Oxygen Delivery Method Room Air Intake Visit Reasons: EP rash leg Intake Note: pt c/o rash on both legs. Ongoing unknown when started Patient Tobacco Use Status: Former Tobacco user Allergies Penicillins Allergy (Verified 08/02/24 09:40) Unknown irbesartan Adverse Reaction (Verified 08/02/24 09:40) Stomach Upset Medication List - Last Reconciled 08/02/24 by Torey Scott MD acetaminophen 500 mg PO Q4H PRN aspirin 81 mg PO DAILY atorvastatin 80 mg PO BEDTIME 90 days cholecalciferol (vitamin D3) 1,000 units PO DAILY clobetasol 0.05% 1 appl topical BID PRN diltiazem HCl CD 240 mg PO QAM diltiazem HCl ER (DILT-XR) 240 mg PO QAM finasteride 5 mg PO DAILY 90 days hydralazine 50 mg (2 x 25 mg) PO BID 90 days losartan 50 mg PO DAILY meclizine 25 mg PO TID PRN potassium chloride ER 20 mEq PO DAILY 30 days Do you need a note to return to daycare/school/sports/work: No HPI EP rash leg HPI Details Patient is a 74-year-old gentleman who suffers from chronic eczematous rash on his lower legs Patient says that usually clobetasol cream clears it but his last prescription Rash is pruritic at times and appears as scaly and bumpy On examination there is no clear rash today however patient does have chronic skin changes left more than right We talked about proper moisture for the skin I have told him to start using CeraVe lotion at night to keep his skin moist I have also sent a refill on his clobetasol cream To use at night for a week if rash flares up and then stop PFSH Medical History Psoriasis Lumbar degenerative disc disease Abscess of leg Pure hypercholesterolemia Onychomycosis Chronic kidney disease (CKD), stage III (moderate) Obesity (BMI 30-39.9) Hematuria Gait instability Vitamin D deficiency Hypokalemia Polycystic kidney disease Multiple thyroid nodules Impaired fasting glucose Cerebrovascular accident (CVA) Benign essential hypertension History of postoperative nausea Gout Thyroid nodule Renal cyst Benign prostatic hyperplasia CVA (cerebral vascular accident) COVID-19 virus antibody negative History of snoring Surgical History H/O partial thyroidectomy (~10/22/14) H/O arthroscopic knee surgery H/O varicose vein ligation and stripping Hx of colonoscopy (~08/2020) Family History Father Diabetes Mother Chronic mental illness Other Mental health problem Social History Household Members: None Housing: Apartment Do you presently have visiting nurse or other home services: No Alcohol intake: current Alcohol intake frequency: holidays/special occasions only Alcohol type: beer Patient Tobacco Use Status: Former Tobacco user e-Cigarette/Vaping Use: Former Use Second Hand Smoke Exposure: Yes Current occupational status: employed 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 Cognitive needs: No Hearing needs: No Vision needs: Yes (glasses) Review of Systems Const All systems reviewed & are unremarkable except as noted in HPI and below Physical Exam Vital Signs: Last Vital Signs Temp 98.0 F 08/02/24 09:41 Pulse 71 08/02/24 09:41 BP 126/80 08/02/24 09:41 Pulse Ox 98 08/02/24 09:41 Oxygen Delivery Method Room Air 08/02/24 09:41 BMI result Body Mass Index 37.4 Const General: no acute distress Orientation/consciousness: patient oriented x3 Eyes General: appearance normal, both eyes and all related structures Resp Effort & Inspection: normal respiratory effort and able to speak in complete sentences Skin Other: Chronic skin changes both lower legs left more than right, mild erythematous rash left lower leg anteriorly, no signs of infection Neuro General: patient oriented x3 Psych Mental Status: mental status grossly normal Assessment & Plan Assessment & Plan (1) Rash: Code(s): R21 - Rash and other nonspecific skin eruption Plan Patient is a 74-year-old gentleman who suffers from chronic eczematous rash on his lower legs Patient says that usually clobetasol cream clears it but his last prescription Rash is pruritic at times and appears as scaly and bumpy On examination there is no clear rash today however patient does have chronic skin changes left more than right We talked about proper moisture for the skin I have told him to start using CeraVe lotion at night to keep his skin moist I have also sent a refill on his clobetasol cream To use at night for a week if rash flares up and then stop Medications: New clobetasol 0.05% For leg rash 1 appl topical BEDTIME 60 grams 0RF Coding Level of Care Code Est Pt Level 3 (11654) Diagnoses Rash R21
[2024-08-02 09:41] VITALS: BP 126/80; PULSE 71; TEMP 36.7; O2SAT 98; BMI 37.4
== END 2024-08-02 13:11 | disposition home or self-care (01) ==
PROVIDERS: PCP Internal Medicine; Visit Provider Internal Medicine
DX: R21 Rash and other nonspecific skin eruption (principal)

== ENCOUNTER → 2024-08-02 09:09 | Outpatient (BNVA) | payer MEDICARE, SELFPAY | PROVIDERS: PCP Internal Medicine | DX: R21 Rash and other nonspecific skin eruption (principal) | CPT/HCPCS: 99212 ==

== ENCOUNTER 2024-09-12 09:52 | Outpatient (REF) | payer MEDICARE, SELFPAY ==
[2024-09-12 10:58] LABS: Binax Lot number: 869104; Binax Now Covid-19 Ag Positive (Negative); Binax Performed by: PAULP
[2024-09-12 10:59] LABS: Binax Internal Control QC Valid
== END 2024-09-12 09:53 | disposition home or self-care (01) ==
LOC: HO.HMGCLDS 09:52
PROVIDERS: PCP Internal Medicine; Visit Provider Physician Assistant
DX: R05.9 Cough, unspecified (principal); R05.1 Acute cough; U07.1 COVID-19
CPT/HCPCS: 87811; 99212

== ENCOUNTER 2024-09-12 09:52 | Outpatient (AMB) | payer MEDICARE, SELFPAY ==
--- NOTE | 2024-09-12 10:13 | AM.OFFWIN_ITS ---
Intake Vital Signs 09/12/24 10:15 Weight 215 lb BP 136/90 H Blood Pressure Location Lt brachial Position Sitting Pulse 74 Pulse Source Pulse Oximeter Temp 98.5 F Temp Source Oral Pulse Oximetry (%) 97 Oxygen Delivery Method Room Air Intake Visit Reasons: PE cough, congestion, chills Intake Note: Patient here for cough,congestion, chills and fatigue which has been present for about 2 days. Patient Tobacco Use Status: Former Tobacco user Allergies Penicillins Allergy (Verified 09/12/24 10:16) Unknown irbesartan Adverse Reaction (Verified 09/12/24 10:16) Stomach Upset Do you need a note to return to daycare/school/sports/work: No HPI HPI Comments History of Present Illness Details Patient s a 74yo M who presents to office with flu like symptoms x 2 days + ST, cough,congestion, chills and fatig ue No documented fever No known sick exposure No body aches Cough is dry He said no medicine for it Normal appetite, no vomiting Had slight loose stool x 1 episode PFSH Medical History Psoriasis Lumbar degenerative disc disease Abscess of leg Pure hypercholesterolemia Onychomycosis Chronic kidney disease (CKD), stage III (moderate) Obesity (BMI 30-39.9) Hematuria Gait instability Vitamin D deficiency Hypokalemia Polycystic kidney disease Multiple thyroid nodules Impaired fasting glucose Cerebrovascular accident (CVA) Benign essential hypertension History of postoperative nausea Gout Thyroid nodule Renal cyst Benign prostatic hyperplasia CVA (cerebral vascular accident) COVID-19 virus antibody negative History of snoring Surgical History H/O partial thyroidectomy (~10/22/14) H/O arthroscopic knee surgery H/O varicose vein ligation and stripping Hx of colonoscopy (~08/2020) Family History Father Diabetes Mother Chronic mental illness Other Mental health problem Social History Household Members: None Housing: Apartment Do you presently have visiting nurse or other home services: No Alcohol intake: current Alcohol intake frequency: holidays/special occasions only Alcohol type: beer Patient Tobacco Use Status: Former Tobacco user e-Cigarette/Vaping Use: Former Use Second Hand Smoke Exposure: Yes Current occupational status: employed 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 Cognitive needs: No Hearing needs: No Vision needs: Yes (glasses) Review of Systems Const Reports chills, Reports fatigue and Denies fever(s) ENT Denies otalgia, Reports nasal discharge and Reports sore throat Card Denies chest pain Resp Reports chest congestion, Reports cough, Denies hemoptysis and Denies excessive phlegm production GI Denies melena, Denies hematochezia, Denies diarrhea, Reports loose stools, Denies nausea and Denies vomiting Endo Reports fatigue Physical Exam Vital Signs: Last Vital Signs Temp 98.5 F 09/12/24 10:15 Pulse 74 09/12/24 10:15 BP 136/90 H 09/12/24 10:15 Pulse Ox 97 09/12/24 10:15 Oxygen Delivery Method Room Air 09/12/24 10:15 General: Non-toxic, NAD. Speaking full sentences. Skin: Warm dry throughout Eye: EOMI HENT: Airway patent. Uvula midline. No pharyngeal erythema or edema. No [employer] WORK[employer]PER[employer]OR. Bilateral canals clear. TM non-erythematous, non-bulging. No TM perforation or hemotympanum noted. Respiratory: CTA bilaterally. No wheezes, rales or rhonchi Cardiac: RRR. No murmur MSK: Full ROM extremities. Neurology: A/O. No aphasia or facial droop. Gait without abnormality Psych: Good mood and affect Assessment & Plan Assessment & Plan (1) Cough: Code(s): R05.9 - Cough, unspecified Qualifiers: Cough type: acute Qualified Code(s): R05.1 - Acute cough Plan: Pt seen and evaluated He does not want flu or rsv testing so we will do the COVID BinaxNOW swab (2) COVID: Code(s): U07.1 - COVID-19 Plan: Pt + covid. He has a GRF of 33 per july 2024 labs According to epocrates, paxlovid can be given 150+100 BID with GFR between 30-59 Gave covid quarantine guidelines Discussed ER s/s and when to go Pt gave verbal understanding and has no additional questions at this time Orders: Orders BinaxNOW Covid-19 Ag Today R05.9 - Cough, unspecified Medications: New nirmatrelvir-ritonavir 150-100 mg (Paxlovid) PO PER PKG DIR 20 ea 0RF Coding Level of Care Code Est Pt Level 3 (89140) Diagnoses Acute cough R05.1 Cough type: acute COVID U07.1
[2024-09-12 10:15] VITALS: BP 136/90; PULSE 74; TEMP 36.9; O2SAT 97
== END 2024-09-12 12:48 | disposition home or self-care (01) ==
PROVIDERS: PCP Internal Medicine; Visit Provider Physician Assistant
DX: R05.1 Acute cough (principal); U07.1 COVID-19

== ENCOUNTER 2024-10-09 10:39 | Outpatient (AMB) | payer MEDICARE, SELFPAY ==
--- NOTE | 2024-10-09 12:00 | AM.OFFWIN_ITS ---
Intake Vital Signs 10/09/24 12:01 BP 120/74 Blood Pressure Location Rt brachial Position Sitting Pulse 62 Pulse Source Pulse Oximeter Pulse Oximetry (%) 98 Oxygen Delivery Method Room Air Intake Visit Reasons: EP-swollen throat/pain Intake Note: Patient here for swollen throat on left side Patient Tobacco Use Status: Former Tobacco user Allergies Penicillins Allergy (Verified 10/09/24 12:01) Unknown irbesartan Adverse Reaction (Verified 10/09/24 12:01) Stomach Upset Do you need a note to return to daycare/school/sports/work: No HPI EP-swollen throat/pain HPI Details This note is constructed using voice recognition software. While every effort has been made to ensure accuracy, quality cloth tester errors may have been included. The patient is a 74 year old male who presents to the clinic today with unilateral sore throat on the left intermittently for the past 3 days. He denies fever, chills, cough shortness of breath. He reports symptoms are worse in the evening, but are improved throughout the day. He has been drinking more water which seems to help the symptoms. PFSH Medical History Psoriasis Lumbar degenerative disc disease Abscess of leg Pure hypercholesterolemia Onychomycosis Chronic kidney disease (CKD), stage III (moderate) Obesity (BMI 30-39.9) Hematuria Gait instability Vitamin D deficiency Hypokalemia Polycystic kidney disease Multiple thyroid nodules Impaired fasting glucose Cerebrovascular accident (CVA) Benign essential hypertension History of postoperative nausea Gout Thyroid nodule Renal cyst Benign prostatic hyperplasia CVA (cerebral vascular accident) COVID-19 virus antibody negative History of snoring Surgical History H/O partial thyroidectomy (~10/22/14) H/O arthroscopic knee surgery H/O varicose vein ligation and stripping Hx of colonoscopy (~08/2020) Family History Father Diabetes Mother Chronic mental illness Other Mental health problem Social History Household Members: None Housing: Apartment Do you presently have visiting nurse or other home services: No Alcohol intake: current Alcohol intake frequency: holidays/special occasions only Alcohol type: beer Patient Tobacco Use Status: Former Tobacco user e-Cigarette/Vaping Use: Former Use Second Hand Smoke Exposure: Yes Current occupational status: employed 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 Cognitive needs: No Hearing needs: No Vision needs: Yes (glasses) Review of Systems Const All systems reviewed & are unremarkable except as noted in HPI and below Physical Exam Vital Signs: Last Vital Signs Pulse 62 10/09/24 12:01 BP 120/74 10/09/24 12:01 Pulse Ox 98 10/09/24 12:01 Oxygen Delivery Method Room Air 10/09/24 12:01 Const General: cooperative, healthy appearing, comfortable, no acute distress and well developed Orientation/consciousness: patient oriented x3 Limitations: no limitations HEENT Head: Yes normal to inspection Ears: hearing grossly normal bilaterally General nose exam: Normal external nose present Face and sinus: Yes normal facial exam Eyes General: appearance normal, both eyes and all related structures Neck Neck: Yes normal visual inspection and Yes full ROM Resp Effort & Inspection: normal respiratory effort and able to speak in complete sentences Auscultation: clear to auscultation bilaterally Cardio Rate: regular rate Rhythm: regular rhythm Heart sounds: normal S1 and S2 Skin General skin exam: no rashes or lesions noted Neuro General: patient oriented x3 Assessment & Plan Assessment & Plan (1) Pharyngitis: Code(s): J02.9 - Acute pharyngitis, unspecified Qualifiers: Pharyngitis/tonsillitis etiology: unspecified etiology Qualified Code(s): J02.9 - Acute pharyngitis, unspecified Plan: Etiology unclear, in office rapid strep negative. Supportive measures encouraged and reviewed. Likely early viral component. Advised follow up with worsening symptoms or failure to resolve. Plan See above for full details and plan. Coding Level of Care Code Est Pt Level 3 (53107) Diagnoses Pharyngitis, unspecified etiology J02.9 Pharyngitis/tonsillitis etiology: unspecified etiology
[2024-10-09 12:01] VITALS: BP 120/74; PULSE 62; O2SAT 98
== END 2024-10-09 12:48 | disposition home or self-care (01) ==
PROVIDERS: PCP Internal Medicine; Visit Provider Registered Nurse
DX: J02.9 Acute pharyngitis, unspecified (principal)

== ENCOUNTER → 2024-10-09 10:39 | Outpatient (BNVA) | payer MEDICARE, SELFPAY | PROVIDERS: PCP Internal Medicine; Visit Provider Registered Nurse | DX: J02.9 Acute pharyngitis, unspecified (principal) | CPT/HCPCS: 99212 ==

== ENCOUNTER 2024-10-24 09:09 | Outpatient (REF) | payer MEDICARE, SELFPAY ==
[2024-10-24 09:29] LABS: MANUAL DIFF FLAG NO
[2024-10-24 10:12] LABS: Basophils Percent Auto 0.9 % (0-2); Eosinophils Absolute Auto 0.2 X10*3/uL (0.0-0.4); Eosinophils Percent Auto 4.9 % (0-4); Hematocrit 39.2 % (42.0-52.0); Hemoglobin 13.1 g/dl (14.0-18.0); Imm Gran Abs Auto 0.02 X10*3/uL (0.00-0.03); Imm Gran Pct Auto 0.5 % (0.0-0.4); Lymphocytes Absolute Auto 0.6 X10*3/uL (1.2-4.9); Lymphocytes Percent Auto 14.1 % (20-40); Mean Corpuscular HGB Conc 33.4 g/dl (31.0-36.0); Mean Corpuscular Volume 86.9 fL (80.0-98.0); Mean Platelet Volume 9.5 fL (9.4-12.4); Monocytes Absolute Auto 0.4 X10*3/uL (0.1-1.2); Monocytes Percent Auto 8.7 % (2-11); Neutrophils Percent Auto 70.9 % (45-73); Platelet Count 263 X10*3/uL (160-400); Red Blood Count 4.51 X10*6/uL (4.60-5.80); Red Cell Distribution Width 13.2 % (11.0-16.0); White Blood Count 4.3 X10*3/uL (4.8-10.8)
[2024-10-24 10:15] LABS: Appearance Urine Clear; Color Urine Yellow; Glucose Urine UA Negative (Negative); Leukocyte Esterase Urine Negative (Negative); Nitrite Urine Negative (Negative); UMIC TRIGGER UACC YES; Urine Blood Negative (Negative); Urine Ketones Negative (Negative); Urine Protein 30 (1+) mg/dL (Neg-Trace)
[2024-10-24 10:17] LABS: Bacteria Urine None Seen (None Seen); Hyaline Casts Urine 0-2 /LPF (0-2); RBC Urine 0-2 /HPF (0-2); Squamous Epithelial Cell Urine 0-2 /HPF (0-2); WBC Urine 0-5 /HPF (0-5)
[2024-10-24 10:22] LABS: Estimated Average Glucose 108 mg/dL; Hemoglobin A1c % 5.4 % (<6.0); Total Hemoglobin (HGBA1C) 3353.2504 umol/L
[2024-10-24 10:58] LABS: Alanine Aminotransferase 24 U/L (0-40); Albumin Level 3.9 g/dL (3.5-5.0); Alkaline Phosphatase 60 U/L (39-117); Anion Gap 9 (12-20); Aspartate Amino Transferase 25 U/L (5-37); Bilirubin Total 0.8 mg/dL (0.0-1.0); Blood Urea Nitrogen 31 mg/dL (9-16); Calcium 8.8 mg/dL (8.4-10.2); Carbon Dioxide 32 mmol/L (22-29); Chloride 108 mmol/L (96-108); Cholesterol 111 mg/dL (<200); Estimated Glomerular Filt Rate 36; Glucose Fasting 100 mg/dL (60-99); HDL Cholesterol 36 mg/dL (>40); LDL Cholesterol Calculated 58 mg/dL (<100); Magnesium 2.1 mg/dL (1.6-2.6); Potassium 3.4 mmol/L (3.3-5.1); Sodium 146 mmol/L (135-145); Total Protein 6.5 g/dL (6.5-8.0); Triglycerides 87 mg/dL (<150); Uric Acid 6.5 mg/dL (3.4-7.0)
[2024-10-24 11:00] LABS: TSH reflex Free T4 2.91 uIU/mL (0.32-4.0); Vitamin D 25-OH Total 38.5 ng/mL (>30)
== END 2024-10-24 09:10 | disposition home or self-care (01) ==
LOC: HO.LAB 09:09
PROVIDERS: PCP Internal Medicine; Visit Provider Internal Medicine
DX: D64.9 Anemia, unspecified (principal); E78.00 Pure hypercholesterolemia, unspecified; M10.9 Gout, unspecified; E83.42 Hypomagnesemia; R73.01 Impaired fasting glucose
CPT/HCPCS: 36415; 80053; 80061; 81001; 82306; 83036; 83735; 84443; 84550; 85025

== ENCOUNTER 2024-10-30 13:25 | Outpatient (AMB) | payer MEDICARE, SELFPAY ==
[2024-10-30 13:30] VITALS: BP 124/82; PULSE 65; O2SAT 99; BMI 36.8
--- NOTE | 2024-10-30 13:30 | A.OFFPC_ITS ---
Vital Signs 10/30/24 13:30 Height 5 ft 4 in Weight 214 lb 6 oz BMI 36.8 BP 124/82 Blood Pressure Location Lt brachial Position Sitting Pulse 65 Pulse Source Pulse Oximeter Pulse Oximetry (%) 99 Oxygen Delivery Method Room Air Intake Visit Reasons: HTN, CKD, renal cysts, hyperlipidemia, hypokalemia Running Rigger Required: No Accompanied by: Self / Same As Patient Allergies Penicillins Allergy (Verified 10/30/24 14:22) Unknown irbesartan Adverse Reaction (Verified 10/30/24 14:22) Stomach Upset Medication List - Last Reconciled 10/30/24 by Bhavesh Arora MD acetaminophen 500 mg PO Q4H PRN aspirin 81 mg PO DAILY atorvastatin 80 mg PO BEDTIME 90 days cholecalciferol (vitamin D3) 1,000 units PO DAILY clobetasol 0.05% 1 appl topical BID PRN clobetasol 0.05% 1 appl topical BEDTIME diltiazem HCl CD 240 mg PO QAM finasteride 5 mg PO DAILY 90 days hydralazine 50 mg (2 x 25 mg) PO BID 90 days losartan 50 mg PO DAILY omeprazole 20 mg PO DAILY PRN 30 days potassium chloride ER 20 mEq PO DAILY 30 days Tobacco use date assessed: 10/30/24 Fall risk assessment: 1 Fall in past year Last assessed Fall Risk: 10/30/24 Dental Screening Dental Screen Date: 10/30/24 Did you have a dental visit in the last 12 months?: Yes Did you have a dental problem in the last 6 months where you did not have access to dental care?: No Was dental information given to patient?: Patient has dentist HPI HTN, CKD, renal cysts, hyperlipidemia, hypokalemia HPI Details Patient comes in today for his follow up visit States that he feels okay He denies any headaches or dizziness Denies any chest pains, no increased shortness of breath No nausea/vomiting, no abdominal pain No change in bowel habits noted He needs a few of his Rx refilled He had his follow up labs done last week - to discuss his results FOR[facility]LY [facility], [facility] Medical History Psoriasis Lumbar degenerative disc disease Abscess of leg Pure hypercholesterolemia Onychomycosis Chronic kidney disease (CKD), stage III (moderate) Obesity (BMI 30-39.9) Hematuria Gait instability Vitamin D deficiency Hypokalemia Polycystic kidney disease Multiple thyroid nodules Impaired fasting glucose Cerebrovascular accident (CVA) Benign essential hypertension History of postoperative nausea Gout Thyroid nodule Renal cyst Benign prostatic hyperplasia CVA (cerebral vascular accident) COVID-19 virus antibody negative History of snoring Surgical History H/O partial thyroidectomy (~10/22/14) H/O arthroscopic knee surgery H/O varicose vein ligation and stripping Hx of colonoscopy (~08/2020) Family History Father Diabetes Mother Chronic mental illness Other Mental health problem Social History Household Members: None Housing: Apartment Do you presently have visiting nurse or other home services: No Alcohol intake: current Alcohol intake frequency: holidays/special occasions only Alcohol type: beer Patient Tobacco Use Status: Former Tobacco user e-Cigarette/Vaping Use: Former Use Second Hand Smoke Exposure: Yes Current occupational status: employed 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 1. Little interest or pleasure in doing things: not at all 2. Feeling down, depressed, or hopeless: several days 3. Trouble falling or staying asleep, or sleeping too much: not at all 4. Feeling tired or having little energy: several days 5. Poor appetite or overeating: not at all 6. Feeling bad about yourself - or that you are a failure or have let yourself or your family down: not at all 7. Trouble concentrating on things, such as reading the newspaper or watching television: not at all 8. Moving or speaking so slowly that other people could have noticed. Or the opposite - being so fidgety or restless that you have been moving around a lot more than usual: several days 9. Thoughts that you would be better off or of hurting yourself in some way: not at all Total score: 3 Depression Screening Interpretation: Negative Depression Screening Done: Yes 06086 - PHQ-9 Billing: Yes Source: Developed by Drs. Dilip Tian, Mirna Banuelos, Juan Lipscomb and colleagues, with an educational attila from [employer]. Thrive Questionnaire Date Thrive assessed: 10/30/24 I am a: Patient What is your living situation today?: I have a steady place to live Within the past 12 months, did the food you bought not last and you didn't have the money to get more?: Never true Within the past 12 months, did you worry whether your food would run out before you got money to buy more?: Never true Do you have trouble paying for medicines?: No Do you have trouble getting transportation to medical appointments?: No Do you have trouble paying your heating and electricity bill?: No Do you have trouble taking care of your child, family member or friend?: No Do you have trouble with day-to-day activities such as bathing, preparing meals, shopping, managing finances, etc.?: No Are you currently unemployed and looking for a job?: No Are you interested in more education?: No Please select the resources that you would like help with: None Currently or been in a relationship where the following occur: No concerns reported THRIVE Score: 0 AUDIT C Alcohol Use Questionnaire (AUDIT-C) 1. How often do you have a drink containing alcohol?: Never 3. How often do you have six or more drinks on one occasion?: Never Total Score: 0 Score Reviewed/Action Taken: Yes MARIA ESTHER-7 AMB Questionnaire MARIA ESTHER-7 Date MARIA ESTHER - 7 assessed: 10/30/24 Feeling nervous, anxious, or on edge: 0 = Not at all Not being able to stop or control worryin = Not at all Worrying too much about different things: 0 = Not at all Trouble relaxin = Not at all Being so restless that it is hard to sit still: 0 = Not at all Becoming easily annoyed or irritable: 0 = Not at all Feeling afraid as if something awful might happen: 0 = Not at all Total MARIA ESTHER-7 score (0-4 normal; 5-9 mild; 10-14 moderate; 15-21 severe): 0 Source: Developed by Drs. Dilip Tian, Juan Meyer and colleagues, with an educational attila from [employer]. Review of Systems Const Denies chills, Denies fatigue, Denies fever(s) and Denies headache(s) ENT Denies dysphagia, Denies dizziness, Denies otalgia, Denies headache(s), Denies neck pain, Denies odynophagia and Denies sore throat Card Denies chest pain, Denies palpitations and Denies dyspnea Resp Denies cough, Denies dyspnea and Denies wheezing GI Denies abdominal pain, Denies constipation, Denies dysphagia, Denies heartburn, Denies diarrhea, Denies nausea, Denies odynophagia and Denies vomiting Denies dysuria, Denies nocturia and Denies urinary frequency Musc Reports abnormal gait (poor balance), Reports back pain (recurrent, over the left lower back/flank area) and Denies neck pain Skin/Breast Reports rash (over extensor surface of both elbows) Neuro Reports abnormal gait (poor balance), Denies dizziness and Denies headache(s) Endo Denies fatigue and Denies palpitations Aller/Immun Denies wheezing Physical exam (Primary Care) Vital Signs: Last Vital Signs Pulse 65 10/30/24 13:30 BP 124/82 10/30/24 13:30 Pulse Ox 99 10/30/24 13:30 Oxygen Delivery Method Room Air 10/30/24 13:30 BMI result Body Mass Index 36.8 Tobacco/Smoking Status: Tobacco use Status Tobacco use date assessed 10/30/24 10/30/24 13:33 Patient Tobacco Use Status Former Tobacco user 10/30/24 13:33 e-Cigarette/Vaping Use Former Use 10/30/24 13:33 PHQ-9: PHQ-9 Score PHQ-9: Total score 3 10/30/24 14:30 Depression Screening Interpretation: Negative Thrive Assessment: Date of Thrive Assessment Date Thrive assessed 10/30/24 10/30/24 13:33 Currently or been in a relationship where the following occur: No concerns reported Const General: no acute distress and alert HENMT Ears: TM's normal bilaterally and EAC's normal Throat: Yes posterior oropharynx normal and Yes tonsils normal (no TP congestion noted) Neck Neck: Yes no lymphadenopathy and Yes supple Thyroid: Thyroid normal Resp Auscultation: clear to auscultation bilaterally, no rales and no wheezes Cardio Rate: regular rate Rhythm: regular rhythm Heart sounds: no murmurs GI Palpation (GI): Soft to palpation and nontender Auscultation: normal bowel sounds General: Yes no CVA tenderness Back/Spine/Pelvis Back: no CVA tenderness Thoracic/Lumbar Spine: No lumbar spinal tenderness Skin Other: (+) patchy scaling rash (with whitish/silvery scales) over the extensor aspect of both elbows Extrem General: No clubbing, No cyanosis and Yes edema (trace bipedal edema) Results Reviewed Results Reviewed: Laboratory Tests 10/24/24 10/24/24 09:27 09:28 WBC 4.3 L Hgb 13.1 L Hct 39.2 L Plt Count 263 Sodium 146 H Potassium 3.4 Creatinine 1.87 H Estimated GFR 36 Fasting Glucose 100 H Hemoglobin A1c % 5.4 Uric Acid 6.5 Calcium 8.8 Magnesium 2.1 AST 25 ALT 24 Triglycerides 87 Cholesterol 111 LDL Cholesterol, Calc 58 HDL Cholesterol 36 L 25-OH Vitamin D Total 38.5 TSH 2.91 Ur Specific [place] 1.010 Urine Protein 30 (1+) H Urine Glucose (UA) Negative Urine Blood Negative Urine Nitrite Negative Ur Leukocyte Esterase Negative Coding Level of Care Code Est Pt Level 4 (39269) Diagnoses Pure hypercholesterolemia E78.00 Benign essential hypertension I10 Stage 3 chronic kidney disease, unspecified whether stage 3a or 3b CKD N18.30 Chronic kidney disease stage 3 subtype: unspecified whether 3a or 3b Polycystic kidney disease Q61.3 Cerebrovascular accident (CVA), unspecified mechanism I63.9 CVA mechanism: unspecified Impaired fasting glucose R73.01 Multiple thyroid nodules E04.2 Idiopathic gout, unspecified chronicity, unspecified site M10.00 Gout site: unspecified site Gout etiology: idiopathic Chronicity: unspecified Psoriasis L40.9 Vitamin D deficiency E55.9 Hypokalemia E87.6 Hematuria, unspecified type R31.9 Hematuria type: unspecified type Degeneration of intervertebral disc of lumbar region with discogenic back pain M51.360 Disc-related pain type: discogenic back pain only Obesity (BMI 30-39.9) E66.9 Additional Codes PHQ-9 - 91566 - PHQ-9 Billing: Yes ([id number]) Assessment & Plan Assessment & Plan (1) Pure hypercholesterolemia: Code(s): E78.00 - Pure hypercholesterolemia, unspecified Category: Medical Plan: Results of his labs done last week reviewed and discussed with patient Reinforced low cholesterol diet Continue Atorvastatin 80 mg QD Will recheck his labs and fasting lipids in 3 months for follow up (2) Benign essential hypertension: Code(s): I10 - Essential (primary) hypertension Category: Medical Plan: Reinforced?low-sodium diet -? goal is systolic BP of at least 130 to 140 mm or less due to his CKD Continue Diltiazem ER 240 mg QD, Hydralazine 50 mg BID and Losartan 50 mg QD Patient is reminded to continue monitoring his blood pressure regularly (3) Chronic kidney disease (CKD), stage III (moderate): Code(s): N18.30 - Chronic kidney disease, stage 3 unspecified Category: Medical Qualifiers: Chronic kidney disease stage 3 subtype: unspecified whether 3a or 3b Qualified Code(s): N18.30 - Chronic kidney disease, stage 3 unspecified Plan: Patient is again advised that his serum creatinine and GFR have been mostly stable on his recent labs We will continue to monitor his renal function regularly Follow up with nephrology (Dr. Parra) as scheduled (4) Polycystic kidney disease: Comment: MRI of the abdomen and pelvis done on 07/04/2019 revealed multiple bilateral renal cysts compatible with polycystic kidney disease Code(s): Q61.3 - Polycystic kidney, unspecified Category: Medical Plan: Patient remains asymptomatic at present Renal US done back in September 2023 revealed (+) multiple bilateral renal cysts with the largest cyst on the upper pole of the left kidney, which appears as a complex cyst with multiple septations Will continue to monitor his renal function closely; will also probably recheck his renal US in a couple of years for follow up and if (+) progression, may need urologic intervention (5) Cerebrovascular accident (CVA): Comment: 2015 Code(s): I63.9 - Cerebral infarction, unspecified Category: Medical Qualifiers: CVA mechanism: unspecified Qualified Code(s): I63.9 - Cerebral infarction, unspecified Plan: Patient currently has minimal residual neurologic deficits from his CVA that occurred back in 2015 Follow-up with Neurology as scheduled or as needed (6) Impaired fasting glucose: Code(s): R73.01 - Impaired fasting glucose Category: Medical Plan: His HgbA1c was again normal at 5.4% on his labs done last week; his HgbA1c have consistently been normal between 5.3% and 5.5% a few times when previously checked Reinforced low calorie/low carb diet; exercise as tolerated (7) Multiple thyroid nodules: Code(s): E04.2 - Nontoxic multinodular goiter Category: Medical Plan: S/P FNA biopsy a couple of years ago - results came back normal/benign TSH remains normal on his recent labs Will continue to monitor his TFTs regularly Thyroid US last done in 2017 revealed enlarged left lobe with multiple bilateral thyroid nodules - 2 nodules appear increased in size and there appears to be a new nodule as well and recommended continued ultrasound follow up He had US ordered in 2019 but did not get that done US was reordered at his last visit and he finally had this done in January 2024, which showed (+) status post right hemithyroidectomy. Enlarged heterogeneous hypervascular left thyroid with multiple nodules, only one of which meets criteria for follow-up - recommend follow-up study in one year (8) Gout: Code(s): M10.9 - Gout, unspecified Category: Medical Qualifiers: Gout site: unspecified site Gout etiology: idiopathic Chronicity: unspecified Qualified Code(s): M10.00 - Idiopathic gout, unspecified site Plan: Reinforced low purine diet -? patient has had no acute gout flares for several months His serum uric acid level was normal at 6.5 on his recent labs (9) Psoriasis: Code(s): L40.9 - Psoriasis, unspecified Category: Medical Plan: Is mostly mild Continue Clobetasol 0.05% cream BID PRN (10) Vitamin D deficiency: Code(s): E55.9 - Vitamin D deficiency, unspecified Category: Medical Plan: Continue Vitamin-D 74244 units once a week (11) Hypokalemia: Code(s): E87.6 - Hypokalemia Category: Medical Plan: His serum potassium level is normal at 3.4 on his labs done last week Continue Potassium Chloride ER 20 mEq?QD x 30 days Will continue to monitor his serum potassium level regularly (12) Hematuria: Code(s): R31.9 - Hematuria, unspecified Category: Medical Qualifiers: Hematuria type: unspecified type Qualified Code(s): R31.9 - Hematuria, unspecified Plan: Resolved with no recurrence lately - may be related to his renal cysts Follow up with urology as scheduled (13) Lumbar degenerative disc disease: Code(s): M51.36 - Other intervertebral disc degeneration, lumbar region Category: Medical Qualifiers: Disc-related pain type: discogenic back pain only Qualified Code(s): M51.360 - Other intervertebral disc degeneration, lumbar region with discogenic back pain only Plan: Lumbar spine x-rays done back in 2019 revealed (+) sclerotic facet arthrosis that is most severe at L5-S1; (+) mild multilevel endplate spurring and no compression fractures or significant loss of disc height noted Repeat x-rays done in September 2023 revealed no interval change Reinforced activity and weight-lifting restrictions (14) Obesity (BMI 30-39.9): Code(s): E66.9 - Obesity, unspecified Category: Medical Plan: Reinforced diet/exercise as tolerated/lose weight Plan Follow-up in 3 months Orders: Orders Complete Blood Count Auto Diff 3 Months D64.9 - Anemia, unspecified Lipid Panel 3 Months E78.00 - Pure hypercholesterolemia, unspecified Comprehensive [place]. Panel Fast 3 Months E78.00 - Pure hypercholesterolemia, unspecified Medications: Changed From losartan 50 mg PO DAILY 90 tabs 3RF To losartan 50 mg PO DAILY 90 tabs 3RF 90 days From diltiazem HCl CD 240 mg PO QAM To diltiazem HCl CD 240 mg PO QAM 90 caps 1RF 90 days From potassium chloride ER 20 mEq PO DAILY 30 days 30 tabs 0RF To potassium chloride ER 20 mEq PO DAILY 90 tabs 3RF 90 days Refilled hydralazine 50 mg (2 x 25 mg) PO BID 360 tabs 3RF 90 days atorvastatin 80 mg PO BEDTIME 90 tabs 3RF 90 days E78.5 - Hyperlipidemia, unspecified
== END 2024-10-30 14:34 | disposition home or self-care (01) ==
PROVIDERS: PCP Internal Medicine; Visit Provider Internal Medicine
DX: I12.9 Hypertensive chronic kidney disease with stage 1 through stage 4 chronic kidney disease, or unspecified chronic kidney disease (principal); N18.30 Chronic kidney disease, stage 3 unspecified; E78.00 Pure hypercholesterolemia, unspecified; Q61.3 Polycystic kidney, unspecified; I69.30 Unspecified sequelae of cerebral infarction; R73.01 Impaired fasting glucose; E04.2 Nontoxic multinodular goiter; M10.00 Idiopathic gout, unspecified site; L40.9 Psoriasis, unspecified; E55.9 Vitamin D deficiency, unspecified; E87.6 Hypokalemia; R31.9 Hematuria, unspecified

== ENCOUNTER → 2024-10-30 13:25 | Outpatient (BNVA) | payer MEDICARE, SELFPAY | PROVIDERS: PCP Internal Medicine; Visit Provider Internal Medicine | DX: I12.9 Hypertensive chronic kidney disease with stage 1 through stage 4 chronic kidney disease, or unspecified chronic kidney disease (principal); N18.30 Chronic kidney disease, stage 3 unspecified; N28.1 Cyst of kidney, acquired; E78.5 Hyperlipidemia, unspecified; E87.6 Hypokalemia; E78.00 Pure hypercholesterolemia, unspecified; Q61.3 Polycystic kidney, unspecified; R73.01 Impaired fasting glucose; E04.2 Nontoxic multinodular goiter; M10.00 Idiopathic gout, unspecified site; L40.9 Psoriasis, unspecified; E55.9 Vitamin D deficiency, unspecified; R31.9 Hematuria, unspecified; M51.360 Other intervertebral disc degeneration, lumbar region with discogenic back pain only; E66.9 Obesity, unspecified; D64.9 Anemia, unspecified; Z68.36 Body mass index [BMI] 36.0-36.9, adult; Z86.73 Personal history of transient ischemic attack (TIA), and cerebral infarction without residual deficits | CPT/HCPCS: 96127; 99212 ==

== ENCOUNTER 2024-11-10 09:14 | Outpatient (REF) | payer MEDICARE, SELFPAY ==
[2024-11-10 10:50] LABS: Anion Gap 12 (12-20); Carbon Dioxide 27 mmol/L (22-29); Chloride 108 mmol/L (96-108); Estimated Glomerular Filt Rate 29; Potassium 3.6 mmol/L (3.3-5.1); Sodium 143 mmol/L (135-145)
== END 2024-11-10 09:15 | disposition home or self-care (01) ==
LOC: HO.LAB 09:14
PROVIDERS: PCP Internal Medicine; Visit Provider Internal Medicine Nephrology
DX: N18.30 Chronic kidney disease, stage 3 unspecified (principal)
CPT/HCPCS: 36415; 80051; 82565

== ENCOUNTER 2024-11-15 13:28 | Outpatient (AMB) | payer MEDICARE, SELFPAY ==
--- NOTE | 2024-11-15 13:31 | HO.NEPHOV_ITS ---
Vital Signs 11/15/24 13:32 Height 5 ft 4 in Weight 219 lb 4 oz BMI 37.6 BP 132/82 Blood Pressure Location Rt brachial Position Sitting Pulse 60 Pulse Source Pulse Oximeter Pulse Oximetry (%) 96 Oxygen Delivery Method Room Air Intake Visit Reasons: 4 mon follow up Polyethylene Combiner Required: No Accompanied by: Self / Same As Patient Allergies Penicillins Allergy (Verified 11/15/24 13:32) Unknown irbesartan Adverse Reaction (Verified 11/15/24 13:32) Stomach Upset HPI Comments Details: Mr Lechuga was seen in follow-up of his chronic kidney disease and hypertension on a backdrop of his polycystic kidney disease. He has no flank pain, any fever, nausea, vomiting, hematuria. His serum potassium levels had been on the low side and was initiated on replacement. He is on multiple antihypertensive medications including losartan, hydralazine and diltiazem. His blood pressure control is quite optimal. He denies nausea, vomiting, diarrhea, chest pain, shortness of breath, hematuria. He tries to maintain good hydration. He has been having GERD which is affecting his quality of life. He wants a GI consult. He feels well otherwise [facility] Medical History Psoriasis Lumbar degenerative disc disease Abscess of leg Pure hypercholesterolemia Onychomycosis Chronic kidney disease (CKD), stage III (moderate) Obesity (BMI 30-39.9) Hematuria Gait instability Vitamin D deficiency Hypokalemia Polycystic kidney disease Multiple thyroid nodules Impaired fasting glucose Cerebrovascular accident (CVA) Benign essential hypertension History of postoperative nausea Gout Thyroid nodule Renal cyst Benign prostatic hyperplasia CVA (cerebral vascular accident) COVID-19 virus antibody negative History of snoring Surgical History H/O partial thyroidectomy (~10/22/14) H/O arthroscopic knee surgery H/O varicose vein ligation and stripping Hx of colonoscopy (~08/2020) Family History Father Diabetes Mother Chronic mental illness Other Mental health problem Social History Household Members: None Housing: Apartment Do you presently have visiting nurse or other home services: No Alcohol intake: current Alcohol intake frequency: holidays/special occasions only Alcohol type: beer Patient Tobacco Use Status: Former Tobacco user e-Cigarette/Vaping Use: Former Use Second Hand Smoke Exposure: Yes Current occupational status: employed 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 Cognitive needs: No Hearing needs: No Vision needs: Yes (glasses) Review of Systems Const All systems reviewed & are unremarkable except as noted in HPI and below Physical Exam Const General: comfortable and no acute distress Orientation/consciousness: patient oriented x3 HEENT Head: Yes normocephalic Mouth: Normal oral and palatal mucosa present Eyes EOM: EOMs intact bilaterally Neck Neck: Yes supple Resp Auscultation: clear to auscultation bilaterally Cardio Jugular venous distension: no JVD Rate: regular rate GI Palpation (GI): Soft to palpation Auscultation: normal bowel sounds General: Yes no CVA tenderness Back/Spine/Pelvis Back: no CVA tenderness Skin General skin exam: no rashes or lesions noted Neuro General: patient oriented x3 and moves all extremities Extrem General: Yes no pedal edema Results Reviewed Nephrology Results: Hgb 13.1 g/dl (14.0-18.0) L 10/24/24 WBC 4.3 X10*3/uL (4.8-10.8) L 10/24/24 Plt Count 263 X10*3/uL (160-400) 10/24/24 Sodium 143 mmol/L (135-145) 11/10/24 Potassium 3.6 mmol/L (3.3-5.1) 11/10/24 Chloride 108 mmol/L (96-108) 11/10/24 Carbon Dioxide 27 mmol/L (22-29) 11/10/24 BUN 31 mg/dL (9-16) H 10/24/24 Creatinine 2.24 mg/dL (0.5-1.4) H 11/10/24 Calcium 8.8 mg/dL (8.4-10.2) 10/24/24 Urine Protein 30 (1+) mg/dL (Neg-Trace) H 10/24/24 Assessment & Plan Assessment & Plan (1) Chronic kidney disease (CKD), stage III (moderate): Code(s): N18.30 - Chronic kidney disease, stage 3 unspecified Category: Medical Qualifiers: Chronic kidney disease stage 3 subtype: unspecified whether 3a or 3b Qualified Code(s): N18.30 - Chronic kidney disease, stage 3 unspecified (2) Polycystic kidney disease: Comment: MRI of the abdomen and pelvis done on 07/04/2019 revealed multiple bilateral renal cysts compatible with polycystic kidney disease Code(s): Q61.3 - Polycystic kidney, unspecified Category: Medical (3) Benign essential hypertension: Code(s): I10 - Essential (primary) hypertension Category: Medical (4) GERD (gastroesophageal reflux disease): Code(s): K21.9 - Gastro-esophageal reflux disease without esophagitis Category: Medical Qualifiers: Esophagitis presence: esophagitis presence not specified Qualified Code(s): K21.9 - Gastro-esophageal reflux disease without esophagitis Plan Wyatt has polycystic kidney disease. His renal function is close to baseline. His blood pressure is at goal. He is tolerating angiotensin receptor juvencio, dose of which I may back off if his serum creatinine worsens. He is not taking any nonsteroidal anti-inflammatories. His renal ultrasound showed a complex cyst which will need Urology follow up in the future. He may be a candidate for tolvaptan. Genetic studies for polycystic kidney disease has not been done for him. He is on statins. He tries to remain himself well hydrated . I referred him to GI for an upper endoscopy. I did not make any medication changes today. All his questions were answered Orders: Orders Creatinine 3 Months N18.30 - Chronic kidney disease, stage 3 unspecified Blood Urea Nitrogen 3 Months N18.30 - Chronic kidney disease, stage 3 unspecified Electrolytes 3 Months N18.30 - Chronic kidney disease, stage 3 unspecified Referrals Gastroenterology Referral K21.9 - Gastro-esophageal reflux disease without esophagitis Coding Level of Care Code Est Pt Level 4 (75958) Diagnoses Stage 3 chronic kidney disease, unspecified whether stage 3a or 3b CKD N18.30 Chronic kidney disease stage 3 subtype: unspecified whether 3a or 3b Polycystic kidney disease Q61.3 Benign essential hypertension I10 Gastroesophageal reflux disease, unspecified whether esophagitis present K21.9 Esophagitis presence: esophagitis presence not specified
[2024-11-15 13:32] VITALS: BP 132/82; PULSE 60; O2SAT 96; BMI 37.6
== END 2024-11-15 13:51 | disposition home or self-care (01) ==
PROVIDERS: PCP Internal Medicine; Visit Provider Internal Medicine Nephrology
DX: I12.9 Hypertensive chronic kidney disease with stage 1 through stage 4 chronic kidney disease, or unspecified chronic kidney disease (principal); N18.30 Chronic kidney disease, stage 3 unspecified; Q61.3 Polycystic kidney, unspecified; K21.9 Gastro-esophageal reflux disease without esophagitis
CPT/HCPCS: 99214

== ENCOUNTER → 2024-11-15 13:28 | Outpatient (BNVA) | payer MEDICARE, SELFPAY | PROVIDERS: PCP Internal Medicine; Visit Provider Internal Medicine Nephrology | DX: I12.9 Hypertensive chronic kidney disease with stage 1 through stage 4 chronic kidney disease, or unspecified chronic kidney disease (principal); N18.30 Chronic kidney disease, stage 3 unspecified; Q61.3 Polycystic kidney, unspecified; K21.9 Gastro-esophageal reflux disease without esophagitis | CPT/HCPCS: 99212 ==

== ENCOUNTER 2024-12-20 10:39 | Outpatient (REF) | payer MEDICARE, SELFPAY ==
--- OUTSIDE RECORDS SUMMARY | 2024-12-20 13:37 | XMS_ITS | Clinical Summary ---
Author Organization [facility] Address [address] [facility] [address] [place] [address] Phone Care Team Providers Care Outside Sales Professional Name Role Phone Bhavesh Arora MD Primary Care Provider +1- [phone] Allergies Active Allergy Reactions Criticality Noted Date [...] age to complete this topic Insurance MEDICARE [facility] MEDICARE [facility] Care Teams Outside Sales Professional Relationship Specialty Start Date End Date Bhavesh Arora MD [address] [place] [address] PCP - General Internal Medicine 08/25/22
--- OUTSIDE RECORDS SUMMARY | 2024-12-20 13:38 | XMS_ITS | Clinical Summary ---
Author Organization [facility] Address [address] [place] [address] Care Team Providers Care Anesthesiologist Name Role Phone Unavailable Primary Care Provider [...] (2 - Td or Tdap) 01/25/2020 010 [id number] (4 - season) 2024 02/21/2022, 09/06/2021, 01/07/2021 Imm-Influenza (#1) 2024 08/28/2021, 0 07/30/2020, 08/26/2018, Additional history exists Alcohol and Drug Screen 11/08/2024 Depression Annual Screen 11/08/2024 Insurance MED[place]ARE - [place]
[2024-12-20 16:14] LABS: Influenza A PCR NEGATIVE (Negative); Influenza B PCR NEGATIVE (Negative); Resp Syncy Virus RNA Qual PCR NEGATIVE (Negative); SARS COV2 PCR INHOUSE NEGATIVE (Negative)
== END 2024-12-20 10:40 | disposition home or self-care (01) ==
LOC: HO.LAB 10:39
PROVIDERS: PCP Internal Medicine; Visit Provider Physician Assistant
DX: J06.9 Acute upper respiratory infection, unspecified (principal); R09.89 Other specified symptoms and signs involving the circulatory and respiratory systems
CPT/HCPCS: 0241U; 99212

== ENCOUNTER 2024-12-20 10:39 | Outpatient (AMB) | payer MEDICARE, SELFPAY ==
[2024-12-20 10:46] VITALS: BP 140/98; PULSE 64; TEMP 37.1; O2SAT 97; BMI 37.6
--- NOTE | 2024-12-20 10:46 | MHC.OFFWIV ---
Intake Vital Signs 12/20/24 10:46 Height 5 ft 4 in Weight 219 lb BMI 37.6 BP 140/98 H Blood Pressure Location Rt brachial Position Sitting Pulse 64 Pulse Source Pulse Oximeter Temp 98.7 F Temp Source Oral Pulse Oximetry (%) 97 Oxygen Delivery Method Room Air Intake Visit Reasons: PE cough, headache, chest congestion Intake Note: Patient here for cough, congestion, headaches and hurts to cough that started yesterday. Patient Tobacco Use Status: Former Tobacco user Allergies Penicillins Allergy (Verified 11/15/24 13:32) Unknown irbesartan Adverse Reaction (Verified 11/15/24 13:32) Stomach Upset Do you need a note to return to daycare/school/sports/work: No HPI HPI Comments History of Present Illness Details History - The patient is a 74 year old male presenting with cough x 2 days. - The patient reports the onset of these symptoms, including chills and cough, occurring the day prior to the visit. Initially dry, the cough has transitioned to being more productive. - He experiences chest pain on deep inspiration, coupled with mild shortness of breath. He has no history of asthma or COPD. - The patient experienced COVID-19 twice last year and received a flu shot this season. Previous COVID vaccine was administered post-recovery. - His current medication includes [id number] Tylenol taken for headache management. Physical Exam General: Cooperative, healthy appearing, comfortable and no acute distress Orientation/consciousness: Patient oriented x3 Limitations: No limitations Head: Normal to inspection Ears: Hearing grossly normal bilaterally, external ears normal and TM's normal left, right TM blocked by cerumen Nose: Normal external nose present, Normal nares present and No nasal discharge present Face and sinus: Normal facial exam and Yes sinuses nontender Mouth: Normal oral and palatal mucosa present and moist mucous membranes Throat: Yes tonsils normal, Yes uvula midline. Posterior oropharynx erythema Eyes: Appearance normal, both eyes and all related structures Neck: Normal visual inspection Respiratory: Clear to auscultation bilaterally. Normal respiratory effort, able to speak in complete sentences, Actively coughing, no respiratory distress, not tachypneic, no tripod positioning and no use of accessory muscles Cardiovascular: Regular rate and rhythm. Normal S1 and S2 Skin: No rashes or lesions noted Neuro: Patient oriented x3 Extremities: Normal to inspection and Yes no clubbing, cyanosis or edema [facility] Medical History Psoriasis Lumbar degenerative disc disease Abscess of leg Pure hypercholesterolemia Onychomycosis Chronic kidney disease (CKD), stage III (moderate) Obesity (BMI 30-39.9) Hematuria Gait instability Vitamin D deficiency Hypokalemia Polycystic kidney disease Multiple thyroid nodules Impaired fasting glucose Cerebrovascular accident (CVA) Benign essential hypertension History of postoperative nausea Gout Thyroid nodule Renal cyst Benign prostatic hyperplasia CVA (cerebral vascular accident) COVID-19 virus antibody negative History of snoring Surgical History H/O partial thyroidectomy (~10/22/14) H/O arthroscopic knee surgery H/O varicose vein ligation and stripping Hx of colonoscopy (~08/2020) Family History Father Diabetes Mother Chronic mental illness Other Mental health problem Social History Household Members: None Housing: Apartment Do you presently have visiting nurse or other home services: No Alcohol intake: current Alcohol intake frequency: holidays/special occasions only Alcohol type: beer Patient Tobacco Use Status: Former Tobacco user e-Cigarette/Vaping Use: Former Use Second Hand Smoke Exposure: Yes Current occupational status: employed 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 Cognitive needs: No Hearing needs: No Vision needs: Yes (glasses) Review of Systems Const All systems reviewed & are unremarkable except as noted in HPI and below Physical Exam Vital Signs: Last Vital Signs Temp 98.7 F 12/20/24 10:46 Pulse 64 12/20/24 10:46 BP 140/98 H 12/20/24 10:46 Pulse Ox 97 12/20/24 10:46 Oxygen Delivery Method Room Air 12/20/24 10:46 BMI result Body Mass Index 37.6 Assessment & Plan Assessment & Plan (1) URI, acute: Code(s): J06.9 - Acute upper respiratory infection, unspecified Plan: During the visit, diagnostic evaluation including testing for influenza, COVID-19, and RSV was performed and results are pending. The plan includes symptomatic management, with a prescription for Tessalon Perles to alleviate nighttime coughing, and instructions on using Tylenol for headache relief. Should viral testing be negative, the potential introduction of azithromycin was discussed, specifically considering the incidence of atypical pneumonia. Antiviral treatment considerations were addressed depending on test results, with Paxlovid for COVID-19 which he would want as it has worked well for him in the past. We discussed Tamiflu, he declined this if he tests positive for influenza. Patient education was given regarding symptom monitoring, emphasizing immediate medical attention for any severe progression, particularly related to respiratory distress. Patient was informed and verbally consented to the use of an ambient scribe for clinic note documentation during this visit Orders: Orders SARS-CoV2/FLU/RSV Today R09.89 - Other specified symptoms and signs involving the circulatory and respiratory systems Medications: New benzonatate 200 mg PO TID PRN 14 caps 0RF cough Coding Level of Care Code Est Pt Level 3 (96008) Diagnoses URI, acute J06.9
--- OUTSIDE RECORDS SUMMARY | 2024-12-20 12:26 | XMS_ITS | Clinical Summary ---
Author Organization [facility] Address [address] [facility] [address] [place] [address] Phone Care Team Providers Care Nutrition Consultant Name Role Phone Bhavesh Arora MD Primary Care Provider +1- [phone] Allergies Active Allergy Reactions Criticality Noted Date Comments Penicillins 11/26/2022 Medications atorvastatin (LIPITOR) 80 MG tablet Take 80 mg by mouth at bed time 2 Active Dilt-XR 240 MG 24 hr capsule Take 240 mg by mouth 1 (one) time each day 2 Active finasteride (PROSCAR) 5 MG tablet Take 5 mg by mouth 1 (one) time each day 2 Active clobetasol (TEMOVATE) 0.05 % cream APPLY CREAM TOPICALLY TWICE DAILY 3 Active aspirin (ST BAM) 81 MG EC tablet Take 81 mg by mouth 1 (one) time each day Active hydrALAZINE 50 MG tablet Take 50 mg by mouth in the morning and 50 mg in the evening. Active losartan (COZAAR) 50 MG tablet Take 1 tablet (50 mg total) by mouth 1 (one) time each day 90 tablet 3 3 Active Active Problems Problem Noted Date Diagnosed Date Stage 3b chronic kidney disease 01/28/2023 Chronic kidney disease 11/26/2022 Hypertension 11/26/2022 Immunizations Name Administration Dates Next Due Moderna SARS-COV-2 02/21/2022 Family History Medical History Relation Comments Cancer Father Prostate/Skin Ca ncer Diabetes Father Heart disease Father Hypertension Father Kidney disease Father PCKD Stroke Father TIA Diabetes Maternal Grandfather Cancer Maternal Grandmother Breast Canc er Cancer Mother Breast Cancer Diabetes Mother Hypertension Mother Relation Status Comments Father Maternal Grandfather Maternal Grandmother Mother Social History Tobacco Use Types Packs/Day Years Used Date Smoking Tobacco: Never Smokeless Tobacco: Never Tobacco Cessation:Counseling Given: Not Answered Alcohol Use Standard Drinks/Week Comments Yes 0 (1 standard drink = 0.6 oz pur e alcohol) Rare Sex and Gender Information Value Date Recorded Sex Assigned at Not on file Legal Sex Male 11:35 AM EDT Gender Identity Not on file Sexual Orientation Not on file Last Filed Vital Signs Vital Sign Reading Time Taken Comments Blood Pressure 116/64 06/28/2023 3:12 PM EDT Pulse 84 06/28/2023 3:12 PM EDT Temperature - - Respiratory Rate - - Oxygen Saturation - - Inhaled Oxygen Concentration - - Weight 97.5 kg (215 lb) 06/28/2023 3:12 PM EDT Height - - Body Mass Index - - Plan of Treatment Health Maintenance Due Date Last Done Comments Pneumococcal Vaccine: 65+ Ye ars (1 of 2 - PCV) 1958 Colorectal Cancer Screening: Annual FOBT 2001 Colorectal Cancer Screening: Colonoscopy 2001 Colorectal Cancer Screening: Sigmoidoscopy 2001 Influenza Vaccine (#1) 2024 Hepatitis B Vaccine Aged Out No longe r eligible based on patient's age to complete this topic Insurance MEDICARE [facility] MEDICARE [facility] Care Teams Nutrition Consultant Relationship Specialty Start Date End Date Bhavesh Arora MD [address] [place] [address] PCP - General Internal Medicine 08/25/22
--- OUTSIDE RECORDS SUMMARY | 2024-12-20 12:26 | XMS_ITS | Clinical Summary ---
Author Organization [facility] Address [address] [place] [address] Care Team Providers Care Circus Hand Name Role Phone Unavailable Primary Care Provider Unavailabl e Source Comments PLEASE NOTE, if this patient is a minor, it may be UNLAWFUL to discuss sensitive information that is contained in these records (such as FAMILY PLANNING, MENTAL HEALTH or SUBSTANCE ABUSE) with the minor patient's parent or other person without the patient's specific authorization.[facility] Immunizations Name Administration Dates Next Due Moderna COVID-19 Vaccine, re d cap blue label, 12+ Primary Series 02/21/2022 Social History Tobacco Use Types Packs/Day Years Used Date Smoking Tobacco: Never Assessed Social Connections Answer Date Recorded Connectedness 0 07/21/2024 Financial Resource Strain Answer Date R ecorded Financial Resource Strain 0 2021 Stress Answer Date Recorded Stress 0 01/31/2022 Physical Activity Answer Date Recorded Physical Activity 0 01/31/2022 Food Insecurity Answer Date Recorded Food 0 08/03/2024 Transportation Needs Answer Date Record ed Transportation 0 01/31/2022 Housing Stability Answer Date Recorded Housing 0 01/31/2022 Safety and Environment Answer Date Red rded Safety 0 01/31/2022 Utilities Answer Date Recorded Utilities 0 01/31/2022 Employment Answer Date Recorded Stress 0 07/21/2024 Sex and Gender Information Value Date Recorded Sex Assigned at Not on file Legal Sex Male 10:35 AM PDT Gender Identity Not on file Sexual Orientation Not on file Plan of Treatment Health Maintenance Due Date Last Done Comments Hepatitis C Screening 1952 Lipid Screening 1950 Tobacco Screening 1950 Hypertension Screening (#1) 1970 Medicare Annual Wellness Visit 1970 CT Colonography 1997 Colonoscopy 1997 Colorectal Cancer Screening 1997 FIT/gFOBT 1997 Fecal DNA 1997 Flexible Sigmoidoscopy 1997 Imm-Zoster, Recombinant (1 of 2) 2002 Abdominal Aortic Aneurysm Screening 2017 Falls Prevention 2017 Imm-Pneumococcal 65+ (2 of 2 - PCV) 07/30/2017 07/30/2016 Imm-DTaP/Tdap/Td (2 - Td or Tdap) 01/25/2020 010 [id number] (4 - season) 2024 02/21/2022, 09/06/2021, 01/07/2021 Imm-Influenza (#1) 2024 08/28/2021, 0 07/30/2020, 08/26/2018, Additional history exists Alcohol and Drug Screen 11/08/2024 Depression Annual Screen 11/08/2024 Insurance MEDICARE - [place]
== END 2024-12-20 12:04 | disposition home or self-care (01) ==
PROVIDERS: PCP Internal Medicine; Visit Provider Physician Assistant
DX: J06.9 Acute upper respiratory infection, unspecified (principal)

== ENCOUNTER 2025-01-29 08:22 | Outpatient (REF) | payer MEDICARE, SELFPAY ==
[2025-01-29 08:34] LABS: MANUAL DIFF FLAG NO
[2025-01-29 08:40] LABS: Basophils Percent Auto 0.9 % (0-2); Eosinophils Absolute Auto 0.2 X10*3/uL (0.0-0.4); Eosinophils Percent Auto 4.2 % (0-4); Hematocrit 40.8 % (42.0-52.0); Hemoglobin 13.4 g/dl (14.0-18.0); Imm Gran Abs Auto 0.01 X10*3/uL (0.00-0.03); Imm Gran Pct Auto 0.2 % (0.0-0.4); Lymphocytes Absolute Auto 0.6 X10*3/uL (1.2-4.9); Lymphocytes Percent Auto 13.2 % (20-40); Mean Corpuscular HGB Conc 32.8 g/dl (31.0-36.0); Mean Corpuscular Hemoglobin 28.8 pg (27.0-33.0); Mean Corpuscular Volume 87.7 fL (80.0-98.0); Mean Platelet Volume 9.2 fL (9.4-12.4); Monocytes Absolute Auto 0.4 X10*3/uL (0.1-1.2); Monocytes Percent Auto 8.6 % (2-11); Neutrophils Absolute Auto 3.3 x10*3/uL (2.0-8.3); Neutrophils Percent Auto 72.9 % (45-73); Platelet Count 259 X10*3/uL (160-400); Red Blood Count 4.65 X10*6/uL (4.60-5.80); Red Cell Distribution Width 13.7 % (11.0-16.0); White Blood Count 4.5 X10*3/uL (4.8-10.8)
[2025-01-29 09:13] LABS: Appearance Urine Clear; Color Urine Yellow; Glucose Urine UA Negative (Negative); Leukocyte Esterase Urine Negative (Negative); Nitrite Urine Negative (Negative); Specific Gravity - Urine 1.015 (1.005-1.025); UMIC TRIGGER UACC YES; Urine Blood Negative (Negative); Urine Ketones Negative (Negative); Urine Protein 30 (1+) mg/dL (Neg-Trace)
[2025-01-29 09:15] LABS: Bacteria Urine None Seen (None Seen); Hyaline Casts Urine 0-2 /LPF (0-2); RBC Urine 0-2 /HPF (0-2); Squamous Epithelial Cell Urine 0-2 /HPF (0-2); WBC Urine 0-5 /HPF (0-5)
[2025-01-29 09:16] LABS: Alanine Aminotransferase 30 U/L (0-40); Albumin Level 3.8 g/dL (3.5-5.0); Alkaline Phosphatase 61 U/L (39-117); Anion Gap 9 (12-20); Aspartate Amino Transferase 27 U/L (5-37); Bilirubin Total 0.9 mg/dL (0.0-1.0); Blood Urea Nitrogen 30 mg/dL (9-16); Calcium 8.8 mg/dL (8.4-10.2); Carbon Dioxide 30 mmol/L (22-29); Chloride 111 mmol/L (96-108); Cholesterol 101 mg/dL (<200); Estimated Glomerular Filt Rate 33; Glucose Fasting 109 mg/dL (60-99); HDL Cholesterol 40 mg/dL (>40); LDL Cholesterol Calculated 47 mg/dL (<100); Potassium 3.8 mmol/L (3.3-5.1); Sodium 146 mmol/L (135-145); Total Protein 6.1 g/dL (6.5-8.0); Triglycerides 73 mg/dL (<150)
== END 2025-01-29 08:23 | disposition home or self-care (01) ==
LOC: HO.LAB 08:22
PROVIDERS: PCP Internal Medicine; Visit Provider Internal Medicine
DX: D64.9 Anemia, unspecified (principal); E78.00 Pure hypercholesterolemia, unspecified
CPT/HCPCS: 36415; 80053; 80061; 81001; 85025

== ENCOUNTER 2025-02-05 13:10 | Outpatient (AMB) | payer MEDICARE, SELFPAY ==
--- NOTE | 2025-02-05 13:19 | MHC.PC.OV ---
Vital Signs 02/05/25 13:20 Height 5 ft 4 in Weight 213 lb 6 oz BMI 36.6 BP 120/76 Blood Pressure Location Lt brachial Position Sitting Pulse 64 Pulse Source Pulse Oximeter Pulse Oximetry (%) 97 Oxygen Delivery Method Room Air Intake Visit Reasons: PKD, HTN, hyperlipidemia, CKD Complaint Evaluation Supervisor Required: No Accompanied by: Self / Same As Patient Allergies Penicillins Allergy (Verified 02/05/25 13:48) Unknown irbesartan Adverse Reaction (Verified 02/05/25 13:48) Stomach Upset Medication List - Last Reconciled 02/05/25 by Bhavesh Arora MD acetaminophen 500 mg PO Q4H PRN aspirin 81 mg PO DAILY atorvastatin 80 mg PO BEDTIME 90 days benzonatate 200 mg PO TID PRN cholecalciferol (vitamin D3) 1,000 units PO DAILY clobetasol 0.05% 1 appl topical BID PRN clobetasol 0.05% 1 appl topical BEDTIME diltiazem HCl CD 240 mg PO QAM 90 days finasteride 5 mg PO DAILY 90 days hydralazine 50 mg (2 x 25 mg) PO BID 90 days losartan 50 mg PO DAILY 90 days omeprazole 20 mg PO DAILY PRN 30 days potassium chloride ER 20 mEq PO DAILY 90 days Tobacco use date assessed: 02/05/25 Fall risk assessment: 1 Fall in past year Last assessed Fall Risk: 02/05/25 Dental Screening Dental Screen Date: 02/05/25 Did you have a dental visit in the last 12 months?: Yes Did you have a dental problem in the last 6 months where you did not have access to dental care?: No Was dental information given to patient?: Patient has dentist HPI PKD, HTN, hyperlipidemia, CKD HPI Details Patient comes in today for his follow up visit for his hypertension, dyslipidemia, CVA, IFG, thyroid nodules and polycystic kidney disease States that he feels okay He denies any headaches or dizziness Denies any chest pains, no increased shortness of breath No nausea/vomiting, no abdominal pain No change in bowel habits noted Adds that he has a few toenails that are disfigured and thickened and he would like to see someone to have his toenail issues addressed He had his follow up labs done last week - to discuss his results [facility] Medical History Psoriasis Lumbar degenerative disc disease Abscess of leg Pure hypercholesterolemia Onychomycosis Chronic kidney disease (CKD), stage III (moderate) Obesity (BMI 30-39.9) Hematuria Gait instability Vitamin D deficiency Hypokalemia Polycystic kidney disease Multiple thyroid nodules Impaired fasting glucose Cerebrovascular accident (CVA) Benign essential hypertension History of postoperative nausea Gout Thyroid nodule Renal cyst Benign prostatic hyperplasia CVA (cerebral vascular accident) COVID-19 virus antibody negative History of snoring Surgical History H/O partial thyroidectomy (~10/22/14) H/O arthroscopic knee surgery H/O varicose vein ligation and stripping Hx of colonoscopy (~08/2020) Family History Father Diabetes Mother Chronic mental illness Other Mental health problem Social History Household Members: None Housing: Apartment Do you presently have visiting nurse or other home services: No Alcohol intake: current Alcohol intake frequency: holidays/special occasions only Alcohol type: beer Patient Tobacco Use Status: Former Tobacco user e-Cigarette/Vaping Use: Former Use Second Hand Smoke Exposure: Yes Current occupational status: employed 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 1. Little interest or pleasure in doing things: not at all 2. Feeling down, depressed, or hopeless: several days 3. Trouble falling or staying asleep, or sleeping too much: not at all 4. Feeling tired or having little energy: several days 5. Poor appetite or overeating: not at all 6. Feeling bad about yourself - or that you are a failure or have let yourself or your family down: not at all 7. Trouble concentrating on things, such as reading the newspaper or watching television: not at all 8. Moving or speaking so slowly that other people could have noticed. Or the opposite - being so fidgety or restless that you have been moving around a lot more than usual: several days 9. Thoughts that you would be better off or of hurting yourself in some way: not at all Total score: 3 Depression Screening Interpretation: Negative Depression Screening Done: Yes 14245 - PHQ-9 Billing: Yes Source: Developed by Drs. Dilip Tian, Mirna Banuelos, Juan Lipscomb and colleagues, with an educational attila from [employer]. Thrive Questionnaire Date Thrive assessed: 02/05/25 I am a: Patient What is your living situation today?: I have a steady place to live Within the past 12 months, did the food you bought not last and you didn't have the money to get more?: Never true Within the past 12 months, did you worry whether your food would run out before you got money to buy more?: Never true Do you have trouble paying for medicines?: No Do you have trouble getting transportation to medical appointments?: No Do you have trouble paying your heating and electricity bill?: No Do you have trouble taking care of your child, family member or friend?: No Do you have trouble with day-to-day activities such as bathing, preparing meals, shopping, managing finances, etc.?: No Are you currently unemployed and looking for a job?: No Are you interested in more education?: No Please select the resources that you would like help with: None Currently or been in a relationship where the following occur: No concerns reported THRIVE Score: 0 AUDIT C Alcohol Use Questionnaire (AUDIT-C) 1. How often do you have a drink containing alcohol?: Never 3. How often do you have six or more drinks on one occasion?: Never Total Score: 0 Score Reviewed/Action Taken: Yes MARIA ESTHER-7 AMB Questionnaire MARIA ESTHER-7 Date MARIA ESTHER - 7 assessed: 02/05/25 Feeling nervous, anxious, or on edge: 0 = Not at all Not being able to stop or control worryin = Not at all Worrying too much about different things: 0 = Not at all Trouble relaxin = Not at all Being so restless that it is hard to sit still: 0 = Not at all Becoming easily annoyed or irritable: 0 = Not at all Feeling afraid as if something awful might happen: 0 = Not at all Total MARIA ESTHER-7 score (0-4 normal; 5-9 mild; 10-14 moderate; 15-21 severe): 0 Source: Developed by Drs. Dilip Tian, Mirna Banuelos, Juan Lipscomb and colleagues, with an educational attila from [employer]. Review of Systems Const Denies chills, Denies fatigue, Denies fever(s) and Denies headache(s) ENT Denies dysphagia, Denies dizziness, Denies otalgia, Denies headache(s), Denies neck pain, Denies odynophagia and Denies sore throat Card Denies chest pain, Denies palpitations and Denies dyspnea Resp Denies chest congestion, Denies cough and Denies dyspnea GI Denies abdominal pain, Denies constipation, Denies dysphagia, Denies heartburn, Denies diarrhea, Denies nausea, Denies odynophagia and Denies vomiting Denies dysuria, Denies nocturia and Denies urinary frequency Musc Reports abnormal gait (poor balance), Reports back pain (recurrent, over the left lower back/flank area) and Denies neck pain Skin/Breast Reports rash (over the extensor aspect of both elbows) Neuro Reports abnormal gait (poor balance), Denies dizziness and Denies headache(s) Endo Denies fatigue and Denies palpitations Physical exam (Primary Care) Vital Signs: Last Vital Signs Pulse 64 02/05/25 13:20 BP 120/76 02/05/25 13:20 Pulse Ox 97 02/05/25 13:20 Oxygen Delivery Method Room Air 02/05/25 13:20 BMI result Body Mass Index 36.6 Tobacco/Smoking Status: Tobacco use Status Tobacco use date assessed 02/05/25 02/05/25 13:27 Patient Tobacco Use Status Former Tobacco user 02/05/25 13:27 e-Cigarette/Vaping Use Former Use 02/05/25 13:27 PHQ-9: PHQ-9 Score PHQ-9: Total score 3 02/05/25 13:49 Depression Screening Interpretation: Negative Thrive Assessment: Date of Thrive Assessment Date Thrive assessed 02/05/25 02/05/25 13:27 Currently or been in a relationship where the following occur: No concerns reported Const General: no acute distress and alert HENMT Ears: TM's normal bilaterally and EAC's normal Throat: Yes posterior oropharynx normal and Yes tonsils normal (no TP congestion noted) Neck Neck: Yes supple and No lymphadenopathy Thyroid: Thyroid normal Resp Auscultation: clear to auscultation bilaterally, no rales and no wheezes Cardio Rate: regular rate Rhythm: regular rhythm Heart sounds: no murmurs GI Palpation (GI): Soft to palpation and nontender Auscultation: normal bowel sounds General: Yes no CVA tenderness Back/Spine/Pelvis Back: no CVA tenderness Thoracic/Lumbar Spine: No lumbar spinal tenderness Skin Other: (+) patchy scaling rash (with whitish/silvery scales) over the extensor aspect of both elbows Extrem Other: (+) onycholysis of several toenails on both feet General: No clubbing, No cyanosis and Yes edema (trace bipedal edema) Results Reviewed Results Reviewed: Laboratory Tests 01/29/25 08:29 WBC 4.5 L Hgb 13.4 L Hct 40.8 L Plt Count 259 Sodium 146 H Potassium 3.8 Creatinine 2.00 H Estimated GFR 33 Fasting Glucose 109 H Calcium 8.8 AST 27 ALT 30 Triglycerides 73 Cholesterol 101 LDL Cholesterol, Calc 47 HDL Cholesterol 40 L Ur Specific [place] 1.015 Urine Protein 30 (1+) H Urine Glucose (UA) Negative Urine Blood Negative Urine Nitrite Negative Ur Leukocyte Esterase Negative Coding Level of Care Code Est Pt Level 4 (78556) Complex EM visit Add On G2211 Diagnoses Pure hypercholesterolemia E78.00 Benign essential hypertension I10 Stage 3 chronic kidney disease, unspecified whether stage 3a or 3b CKD N18.30 Chronic kidney disease stage 3 subtype: unspecified whether 3a or 3b Polycystic kidney disease Q61.3 Cerebrovascular accident (CVA), unspecified mechanism I63.9 CVA mechanism: unspecified Impaired fasting glucose R73.01 Multiple thyroid nodules E04.2 Idiopathic gout, unspecified chronicity, unspecified site M10.00 Gout site: unspecified site Gout etiology: idiopathic Chronicity: unspecified Psoriasis L40.9 Vitamin D deficiency E55.9 Hypokalemia E87.6 Hematuria, unspecified type R31.9 Hematuria type: unspecified type Degeneration of intervertebral disc of lumbar region with discogenic back pain M51.360 Disc-related pain type: discogenic back pain only Obesity (BMI 30-39.9) E66.9 Onychomycosis of toenail B35.1 Additional Codes PHQ-9 - 20017 - PHQ-9 Billing: Yes ([id number]) Assessment & Plan Assessment & Plan (1) Pure hypercholesterolemia: Code(s): E78.00 - Pure hypercholesterolemia, unspecified Category: Medical Plan: Results of his labs done last week reviewed and discussed with patient Reinforced low cholesterol diet Continue Atorvastatin 80 mg QD Will recheck his labs and fasting lipids in 3 months for follow up (2) Benign essential hypertension: Code(s): I10 - Essential (primary) hypertension Category: Medical Plan: Reinforced?low-sodium diet -? goal is systolic BP of at least 130 to 140 mm or less due to his CKD Continue Diltiazem ER 240 mg QD, Hydralazine 50 mg BID and Losartan 50 mg QD Patient is reminded to continue monitoring his blood pressure regularly (3) Chronic kidney disease (CKD), stage III (moderate): Code(s): N18.30 - Chronic kidney disease, stage 3 unspecified Category: Medical Qualifiers: Chronic kidney disease stage 3 subtype: unspecified whether 3a or 3b Qualified Code(s): N18.30 - Chronic kidney disease, stage 3 unspecified Plan: Patient is again advised that his serum creatinine and GFR have been stable on his recent labs We will continue to monitor his renal function regularly Follow up with nephrology (Dr. Parra) as scheduled (4) Polycystic kidney disease: Comment: MRI of the abdomen and pelvis done on 07/04/2019 revealed multiple bilateral renal cysts compatible with polycystic kidney disease Code(s): Q61.3 - Polycystic kidney, unspecified Category: Medical Plan: Patient remains asymptomatic at present Renal US done back in September 2023 revealed (+) multiple bilateral renal cysts with the largest cyst on the upper pole of the left kidney, which appears as a complex cyst with multiple septations Will continue to monitor his renal function closely; will also probably recheck his renal US in a couple of years for follow up and if (+) progression, may need urologic intervention (5) Cerebrovascular accident (CVA): Comment: 2015 Code(s): I63.9 - Cerebral infarction, unspecified Category: Medical Qualifiers: CVA mechanism: unspecified Qualified Code(s): I63.9 - Cerebral infarction, unspecified Plan: Patient currently has minimal residual neurologic deficits from his CVA that occurred back in 2015 Follow-up with Neurology as scheduled or as needed (6) Impaired fasting glucose: Code(s): R73.01 - Impaired fasting glucose Category: Medical Plan: His FBS was slightly elevated at 109 mg/dl on his recent labs; his HgbA1c has been normal at 5.4% on his labs done last week and has been consistently normal between 5.3% and 5.5% when previously checked Reinforced low calorie/low carb diet; exercise as tolerated (7) Multiple thyroid nodules: Code(s): E04.2 - Nontoxic multinodular goiter Category: Medical Plan: S/P FNA biopsy about 3 years ago - results came back normal/benign TSH remains normal on his recent labs Will continue to monitor his TFTs regularly Thyroid US last done in 2017 revealed enlarged left lobe with multiple bilateral thyroid nodules - 2 nodules appear increased in size and there appears to be a new nodule as well and recommended continued ultrasound follow up He had US ordered in 2019 but did not get that done US was reordered at his last visit and he finally had this done in January 2024, which showed (+) status post right hemithyroidectomy. Enlarged heterogeneous hypervascular left thyroid with multiple nodules, only one of which meets criteria for follow-up - recommend follow-up study in one year Will now send him for repeat/follow up thyroid US (8) Gout: Code(s): M10.9 - Gout, unspecified Category: Medical Qualifiers: Gout site: unspecified site Gout etiology: idiopathic Chronicity: unspecified Qualified Code(s): M10.00 - Idiopathic gout, unspecified site Plan: Reinforced low purine diet -? patient has had no acute gout flares for several months His serum uric acid level was normal at 6.5 when last checked a few months ago (9) Psoriasis: Code(s): L40.9 - Psoriasis, unspecified Category: Medical Plan: This is mostly mild Continue Clobetasol 0.05% cream BID PRN (10) Vitamin D deficiency: Code(s): E55.9 - Vitamin D deficiency, unspecified Category: Medical Plan: Continue Vitamin-D 12623 units once a week (11) Hypokalemia: Code(s): E87.6 - Hypokalemia Category: Medical Plan: His serum potassium level is normal at 3.8 on his labs done last week Continue Potassium Chloride ER 20 mEq?QD Will continue to monitor his serum potassium level regularly (12) Hematuria: Code(s): R31.9 - Hematuria, unspecified Category: Medical Qualifiers: Hematuria type: unspecified type Qualified Code(s): R31.9 - Hematuria, unspecified Plan: Resolved with no recurrence lately - may be related to his renal cysts Follow up with urology as scheduled (13) Lumbar degenerative disc disease: Code(s): M51.36 - Other intervertebral disc degeneration, lumbar region Category: Medical Qualifiers: Disc-related pain type: discogenic back pain only Qualified Code(s): M51.360 - Other intervertebral disc degeneration, lumbar region with discogenic back pain only Plan: Lumbar spine x-rays done back in 2019 revealed (+) sclerotic facet arthrosis that is most severe at L5-S1; (+) mild multilevel endplate spurring and no compression fractures or significant loss of disc height noted Repeat x-rays done in September 2023 revealed no interval change Reinforced activity and weight-lifting restrictions (14) Obesity (BMI 30-39.9): Code(s): E66.9 - Obesity, unspecified Category: Medical Plan: Reinforced diet; exercise and weight are impractical given patient's poor balance and unsteady gait as well as his multiple comorbidities (15) Onychomycosis of toenail: Code(s): B35.1 - Tinea unguium Category: Medical Plan: Will refer him to podiatry for further evaluation and management Plan Follow up in 4 months Orders: Orders Comprehensive [place]. Panel Fast 4 Months E78.00 - Pure hypercholesterolemia, unspecified Lipid Panel 4 Months E78.00 - Pure hypercholesterolemia, unspecified TSH reflex Free T4 4 Months E78.00 - Pure hypercholesterolemia, unspecified UA CC w/rflx Micro + Cult 4 Months R30.0 - Dysuria Vitamin B12 and Folate 4 Months E53.8 - Deficiency of other specified B group vitamins Hemoglobin A1c 4 Months R73.01 - Impaired fasting glucose Microalbumin, Random (w Creat) 4 Months N18.30 - Chronic kidney disease, stage 3 unspecified Uric Acid 4 Months M10.9 - Gout, unspecified Hemoglobin A1c 4 Months R73.01 - Impaired fasting glucose US thyroid 02/05/25 E04.1 - Nontoxic single thyroid nodule Complete Blood Count Auto Diff 4 Months D64.9 - Anemia, unspecified Vitamin D 25-OH Total 4 Months E55.9 - Vitamin D deficiency, unspecified Referrals Podiatry Referral B35.1 - Tinea unguium
[2025-02-05 13:20] VITALS: BP 120/76; PULSE 64; O2SAT 97; BMI 36.6
--- OUTSIDE RECORDS SUMMARY | 2025-02-05 14:52 | XMS_ITS | Clinical Summary ---
Author Organization [facility] Address [address] [place] [address] Care Team Providers Care Banquet Kitchen Supervisor Name Role Phone Unavailable Primary Care Provider Unavailabl e Source Comments PLEASE NOTE, if this patient is a minor, it may be UNLAWFUL to discuss sensitive information that is contained in these records (such as FAMILY PLANNING, MENTAL HEALTH or SUBSTANCE ABUSE) with the minor patient's parent or other person without the patient's specific authorization.[facility] Immunizations Immunization Administration Dates Next Due Moderna COVID-19 Vaccine, [...] (2 - Td or Tdap) 01/25/2020 010 [id number] (4 - season) 2024 02/21/2022, 09/06/2021, 01/07/2021 Imm-Influenza (#1) 2024 08/28/2021, 0 07/30/2020, 08/26/2018, Additional history exists Alcohol and Drug Screen 11/08/2024 Depression Annual Screen 11/08/2024 [place] - [place]
--- OUTSIDE RECORDS SUMMARY | 2025-02-05 14:52 | XMS_ITS | Clinical Summary ---
Author Organization [facility] Address [address] [place] [address] Phone Care Team Providers Care Wood Cut Engraver Name Role Phone Bhavesh Arora MD Primary Care Provider [phone] Allergies Active Allergy Reactions Criticality Noted Date Comments Penicillins Unknown 01/14/2025 Wuywaea-Rzp-Imm Reductase Inhibitors Fatigue 01/14/2025 Medications ondansetron ODT (ZOFRAN-ODT) 4 mg disintegrating tablet Let 1 tablet dissolve under the tongue three times daily as needed for nausea or vomiting. 10 tablet 5 01/22/20 25 Active Problems No known active problems Encounters Date Type Department Care Team Description 01/14/2025 4:21 PM EDT - 01/14/2025 9:05 PM EDT Emergency [facility] Emergency [address] [place] [address] Vomiting and diarrhea (Primary Dx) Discharge Disposition: Home or Self Care from Last 3 Months Surgical History Surgery Date Site/Laterality Comments OTHER SURGICAL HISTORY PROCEDURE: [place] STAB PHLEBT VARICOSE VEINS 1 XTR 10-20 STAB INCS KNEE SURGERY PROCEDURE: HISTORICAL KNEE SURGERY COLONOSCOPY PROCEDURE: HISTORICAL COLONOSCOPY OTHER SURGICAL HISTORY PROCEDURE: HISTORICAL SUBTOTAL THYROIDECTOMY; COMMENT: REMOVAL OF THYROID NODULE Medical History Medical History Date Comments Chronic venous insufficiency 04/26/2019 DX: Chronic venous insufficiency H/O dysplastic nevus 02/09/2019 DX:H/O dysp lastic nevus History of CVA (cerebrovascu lar accident) DX:History of CVA (cerebrova scular accident) HTN (hypertension) DX:HTN (hyper tension) Hyperlipidemia 04/26/2019 DX:Hyperlipidemi a Family History Medical History Relation Name Comments Other: CVD Father Relation Name Status Comments Father Mother Alive Social History Tobacco Use Types Packs/Day Years Used Date Smoking Tobacco: Never Smokeless Tobacco: Never Sex and Gender Information Value Date Recorded Sex Assigned at Male 01/14/2025 5:47 PM EDT Legal Sex Male 1:47 PM EST Gender Identity Male 01/14/2025 5:47 PM EDT Sexual Orientation Straight 01/14/2025 5: 47 PM EDT Obstetrics History Last Filed Vital Signs Vital Sign Reading Time Taken Comments Blood Pressure 153/96 01/14/2025 8:45 PM EDT Pulse 96 01/14/2025 8:45 PM EDT Temperature 37.3 ??C (99.1 ??F) 01/14/2025 8:45 PM ED T Respiratory Rate 17 01/14/2025 8:45 PM EDT Oxygen Saturation 94% 01/14/2025 8:45 PM EDT Inhaled Oxygen Concentration - - Weight 95.3 kg (210 lb) 01/14/2025 3:37 PM EDT Height 162.6 cm (5' 4 ) 01/14/2025 3:37 PM EDT Body Mass Index 36.05 01/14/2025 3:37 PM EDT Plan of Treatment Health Maintenance Due Date Last Done Comments Zoster Vaccines (1 of 2) 2002 Pneumococcal Vaccine: 50+ Years (2 of 2 - PCV) 07/30/2017 07/30/2016 Influenza Vaccine (#1) 2024 3, 08/17/2022, 08/28/2021, Additional history exists Cholesterol Screening (Lipid Panel) 01/14/2025 Colorectal Cancer Screening: Colonoscopy 01/14/2025 Depression Screening 01/14/2025 Falls Risk Assessment 01/14/2025 Hepatitis C Screening 01/14/2025 Medicare Annual Wellness Visit 01/14/2025 Social Influencers of Health Screening 01/14/2025 Hypertension/CHF/CAD Annual BMP Blood Test 01/14/2026 01/14/2025 DTaP,Tdap,and Td Vaccines (3 - Td or Tdap) 04/02/2032 04/02/2022, 01/24/2010 RSV Immunization Patients 60+ Years Old Completed 11/30/2023 COVID-19 Vaccine Completed 09/29/2024, , 08/22/2022, Additional history exists HIB Vaccines Aged Out No longer eligi ble based on patient's age to complete this topic HPV Vaccines Aged Out No longer eligi ble based on patient's age to complete this topic Hepatitis A Vaccines Aged Out No long er eligible based on patient's age to complete this topic Hepatitis B Vaccines Aged Out No long er eligible based on patient's age to complete this topic IPV Vaccines Aged Out No longer eligi ble based on patient's age to complete this topic MMR Vaccines Aged Out No longer eligi ble based on patient's age to complete this topic Meningococcal ACWY Vaccine Aged Out N o longer eligible based on patient's age to complete this topic Meningococcal B Vacine Aged Out No lo nger eligible based on patient's age to complete this topic RSV Immunization Patients Under 20 months Aged Out No longer eligible based on patient's age to complete this topic Varicella Vaccines Aged Out No longer eligible based on patient's age to complete this topic Procedures Procedure Name Priority Date/Time Associated Diagnosis Comments [id number], RSV, FLU A AND B QUALITATIVE RT-PCR, INTERNAL LAB STAT 01/14/2025 3:50 PM EDT CBC WITH AUTO DIFFERENTIAL STAT 01/14/2025 3:49 PM EDT COMPREHENSIVE METABOLIC PANEL STAT 01/14/2025 3:49 PM EDT CBC AND DIFFERENTIAL STAT 01/14/2025 3:49 PM EDT from Last 3 Months Results * [id number], RSV, Influenza A and B qualitative RT-PCR (01/14/2025 3:50 PM EDT) Influenza A PCR Not Detected Not Detected LAB MICROBIOLOGY METHOD 01/14/2025 4:41 PM EDT [facility] Influenza B PCR Not Detected Not Detected LAB MICROBIOLOGY METHOD 01/14/2025 4:41 PM EDT [facility] RSV PCR Not Detected Not Detected LAB MICROBIOLOGY METHOD 01/14/2025 4:41 PM EDT [facility] SARS COV-2 Not Detected Not Detected LAB MICROBIOLOGY METHOD 01/14/2025 4:41 PM EDT [facility] Swab Both anterior nares / Unknown Non-blood Collection / Unknown 01/14/2025 3:50 PM EDT 01/14/2025 3:57 PM EDT Narrative [facility] - 01/14/2025 4:41 PM EDT Disclaimer: ??Testing was performed using the [employer] GeneXpert Xpress SARS-CoV-2 _Flu_RSV PLUS PCR assay. ??The manner in which this information is used to guide patient care is the responsibility of the healthcare provider. ??Results should be correlated with the clinical history, epidemiological data, and other data available to the clinician evaluating the patient. ??Negative results do not preclude infection. ??This test has been authorized by the FDA under an Emergency Use Authorization (EUA). ??This test is only authorized for the duration of time the declaration that circumstances exist justifying the authorization of the emergency use of in vitro diagnostic tests for detection of SARS-CoV-2 virus and/or diagnosis of COVID-19 infection under section 564 (b) (1) of the Act, 21 U.S.C 360bbb-3 (b) (1), unless the authorization is terminated or revoked sooner. ?? Reference Range: Not Detected Fact sheet for Healthcare providers can be found at https://www.fda.gov/media/802676/download. ?? Fact sheet for Healthcare patients can be found at https://www.fda.gov/media/293756/download. Altagracia Wren DO LAB MICROBIOLOGY - GENERA L ORDERABLES Final Result [facility] [address] [place] [address], * (ABNORMAL) CBC auto differential (01/14/2025 3:49 PM EDT) WBC 10.0 4.8 - 10.8 K/mcL LAB HEMETOLOGY METHOD 01/14/2025 4:08 PM [facility] RBC 5.00 4.50 - 5.50 M/mcL LAB HEMETOLOGY METHOD 01/14/2025 4:08 PM [facility] Hemoglobin 14.5 13.5 - 17.5 g/dL LAB HEMETOLOGY METHOD 01/14/2025 4:08 PM [facility] Hematocrit 43.9 42.0 - 54.0 % LAB HEMETOLOGY METHOD 01/14/2025 4:08 PM [facility] MCV 87.5 79.0 - 98.0 FL LAB HEMETOLOGY METHOD 01/14/2025 4:08 PM [facility] MCH 28.9 27.0 - 32.0 pcg LAB HEMETOLOGY METHOD 01/14/2025 4:08 PM [facility] MCHC 33.0 32.0 - 37.0 g/dL LAB HEMETOLOGY METHOD 01/14/2025 4:08 PM [facility] RDW 13.7 11.0 - 15.0 % LAB HEMETOLOGY METHOD 01/14/2025 4:08 PM [facility] Platelets 275 130 - 400 K/mcL LAB HEMETOLOGY METHOD 01/14/2025 4:08 PM [facility] MPV 9.3 7.0 - 11.0 FL LAB HEMETOLOGY METHOD 01/14/2025 4:08 PM [facility] NRBC 0.0 <1.0 % LAB HEMETOLOGY METHOD 01/14/2025 4:08 PM [facility] NRBC Absolute 0.00 <0.10 K/mcL LAB HEMETOLOGY METHOD 01/14/2025 4:08 PM [facility] Neutrophils Relative 96.5 % LAB HEMETOLOGY METHOD 01/14/2025 4:08 PM [facility] Lymphocytes Relative 0.7 % LAB HEMETOLOGY METHOD 01/14/2025 4:08 PM [facility] Monocytes Relative 2.2 % LAB HEMETOLOGY METHOD 01/14/2025 4:08 PM [facility] Eosinophils Relative 0.1 % LAB HEMETOLOGY METHOD 01/14/2025 4:08 PM [facility] Basophils Relative 0.1 % LAB HEMETOLOGY METHOD 01/14/2025 4:08 PM [facility] Immature Granulocytes Relative 0.4 % LAB HEMETOLOGY METHOD 01/14/2025 4:08 PM [facility] Neutrophils Absolute 9.62(H) 1.50 - 7.00 K/mcL LAB HEMETOLOGY METHOD 01/14/2025 4:08 PM [facility] Lymphocytes Absolute 0.07(L) 1.00 - 5.00 K/mcL LAB HEMETOLOGY METHOD 01/14/2025 4:08 PM [facility] Monocytes Absolute 0.22 0.20 - 1.00 K/mcL LAB HEMETOLOGY METHOD 01/14/2025 4:08 PM [facility] Eosinophils Absolute 0.01 0.00 - 0.50 K/mcL LAB HEMETOLOGY METHOD 01/14/2025 4:08 PM [facility] Basophils Absolute 0.01 0.00 - 0.20 K/mcL LAB HEMETOLOGY METHOD 01/14/2025 4:08 PM [facility] Immature Granulocytes Absolute 0.04(H) 0.00 - 0.03 K/mcL LAB HEMETOLOGY METHOD 01/14/2025 4:08 PM [facility] Blood Venous blood specimen / Unknown Venipuncture / Unknown 01/14/2025 3:49 PM EDT 01/14/2025 3:58 PM EDT Altagracia Wren DO LAB BLOOD ORDERABLES Adrianna l Result [facility] [address] [place] [address], [place] [phone] * (ABNORMAL) Comprehensive metabolic panel (01/14/2025 3:49 PM EDT) Pathologist [facility] Sodium 142 133 - 145 mmol/L LAB CHEMISTRY METHOD 01/14/2025 4:31 PM EDT [facility] Potassium 3.9 3.5 - 5.5 mmol/L LAB CHEMISTRY METHOD 01/14/2025 4:31 PM [facility] Chloride 107 96 - 110 mmol/L LAB CHEMISTRY METHOD 01/14/2025 4:31 PM [facility] CO2 27 21 - 32 mmol/L LAB CHEMISTRY METHOD 01/14/2025 4:31 PM [facility] Anion Gap 8 3 - 11 LAB CHEMISTRY METHOD 01/14/2025 4:31 PM [facility] Glucose 154(H) 70 - 100 mg/dL LAB CHEMISTRY METHOD 01/14/2025 4:31 PM [facility] BUN 32(H) 5 - 25 mg/dL LAB CHEMISTRY METHOD 01/14/2025 4:31 PM [facility] Creatinine 2.21(H) 0.70 - 1.30 mg/dL LAB CHEMISTRY METHOD 01/14/2025 4:31 PM [facility] eGFR 31(L) >=60 mL/min/1. 73m2 LAB CHEMISTRY METHOD 01/14/2025 4:31 PM [facility] Comment:Calculation based on the??Chronic Kidney Disease Epidemiology Collaboration (CKD-EPI) equation refit??without adjustment for race. BUN/Creatinine Ratio 14.5 LAB CHEMISTRY METHOD 01/14/2025 4:31 PM [facility] Calcium 8.9 8.5 - 10.5 mg/dL LAB CHEMISTRY METHOD 01/14/2025 4:31 PM [facility] AST (SGOT) 31 10 - 42 unit/L LAB CHEMISTRY METHOD 01/14/2025 4:31 PM [facility] ALT (SGPT) 34 10 - 60 unit/L LAB CHEMISTRY METHOD 01/14/2025 4:31 PM [facility] Alkaline Phosphatase 68 42 - 121 unit/L LAB CHEMISTRY METHOD 01/14/2025 4:31 PM [facility] Total Protein 6.8 6.0 - 8.0 g/dL LAB CHEMISTRY METHOD 01/14/2025 4:31 PM [facility] Albumin 3.7 3.2 - 5.0 g/dL LAB CHEMISTRY METHOD 01/14/2025 4:31 PM [facility] Total Bilirubin 1.0 0.0 - 1.4 mg/dL LAB CHEMISTRY METHOD 01/14/2025 4:31 PM [facility] Blood Venous blood specimen / Unknown Venipuncture / Unknown 01/14/2025 3:49 PM EDT 01/14/2025 3:58 PM EDT us Altagracia Wren DO LAB BLOOD ORDERABLES Adrianna l Result [facility] [address] [place] [address], [place] [phone] from Last 3 Months Insurance [facility] MEDICARE Care Teams Wood Cut Engraver Relationship Specialty Start Date End Date Bhavesh Arora MD [address] [place] [address] PCP - General Internal Medicine 01/14/25
--- OUTSIDE RECORDS SUMMARY | 2025-02-05 14:52 | XMS_ITS | Clinical Summary ---
Author Organization [facility] Address [address] [facility] [address] [place] [address] Phone Care Team Providers Care Us Marketing Director Name Role Phone Bhavesh Arora MD Primary Care Provider [phone] Allergies Active Allergy Reactions Criticality Noted Date [...] age to complete this topic Insurance MEDICARE [facility] MEDICARE [facility] Care Teams Us Marketing Director Relationship Specialty Start Date End Date Bhavesh Arora MD [address] [place] [address] PCP - General Internal Medicine 08/25/22
== END 2025-02-05 14:06 | disposition home or self-care (01) ==
LOC: HO.HMCH 13:10
PROVIDERS: PCP Internal Medicine; Visit Provider Internal Medicine
DX: I12.9 Hypertensive chronic kidney disease with stage 1 through stage 4 chronic kidney disease, or unspecified chronic kidney disease (principal); N18.30 Chronic kidney disease, stage 3 unspecified; E78.00 Pure hypercholesterolemia, unspecified; I63.9 Cerebral infarction, unspecified; Q61.3 Polycystic kidney, unspecified; R73.01 Impaired fasting glucose; E04.2 Nontoxic multinodular goiter; M10.00 Idiopathic gout, unspecified site; L40.9 Psoriasis, unspecified; E55.9 Vitamin D deficiency, unspecified; E87.6 Hypokalemia; R31.9 Hematuria, unspecified

== ENCOUNTER → 2025-02-05 13:10 | Outpatient (BNVA) | payer MEDICARE, SELFPAY | PROVIDERS: PCP Internal Medicine; Visit Provider Internal Medicine | DX: E78.5 Hyperlipidemia, unspecified (principal); Q61.3 Polycystic kidney, unspecified; E78.00 Pure hypercholesterolemia, unspecified; I12.9 Hypertensive chronic kidney disease with stage 1 through stage 4 chronic kidney disease, or unspecified chronic kidney disease; N18.30 Chronic kidney disease, stage 3 unspecified; R73.01 Impaired fasting glucose; E04.2 Nontoxic multinodular goiter; L40.9 Psoriasis, unspecified; E55.9 Vitamin D deficiency, unspecified; E87.6 Hypokalemia; R31.9 Hematuria, unspecified; M51.360 Other intervertebral disc degeneration, lumbar region with discogenic back pain only; M10.00 Idiopathic gout, unspecified site; E66.9 Obesity, unspecified; Z68.36 Body mass index [BMI] 36.0-36.9, adult; Z86.73 Personal history of transient ischemic attack (TIA), and cerebral infarction without residual deficits | CPT/HCPCS: 96127; 99212 ==

== ENCOUNTER 2025-02-09 11:23 | Outpatient (AMB) | payer MEDICARE, SELFPAY ==
--- NOTE | 2025-02-09 11:29 | HO.NEPHOV ---
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 He has no flank pain, any fever, nausea, vomiting, hematuria. He is on multiple antihypertensive medications including losartan, hydralazine and diltiazem. His blood pressure control is quite optimal. He denies nausea, vomiting, diarrhea, chest pain, shortness of breath, hematuria. He tries to maintain good hydration. He feels well otherwise [facility] Medical History Psoriasis Lumbar degenerative disc disease Abscess of leg Pure hypercholesterolemia Onychomycosis Chronic kidney disease (CKD), stage III (moderate) Obesity (BMI 30-39.9) Hematuria Gait instability Vitamin D deficiency Hypokalemia Polycystic kidney disease Multiple thyroid nodules Impaired fasting glucose Cerebrovascular accident (CVA) Benign essential hypertension History of postoperative nausea Gout Thyroid nodule Renal cyst Benign prostatic hyperplasia CVA (cerebral vascular accident) COVID-19 virus antibody negative History of snoring Surgical History H/O partial thyroidectomy (~10/22/14) H/O arthroscopic knee surgery H/O varicose vein ligation and stripping Hx of colonoscopy (~08/2020) Family History Father Diabetes Mother Chronic mental illness Other Mental health problem Social History Household Members: None Housing: Apartment Do you presently have visiting nurse or other home services: No Alcohol intake: current Alcohol intake frequency: holidays/special occasions only Alcohol type: beer Patient Tobacco Use Status: Former Tobacco user e-Cigarette/Vaping Use: Former Use Second Hand Smoke Exposure: Yes Current occupational status: employed 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 Cognitive needs: No Hearing needs: No Vision needs: Yes (glasses) Review of Systems Const All systems reviewed & are unremarkable except as noted in HPI and below Physical Exam Const General: comfortable and no acute distress Orientation/consciousness: patient oriented x3 HEENT Head: Yes normocephalic Mouth: Normal oral and palatal mucosa present Eyes EOM: EOMs intact bilaterally Neck Neck: Yes supple Resp Auscultation: clear to auscultation bilaterally Cardio Jugular venous distension: no JVD Rate: regular rate GI Palpation (GI): Soft to palpation Auscultation: normal bowel sounds Skin General skin exam: no rashes or lesions noted Neuro General: patient oriented x3 and moves all extremities Extrem General: Yes no pedal edema Results Reviewed Nephrology Results: Hgb 13.4 g/dl (14.0-18.0) L 01/29/25 WBC 4.5 X10*3/uL (4.8-10.8) L 01/29/25 Plt Count 259 X10*3/uL (160-400) 01/29/25 Sodium 146 mmol/L (135-145) H 01/29/25 Potassium 3.8 mmol/L (3.3-5.1) 01/29/25 Chloride 111 mmol/L (96-108) H 01/29/25 Carbon Dioxide 30 mmol/L (22-29) H 01/29/25 BUN 30 mg/dL (9-16) H 01/29/25 Creatinine 2.00 mg/dL (0.5-1.4) H 01/29/25 Calcium 8.8 mg/dL (8.4-10.2) 01/29/25 Urine Protein 30 (1+) mg/dL (Neg-Trace) H 01/29/25 Assessment & Plan Assessment & Plan (1) Chronic kidney disease (CKD), stage III (moderate): Code(s): N18.30 - Chronic kidney disease, stage 3 unspecified Category: Medical Qualifiers: Chronic kidney disease stage 3 subtype: unspecified whether 3a or 3b Qualified Code(s): N18.30 - Chronic kidney disease, stage 3 unspecified (2) Polycystic kidney disease: Comment: MRI of the abdomen and pelvis done on 07/04/2019 revealed multiple bilateral renal cysts compatible with polycystic kidney disease Code(s): Q61.3 - Polycystic kidney, unspecified Category: Medical (3) Benign essential hypertension: Code(s): I10 - Essential (primary) hypertension Category: Medical Plan Wyatt has polycystic kidney disease. His renal function is close to baseline. His blood pressure is at goal. He is tolerating angiotensin receptor juvencio, dose of which I may back off if his serum creatinine worsens. He is not taking any nonsteroidal anti-inflammatories. His renal ultrasound showed a complex cyst which will need Urology follow up in the future. He may be a candidate for tolvaptan. Genetic studies for polycystic kidney disease has not been done for him. He is on statins. He tries to remain himself well hydrated . I did not make any medication changes today. All his questions were answered Orders: Orders Blood Urea Nitrogen 4 Months N18.30 - Chronic kidney disease, stage 3 unspecified Electrolytes 4 Months N18.30 - Chronic kidney disease, stage 3 unspecified Creatinine 4 Months N18.30 - Chronic kidney disease, stage 3 unspecified Coding Level of Care Code Est Pt Level 4 (41675) Diagnoses Stage 3 chronic kidney disease, unspecified whether stage 3a or 3b CKD N18.30 Chronic kidney disease stage 3 subtype: unspecified whether 3a or 3b Polycystic kidney disease Q61.3 Benign essential hypertension I10
[2025-02-09 11:30] VITALS: BP 140/90; PULSE 63; O2SAT 98; BMI 36.7
--- OUTSIDE RECORDS SUMMARY | 2025-02-09 13:20 | XMS_ITS | Clinical Summary ---
Author Organization [facility] Address [address] [place] [address] Care Team Providers Care Flow Machine Operator Name Role Phone Unavailable Primary Care Provider [...] (2 - Td or Tdap) 01/25/2020 010 [id number] (4 - season) 2024 02/21/2022, 09/06/2021, 01/07/2021 Imm-Influenza (#1) 2024 08/28/2021, 0 07/30/2020, 08/26/2018, Additional history exists Alcohol and Drug Screen 11/08/2024 Depression Annual Screen 11/08/2024 Insurance MEDICARE - [place]
--- OUTSIDE RECORDS SUMMARY | 2025-02-09 13:20 | XMS_ITS | Clinical Summary ---
Author Organization [facility] Address [address] [place] [address] Phone Care Team Providers Care Social Services Technician Name Role Phone Bhavesh Arora MD Primary Care Provider Allergies Active Allergy Reactions Criticality Noted Date Comments Penicillins Unknown 01/14/2025 Duspwlg-Ouy-Ktp Reductase Inhibitors Fatigue 01/14/2025 Medications ondansetron ODT (ZOFRAN-ODT) 4 mg disintegrating tablet Let 1 tablet dissolve under the tongue three times daily as needed for nausea or vomiting. 10 tablet 5 01/22/20 25 Active Problems No known active problems Encounters Date Type Department Care Team Description 01/14/2025 4:21 PM EDT - 01/14/2025 9:05 PM EDT Emergency [facility] Emergency [address] [place] [address] Vomiting and diarrhea (Primary Dx) Discharge Disposition: Home or Self Care from Last 3 Months Surgical History Surgery Date Site/Laterality Comments OTHER SURGICAL HISTORY PROCEDURE: [place] STAB PHLEBT VARICOSE VEINS 1 XTR 10-20 [...] PCV) 07/30/2017 07/30/2016 Influenza Vaccine (#1) 2024 , 08/17/2022, 08/28/2021, Additional history exists Cholesterol Screening (Lipid Panel) 01/14/2025 Colorectal Cancer Screening: Colonoscopy 01/14/2025 Depression Screening 01/14/2025 Falls Risk Assessment 01/14/2025 Hepatitis C Screening 01/14/2025 Medicare Annual Wellness Visit 01/14/2025 Social Influencers of Health Screening 01/14/2025 Hypertension/CHF/CAD Annual BMP Blood Test 01/14/2026 01/14/2025 DTaP,Tdap,and Td Vaccines (3 - Td or Tdap) 04/02/2032 04/02/2022, 01/24/2010 RSV Immunization Adult Patients Completed 11/30/2023 COVID-19 Vaccine Completed 09/29/2024, , [...] Procedure Name Priority Date/Time Associated Diagnosis Comments [id number], RSV, FLU A AND B QUALITATIVE RT-PCR, INTERNAL LAB STAT 01/14/2025 3:50 PM EDT CBC WITH AUTO DIFFERENTIAL STAT 01/14/2025 3:49 PM EDT COMPREHENSIVE METABOLIC PANEL STAT 01/14/2025 3:49 PM EDT CBC AND DIFFERENTIAL STAT 01/14/2025 3:49 PM EDT from Last 3 Months Results * [id number], RSV, Influenza A and B qualitative RT-PCR (01/14/2025 3:50 PM EDT) Influenza A PCR Not Detected Not Detected LAB MICROBIOLOGY METHOD 01/14/2025 4:41 PM EDT [facility] Influenza B PCR Not Detected Not Detected LAB MICROBIOLOGY METHOD 01/14/2025 4:41 PM EDT [facility] RSV PCR Not Detected Not Detected LAB MICROBIOLOGY METHOD 01/14/2025 4:41 PM EDT [facility] SARS COV-2 Not Detected Not Detected LAB MICROBIOLOGY METHOD 01/14/2025 4:41 PM EDT [facility] Swab Both anterior nares / Unknown Non-blood Collection / Unknown 01/14/2025 3:50 PM EDT 01/14/2025 3:57 PM EDT Narrative [facility] - 01/14/2025 4:41 PM EDT Disclaimer: ??Testing was performed using the [employer] GeneXpert Xpress SARS-CoV-2 _Flu_RSV PLUS PCR [...] for Healthcare providers can be found at https://www.fda.gov/media/342049/download. ?? Fact sheet for Healthcare patients can be found at https://www.fda.gov/media/306742/download. us Altagracia Wren DO LAB MICROBIOLOGY - GENERA L ORDERABLES Final Result [facility] [address] [place] [address], * (ABNORMAL) CBC auto differential (01/14/2025 3:49 PM EDT) Pathologist [facility] WBC 10.0 4.8 - 10.8 K/mcL LAB HEMETOLOGY METHOD 01/14/2025 4:08 PM [facility] RBC 5.00 4.50 - 5.50 M/mcL LAB HEMETOLOGY METHOD 01/14/2025 4:08 PM [facility] Hemoglobin 14.5 13.5 - 17.5 g/dL LAB HEMETOLOGY METHOD 01/14/2025 4:08 PM [facility] Hematocrit 43.9 42.0 - 54.0 % LAB HEMETOLOGY METHOD 01/14/2025 4:08 PM [facility] MCV 87.5 79.0 - 98.0 FL LAB HEMETOLOGY METHOD 01/14/2025 4:08 PM [facility] MCH 28.9 27.0 - 32.0 pcg LAB HEMETOLOGY METHOD 01/14/2025 4:08 PM [facility] MCHC 33.0 32.0 - 37.0 g/dL LAB HEMETOLOGY METHOD 01/14/2025 4:08 PM [facility] RDW 13.7 11.0 - 15.0 % LAB HEMETOLOGY METHOD 01/14/2025 4:08 PM [facility] Platelets 275 130 - 400 K/mcL LAB HEMETOLOGY METHOD 01/14/2025 4:08 PM [facility] MPV 9.3 7.0 - 11.0 FL LAB HEMETOLOGY METHOD 01/14/2025 4:08 PM [facility] NRBC 0.0 <1.0 % LAB HEMETOLOGY METHOD 01/14/2025 4:08 PM [facility] NRBC Absolute 0.00 <0.10 K/mcL LAB HEMETOLOGY METHOD 01/14/2025 4:08 PM [facility] Neutrophils Relative 96.5 % LAB HEMETOLOGY METHOD 01/14/2025 4:08 PM [facility] Lymphocytes Relative 0.7 % LAB HEMETOLOGY METHOD 01/14/2025 4:08 PM [facility] Monocytes Relative 2.2 % LAB HEMETOLOGY METHOD 01/14/2025 4:08 PM [facility] Eosinophils Relative 0.1 % LAB HEMETOLOGY METHOD 01/14/2025 4:08 PM [facility] Basophils Relative 0.1 % LAB HEMETOLOGY METHOD 01/14/2025 4:08 PM [facility] Immature Granulocytes Relative 0.4 % LAB HEMETOLOGY METHOD 01/14/2025 4:08 PM [facility] Neutrophils Absolute 9.62(H) 1.50 - 7.00 K/mcL LAB HEMETOLOGY METHOD 01/14/2025 4:08 PM [facility] Lymphocytes Absolute 0.07(L) 1.00 - 5.00 K/mcL LAB HEMETOLOGY METHOD 01/14/2025 4:08 PM [facility] Monocytes Absolute 0.22 0.20 - 1.00 K/mcL LAB HEMETOLOGY METHOD 01/14/2025 4:08 PM [facility] Eosinophils Absolute 0.01 0.00 - 0.50 K/mcL LAB HEMETOLOGY METHOD 01/14/2025 4:08 PM [facility] Basophils Absolute 0.01 0.00 - 0.20 K/mcL LAB HEMETOLOGY METHOD 01/14/2025 4:08 PM [facility] Immature Granulocytes Absolute 0.04(H) 0.00 - 0.03 K/mcL LAB HEMETOLOGY METHOD 01/14/2025 4:08 PM [facility] Blood Venous blood specimen / Unknown Venipuncture / Unknown 01/14/2025 3:49 PM EDT 01/14/2025 3:58 PM EDT us Altagracia Wren DO LAB BLOOD ORDERABLES Adrianna l Result [facility] [address] [place] [address], [place] [phone] * (ABNORMAL) Comprehensive metabolic panel (01/14/2025 3:49 PM EDT) Pathologist [facility] Sodium 142 133 - 145 mmol/L LAB CHEMISTRY METHOD 01/14/2025 4:31 PM EDT [facility] Potassium 3.9 3.5 - 5.5 mmol/L LAB CHEMISTRY METHOD 01/14/2025 4:31 PM [facility] Chloride 107 96 - 110 mmol/L LAB CHEMISTRY METHOD 01/14/2025 4:31 PM [facility] CO2 27 21 - 32 mmol/L LAB CHEMISTRY METHOD 01/14/2025 4:31 PM [facility] Anion Gap 8 3 - 11 LAB CHEMISTRY METHOD 01/14/2025 4:31 PM [facility] Glucose 154(H) 70 - 100 mg/dL LAB CHEMISTRY METHOD 01/14/2025 4:31 PM [facility] BUN 32(H) 5 - 25 mg/dL LAB CHEMISTRY METHOD 01/14/2025 4:31 PM [facility] Creatinine 2.21(H) 0.70 - 1.30 mg/dL LAB CHEMISTRY METHOD 01/14/2025 4:31 PM [facility] eGFR 31(L) >=60 mL/min/1. 73m2 LAB CHEMISTRY METHOD 01/14/2025 4:31 PM [facility] Comment:Calculation based on the??Chronic Kidney Disease Epidemiology Collaboration (CKD-EPI) equation refit??without adjustment for race. BUN/Creatinine Ratio 14.5 LAB CHEMISTRY METHOD 01/14/2025 4:31 PM T [facility] Calcium 8.9 8.5 - 10.5 mg/dL LAB CHEMISTRY METHOD 01/14/2025 4:31 PM [facility] AST (SGOT) 31 10 - 42 unit/L LAB CHEMISTRY METHOD 01/14/2025 4:31 PM [facility] ALT (SGPT) 34 10 - 60 unit/L LAB CHEMISTRY METHOD 01/14/2025 4:31 PM [facility] Alkaline Phosphatase 68 42 - 121 unit/L LAB CHEMISTRY METHOD 01/14/2025 4:31 PM [facility] Total Protein 6.8 6.0 - 8.0 g/dL LAB CHEMISTRY METHOD 01/14/2025 4:31 PM [facility] Albumin 3.7 3.2 - 5.0 g/dL LAB CHEMISTRY METHOD 01/14/2025 4:31 PM [facility] Total Bilirubin 1.0 0.0 - 1.4 mg/dL LAB CHEMISTRY METHOD 01/14/2025 4:31 PM [facility] Blood Venous blood specimen / Unknown Venipuncture / Unknown 01/14/2025 3:49 PM EDT 01/14/2025 3:58 PM EDT Altagracia Wren DO LAB BLOOD ORDERABLES Adrianna l Result [facility] [address] [place] [address], [place] [phone] from Last 3 Months Insurance [facility] MEDICARE Care Teams Social Services Technician Relationship Specialty Start Date End Date Bhavesh Arora MD [address] [place] [address] PCP - General Internal Medicine 01/14/25
--- OUTSIDE RECORDS SUMMARY | 2025-02-09 13:20 | XMS_ITS | Clinical Summary ---
Author Organization [facility] Address [address] [facility] [address] [place] [address] Phone Care Team Providers Care Adjunct Spanish Instructor Name Role Phone Bhavesh Arora MD Primary Care Provider [phone] Allergies Active Allergy Reactions Criticality Noted Date [...] Colorectal Cancer Screening: Sigmoidoscopy 2001 Influenza Vaccine (Season Ended) 2025 Hepatitis B Vaccine Aged Out No longe r eligible based on patient's age to complete this topic Insurance MEDICARE [facility] MEDICARE [facility] Care Teams Adjunct Spanish Instructor Relationship Specialty Start Date End Date Bhavesh Arora MD [address] [place] [address] PCP - General Internal Medicine 08/25/22
== END 2025-02-09 11:41 | disposition home or self-care (01) ==
LOC: HO.HKA 11:23
PROVIDERS: PCP Internal Medicine; Visit Provider Internal Medicine Nephrology
DX: N18.30 Chronic kidney disease, stage 3 unspecified (principal); Q61.3 Polycystic kidney, unspecified; I10 Essential (primary) hypertension
CPT/HCPCS: 99214

== ENCOUNTER → 2025-02-09 11:23 | Outpatient (BNVA) | payer MEDICARE, SELFPAY | PROVIDERS: PCP Internal Medicine; Visit Provider Internal Medicine Nephrology | DX: I12.9 Hypertensive chronic kidney disease with stage 1 through stage 4 chronic kidney disease, or unspecified chronic kidney disease (principal); N18.30 Chronic kidney disease, stage 3 unspecified; Q61.3 Polycystic kidney, unspecified; Z79.899 Other long term (current) drug therapy | CPT/HCPCS: 99212 ==

== ENCOUNTER 2025-03-17 13:27 | Outpatient (AMB) | payer MEDICARE, SELFPAY ==
--- NOTE | 2025-03-17 14:12 | MHC.OFFWIV ---
Intake Vital Signs 03/17/25 14:14 Height 54 ft Weight 216 lb BMI 0.4 BP 158/90 H Blood Pressure Location Rt brachial Position Sitting Respiration 15 Pulse 79 Pulse Source Pulse Oximeter Temp 98.0 F Temp Source Oral Pulse Oximetry (%) 96 Oxygen Delivery Method Room Air Intake Visit Reasons: EP-lt side of head pain Intake Note: Pt is here today c/o Lt side of head pain due to hitting side of cabinet this morning Patient Tobacco Use Status: Former Tobacco user Allergies Penicillins Allergy (Verified 02/09/25 11:30) Unknown irbesartan Adverse Reaction (Verified 02/09/25 11:30) Stomach Upset Medication List - Last Reconciled 03/17/25 by Jose Finch MD acetaminophen 500 mg PO Q4H PRN aspirin 81 mg PO DAILY atorvastatin 80 mg PO BEDTIME 90 days cholecalciferol (vitamin D3) 1,000 units PO DAILY clobetasol 0.05% 1 appl topical BEDTIME diltiazem HCl CD 240 mg PO QAM 90 days finasteride 5 mg PO DAILY 90 days hydralazine 50 mg (2 x 25 mg) PO BID 90 days losartan 50 mg PO DAILY 90 days potassium chloride ER 20 mEq PO DAILY 90 days HPI EP-lt side of head pain HPI Details Patient was opening his cabinet door and caught his eyebrow. Has an abrasion and contusion/bruise [facility] Medical History Psoriasis Lumbar degenerative disc disease Abscess of leg Pure hypercholesterolemia Onychomycosis Chronic kidney disease (CKD), stage III (moderate) Obesity (BMI 30-39.9) Hematuria Gait instability Vitamin D deficiency Hypokalemia Polycystic kidney disease Multiple thyroid nodules Impaired fasting glucose Cerebrovascular accident (CVA) Benign essential hypertension History of postoperative nausea Gout Thyroid nodule Renal cyst Benign prostatic hyperplasia CVA (cerebral vascular accident) COVID-19 virus antibody negative History of snoring Surgical History H/O partial thyroidectomy (~10/22/14) H/O arthroscopic knee surgery H/O varicose vein ligation and stripping Hx of colonoscopy (~08/2020) Family History Father Diabetes Mother Chronic mental illness Other Mental health problem Social History Household Members: None Housing: Apartment Do you presently have visiting nurse or other home services: No Alcohol intake: current Alcohol intake frequency: holidays/special occasions only Alcohol type: beer Patient Tobacco Use Status: Former Tobacco user e-Cigarette/Vaping Use: Former Use Second Hand Smoke Exposure: Yes Current occupational status: employed 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 bruising and ecchymosis around left eye no vision changes ENT Denies dizziness and Denies headache(s) Card Denies chest pain, Denies lightheadedness, Denies dyspnea and Denies other (Palpitations) Resp Denies cough, Denies dyspnea, Denies wheezing and Denies other ( shortness of breath) Musc Denies numbness and Denies tingling Neuro Denies dizziness, Denies headache(s), Denies numbness, Denies tingling, Denies paresthesias and Denies weakness Psych Denies anxiety and Denies depression Endo Denies fatigue Aller/Immun Denies wheezing Physical Exam Vital Signs: Last Vital Signs Temp 98.0 F 03/17/25 14:14 Pulse 79 03/17/25 14:14 Resp 15 03/17/25 14:14 BP 158/90 H 03/17/25 14:14 Pulse Ox 96 03/17/25 14:14 Oxygen Delivery Method Room Air 03/17/25 14:14 BMI result Body Mass Index 0.4 Const General: no acute distress and well developed Nutritional Appearance: well nourished Orientation/consciousness: patient oriented x3 HEENT Head: Yes normocephalic and Yes atraumatic Eyes Other: abrasion at left eyebrow without evidence of infection. Ecchymosis and hematoma around left eye globe is normal and pupil is round and reactive to light General: appearance normal, both eyes and all related structures Pupils: Equal, round and reactive pupils present EOM: EOMs intact bilaterally Resp Effort & Inspection: normal respiratory effort Auscultation: clear to auscultation bilaterally Cardio Rate: regular rate Rhythm: regular rhythm Heart sounds: S1 normal heart sound present, S2 normal heart sound present, no gallops, no murmurs and no rubs Neuro General: patient oriented x3 and gait normal Cranial nerves: Yes Equal, round and reactive pupils present Psych Affect: normal affect Assessment & Plan Assessment & Plan (1) Hematoma: Code(s): T14.8XXA - Other injury of unspecified body region, initial encounter Plan: abrasion and hematoma at left periorbital region no adverse effects to the globe of his eye no evidence of concussion. he is on aspirin but no other blood thinners. He can use cold packs for the hematoma he can use bacitracin and a Band-Aid for the abrasion at his left eyebrow this should resolve spontaneously call or return to the office if any dizziness, fatigue, headaches or vision changes. Or any other concerning symptoms. Coding Level of Care Code Est Pt Level 3 (76610) Diagnoses Hematoma T14.8XXA
[2025-03-17 14:14] VITALS: BP 158/90; PULSE 79; RESP 15; TEMP 36.7; O2SAT 96
== END 2025-03-17 15:11 | disposition home or self-care (01) ==
PROVIDERS: PCP Internal Medicine; Visit Provider Family Medicine
DX: T14.8XXA Other injury of unspecified body region, initial encounter (principal)

== ENCOUNTER → 2025-03-17 13:27 | Outpatient (BNVA) | payer MEDICARE, SELFPAY | PROVIDERS: PCP Internal Medicine; Visit Provider Family Medicine | DX: T14.8XXA Other injury of unspecified body region, initial encounter (principal) | CPT/HCPCS: 99212 ==

== ENCOUNTER 2025-03-17 20:00 | Emergency (ER) | payer MEDICARE, SELFPAY ==
[2025-03-17] VITALS (9 sets, daily range): BP systolic 130–205; BP diastolic 66–113; PULSE 0–109; RESP 0–28; TEMP -17.7–0; O2SAT 0–90; BMI 31.7
--- NOTE | ~2025-03-17 | CT_ITS ---
CLINICAL HISTORY: Head injury earlier in day, now with right facial --- Additional Notes or Special I nstructions: R O stroke versus bleed CT Head Without Contrast: Comparison: None Findings: Cortical sulci are symmetric Basal ganglia are unremarkable No shift in midline structures There is central left cerebellar hemisphere 2.4 cm intraparenchymal hemorrhage with mass effect and extrinsic narrowing of the 4th ventricle. The cerebellar tonsils are descended 5 mm below the the foramen magnum. Normal pituitary size Clear paranasal sinuses Unremarkable orbital structures No depressed fractures Impression: Left cerebellar hemisphere central hemorrhage with extrinsic incomplete compression of the 4th ventricle. There is mass effect with cerebellar tonsil herniation 5 mm below the inter margin of the foramen magnum This document has been electronically signed by: Jacobo James MD on 03/17/2025 20:35:38
--- NOTE | ~2025-03-17 | CT_ITS ---
CLINICAL HISTORY: Head injury earlier in day, now with right facial CTA HEAD, bolus contrast injection. 3D reconstructions and MPRs:: Comparison: Right Carotid Siphon: Right Anterior Cerebral Artery: A1 and A2 segments are unremarkable. There is peripheral cortical enhancement. Right Middle Cerebral Artery: M1 and M2 segments are unremarkable. There is peripheral cortical enhancement. Right Posterior Cerebral Artery: P1 and P2 segments are unremarkable. There is peripheral enhancement Left Carotid Siphon: Left Anterior Cerebral Artery: A1 and A2 segments are unremarkable. There is peripheral cortical enhancement. Left Middle Cerebral Artery: M1 and M2 segments are unremarkable. There is peripheral cortical enhancement. Left Posterior Cerebral Artery: P1 and P2 segments are unremarkable. There is peripheral cortical enhancement. Basilar Artery: Unremarkable Venous drainage: Normal. Impression: There is focal 2 cm hemorrhage centrally in the left cerebellar hemisphere. There is no enhancing lesion in this location. No signs of aneurysm. No signs of arterial venous malformation. CTA Neck , Bolus contrast injection, 3D reconstructions and MPRs: Comparison: None Findings: Soft tissues of the neck are unremarkable There is 4.2 cm fusiform dilatation of ascending aorta branch vessels are unremarkable Right carotid: No stenosis (NASCET) Right vertebral: No stenosis Left Carotid: No stenosis (NASCET) Left Vertebral: No stenosis Impression: No stenosis. No dissection Fusiform 4.2 cm ascending aortic aneurysm partially visualized. No dissection No aneurysm or dissection. The left lobe of the thyroid gland is enlarged with posterior hypodensity, consider nonurgent ultrasound. This document has been electronically signed by: Jacobo James MD on 03/17/2025 20:59:29
--- NOTE | 2025-03-17 20:02 | ECG_ITS ---
Test Reason : STROKE ALERT Blood Pressure : */* mmHG Vent. Rate : 88 BPM Atrial Rate : 88 BPM P-R Int : 178 ms QRS Dur : 100 ms QT Int : 400 ms P-R-T Axes : 25 -29 44 degrees QTcB Int : 484 ms Normal sinus rhythm Possible Lateral infarct , age undetermined Abnormal ECG When compared with ECG of 30-Dec-2023 18:01, Premature atrial complexes are no longer Present Nonspecific T wave abnormality no longer evident in Lateral leads Referred By: Reji Link Electronically Signed By: AG LANDEROS
--- NOTE | 2025-03-17 20:13 | PC.NURSE ---
#18 g iv line placed in LAC on ems stretcher, pt then brought immediately to ct scan,.
--- NOTE | 2025-03-17 20:17 | ED.NEUROSD ---
HPI - Neuro Symptoms/Deficit General Chief Complaint: Neuro Symptoms/Deficit Stated Complaint: stroke Time Seen by Provider: 03/17/25 20:02 Source: patient Mode of arrival: EMS Limitations: other (Dysarthric speech) History of Present Illness ED Provider: Dr. Reji Link HPI Narrative: 74-year-old male with a history of hypertension, CVA, chronic kidney disease, dyslipidemia, gout, hypercholesterolemia brought to emergency department by EMS for evaluation of possible stroke. The patient was evaluated on the secondary social studies teacher stretcher. Patient states that he tripped and fell earlier in the day at around 08:30 hours. He states that around 19:30 hours this evening, he developed slurred speech. He denied headache but did have nausea. Paramedics noted a right facial droop and called a stroke alert into the emergency department. On evaluation the patient did have dysarthric speech and a right facial droop. He had no focal weakness. Patient also has left periorbital ecchymosis which is consistent with his fall earlier in the day. Patient was sent directly to CT scan. CT scan without IV contrast did reveal an left-sided cerebellar parenchymal bleed with shift. Related Data Home Medications ?Medication ?Instructions ?Recorded ?Confirmed aspirin 81 mg tablet 81 mg PO DAILY 08/08/20 03/17/25 acetaminophen 500 mg tablet 500 mg PO Q4H PRN Pain 05/29/23 03/17/25 cholecalciferol (vitamin D3) 10 1,000 unit PO DAILY 01/31/24 03/17/25 mcg (400 unit) capsule Previous Rx's ?Medication ?Instructions ?Recorded finasteride 5 mg tablet 5 mg PO DAILY 90 days #90 tabs 05/05/24 clobetasol 0.05 % topical cream 1 appl topical BEDTIME #60 grams 08/02/24 atorvastatin 80 mg tablet 80 mg PO BEDTIME 90 days #90 tabs 10/30/24 diltiazem HCl 240 mg 240 mg PO QAM 90 days #90 caps 10/30/24 capsule,extended release 24 hr hydralazine 25 mg tablet 50 mg (2 x 25 mg) PO BID 90 days 10/30/24 #360 tabs losartan 50 mg tablet 50 mg PO DAILY 90 days #90 tabs 10/30/24 potassium chloride 20 mEq 20 meq PO DAILY 90 days #90 tabs 10/30/24 tablet,extended release Allergies Allergy/AdvReac Type Severity Reaction Status Date / Time Penicillins Allergy Unknown Verified 03/17/25 20:07 irbesartan AdvReac Stomach Verified 03/17/25 20:07 Upset [facility] Past Medical History [facility] Narrative: Social history: Patient lives alone. Patient denies tobacco, alcohol and drug use. Medical History Psoriasis Lumbar degenerative disc disease Abscess of leg Pure hypercholesterolemia Onychomycosis Chronic kidney disease (CKD), stage III (moderate) Obesity (BMI 30-39.9) Hematuria Gait instability Vitamin D deficiency Hypokalemia Polycystic kidney disease Multiple thyroid nodules Impaired fasting glucose Cerebrovascular accident (CVA) Benign essential hypertension History of postoperative nausea Gout Thyroid nodule Renal cyst Benign prostatic hyperplasia CVA (cerebral vascular accident) COVID-19 virus antibody negative History of snoring Surgical History H/O partial thyroidectomy (~10/22/14) H/O arthroscopic knee surgery H/O varicose vein ligation and stripping Hx of colonoscopy (~08/2020) Family History Family History Father Diabetes Mother Chronic mental illness Other Mental health problem Social History Social History Household Members: None Housing: Apartment Do you presently have visiting nurse or other home services: No Alcohol intake: current Alcohol intake frequency: holidays/special occasions only Alcohol type: beer Patient Tobacco Use Status: Former Tobacco user Smoked in Last 30 Days: No e-Cigarette/Vaping Use: Former Use Second Hand Smoke Exposure: Yes Use of substances other than those prescribed or required for medical reasons: No Advance Directives: No Advance Directives Information Provided: No Do you have a plan to hurt others: No Plan Current occupational status: employed 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 Cognitive needs: No Hearing needs: No Vision needs: Yes (glasses) Physical Exam Vital Signs: Vital Signs: Last Vital Signs Pulse 100 03/17/25 21:44 Resp 28 H 03/17/25 21:44 BP 131/72 03/17/25 21:44 Pulse Ox 86 L 03/17/25 21:44 O2 Del Method Room Air 03/17/25 21:44 BMI result Body Mass Index 31.7 Exam: General: Awake, somnolent but answering questions appropriately, patient has dysarthric but comprehensible speech, patient has right facial droop and left periorbital ecchymosis Head: Normocephalic, atraumatic EENT: PERRL, Lids normal, sclera normal, conjunctiva normal, nose normal , ears normal, throat without erythema or exudates Neck: Supple, no adenopathy Lung: breath sounds symmetric, no wheezing, rales or rhonchi Chest: symmetric movement, nontender Heart: regular rate and rhythm, normal S1, S2 no murmurs or rubs Abdomen: soft, non-tender, nondistended, normal bowel sounds Back: no vertebral tenderness, no CVAT Extremities: no deformities, moves all extremities symmetrically Neuro: General: Awake but somnolent, oriented to month and age, dysarthric speech Cranial nerves: Right facial droop Strength: Symmetric strength, able to hold upper extremity and lower extremities against gravity with no drift Cerebellar: Dysmetria with Past pointing on the left upper extremity, normal on the right Sensory: Symmetric response to noxious stimuli Psych: Pleasant, cooperative Medications Administered Generic Name Dose Route Start Last Admin Trade Name Freq PRN Reason Stop Dose Admin Nicardipine HCl 25 mg/ Sodium 250 mls @ 0 mls/hr 03/17/25 20:30 03/17/25 21:11 Chloride IVCONT 7.5 mg/hr .Q0M KENDRICK 75 mls/hr Titration Protocol Per Protocol Potassium Chloride 10 meq in 100 mls @ 100 mls/hr 03/17/25 21:30 03/17/25 21:41 Potassium Chloride/H20 IV 03/18/25 01:29 100 mls/hr Q1H KENDRICK Administration Discontinued Medications Generic Name Dose Route Start Last Admin Trade Name Freq PRN Reason Stop Dose Admin Iohexol 65 ml 03/17/25 20:26 03/17/25 20:27 Iohexol 350 Mg/Ml 100 Ml Infus..Btl IV 03/17/25 20:27 65 ml ONCE ONE Administration Ondansetron HCl 4 mg 03/17/25 21:46 03/17/25 21:50 Ondansetron Hcl 4 Mg/2 Ml Vial IVPUSH 03/17/25 21:47 4 mg ONCE ONE Administration Medical Decision Making Medical Decision Making [facility] Narrative: 74-year-old male with a history of hypertension, CVA, chronic kidney disease, dyslipidemia, gout, hypercholesterolemia brought to emergency department by EMS for evaluation of possible stroke. The patient was evaluated on the secondary social studies teacher stretcher. Patient states that he tripped and fell earlier in the day at around 08:30 hours. He states that around 19:30 hours this evening, he developed slurred speech. He denied headache but did have nausea. Paramedics noted a right facial droop and called a stroke alert into the emergency department. On evaluation the patient did have dysarthric speech and a right facial droop. He had no focal weakness. Patient also has left periorbital ecchymosis which is consistent with his fall earlier in the day. Patient was sent directly to CT scan. CT scan without IV contrast did reveal an left-sided cerebellar parenchymal bleed with shift. Blood pressure was 205/113. Heart rate was elevated 109. Physical examination did reveal left periorbital ecchymosis, right facial droop and dysarthric speech. Patient also had dysmetria of the left upper extremity with past pointing. Differential diagnosis: ?Includes but is not limited to stroke, intracranial bleed, hypertensive bleed, anemia, electrolyte abnormalities Course: 20:55 My interpretation patient's laboratory evaluation is as follows: Chronic normocytic anemia with an H&H of 13.6 and 39.8. Platelet count was normal 268,000. PT/INR and PTT were normal. That has pH was elevated at 7.45, pCO2 was 42 and bicarb was low at 30. Sodium elevated 146, potassium low 2.7, BUN creatinine elevated 31 and 2.04-consistent with a chronic kidney disease. Glucose elevated 173. Lactic acid elevated 2.5. Patient's 12 EKG revealed a sinus rhythm. CT scan of the brain did reveal a left-sided cerebellar bleed with shift and tonsillar herniation, please see the reading below. I did contact the [facility] transfer line and I am waiting to hear back from the trauma surgeon. 21:36 I did discuss the patient's presentation with the [facility] Emergency Department attending, Dr. Shaikh and she did accept the patient as an ED to ED transfer. The patient's potassium was low and I did order IV potassium 10 mEq over 1 hour. Patient's blood pressure did respond to the nicardipine drip and the patient's systolic blood pressures in the 140 range. The patient will be transferred to [facility] ED by secondary social studies teacher ALS ambulance. Admission/Observation Consideration of admission/observation: Escalation of care including admission/observation considered (Yes) Consult Healthcare Provider Management of the patient was discussed with: Workday Consultant ([facility], ED attending Dr. Shaikh) Lab Data MDM Lab Attestation statement: I reviewed the patient's lab results. 03/17/25 20:30 03/17/25 20:30 Labs: Lab Results 03/17/25 03/17/25 03/17/25 Range/Units 20:30 20:43 21:00 WBC 7.2 (4.8-10.8) X10*3/uL RBC 4.66 (4.60-5.80) X10*6/uL Hgb 13.6 L (14.0-18.0) g/dl Hct 39.8 L (42.0-52.0) % MCV 85.4 (80.0-98.0) fL MCH 29.2 (27.0-33.0) pg MCHC 34.2 (31.0-36.0) g/dl RDW 13.5 (11.0-16.0) % Plt Count 268 (160-400) X10*3/uL MPV 9.0 L (9.4-12.4) fL Immature Gran % (Auto) 0.3 (0.0-0.4) % Neut % (Auto) 76.3 H (45-73) % Lymph % (Auto) 13.0 L (20-40) % Summit % (Auto) 6.1 (2-11) % Eos % (Auto) 3.5 (0-4) % Baso % (Auto) 0.8 (0-2) % Lymph # (Auto) 0.9 L (1.2-4.9) X10*3/uL Summit # (Auto) 0.4 (0.1-1.2) X10*3/uL Eos # (Auto) 0.3 (0.0-0.4) X10*3/uL Baso # (Auto) 0.1 (0.0-0.2) X10*3/uL Abs Immat Gran (auto) 0.02 (0.00-0.03) X10*3/uL Absolute Neuts (auto) 5.5 (2.0-8.3) x10*3/uL Absolute Nucleated RBC 0.000 (0.0-0.012) X10*3/uL Nucleated RBC % (auto) 0.0 (0.0-0.2) /100WBC PT 11.5 (10.9-12.4) SEC INR 1.0 (0.9-1.1) APTT 31.5 (26.0-36.8) SEC VBG pH 7.45 H (7.32-7.43) VBG pCO2 42 mmHg VBG pO2 71 mmHg VBG HCO3 30 H (22-26) mmol/L VBG O2 Saturation 95.0 % VBG Base Excess 5.5 mmol/L Sodium 146 H (135-145) mmol/L Potassium 2.7 L* D (3.3-5.1) mmol/L Chloride 108 (96-108) mmol/L Carbon Dioxide 24 (22-29) mmol/L Anion Gap 17 (12-20) BUN 31 H (9-16) mg/dL Creatinine 2.04 H (0.5-1.4) mg/dL Estim Creat Clear Calc 37.6 Estimated GFR 32 Random Glucose 173 H (60-115) mg/dL Lactic Acid 2.5 H* (0.5-2.0) mmol/L Calcium 9.1 (8.4-10.2) mg/dL Troponin I High Sens 11.7 (<3.5-35.0) ng/L Triglycerides 72 (<150) mg/dL Cholesterol 110 (<200) mg/dL LDL Cholesterol, Calc 55 (<100) mg/dL HDL Cholesterol 41 (>40) mg/dL Hold Yellow Top See Note Ethyl Alcohol < 10 mg/dL Influenza Type A (PCR) NEGATIVE (Negative) Influenza Type B (PCR) NEGATIVE (Negative) RSV RNA Qual (PCR) NEGATIVE (Negative) SARS-CoV-2 RNA (RT-PCR) NEGATIVE (Negative) Independent Interpretation I performed an independent interpretation of an: EKG Interpretation: My independent interpretation patient's 12 lead EKG done on 03/17/2025 at 20:36 hours is as follows: Normal sinus rhythm rate of 88, normal NJ interval, QRS duration is prolonged 100 milliseconds, QTC interval is prolonged at 484 milliseconds. No significant T-wave abnormalities, no significant ST segment elevation or depression. Radiology Impression Discussion of test interpretation with radiology: I have reviewed the radiologist's reading. NIH Stroke Scale Internal: Initial- Upon Arrival Level of Consciousness: Alert Level of Consciousness Questions: Answers both questions correctly Level of Consciousness Commands: Performs both tasks correctly Best Gaze: Normal Visual: No visual loss Facial Palsy: Partial paralysis Motor Arm (Right): No drift Motor Arm (Left): No drift Motor Leg (Right): No drift Motor Leg (Left): No drift Limb Ataxia: Present in one limb Sensory: Normal Best Language: No aphasia Dysarthia: Mild to moderate dysarthria Extinction and Inattention: No abnormality Score: 4 Critical Care Time Critical Care Time Critical Care Time: Yes Total Critical Care Time: 75 Attestation: Critical Care: The patient was critically ill with a high probability of imminent or life threatening deterioration. I spent greater than 30 minutes of discontinuous time evaluating the patient,delivering critical care at the bedside, discussing and evaluating pertinent data with consultants. Critical care time does not include time spent performing separately billable procedures or teaching. Total time spent performing critical care was 75 minutes. Discharge Plan Discharge Clinical Impression: Acute cerebellar hemorrhage, Tonsillar hernia into foramen magnum, Fall, Closed head injury Patient Disposition: [facility] Transfer Details: [facility] ED to ED transfer, [place]; attending physician Dr. Shaikh Prescriptions: No Action finasteride 5 mg tablet 5 mg PO DAILY 90 Days Qty: 90 3RF aspirin 81 mg Tablet 81 mg PO DAILY acetaminophen 500 mg Tablet 500 mg PO Q4H PRN (Reason: Pain) cholecalciferol (vitamin D3) 10 mcg (400 unit) capsule 1,000 unit PO DAILY potassium chloride 20 mEq tablet extended release 20 meq PO DAILY 90 Days Qty: 90 3RF atorvastatin 80 mg tablet 80 mg PO BEDTIME 90 Days Qty: 90 3RF losartan 50 mg tablet 50 mg PO DAILY 90 Days Qty: 90 3RF diltiazem HCl 240 mg capsule,extended release 24hr 240 mg PO QAM 90 Days Qty: 90 1RF hydralazine 25 mg tablet 50 mg PO BID 90 Days Qty: 360 3RF clobetasol 0.05 % cream 1 appl topical BEDTIME Qty: 60 0RF Rx Instructions: For leg rash Print Language: Argentine
--- OUTSIDE RECORDS SUMMARY | 2025-03-17 20:26 | XMS_ITS | Clinical Summary ---
Author Organization [facility] Address [address] [facility] [address] [place] [address] Phone Care Team Providers Care Nursery Attendant Name Role Phone Bhavesh Arora MD Primary Care Provider [phone] Allergies Active Allergy Reactions Criticality Noted Date [...] Chronic kidney disease 11/26/2022 Hypertension 11/26/2022 Immunizations Immunization Administration Dates Next Due Moderna SARS-COV-2 02/21/2022 [...] Due Date Last Done Comments Pneumococcal Vaccine: 50+ Ye ars (1 of 2 - PCV) 1971 Colorectal Cancer Screening: Annual FOBT 2001 Colorectal Cancer Screening: Colonoscopy 2001 Colorectal Cancer Screening: Sigmoidoscopy 2001 Influenza Vaccine (Season Ended) 2025 Hepatitis B Vaccine Aged Out No longe r eligible based on patient's age to complete this topic Insurance Medicare [facility] Medicare [facility] Care Teams Nursery Attendant Relationship Specialty Start Date End Date Bhavesh Arora MD [address] [place] [address] PCP - General Internal Medicine 08/25/22
--- OUTSIDE RECORDS SUMMARY | 2025-03-17 20:26 | XMS_ITS | Clinical Summary ---
Author Organization [facility] Address [address] [place] [address] Care Team Providers Care Ladies' Hat Trimmer Name Role Phone Unavailable Primary Care Provider [...] (2 - Td or Tdap) 01/25/2020 010 [id number] (4 - season) 2024 02/21/2022, 09/06/2021, 01/07/2021 Imm-Influenza (#1) 2024 08/28/2021, 0 07/30/2020, 08/26/2018, Additional history exists Alcohol and Drug Screen 11/08/2024 Depression Annual Screen 11/08/2024 Insurance [place] - [place]
--- OUTSIDE RECORDS SUMMARY | 2025-03-17 20:26 | XMS_ITS | Clinical Summary ---
Author Organization [facility] Address [address] [place] [address] Phone Care Team Providers Care Follow Up Clerk Name Role Phone Bhavesh Arora MD Primary Care Provider [phone] Allergies Active Allergy Reactions Criticality Noted Date Comments Penicillins Unknown 01/14/2025 Wpaezjz-Dwa-Qvo Reductase Inhibitors Fatigue 01/14/2025 Medications No known medications Active Problems No known active problems Encounters Date Type Department Care Team Description 01/14/2025 4:21 PM EDT - 01/14/2025 9:05 PM EDT Emergency [facility] Emergency [address] [place] [address] Vomiting and diarrhea (Primary Dx) Discharge Disposition: Home or Self Care from Last 3 Months Surgical History Surgery Date Site/Laterality Comments OTHER SURGICAL HISTORY PROCEDURE: NC STAB PHLEBT VARICOSE VEINS 1 XTR 10-20 [...] (2 of 2 - PCV) 07/30/2017 07/30/2016 Cholesterol Screening (Lipid Panel) 01/14/2025 Colorectal Cancer Screening: Colonoscopy 01/14/2025 Depression Screening 01/14/2025 Falls Risk Assessment 01/14/2025 Hepatitis C Screening 01/14/2025 Medicare Annual Wellness Visit 01/14/2025 Social Influencers of Health Screening 01/14/2025 COVID-19 Vaccine ( season) 2025 09/29/2024, 04/24/2023, 08/22/2022, Additional history exists Influenza Vaccine (Season Ended) 2025 10/05/2023, 08/17/2022, 08/28/2021, Additional history exists Hypertension/CHF/CAD Annual BMP Blood Test 01/14/2026 01/14/2025 DTaP,Tdap,and Td Vaccines (3 - Td or Tdap) 04/02/2032 04/02/2022, 01/24/2010 RSV Immunization Adult Patients Completed 11/30/2023 HIB Vaccines Aged Out No longer eligi [...] age to complete this topic Meningococcal B Vaccine Aged Out No l onger eligible based on patient's age to complete this topic RSV Immunization Patients Under 20 months Aged Out No longer eligible based on patient's age to complete this topic Varicella Vaccines Aged Out No longer eligible based on patient's age to complete this topic Procedures Procedure Name Priority Date/Time Associated Diagnosis Comments [id number], RSV, FLU A AND B QUALITATIVE RT-PCR, INTERNAL LAB STAT 01/14/2025 3:50 PM EDT CBC WITH AUTO DIFFERENTIAL STAT 01/14/2025 3:49 PM EDT COMPREHENSIVE METABOLIC PANEL STAT 01/14/2025 3:49 PM EDT CBC AND DIFFERENTIAL STAT 01/14/2025 3:49 PM EDT from Last 3 Months Results * [id number], RSV, Influenza A and B qualitative RT-PCR (01/14/2025 3:50 PM EDT) Influenza A PCR Not Detected Not Detected LAB MICROBIOLOGY METHOD 01/14/2025 4:41 PM EDT [facility] Influenza B PCR Not Detected Not Detected LAB MICROBIOLOGY METHOD 01/14/2025 4:41 PM EDT [facility] RSV PCR Not Detected Not Detected LAB MICROBIOLOGY METHOD 01/14/2025 4:41 PM EDT [facility] SARS COV-2 Not Detected Not Detected LAB MICROBIOLOGY METHOD 01/14/2025 4:41 PM EDT [facility] Swab Both anterior nares / Unknown Non-blood Collection / Unknown 01/14/2025 3:50 PM EDT 01/14/2025 3:57 PM EDT Narrative [facility] - 01/14/2025 4:41 PM EDT Disclaimer: ??Testing was performed using the [employer] GeneXpert Xpress SARS-CoV-2 _Flu_RSV PLUS PCR assay. [...] for Healthcare providers can be found at https://www.fda.gov/media/542049/download. ?? Fact sheet for Healthcare patients can be found at https://www.fda.gov/media/231848/download. Altagracia Wren DO LAB MICROBIOLOGY - GENERA L ORDERABLES Final Result [facility] [address] [place] [address], * (ABNORMAL) CBC auto differential (01/14/2025 3:49 PM EDT) WBC 10.0 4.8 - 10.8 K/[facility] LAB HEMETOLOGY METHOD 01/14/2025 4:08 PM EDT [facility] RBC 5.00 4.50 - 5.50 [...] DO LAB BLOOD ORDERABLES Adrianna l Result [facility] [address] [place] [address], * (ABNORMAL) Comprehensive metabolic panel (01/14/2025 3:49 PM EDT) Sodium 142 133 - 145 mmol/L LAB CHEMISTRY METHOD 01/14/2025 4:31 PM EDT [facility] Potassium 3.9 3.5 - 5.5 mmol/L LAB CHEMISTRY METHOD 01/14/2025 4:31 PM EDT [facility] Chloride 107 96 - 110 mmol/L LAB CHEMISTRY METHOD 01/14/2025 4:31 PM [facility] CO2 27 21 - 32 mmol/L LAB CHEMISTRY METHOD 01/14/2025 4:31 PM [facility] Anion Gap 8 3 - 11 LAB CHEMISTRY [facility] Glucose 154(H) 70 - 100 mg/dL LAB CHEMISTRY METHOD 01/14/2025 4:31 PM [facility] BUN 32(H) 5 - 25 mg/dL LAB CHEMISTRY METHOD 01/14/2025 4:31 PM [facility] Creatinine 2.21(H) 0.70 - 1.30 mg/dL LAB CHEMISTRY METHOD 01/14[facility]2025 4:[facility] eGFR 31(L) >=60 mL/min/1. 73m2 LAB CHEMISTRY METHOD 01/14/2025 4:31 PM [facility] Comment:Calculation based on the??Chronic Kidney Disease Epidemiology Collaboration (CKD-EPI) equation refit??without adjustment for race. BUN/Creatinine Ratio 14.5 LAB CHEMISTRY METHOD 01/14/2025 4:31 PM [facility] Calcium 8.9 8.5 - 10.5 mg/dL LAB CHEMISTRY METHOD 01/14/2025 4:31 PM EDT [facility] AST (SGOT) 31 10 - 42 unit/L LAB CHEMISTRY METHOD 01/14/2025 4:31 PM EDT [facility] ALT (SGPT) 34 10 - 60 unit/L LAB CHEMISTRY METHOD 01/14/2025 4:31 PM EDT [facility] Alkaline Phosphatase 68 42 - 121 unit/L LAB CHEMISTRY METHOD 01/14/2025 4:31 PM EDT [facility] Total Protein 6.8 6.0 - 8.0 g/dL LAB CHEMISTRY METHOD 01/14/2025 4:31 PM EDT [facility] Albumin 3.7 3.2 - 5.0 g/dL LAB CHEMISTRY METHOD 01/14/2025 4:[facility] Total Bilirubin 1.0 0.0 - 1.4 mg/dL LAB CHEMISTRY METHOD 01/14/2025 4:31 PM EDT [facility] Blood Venous blood specimen / Unknown Venipuncture / Unknown 01/14/2025 3:49 PM EDT 01/14/2025 3:58 PM EDT Donovan Vazquez Wren DO LAB BLOOD ORDERABLES Adrianna l Result Performing Organization Address City/State/[facility] Co de Phone Number [facility] [address] [place] [address], from Last 3 Months Insurance [facility] MEDICARE Care Teams Follow Up Clerk Relationship Specialty Start Date End Date Bhavesh Arora MD [address] [place] [address] PCP - General Internal Medicine 01/14/25
[2025-03-17] MEDS: iohexoL 350 MG/ML 100 ML INFUS..BTL 65 ML IV (20:27)
[2025-03-17] MEDS: niCARdipine HCL 25 MG in 0.9 % Sodium Chloride 240 ML 50 MG IVCONT (20:35)
[2025-03-17 20:40] LABS: MANUAL DIFF FLAG NO
[2025-03-17 20:43] LABS: Basophils Absolute Auto 0.1 X10*3/uL (0.0-0.2); Basophils Percent Auto 0.8 % (0-2); Eosinophils Absolute Auto 0.3 X10*3/uL (0.0-0.4); Eosinophils Percent Auto 3.5 % (0-4); Hematocrit 39.8 % (42.0-52.0); Hemoglobin 13.6 g/dl (14.0-18.0); Imm Gran Abs Auto 0.02 X10*3/uL (0.00-0.03); Imm Gran Pct Auto 0.3 % (0.0-0.4); Lymphocytes Absolute Auto 0.9 X10*3/uL (1.2-4.9); Mean Corpuscular HGB Conc 34.2 g/dl (31.0-36.0); Mean Corpuscular Hemoglobin 29.2 pg (27.0-33.0); Mean Corpuscular Volume 85.4 fL (80.0-98.0); Monocytes Absolute Auto 0.4 X10*3/uL (0.1-1.2); Monocytes Percent Auto 6.1 % (2-11); Neutrophils Absolute Auto 5.5 x10*3/uL (2.0-8.3); Neutrophils Percent Auto 76.3 % (45-73); Platelet Count 268 X10*3/uL (160-400); Red Blood Count 4.66 X10*6/uL (4.60-5.80); Red Cell Distribution Width 13.5 % (11.0-16.0); White Blood Count 7.2 X10*3/uL (4.8-10.8)
--- NOTE | 2025-03-17 20:45 | PC.NURSE ---
pt brought back into ED room [address] scan, placed on cardiac monitor technician, ekg done, second iv line placed #18g LFA. pt helped with urinal.. full neuro exam complete at bedside by . [facility] called for possible tx for bleed pt able to answer all questions appropriately, right sided facial droop noted with some difficulty word finding / slurred speech. pt reporting dizziness, feeling like he is going to fall. MD aware.
--- NOTE | 2025-03-17 20:47 | PC.NURSE ---
no swallow screen indicated at this time per MD burrell as pt will likely go to surgery at [facility] left cerebellar bleed noted on ct scan
[2025-03-17 20:49] LABS: VBG Base Excess 5.5 mmol/L; VBG HCO3 30 mmol/L (22-26); VBG pCO2 42 mmHg; VBG pH 7.45 (7.32-7.43); VBG pO2 71 mmHg
[2025-03-17 20:50] LABS: Venous Blood Gas Refer to POC result
[2025-03-17 20:52] LABS: Prothrombin Time 11.5 SEC (10.9-12.4)
[2025-03-17 20:54] LABS: Partial Thromboplastin Time 31.5 SEC (26.0-36.8)
[2025-03-17 20:55] LABS: Stroke Lab Use COMPLETE
--- NOTE | 2025-03-17 21:01 | PC.NURSE ---
pt friend notified of patient's plan of care via phone call with MD burrell at bedside at the patient's request.
[2025-03-17 21:12] LABS: Troponin-I High Sensitivity 11.7 ng/L (<3.5-35.0)
[2025-03-17 21:17] LABS: Anion Gap 17 (12-20); Blood Urea Nitrogen 31 mg/dL (9-16); Calcium 9.1 mg/dL (8.4-10.2); Carbon Dioxide 24 mmol/L (22-29); Chloride 108 mmol/L (96-108); Cholesterol 110 mg/dL (<200); Creatinine Clr Calc Pharmacy 37.6; Estimated Glomerular Filt Rate 32; Ethanol < 10 mg/dL; Glucose Random 173 mg/dL (60-115); HDL Cholesterol 41 mg/dL (>40); LDL Cholesterol Calculated 55 mg/dL (<100); Potassium 2.7 mmol/L (3.3-5.1); Sodium 146 mmol/L (135-145); Triglycerides 72 mg/dL (<150)
[2025-03-17 21:18] LABS: Lactic Acid 2.5 mmol/L (0.5-2.0)
[2025-03-17] MEDS: Potassium Chloride/H20 10 MEQ/100 ML PIGGYBACK 100 MEQ IV (21:41)
--- NOTE | 2025-03-17 21:43 | PC.NURSE ---
pt c/o severe nausea, MD aware.
[2025-03-17 21:45] LABS: Influenza A PCR NEGATIVE (Negative); Influenza B PCR NEGATIVE (Negative); Resp Syncy Virus RNA Qual PCR NEGATIVE (Negative); SARS COV2 PCR INHOUSE NEGATIVE (Negative)
--- NOTE | 2025-03-17 21:49 | PC.NURSE ---
pt placed on 2L NC for O2 of 84% when at rest. Md Link aware. ordering zofran for nausea.
[2025-03-17] MEDS: ondansetron HCL 4 MG/2 ML VIAL IVPUSH (21:50)
--- NOTE | 2025-03-17 21:59 | PC.NURSE ---
This RN attempting to call [facility] ED x 2 for nurse to nurse report with no success
--- NOTE | 2025-03-17 22:04 | PC.NURSE ---
report called to [facility] ED
[2025-03-17 22:46] LABS: Reflex Lactate? Lactic Acid Added
[2025-03-19 14:05] LABS: Prothrombin Time Whole Bld POC 13.1 sec (11.1-13.5); ~PT, ~INR - Anti Coag Clinic 1.1 (0.9-1.1)
[2025-03-20 09:23] LABS: Glucose, Whole Blood 144 mg/dL (60-115)
== END 2025-03-18 07:00 | disposition short-term general hospital (02) ==
PROVIDERS: Emergency Provider Emergency Medicine Emergency Medical Services
DX: S06.37AA Contusion, laceration, and hemorrhage of cerebellum with loss of consciousness status unknown, initial encounter (principal); S06.A1XA Traumatic brain compression with herniation, initial encounter; R47.81 Slurred speech; R94.31 Abnormal electrocardiogram [ECG] [EKG]; R11.0 Nausea; R29.810 Facial weakness; D64.9 Anemia, unspecified; R29.704 NIHSS score 4; W01.0XXA Fall on same level from slipping, tripping and stumbling without subsequent striking against object, initial encounter; Y93.9 Activity, unspecified; Y92.9 Unspecified place or not applicable; Y99.8 Other external cause status; Z03.818 Encounter for observation for suspected exposure to other biological agents ruled out; Z79.899 Other long term (current) drug therapy; Z51.81 Encounter for therapeutic drug level monitoring; Z87.891 Personal history of nicotine dependence; Z86.73 Personal history of transient ischemic attack (TIA), and cerebral infarction without residual deficits
CPT/HCPCS: 0241U; 36415; 70450; 70496; 70498; 80048; 80061; 80307; 82803; 82947; 83605; 84484; 85025; 85610; 85730; 93005; 96365; 96375; 99212; 99285; J2404; J2405; J3480; Q9967

== ENCOUNTER → 2025-03-17 20:02 | Outpatient (BNV) | payer MEDICARE, SELFPAY | PROVIDERS: Emergency Provider Emergency Medicine Emergency Medical Services; Visit Provider Radiology Diagnostic Radiology | DX: E04.9 Nontoxic goiter, unspecified (principal); I61.4 Nontraumatic intracerebral hemorrhage in cerebellum; I71.21 Aneurysm of the ascending aorta, without rupture | CPT/HCPCS: 70450; 70496; 70498 ==

== ENCOUNTER → 2025-03-17 20:02 | Outpatient (BNV) | payer MEDICARE, SELFPAY | PROVIDERS: Emergency Provider Emergency Medicine Emergency Medical Services; Visit Provider Internal Medicine | DX: R94.31 Abnormal electrocardiogram [ECG] [EKG] (principal) | CPT/HCPCS: 93010 ==

== ENCOUNTER 2025-04-17 08:48 | Outpatient (REF) | payer MEDICARE, SELFPAY ==
[2025-04-17 10:06] LABS: Appearance Urine Clear; Color Urine Yellow; Glucose Urine UA Negative (Negative); Leukocyte Esterase Urine Negative (Negative); Nitrite Urine Negative (Negative); UMIC TRIGGER UACC YES; Urine Blood Negative (Negative); Urine Ketones Negative (Negative); Urine Protein 30 (1+) mg/dL (Neg-Trace)
[2025-04-17 10:13] LABS: Bacteria Urine None Seen (None Seen); Hyaline Casts Urine 0-2 /LPF (0-2); RBC Urine 0-2 /HPF (0-2); Squamous Epithelial Cell Urine 0-2 /HPF (0-2); WBC Urine 0-5 /HPF (0-5)
[2025-04-17 10:35] LABS: Anion Gap 11 (12-20); Blood Urea Nitrogen 29 mg/dL (9-16); Carbon Dioxide 30 mmol/L (22-29); Chloride 108 mmol/L (96-108); Estimated Glomerular Filt Rate 35; Potassium 3.3 mmol/L (3.3-5.1); Sodium 146 mmol/L (135-145)
== END 2025-04-17 08:49 | disposition home or self-care (01) ==
LOC: HO.LAB 08:48
PROVIDERS: Internal Medicine Nephrology; PCP Internal Medicine; Visit Provider Internal Medicine
DX: N18.30 Chronic kidney disease, stage 3 unspecified (principal); R30.0 Dysuria
CPT/HCPCS: 36415; 80051; 81001; 81003; 82565; 84520

== ENCOUNTER 2025-04-26 10:58 | Outpatient (AMB) | payer MEDICARE, SELFPAY ==
--- NOTE | 2025-04-26 11:35 | HO.NEPHOV ---
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 He had EVERETTE at that time but his serum creatinine is improving. He is on multiple antihypertensive medications. His blood pressure control is quite optimal. He denies nausea, vomiting, diarrhea, chest pain, shortness of breath, hematuria. He tries to maintain good hydration. [facility] Medical History Psoriasis Lumbar degenerative disc disease Abscess of leg Pure hypercholesterolemia Onychomycosis Chronic kidney disease (CKD), stage III (moderate) Obesity (BMI 30-39.9) Hematuria Gait instability Vitamin D deficiency Hypokalemia Polycystic kidney disease Multiple thyroid nodules Impaired fasting glucose Cerebrovascular accident (CVA) Benign essential hypertension History of postoperative nausea Gout Thyroid nodule Renal cyst Benign prostatic hyperplasia CVA (cerebral vascular accident) COVID-19 virus antibody negative History of snoring Surgical History H/O partial thyroidectomy (~10/22/14) H/O arthroscopic knee surgery H/O varicose vein ligation and stripping Hx of colonoscopy (~08/2020) Family History Father Diabetes Mother Chronic mental illness Other Mental health problem Social History Household Members: None Housing: Apartment Do you presently have visiting nurse or other home services: No Alcohol intake: current Alcohol intake frequency: holidays/special occasions only Alcohol type: beer Patient Tobacco Use Status: Former Tobacco user e-Cigarette/Vaping Use: Former Use Second Hand Smoke Exposure: Yes Current occupational status: employed 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 Cognitive needs: No Hearing needs: No Vision needs: Yes (glasses) Review of Systems Const All systems reviewed & are unremarkable except as noted in HPI and below Physical Exam Vital Signs: Last Vital Signs Pulse 61 04/26/25 11:39 BP 130/80 04/26/25 11:39 Pulse Ox 97 04/26/25 11:39 Oxygen Delivery Method Room Air 04/26/25 11:39 BMI result Body Mass Index 34.7 Const General: comfortable and no acute distress Orientation/consciousness: patient oriented x3 HEENT Head: Yes normocephalic Mouth: Normal oral and palatal mucosa present Eyes EOM: EOMs intact bilaterally Neck Neck: Yes supple Resp Auscultation: clear to auscultation bilaterally Cardio Jugular venous distension: no JVD Rate: regular rate GI Palpation (GI): Soft to palpation Auscultation: normal bowel sounds General: Yes no CVA tenderness Back/Spine/Pelvis Back: no CVA tenderness Skin General skin exam: no rashes or lesions noted Neuro General: patient oriented x3 and moves all extremities Results Reviewed Nephrology Results: Hgb, (14.0-18.0) 13.6 g/dl L 03/17/25 WBC, (4.8-10.8) 7.2 X10*3/uL 03/17/25 Plt Count, (160-400) 268 X10*3/uL 03/17/25 Sodium, (135-145) 146 mmol/L H 04/17/25 Potassium, (3.3-5.1) 3.3 mmol/L Δ 04/17/25 Chloride, (96-108) 108 mmol/L 04/17/25 Carbon Dioxide, (22-29) 30 mmol/L H 04/17/25 BUN, (9-16) 29 mg/dL H 04/17/25 Creatinine, (0.5-1.4) 1.90 mg/dL H 04/17/25 Calcium, (8.4-10.2) 9.1 mg/dL 03/17/25 Urine Protein, (Neg-Trace) 30 (1+) mg/dL H 04/17/25 Renal US 10/28/23 Assessment & Plan Assessment & Plan (1) Chronic kidney disease (CKD), stage III (moderate): Code(s): N18.30 - Chronic kidney disease, stage 3 unspecified Category: Medical Qualifiers: Chronic kidney disease stage 3 subtype: unspecified whether 3a or 3b Qualified Code(s): N18.30 - Chronic kidney disease, stage 3 unspecified (2) Benign essential hypertension: Code(s): I10 - Essential (primary) hypertension Category: Medical (3) Polycystic kidney disease: Comment: MRI of the abdomen and pelvis done on 07/04/2019 revealed multiple bilateral renal cysts compatible with polycystic kidney disease Code(s): Q61.3 - Polycystic kidney, unspecified Category: Medical Plan Wyatt has polycystic kidney disease. He had EVERETTE but has improved. His blood pressure is at goal. He is tolerating angiotensin receptor juvencio, dose of which I may back off if his serum creatinine worsens. He is not taking any nonsteroidal anti-inflammatories. His last renal ultrasound showed a complex cyst which will need Urology follow up in the future. Genetic studies for polycystic kidney disease has not been done for him ( has strong faimly H/O of PKD). He is on statins. I shall consider SGLT2 i for him in the future. He tries to remain himself well hydrated . I did not make any medication changes today. All his questions were answered Orders: Orders Blood Urea Nitrogen 3 Months I10 - Essential (primary) hypertension, N18.30 - Chronic kidney disease, stage 3 unspecified, Q61.3 - Polycystic kidney, unspecified Electrolytes 3 Months I10 - Essential (primary) hypertension, N18.30 - Chronic kidney disease, stage 3 unspecified, Q61.3 - Polycystic kidney, unspecified Creatinine 3 Months I10 - Essential (primary) hypertension, N18.30 - Chronic kidney disease, stage 3 unspecified, Q61.3 - Polycystic kidney, unspecified Coding Level of Care Code Est Pt Level 4 (66703) Diagnoses Stage 3 chronic kidney disease, unspecified whether stage 3a or 3b CKD N18.30 Chronic kidney disease stage 3 subtype: unspecified whether 3a or 3b Benign essential hypertension I10 Polycystic kidney disease Q61.3
[2025-04-26 11:39] VITALS: BP 130/80; PULSE 61; O2SAT 97; BMI 34.7
--- OUTSIDE RECORDS SUMMARY | 2025-04-26 12:34 | XMS_ITS | Clinical Summary ---
Author Organization [facility] Address [address] [facility] [address] [place] [address] Phone Care Team Providers Care Teacher Emotionally Impaired Name Role Phone Bhavesh Arora MD Primary Care Provider [phone] Allergies Active Allergy Reactions Criticality Noted Date [...] Mass Index - - Plan of Treatment Upcoming Encounters Date Type Department Care Team (Late st Contact Info) Description 06/13/2025 9:45 AM EDT Office Visit [facility] [address] [phone] Nicolette Rodriguez ARNP [address] [phone] Health Maintenance Due Date Last Done Comments Pneumococcal Vaccine: 50+ Ye ars (1 of 2 - PCV) 1971 Colorectal Cancer Screening: Annual FOBT 2001 Colorectal Cancer Screening: Colonoscopy 2001 Colorectal Cancer Screening: Sigmoidoscopy 2001 Influenza Vaccine (Season Ended) 2025 Hepatitis B Vaccine Aged Out No longe r eligible based on patient's age to complete this topic Insurance Medicare [facility] Medicare [facility] Care Teams Teacher Emotionally Impaired Relationship Specialty Start Date End Date Bhavesh Arora MD [address] [place] [address] PCP - General Internal Medicine 08/25/22
== END 2025-04-26 12:12 | disposition home or self-care (01) ==
LOC: HO.HKAS 10:58
PROVIDERS: PCP Internal Medicine; Visit Provider Internal Medicine Nephrology
DX: N18.30 Chronic kidney disease, stage 3 unspecified (principal); I10 Essential (primary) hypertension; Q61.3 Polycystic kidney, unspecified
CPT/HCPCS: 99214

== ENCOUNTER → 2025-04-26 10:58 | Outpatient (BNVA) | payer MEDICARE, SELFPAY | PROVIDERS: PCP Internal Medicine; Visit Provider Internal Medicine Nephrology | DX: I12.9 Hypertensive chronic kidney disease with stage 1 through stage 4 chronic kidney disease, or unspecified chronic kidney disease (principal); N18.30 Chronic kidney disease, stage 3 unspecified; Q61.3 Polycystic kidney, unspecified | CPT/HCPCS: 99212 ==

== ENCOUNTER 2025-04-27 12:22 | Outpatient (AMB) | payer MEDICARE, SELFPAY ==
--- NOTE | 2025-04-27 12:35 | MHC.PC.OV ---
Vital Signs 04/27/25 12:45 Height 5 ft 4.5 in Weight 204 lb 4 oz BMI 34.5 BP 130/80 Blood Pressure Location Lt brachial Position Sitting Pulse 63 Pulse Source Pulse Oximeter Temp 97.3 F Temp Source Temporal Artery Scan Pulse Oximetry (%) 98 Oxygen Delivery Method Room Air Intake Visit Reasons: [facility] 04/13 Leaf Sorter Required: No Accompanied by: Spouse Allergies Penicillins Allergy (Verified 04/27/25 12:46) Unknown irbesartan Adverse Reaction (Verified 04/27/25 12:46) Stomach Upset Medication List - Last Reconciled 04/27/25 by Antoinette Jackson NP atorvastatin 80 mg PO BEDTIME 10 days diltiazem HCl CD 240 mg PO QAM docusate sodium 100 mg PO Q12H finasteride 5 mg PO DAILY 90 days hydralazine 25 mg PO TID labetalol 300 mg PO BID losartan 50 mg PO BID meclizine 12.5 mg PO BID melatonin 6 mg PO BEDTIME PRN nystatin 1 appl topical BID sennosides (senna) 8.6 mg PO DAILY Tobacco use date assessed: 02/05/25 Fall risk assessment: No Falls in past year Last assessed Fall Risk: 04/27/25 Dental Screening Dental Screen Date: 02/05/25 HPI HPI Comments History of Present Illness Details 75 y/o Male patient who presents to the clinic today for SNF discharge F/U. He was admitted at [facility] on 03/29 - 04/11 for Physical therapy and OT. Pt suffered a Fall and injured his Brain - Left Cerebellar Hemorrhage and Increased IPH. ASA was discontinued for now, pending Neurology clearance. Hydralazine was increased to 75 mg and Labetolol increased to 300 mg BID. He is to f/u with Neurology outpatient - appontment in . Hospital recommended repeat MRI Brain with MARIA ESTHER in 6 weeks post-op, this is to be ordered done by Neurology. Pt is Temporarly living with his Sister in [place], [place]. He is requesting PT/OT and speech therapy be done in [place] at his sister's house due to lack of transportation. 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 Psoriasis Lumbar degenerative disc disease Abscess of leg Pure hypercholesterolemia Onychomycosis Chronic kidney disease (CKD), stage III (moderate) Obesity (BMI 30-39.9) Hematuria Gait instability Vitamin D deficiency Hypokalemia Polycystic kidney disease Multiple thyroid nodules Impaired fasting glucose Cerebrovascular accident (CVA) Benign essential hypertension History of postoperative nausea Gout Thyroid nodule Renal cyst Benign prostatic hyperplasia CVA (cerebral vascular accident) COVID-19 virus antibody negative History of snoring Surgical History H/O partial thyroidectomy (~10/22/14) H/O arthroscopic knee surgery H/O varicose vein ligation and stripping Hx of colonoscopy (~08/2020) Family History Father Diabetes Mother Chronic mental illness Other Mental health problem Social History Household Members: None Housing: Apartment Do you presently have visiting nurse or other home services: No Alcohol intake: current Alcohol intake frequency: holidays/special occasions only Alcohol type: beer Patient Tobacco Use Status: Former Tobacco user e-Cigarette/Vaping Use: Former Use Second Hand Smoke Exposure: Yes service: No Current occupational status: employed 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 Dilip Tian, Mirna Banuelos, Juan Lipscomb and colleagues, with an educational attila from [employer]. Review of Systems Const All systems reviewed & are unremarkable except as noted in HPI and below Neuro Reports Abnormal speech present Physical exam (Primary Care) Vital Signs: Last Vital Signs Temp 97.3 F 04/27/25 12:45 Pulse 63 04/27/25 12:45 BP 130/80 04/27/25 12:45 Pulse Ox 98 04/27/25 12:45 Oxygen Delivery Method Room Air 04/27/25 12:45 BMI result Body Mass Index 34.5 Tobacco/Smoking Status: Tobacco use Status Tobacco use date assessed 02/05/25 04/27/25 12:35 Patient Tobacco Use Status Former Tobacco user 04/27/25 12:35 e-Cigarette/Vaping Use Former Use 04/27/25 12:35 Thrive Assessment: Date of Thrive Assessment Date Thrive assessed 02/05/25 04/27/25 12:35 Const General: no acute distress Nutritional Appearance: overweight Orientation/consciousness: patient oriented x3 Limitations: ambulation with walker Resp Effort & Inspection: normal respiratory effort Auscultation: clear to auscultation bilaterally Cardio Heart sounds: S1 normal heart sound present and S2 normal heart sound present Neuro General: patient oriented x3 and moves all extremities Cognition (Neuro): normal cognition Speech: Abnormal speech present slurred and stuttering Gait exam (Neuro): Assisted gait required Gait assisted method: walker Motor exam (neuro): Abnormal motor strength present (Left sided weakness) Psych Affect: normal affect Attitude: cooperative Coding Level of Care Code Est Pt Level 4 (38170) Diagnoses Intraparenchymal hematoma of left side of brain due to trauma, with unknown loss of consciousness status, initial encounter S06.32AA Encounter type: initial encounter Laterality: left Loss of consciousness presence/duration: unknown LOC status Benign essential hypertension I10 Time Spent (min) 20 Assessment & Plan Assessment & Plan (1) 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: Code(s): S06.33AA - Contusion and laceration of cerebrum, unspecified, with loss of consciousness status unknown, initial encounter Category: Medical Qualifiers: Encounter type: initial encounter Laterality: left Loss of consciousness presence/duration: unknown LOC status Qualified Code(s): S06.32AA - Contusion and laceration of left cerebrum with loss of consciousness status unknown, initial encounter Plan: Appointment with [facility] Jul 2025. Amended the original [facility]NA order to reflect location change. (2) Benign essential hypertension: Code(s): I10 - Essential (primary) hypertension Category: Medical Plan: Labetalol and hydrazine increased. Orders: [facility]errals [facility] Referral R26.81 - Unsteadiness on feet, R47.9 - Unspecified speech disturbances, S06.32AA - Contusion and laceration of left cerebrum with loss of consciousness status unknown, initial encounter Medications: New labetalol 300 mg PO BID 30 tabs 0RF I10 - Essential (primary) hypertension Changed From diltiazem HCl CD 240 mg PO QAM 10 days 10 caps 0RF I10 - Essential (primary) hypertension To diltiazem HCl CD 240 mg PO QAM 30 caps 0RF I10 - Essential (primary) hypertension
[2025-04-27 12:45] VITALS: BP 130/80; PULSE 63; TEMP 36.3; O2SAT 98; BMI 34.5
== END 2025-04-27 14:20 | disposition home or self-care (01) ==
LOC: HO.HMCH 12:23
PROVIDERS: PCP Internal Medicine; Visit Provider Nurse Practitioner Family
DX: S06.32AA Contusion and laceration of left cerebrum with loss of consciousness status unknown, initial encounter (principal); I10 Essential (primary) hypertension

== ENCOUNTER → 2025-04-27 12:22 | Outpatient (BNVA) | payer MEDICARE, SELFPAY | PROVIDERS: PCP Internal Medicine; Visit Provider Nurse Practitioner Family | DX: S06.32 Contusion and laceration of left cerebrum (principal); I10 Essential (primary) hypertension | CPT/HCPCS: 99212 ==

== ENCOUNTER 2025-06-07 09:10 | Outpatient (REF) | payer MEDICARE, SELFPAY ==
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
--- OUTSIDE RECORDS SUMMARY | 2025-06-07 09:28 | XMS_ITS | Clinical Summary ---
Author Organization [facility] Address [address] [facility] [address] [place] [address] Phone Care Team Providers Care Heat Treat Worker Name Role Phone Bhavesh Arora MD Primary Care Provider [phone] Allergies Active Allergy Reactions Criticality Noted Date [...] Office Visit [facility] [address] [phone] Nicolette Rodriguez ARNP [address] [phone] Health Maintenance Due Date Last Done Comments Pneumococcal Vaccine: 50+ Ye ars (1 of 2 - PCV) 1971 Colorectal Cancer Screening: Annual FOBT 2001 Colorectal Cancer Screening: Colonoscopy 2001 Colorectal Cancer Screening: Sigmoidoscopy 2001 Influenza Vaccine (#1) 2025 Hepatitis B Vaccine Aged Out No longe r eligible based on patient's age to complete this topic Insurance Medicare [facility] Medicare [facility] Care Teams Heat Treat Worker Relationship Specialty Start Date End Date Bhavesh Arora MD [address] [place] [address] PCP - General Internal Medicine 08/25/22
--- OUTSIDE RECORDS SUMMARY | 2025-06-07 09:28 | XMS_ITS | Clinical Summary ---
Author Organization [facility] Address [address] [place] [address] Care Team Providers Care Auto Specialty Services Manager Name Role Phone Unavailable Primary Care Provider [...] Aneurysm Screening 2017 Falls Prevention 2017 Imm-Pneumococcal 50+ (2 of 2 - PCV) 07/30/2017 07/30/2016 Imm-DTaP/Tdap/Td (2 - Td or Tdap) 01/25/2020 010 [id number] (4 - season) 2024 02/21/2022, 09/06/2021, 01/07/2021 Alcohol and Drug Screen 11/08/2024 Depression Annual Screen 11/08/2024 Imm-Influenza (#1) 2025 08/28/2021, 0 07/30/2020, 08/26/2018, Additional history exists Insurance [place]ICARE - [place]
[2025-06-07 09:36] LABS: MANUAL DIFF FLAG NO
[2025-06-07 10:25] LABS: Hematocrit 39.2 % (42.0-52.0); Hemoglobin 13.1 g/dl (14.0-18.0); Hemoglobin A1C 116.7554 umol/L; Imm Gran Abs Auto 0.02 X10*3/uL (0.00-0.03); Imm Gran Pct Auto 0.4 % (0.0-0.4); Lymphocytes Absolute Auto 0.6 X10*3/uL (1.2-4.9); Mean Corpuscular HGB Conc 33.4 g/dl (31.0-36.0); Mean Corpuscular Hemoglobin 28.3 pg (27.0-33.0); Mean Corpuscular Volume 84.7 fL (80.0-98.0); NRBC Abs Auto 0.000 X10*3/uL (0.0-0.012); NRBC Pct Auto 0.0 /100WBC (0.0-0.2); Platelet Count 287 X10*3/uL (160-400); Red Blood Count 4.63 X10*6/uL (4.60-5.80); Total Hemoglobin (HGBA1C) 3469.9618 umol/L; White Blood Count 5.6 X10*3/uL (4.8-10.8)
[2025-06-07 10:31] LABS: Appearance Urine Clear; Glucose Urine UA Negative (Negative); PH 7.5 (5.0-9.0); Specific Gravity - Urine 1.010 (1.005-1.025); UMIC TRIGGER UACC YES
[2025-06-07 11:01] LABS: Blood Urea Nitrogen 27 mg/dL (9-16)
[2025-06-07 11:03] LABS: Alanine Aminotransferase 18 U/L (0-40); Albumin Level 4.2 g/dL (3.5-5.0); Alkaline Phosphatase 64 U/L (39-117); Anion Gap 12 (12-20); Aspartate Amino Transferase 25 U/L (5-37); Blood Urea Nitrogen 27 mg/dL (9-16); Calcium 9.7 mg/dL (8.4-10.2); Carbon Dioxide 28 mmol/L (22-29); Chloride 107 mmol/L (96-108); Cholesterol 109 mg/dL (<200); Estimated Glomerular Filt Rate 35; HDL Cholesterol 36 mg/dL (>40); Potassium 3.3 mmol/L (3.3-5.1); Sodium 144 mmol/L (135-145); Total Protein 6.5 g/dL (6.5-8.0); Triglycerides 97 mg/dL (<150); Uric Acid 6.0 mg/dL (3.4-7.0)
[2025-06-07 11:30] LABS: Folate 9.9 ng/mL (> or = 4.0); Vitamin B12 301 pg/mL (200-900)
[2025-06-07 11:39] LABS: Microalbum/Creatinine Ratio Ur 254.9 ug/mg cr (<30)
== END 2025-06-07 09:11 | disposition home or self-care (01) ==
LOC: HO.LAB 09:10
PROVIDERS: Internal Medicine Nephrology; PCP Internal Medicine; Visit Provider Internal Medicine
DX: R73.01 Impaired fasting glucose (principal); N18.30 Chronic kidney disease, stage 3 unspecified; D64.9 Anemia, unspecified; E55.9 Vitamin D deficiency, unspecified; E53.8 Deficiency of other specified B group vitamins; M10.9 Gout, unspecified; E78.00 Pure hypercholesterolemia, unspecified
CPT/HCPCS: 36415; 80053; 80061; 81001; 82043; 82306; 82570; 82607; 82746; 83036; 84443; 84520; 84550; 85025

== ENCOUNTER 2025-06-13 10:34 | Outpatient (REF) | payer MEDICARE, SELFPAY ==
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
--- OUTSIDE RECORDS SUMMARY | 2025-06-13 11:17 | XMS_ITS | Clinical Summary ---
Author Organization [facility] Address [address] [address] Phone Care Team Providers Care [employer] Name Role Phone Bhavesh Arora MD Primary Care Provider [phone] Allergies Active Allergy Reactions Criticality Noted Date [...] each day 90 tablet 3 3 Active acetaminophen (TYLENOL) 325 MG tablet Take 650 mg by mouth every 4 (four) hours if needed for mild pain 5 Active labetalol (NORMODYNE) 200 MG tablet Take 300 mg by mouth in the morning and 300 mg in the evening. 5 Active nystatin (MYCOSTATIN) powder Apply 1 application. topically in the morning and 1 application. in the evening. Active ondansetron (ZOFRAN) 4 MG tablet Take 4 mg by mouth 3 (three) times a day if needed for nausea or vomiting Active senna (SENOKOT) 8.6 MG tablet Take 1 tablet by mouth 1 (one) time each day Active Active Problems Problem Noted Date Diagnosed [...] Procedure Name Priority Date/Time Associated Diagnosis Comments EXT RESULT ENTRY Routine 2025 EXT RESULT ENTRY Routine 2025 from Last 3 Months Results * (ABNORMAL) EXT RESULT ENTRY (2025) Only the most recent of2 resultswithin the time period is included. Hemoglobin 13.3(A) 13.5 - 17.5 Hematocrit 39.9(A) 41.0 - 53.0 Platelets 239 150 - 399 10*3/UL Sodium 141 137 - 147 Potassium 3.7 3.4 - 5.5 Chloride 104.0 99.0 - 108.0 Carbon Dioxide 25 mmol/L Anion Gap 12 <=30 MMOL/L Glucose 173 60 - 200 BUN 23(A) 4 - 21 mg/dL Creatinine 1.83(A) 0.60 - 1.30 mg/dL Calcium 9.0 8.7 - 10.7 mg/dL eGFR 38 Magnesium 2.0 1.6 - 2.4 2025 Historical Provider LAB BLOOD ORDERABLES Adrianna l Result from Last 3 Months Insurance Medicare [facility] Medicare [facility] Care Teams [employer] Relationship Specialty Start Date End Date Bhavesh Arora MD [address] [place] [address] PCP - General Internal Medicine 08/25/22
--- OUTSIDE RECORDS SUMMARY | 2025-06-13 11:17 | XMS_ITS | Clinical Summary ---
Author Organization [facility] Address [address] [place] [address] Care Team Providers Care Pass Worker Name Role Phone Unavailable Primary Care Provider [...] (2 - Td or Tdap) 01/25/2020 010 [id number] (4 - season) 2024 02/21/2022, 09/06/2021, 01/07/2021 Alcohol and Drug Screen 11/08/2024 Depression Annual Screen 11/08/2024 Imm-Influenza (#1) 2025 08/28/2021, 0 07/30/2020, 08/26/2018, Additional history exists Insurance MEDICARE - [place]
[2025-06-13 12:16] LABS: Anion Gap 10 (12-20); Carbon Dioxide 31 mmol/L (22-29); Chloride 108 mmol/L (96-108); Estimated Glomerular Filt Rate 34; Potassium 3.4 mmol/L (3.3-5.1); Sodium 146 mmol/L (135-145)
== END 2025-06-13 10:35 | disposition home or self-care (01) ==
LOC: HO.LAB 10:34
PROVIDERS: PCP Internal Medicine; Visit Provider Internal Medicine Nephrology
DX: E78.00 Pure hypercholesterolemia, unspecified (principal); I12.9 Hypertensive chronic kidney disease with stage 1 through stage 4 chronic kidney disease, or unspecified chronic kidney disease; N18.30 Chronic kidney disease, stage 3 unspecified; Q61.3 Polycystic kidney, unspecified; I63.9 Cerebral infarction, unspecified; R73.01 Impaired fasting glucose; E04.2 Nontoxic multinodular goiter; M10.00 Idiopathic gout, unspecified site; L40.9 Psoriasis, unspecified; E55.9 Vitamin D deficiency, unspecified; E87.6 Hypokalemia; R31.9 Hematuria, unspecified; M51.360 Other intervertebral disc degeneration, lumbar region with discogenic back pain only; E66.9 Obesity, unspecified; Z68.34 Body mass index [BMI] 34.0-34.9, adult; Z71.3 Dietary counseling and surveillance; Z87.891 Personal history of nicotine dependence
CPT/HCPCS: 36415; 80051; 82565; 96127; 99212

== ENCOUNTER 2025-06-13 12:34 | Outpatient (AMB) | payer MEDICARE, SELFPAY ==
[2025-06-13 12:50] VITALS: BP 120/84; PULSE 70; O2SAT 98; BMI 34.5
--- NOTE | 2025-06-13 12:50 | MHC.PC.OV ---
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 End Required: No Accompanied by: Self / Same As Patient Allergies Penicillins Allergy (Verified 06/13/25 13:25) Unknown irbesartan Adverse Reaction (Verified 06/13/25 13:25) Stomach Upset Medication List - Last Reconciled 06/13/25 by Bhavesh Arora MD atorvastatin 80 mg PO BEDTIME 10 days diltiazem HCl CD 240 mg PO QAM docusate sodium 100 mg PO Q12H finasteride 5 mg PO DAILY 90 days hydralazine 50 mg PO TID labetalol 100 mg PO BID 30 days losartan 50 mg PO BID meclizine 12.5 mg PO BID PRN melatonin 6 mg PO BEDTIME PRN nystatin 1 appl topical BID sennosides (senna) 8.6 mg PO DAILY Tobacco use date assessed: 06/13/25 Fall risk assessment: 2 + Falls in past year Last assessed Fall Risk: 06/13/25 Dental Screening Dental Screen Date: 06/13/25 Did you have a dental visit in the last 12 months?: Yes Did you have a dental problem in the last 6 months where you did not have access to dental care?: No Was dental information given to patient?: Patient has dentist HPI Follow Up HPI Details Patient comes in today for his follow up visit States that he currently feels okay and is asking if he can be cleared to drive again today He apparently suffered a brain bleed back in March 2025 He reportedly fell at home on the morning of 03/18/2025 but he is unable to clarify if he actually hit his head or not at the time when he fell although he was noticed to have (+) ecchymosis around the left periorbital area that was likely from his fall earlier that day States that he subsequently went to work as usual that day and he started having some slurring of his speech later in the afternoon and some nausea EMS was contacted and they noticed that patient had a right facial droop when they arrived and a stroke alert was called to the ER He subsequently had a head CT done, which revealed (+) left-sided cerebellar parenchymal bleed with right-sided midline shift He was then transferred to [facility] for further management, where patient states that he was admitted to the ICU there for a few days CTA was negative for any underlying vascular abnormality Nicardipine drip was started for persistent HTN with his systolic BP going over 200 mm at times Neurosurgery consult was also called but they determined that patient did not need any surgical intervention at the time A repeat head CT done a few days later on 03/22/2025 revealed stable findings; MRI done revealed findings consistent with hypertensive ICH (micrhemorrhage in a deep pattern) He was subsequently transferred to rehab at [facility] upon his discharge and he spent the next 2 weeks in rehab uneventfully He was discharged home on 04/11/2025 and patient states that he's had no problems at all since his discharge from the hospital States that he has been staying with his sister over in [place], [place] near [place] in the meantime as he is still not allowed to drive due to his recent CVA diagnosis Relates that he had a follow up brain MRI done at [facility] yesterday - we will try to get a copy of this report sent over for review He is currently scheduled to see neurology at [facility] in July 2025 for neurology follow up but he would like to get a referral to see Dr. Scott instead as he has been seen by Dr. Scott in the past for his neurologic issues He denies any headaches or dizziness Denies any chest pains, no increased SOB No nausea/vomiting, no abdominal pain No change in bowel habits noted States that he needs several of his Rx refilled He had his follow up labs done last week and had some additional labs done for Dr. 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 Psoriasis Lumbar degenerative disc disease Abscess of leg Pure hypercholesterolemia Onychomycosis Chronic kidney disease (CKD), stage III (moderate) Obesity (BMI 30-39.9) Hematuria Gait instability Vitamin D deficiency Hypokalemia Polycystic kidney disease Multiple thyroid nodules Impaired fasting glucose Cerebrovascular accident (CVA) Benign essential hypertension History of postoperative nausea Gout Thyroid nodule Renal cyst Benign prostatic hyperplasia CVA (cerebral vascular accident) COVID-19 virus antibody negative History of snoring Surgical History H/O partial thyroidectomy (~10/22/14) H/O arthroscopic knee surgery H/O varicose vein ligation and stripping Hx of colonoscopy (~08/2020) Family History Father Diabetes Mother Chronic mental illness Other Mental health problem Social History Household Members: None Housing: Apartment Do you presently have visiting nurse or other home services: No Alcohol intake: current Alcohol intake frequency: holidays/special occasions only Alcohol type: beer Patient Tobacco Use Status: Former Tobacco user e-Cigarette/Vaping Use: Former Use Second Hand Smoke Exposure: Yes service: No Current occupational status: employed 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 1. Little interest or pleasure in doing things: not at all 2. Feeling down, depressed, or hopeless: not at all 3. Trouble falling or staying asleep, or sleeping too much: not at all 4. Feeling tired or having little energy: not at all 5. Poor appetite or overeating: not at all 6. Feeling bad about yourself - or that you are a failure or have let yourself or your family down: not at all 7. Trouble concentrating on things, such as reading the newspaper or watching television: not at all 8. Moving or speaking so slowly that other people could have noticed. Or the opposite - being so fidgety or restless that you have been moving around a lot more than usual: not at all 9. Thoughts that you would be better off or of hurting yourself in some way: not at all Total score: 0 Depression Screening Interpretation: Negative Depression Screening Done: Yes 81106 - PHQ-9 Billing: Yes Source: Developed by Drs. Dilip Tian, Mirna Banuelos, Juan Lipscomb and colleagues, with an educational attila from [employer]. Thrive Questionnaire Date Thrive assessed: 06/13/25 I am a: Patient What is your living situation today?: I have a steady place to live Within the past 12 months, did the food you bought not last and you didn't have the money to get more?: Never true Within the past 12 months, did you worry whether your food would run out before you got money to buy more?: Never true Do you have trouble paying for medicines?: No Do you have trouble getting transportation to medical appointments?: No Do you have trouble paying your heating and electricity bill?: No Do you have trouble taking care of your child, family member or friend?: No Do you have trouble with day-to-day activities such as bathing, preparing meals, shopping, managing finances, etc.?: No Are you currently unemployed and looking for a job?: No Are you interested in more education?: No Please select the resources that you would like help with: None Currently or been in a relationship where the following occur: No concerns reported THRIVE Score: 0 AUDIT C Alcohol Use Questionnaire (AUDIT-C) 1. How often do you have a drink containing alcohol?: Never 3. How often do you have six or more drinks on one occasion?: Never Total Score: 0 Score Reviewed/Action Taken: Yes MARIA ESTHER-7 AMB Questionnaire MARIA ESTHER-7 Date MARIA ESTHER - 7 assessed: 06/13/25 Feeling nervous, anxious, or on edge: 0 = Not at all Not being able to stop or control worryin = Not at all Worrying too much about different things: 0 = Not at all Trouble relaxin = Not at all Being so restless that it is hard to sit still: 0 = Not at all Becoming easily annoyed or irritable: 0 = Not at all Feeling afraid as if something awful might happen: 0 = Not at all Total MARIA ESTHER-7 score (0-4 normal; 5-9 mild; 10-14 moderate; 15-21 severe): 0 Source: Developed by Drs. Dilip Tian, Mirna Banuelos, Juan Lipscomb and colleagues, with an educational attila from [employer]. Review of Systems Const Denies chills, Denies fatigue, Denies fever(s) and Denies headache(s) ENT Denies dysphagia, Denies dizziness, Denies otalgia, Denies headache(s), Denies neck pain, Denies odynophagia and Denies sore throat Card Denies chest pain, Denies palpitations and Denies dyspnea Resp Denies chest congestion, Denies cough and Denies dyspnea GI Denies abdominal pain, Denies constipation, Denies dysphagia, Denies heartburn, Denies diarrhea, Denies nausea, Denies odynophagia and Denies vomiting Denies difficulty urinating, Denies dysuria, Denies nocturia and Denies urinary frequency Musc Reports abnormal gait (poor balance), Reports back pain (recurrent, over the left lower back/flank area) and Denies neck pain Skin/Breast Reports rash (over the extensor aspect of both elbows) Neuro Details: patient has a tendency to stutter when he talks but this predates his CVA and cerebellar bleeding Reports Abnormal speech present, Reports abnormal gait (poor balance), Denies dizziness and Denies headache(s) Endo Denies fatigue and Denies palpitations Physical exam (Primary Care) Vital Signs: Last Vital Signs Pulse 70 06/13/25 12:50 BP 120/84 06/13/25 12:50 Pulse Ox 98 06/13/25 12:50 Oxygen Delivery Method Room Air 06/13/25 12:50 BMI result Body Mass Index 34.5 Tobacco/Smoking Status: Tobacco use Status Tobacco use date assessed 06/13/25 06/13/25 12:55 Patient Tobacco Use Status Former Tobacco user 06/13/25 12:55 e-Cigarette/Vaping Use Former Use 06/13/25 12:55 PHQ-9: PHQ-9 Score PHQ-9: Total score 0 06/13/25 15:07 Depression Screening Interpretation: Negative Thrive Assessment: Date of Thrive Assessment Date Thrive assessed 06/13/25 06/13/25 12:55 Currently or been in a relationship where the following occur: No concerns reported Const General: no acute distress and alert Limitations: ambulation with walker HENMT Ears: TM's normal bilaterally and EAC's normal Throat: Yes posterior oropharynx normal and Yes tonsils normal (no TP congestion noted) Neck Neck: Yes supple and No lymphadenopathy Thyroid: Thyroid normal Resp Auscultation: clear to auscultation bilaterally, no rales and no wheezes Cardio Rate: regular rate Rhythm: regular rhythm Heart sounds: no murmurs GI Palpation (GI): Soft to palpation and nontender Auscultation: normal bowel sounds General: Yes no CVA tenderness Back/Spine/Pelvis Back: no CVA tenderness Thoracic/Lumbar Spine: No lumbar spinal tenderness Skin Other: (+) patchy scaling rash (with whitish/silvery scales) over the extensor aspect of both elbows Neuro Speech: Abnormal speech present stuttering (on and off) Details: slurred (occasional slurring/dysarthria) Gait exam (Neuro): Assisted gait required Gait assisted method: walker Extrem General: No clubbing, No cyanosis and Yes edema (trace bipedal edema) Results Reviewed Results Reviewed: Laboratory Tests 06/07/25 06/07/25 06/13/25 09:28 09:34 11:01 WBC 5.6 Hgb 13.1 L Hct 39.2 L Plt Count 287 Sodium 146 H Potassium 3.4 Creatinine 1.93 H Estimated GFR 34 Fasting Glucose 109 H Hemoglobin A1c % 5.2 Uric Acid 6.0 Calcium 9.7 D AST 25 ALT 18 Triglycerides 97 Cholesterol 109 LDL Cholesterol, Calc 54 HDL Cholesterol 36 L Vitamin B12 301 25-OH Vitamin D Total 41.1 TSH 1.94 Ur Specific [place] 1.010 Urine Protein 30 (1+) H Urine Glucose (UA) Negative Urine Blood Negative Urine Nitrite Negative Ur Leukocyte Esterase Negative Microalb/Creat Ratio 254.9 H Coding Level of Care Code Est Pt Level 4 (18740) Diagnoses Pure hypercholesterolemia E78.00 Benign essential hypertension I10 Stage 3 chronic kidney disease, unspecified whether stage 3a or 3b CKD N18.30 Chronic kidney disease stage 3 subtype: unspecified whether 3a or 3b Polycystic kidney disease Q61.3 Cerebrovascular accident (CVA), unspecified mechanism I63.9 CVA mechanism: unspecified Impaired fasting glucose R73.01 Multiple thyroid nodules E04.2 Idiopathic gout, unspecified chronicity, unspecified site M10.00 Chronicity: unspecified Gout etiology: idiopathic Gout site: unspecified site Psoriasis L40.9 Vitamin D deficiency E55.9 Hypokalemia E87.6 Hematuria, unspecified type R31.9 Hematuria type: unspecified type Degeneration of intervertebral disc of lumbar region with discogenic back pain M51.360 Disc-related pain type: discogenic back pain only Obesity (BMI 30-39.9) E66.9 Additional Codes PHQ-9 - 66388 - PHQ-9 Billing: Yes ([id number]) Assessment & Plan Assessment & Plan (1) Pure hypercholesterolemia: Code(s): E78.00 - Pure hypercholesterolemia, unspecified Category: Medical Plan: Results of his labs done last week reviewed and discussed with patient Reinforced low cholesterol diet Continue Atorvastatin 80 mg QD Will recheck his labs and fasting lipids in 3 months for follow up (2) Benign essential hypertension: Code(s): I10 - Essential (primary) hypertension Category: Medical Plan: Reinforced?low-sodium diet -? goal is systolic BP of at least 130 to 140 mm or less due to his CKD Continue Diltiazem ER 240 mg QD, Hydralazine 50 mg TID, Labetalol 100 mg BID and Losartan 50 mg BID Patient is reminded to continue monitoring his blood pressure regularly Follow up with nephrology as scheduled (3) Chronic kidney disease (CKD), stage III (moderate): Code(s): N18.30 - Chronic kidney disease, stage 3 unspecified Category: Medical Qualifiers: Chronic kidney disease stage 3 subtype: unspecified whether 3a or 3b Qualified Code(s): N18.30 - Chronic kidney disease, stage 3 unspecified Plan: Patient is again advised that his serum creatinine and GFR have been stable on his recent labs We will continue to monitor his renal function regularly Follow up with nephrology (Dr. Parra) as scheduled (4) Polycystic kidney disease: Comment: MRI of the abdomen and pelvis done on 07/04/2019 revealed multiple bilateral renal cysts compatible with polycystic kidney disease Code(s): Q61.3 - Polycystic kidney, unspecified Category: Medical Plan: Patient remains asymptomatic at present Renal US done back in September 2023 revealed (+) multiple bilateral renal cysts with the largest cyst on the upper pole of the left kidney, which appears as a complex cyst with multiple septations Will continue to monitor his renal function closely; will also probably recheck his renal US in a couple of years for follow up and if (+) progression, may need urologic intervention (5) Cerebrovascular accident (CVA): Comment: 2015 Code(s): I63.9 - Cerebral infarction, unspecified Category: Medical Qualifiers: CVA mechanism: unspecified Qualified Code(s): I63.9 - Cerebral infarction, unspecified Plan: Patient currently has minimal residual neurologic deficits from his CVA that occurred back in 2015 He also does not seem to have had any sequelae from his recent left cerebellar intraparenchymal bleeding other than a more unsteady gait, which is currently being addressed by physical therapy and with his use of a walker when he is moving around Follow-up with Neurology as scheduled - he is scheduled to be seen by neurology at [place] next month (July 2025) but he is also requesting for a referral to see his previous neurologist (Dr. Scott) - referral placed Patient is advised that it may take a while for Dr. Scott to get him into his schedule so he should keep his upcoming neurology appt at [facility], especially if he wants to have a chance to be able to get cleared for driving again soon (6) Impaired fasting glucose: Code(s): R73.01 - Impaired fasting glucose Category: Medical Plan: His FBS was again slightly elevated at 109 mg/dl on his recent labs but his HgbA1c came back normal again at 5.2% Reinforced low calorie/low carb diet; exercise as tolerated (7) Multiple thyroid nodules: Code(s): E04.2 - Nontoxic multinodular goiter Category: Medical Plan: S/P FNA biopsy about 3 years ago - results came back normal/benign His TSH remains normal on his recent labs Will continue to monitor his TFTs regularly Thyroid US last done in 2017 revealed enlarged left lobe with multiple bilateral thyroid nodules - 2 nodules appear increased in size and there appears to be a new nodule as well and recommended continued ultrasound follow up He had US ordered in 2019 but did not get that done US was reordered at his last visit and he finally had this done in January 2024, which showed (+) status post right hemithyroidectomy. Enlarged heterogeneous hypervascular left thyroid with multiple nodules, only one of which meets criteria for follow-up - recommend follow-up study in one year He was sent for repeat/follow up thyroid US at his last visit but he did not get this done, likely because of his recent IPH (8) Gout: Code(s): M10.9 - Gout, unspecified Category: Medical Qualifiers: Chronicity: unspecified Gout etiology: idiopathic Gout site: unspecified site Qualified Code(s): M10.00 - Idiopathic gout, unspecified site Plan: Reinforced low purine diet -? patient has had no acute gout flares for several months His serum uric acid level was again normal when last checked a week ago (9) Psoriasis: Code(s): L40.9 - Psoriasis, unspecified Category: Medical Plan: This is mostly mild and are over the extensor aspect of his forearms/elbows Continue Clobetasol 0.05% cream BID PRN (10) Vitamin D deficiency: Code(s): E55.9 - Vitamin D deficiency, unspecified Category: Medical Plan: Continue Vitamin-D 98540 units once a week (11) Hypokalemia: Code(s): E87.6 - Hypokalemia Category: Medical Plan: His serum potassium level is normal at 3.4 on his labs done last week Continue Potassium Chloride ER 20 mEq?QD Will continue to monitor his serum potassium level regularly (12) Hematuria: Code(s): R31.9 - Hematuria, unspecified Category: Medical Qualifiers: Hematuria type: unspecified type Qualified Code(s): R31.9 - Hematuria, unspecified Plan: Resolved with no recurrence lately - may be related to his renal cysts Follow up with urology as scheduled (13) Lumbar degenerative disc disease: Code(s): M51.36 - Other intervertebral disc degeneration, lumbar region Category: Medical Qualifiers: Disc-related pain type: discogenic back pain only Qualified Code(s): M51.360 - Other intervertebral disc degeneration, lumbar region with discogenic back pain only Plan: Lumbar spine x-rays done back in 2019 revealed (+) sclerotic facet arthrosis that is most severe at L5-S1; (+) mild multilevel endplate spurring and no compression fractures or significant loss of disc height noted Repeat x-rays done in September 2023 revealed no interval change Reinforced activity and weight-lifting restrictions (14) Obesity (BMI 30-39.9): Code(s): E66.9 - Obesity, unspecified Category: Medical Plan: Reinforced diet; exercise and weight are impractical given patient's poor balance and unsteady gait as well as his multiple comorbidities Plan Follow up in 4 months Orders: Orders Comprehensive [place]. Panel Fast 4 Months E78.00 - Pure hypercholesterolemia, unspecified Complete Blood Count Auto Diff 4 Months D64.9 - Anemia, unspecified Lipid Panel 4 Months E78.00 - Pure hypercholesterolemia, unspecified TSH reflex Free T4 4 Months E78.00 - Pure hypercholesterolemia, unspecified UA CC w/rflx Micro + Cult 4 Months R30.0 - Dysuria Vitamin D 25-OH Total 4 Months E55.9 - Vitamin D deficiency, unspecified Vitamin B12 and Folate 4 Months E53.8 - Deficiency of other specified B group vitamins Referrals Neurology Referral S06.32AA - Contusion and laceration of left cerebrum with loss of consciousness status unknown, initial encounter Medications: Changed From hydralazine 50 mg PO TID 90 tabs 2RF To hydralazine 50 mg PO TID 270 tabs 3RF 90 days From atorvastatin 80 mg PO BEDTIME 10 days 10 tabs 0RF E78.5 - Hyperlipidemia, unspecified To atorvastatin 80 mg PO BEDTIME 90 tabs 3RF 90 days E78.5 - Hyperlipidemia, unspecified From diltiazem HCl CD 240 mg PO QAM 30 caps 0RF I10 - Essential (primary) hypertension To diltiazem HCl CD 240 mg PO QAM 90 caps 3RF 90 days I10 - Essential (primary) hypertension From labetalol 100 mg PO BID 30 days 60 tabs 1RF I10 - Essential (primary) hypertension To labetalol 100 mg PO BID 180 tabs 3RF 90 days I10 - Essential (primary) hypertension From melatonin 6 mg PO BEDTIME PRN insomnia To melatonin 6 mg (2 x 3 mg) PO BEDTIME PRN 180 tabs 1RF insomnia 90 days From losartan 50 mg PO BID To losartan 50 mg PO BID 180 tabs 3RF 90 days Refilled meclizine 12.5 mg PO BID PRN 60 tabs 3RF dizziness finasteride 5 mg PO DAILY 90 tabs 3RF 90 days
== END 2025-06-13 13:44 | disposition home or self-care (01) ==
LOC: HO.HMCH 12:35
PROVIDERS: PCP Internal Medicine; Visit Provider Internal Medicine
DX: E78.00 Pure hypercholesterolemia, unspecified (principal); I10 Essential (primary) hypertension; N18.30 Chronic kidney disease, stage 3 unspecified; Q61.3 Polycystic kidney, unspecified; I63.9 Cerebral infarction, unspecified; R73.01 Impaired fasting glucose; E04.2 Nontoxic multinodular goiter; M10.00 Idiopathic gout, unspecified site; L40.9 Psoriasis, unspecified; E55.9 Vitamin D deficiency, unspecified; E87.6 Hypokalemia; R31.9 Hematuria, unspecified; M51.360 Other intervertebral disc degeneration, lumbar region with discogenic back pain only; E66.9 Obesity, unspecified

== ENCOUNTER 2025-06-27 10:43 | Outpatient (AMB) | payer MEDICARE, SELFPAY ==
--- NOTE | 2025-06-27 11:10 | HO.NEPHOV_ITS ---
Vital Signs 06/27/25 11:13 Height 5 ft 4.5 in Weight 203 lb BMI 34.3 BP 130/80 Blood Pressure Location Rt brachial Position Sitting Pulse 57 Pulse Source Pulse Oximeter Pulse Oximetry (%) 98 Oxygen Delivery Method Room Air Intake Visit Reasons: 4 MO FU-Conf Fudge Candy Maker Required: No Accompanied by: Sister Allergies Penicillins Allergy (Verified 06/27/25 11:13) Unknown irbesartan Adverse Reaction (Verified 06/27/25 11:13) Stomach Upset HPI Comments Details: Mr Lechuga was seen in follow-up of his chronic kidney disease and hypertension on a backdrop of his polycystic kidney disease. 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 He had EVERETTE at that time but his serum creatinine is back to baseline . He is on multiple antihypertensive medications. His blood pressure control is quite optimal. He denies nausea, vomiting, diarrhea, chest pain, shortness of breath, hematuria. He tries to maintain good hydration. 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 Psoriasis Lumbar degenerative disc disease Abscess of leg Pure hypercholesterolemia Onychomycosis Chronic kidney disease (CKD), stage III (moderate) Obesity (BMI 30-39.9) Hematuria Gait instability Vitamin D deficiency Hypokalemia Polycystic kidney disease Multiple thyroid nodules Impaired fasting glucose Cerebrovascular accident (CVA) Benign essential hypertension History of postoperative nausea Gout Thyroid nodule Renal cyst Benign prostatic hyperplasia CVA (cerebral vascular accident) COVID-19 virus antibody negative History of snoring Surgical History H/O partial thyroidectomy (~10/22/14) H/O arthroscopic knee surgery H/O varicose vein ligation and stripping Hx of colonoscopy (~08/2020) Family History Father Diabetes Mother Chronic mental illness Other Mental health problem Social History Household Members: None Housing: Apartment Do you presently have visiting nurse or other home services: No Alcohol intake: current Alcohol intake frequency: holidays/special occasions only Alcohol type: beer Patient Tobacco Use Status: Former Tobacco user e-Cigarette/Vaping Use: Former Use Second Hand Smoke Exposure: Yes service: No Current occupational status: employed 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 Cognitive needs: No Hearing needs: No Vision needs: Yes (glasses) Review of Systems Const All systems reviewed & are unremarkable except as noted in HPI and below Physical Exam Vital Signs: Last Vital Signs Pulse 57 06/27/25 11:13 BP 130/80 06/27/25 11:13 Pulse Ox 98 06/27/25 11:13 Oxygen Delivery Method Room Air 06/27/25 11:13 BMI result Body Mass Index 34.3 Const General: comfortable and no acute distress Orientation/consciousness: patient oriented x3 HEENT Head: Yes normocephalic Mouth: Normal oral and palatal mucosa present Eyes EOM: EOMs intact bilaterally Neck Neck: Yes supple Resp Auscultation: clear to auscultation bilaterally Cardio Jugular venous distension: no JVD Rate: regular rate GI Palpation (GI): Soft to palpation Auscultation: normal bowel sounds General: Yes no CVA tenderness Back/Spine/Pelvis Back: no CVA tenderness Skin General skin exam: no rashes or lesions noted Neuro General: patient oriented x3 and moves all extremities Extrem General: Yes no pedal edema Results Reviewed Nephrology Results: Hgb, (14.0-18.0) 13.1 g/dl L 06/07/25 WBC, (4.8-10.8) 5.6 X10*3/uL 06/07/25 Plt Count, (160-400) 287 X10*3/uL 06/07/25 Sodium, (135-145) 146 mmol/L H 06/13/25 Potassium, (3.3-5.1) 3.4 mmol/L 06/13/25 Chloride, (96-108) 108 mmol/L 06/13/25 Carbon Dioxide, (22-29) 31 mmol/L H 06/13/25 BUN, (9-16) 27 mg/dL H 06/07/25 Creatinine, (0.5-1.4) 1.93 mg/dL H 06/13/25 Calcium, (8.4-10.2) 9.7 mg/dL Δ 06/07/25 Urine Protein, (Neg-Trace) 30 (1+) mg/dL H 06/07/25 Urine Creatinine 53.34 mg/dL 06/07/25 Renal US 10/28/23 Assessment & Plan Assessment & Plan (1) Polycystic kidney disease: Comment: MRI of the abdomen and pelvis done on 07/04/2019 revealed multiple bilateral renal cysts compatible with polycystic kidney disease Code(s): Q61.3 - Polycystic kidney, unspecified Category: Medical (2) Chronic kidney disease (CKD), stage III (moderate): Code(s): N18.30 - Chronic kidney disease, stage 3 unspecified Category: Medical Qualifiers: Chronic kidney disease stage 3 subtype: unspecified whether 3a or 3b Qualified Code(s): N18.30 - Chronic kidney disease, stage 3 unspecified (3) Benign essential hypertension: Code(s): I10 - Essential (primary) hypertension Category: Medical Plan Wyatt has polycystic kidney disease. His blood pressure is at goal. He is tolerating angiotensin receptor juvencio, dose of which I may back off if his serum creatinine worsens. He is not taking any nonsteroidal anti- inflammatories. His last renal ultrasound showed a complex cyst which will need Urology follow up in the future. Genetic studies for polycystic kidney disease has not been done for him ( has strong family H/O of PKD). He is on statins. I shall consider SGLT2 i for him in the future. He tries to remain himself well hydrated . I did not make any medication changes today. All his questions were answered Orders: Orders Electrolytes 3 Months I10 - Essential (primary) hypertension, N18.30 - Chronic kidney disease, stage 3 unspecified, Q61.3 - Polycystic kidney, unspecified Calcium 3 Months I10 - Essential (primary) hypertension, N18.30 - Chronic kidney disease, stage 3 unspecified, Q61.3 - Polycystic kidney, unspecified Parathyroid Hormone Intact 3 Months I10 - Essential (primary) hypertension, N18.30 - Chronic kidney disease, stage 3 unspecified, Q61.3 - Polycystic kidney, unspecified Vitamin D 25-OH Total 3 Months I10 - Essential (primary) hypertension, N18.30 - Chronic kidney disease, stage 3 unspecified, Q61.3 - Polycystic kidney, unspecified Phosphorus 3 Months I10 - Essential (primary) hypertension, N18.30 - Chronic kidney disease, stage 3 unspecified, Q61.3 - Polycystic kidney, unspecified Hemoglobin A1c 3 Months I10 - Essential (primary) hypertension, N18.30 - Chronic kidney disease, stage 3 unspecified, Q61.3 - Polycystic kidney, unspecified Complete Blood Count Auto Diff 3 Months I10 - Essential (primary) hypertension, N18.30 - Chronic kidney disease, stage 3 unspecified, Q61.3 - Polycystic kidney, unspecified Creatinine 3 Months I10 - Essential (primary) hypertension, N18.30 - Chronic kidney disease, stage 3 unspecified, Q61.3 - Polycystic kidney, unspecified Blood Urea Nitrogen 3 Months I10 - Essential (primary) hypertension, N18.30 - Chronic kidney disease, stage 3 unspecified, Q61.3 - Polycystic kidney, unspecified Coding Level of Care Code Est Pt Level 4 (95864) Diagnoses Polycystic kidney disease Q61.3 Stage 3 chronic kidney disease, unspecified whether stage 3a or 3b CKD N18.30 Chronic kidney disease stage 3 subtype: unspecified whether 3a or 3b Benign essential hypertension I10
[2025-06-27 11:13] VITALS: BP 130/80; PULSE 57; O2SAT 98; BMI 34.3
--- OUTSIDE RECORDS SUMMARY | 2025-06-27 12:05 | XMS_ITS | Clinical Summary ---
Author Organization [facility] Address [address] [place] [address] Phone Care Team Providers Care Sheet Pile Hammer Operator Name Role Phone Bhvaesh Arora MD Primary Care Provider Allergies Active [...] Team Description 04/09/2025 Plan of Care Documentation [facility] [address] [place] [address] 04/04/2025 Plan of Care Documentation [facility] [address] [place] [address] 03/29/2025 1:19 PM EDT - 04/12/2025 12:10 PM EDT Hospital Encounter [facility] [address] [place] [address] Valarie Dupont DO Intracranial hemorrhage ([facility] V24, [facility] V28) [I62.9] (Primary Dx) Discharge Disposition: Home-Health Care Svc from Last 3 Months Surgical History Surgery Date Site/Laterality Comments OTHER SURGICAL HISTORY PROCEDURE: LA STAB PHLEBT VARICOSE VEINS 1 XTR 10-20 [...] Hold for add-ons. 04/07/2025 6:01 AM EDT [facility] Comment:Auto resulted. Blood Venous blood specimen / Unknown Venipuncture / Unknown 04/07/2025 4:38 AM EDT 04/07/2025 4:47 AM EDT us Valarie Dupont DO LAB BLOOD ORDERABLES Adrianna duncan Result [facility] [address] [place] [address], [place] [phone] * (ABNORMAL) CBC auto differential (04/07/2025 4:38 AM EDT) Only the most recent of2 resultswithin the time period is included. [facility] WBC 5.2 4.8 - 10.8 K/mcL LAB HEMETOLOGY METHOD 04/07/2025 4:58 AM [facility] RBC 4.10(L) 4.50 - 5.50 M/mcL LAB HEMETOLOGY METHOD 04/07/2025 4:58 AM [facility] Hemoglobin 11.8(L) 13.5 - 17.5 g/dL LAB HEMETOLOGY METHOD 04/07/2025 4:58 AM [facility] Hematocrit 35.7(L) 42.0 - 54.0 % LAB HEMETOLOGY METHOD 04/07/2025 4:58 AM [facility] MCV 87.5 79.0 - 98.0 FL LAB HEMETOLOGY METHOD 04/07/2025 4:58 AM [facility] MCH 28.9 27.0 - 32.0 pcg LAB HEMETOLOGY METHOD 04/07/2025 4:58 AM [facility] MCHC 33.1 32.0 - 37.0 g/dL LAB HEMETOLOGY METHOD 04/07/2025 4:58 AM [facility] RDW 13.2 11.0 - 15.0 % LAB HEMETOLOGY METHOD 04/07/2025 4:58 AM [facility] Platelets 249 130 - 400 K/mcL LAB HEMETOLOGY METHOD 04/07/2025 4:58 AM [facility] MPV 9.4 7.0 - 11.0 FL LAB HEMETOLOGY METHOD 04/07/2025 4:58 AM [facility] NRBC 0.0 <1.0 % LAB HEMETOLOGY METHOD 04/07/2025 4:58 AM [facility] NRBC Absolute 0.00 <0.10 K/mcL LAB HEMETOLOGY METHOD 04/07/2025 4:58 AM [facility] Neutrophils Relative 76.3 % LAB HEMETOLOGY METHOD 04/07/2025 4:58 AM [facility] Lymphocytes Relative 8.7 % LAB HEMETOLOGY METHOD 04/07/2025 4:58 AM [facility] Monocytes Relative 8.2 % LAB HEMETOLOGY METHOD 04/07/2025 4:58 AM [facility] Eosinophils Relative 5.8 % LAB HEMETOLOGY METHOD 04/07/2025 4:58 AM [facility] Basophils Relative 0.6 % LAB HEMETOLOGY METHOD 04/07/2025 4:58 AM [facility] Immature Granulocytes Relative 0.4 % LAB HEMETOLOGY METHOD 04/07/2025 4:58 AM [facility] Neutrophils Absolute 3.93 1.50 - 7.00 K/mcL LAB HEMETOLOGY METHOD 04/07/2025 4:58 AM [facility] Lymphocytes Absolute 0.45(L) 1.00 - 5.00 K/mcL LAB HEMETOLOGY METHOD 04/07/2025 4:58 AM [facility] Monocytes Absolute 0.42 0.20 - 1.00 K/mcL LAB HEMETOLOGY METHOD 04/07/2025 4:58 AM [facility] Eosinophils Absolute 0.30 0.00 - 0.50 K/mcL LAB HEMETOLOGY METHOD 04/07/2025 4:58 AM [facility] Basophils Absolute 0.03 0.00 - 0.20 K/mcL LAB HEMETOLOGY METHOD 04/07/2025 4:58 AM [facility] Immature Granulocytes Absolute 0.02 0.00 - 0.03 K/mcL LAB HEMETOLOGY METHOD 04/07/2025 4:58 AM EDT [facility] Blood Venous blood specimen / Unknown Venipuncture / Unknown 04/07/2025 4:38 AM EDT 04/07/2025 4:44 AM EDT Valarie Dupont DO LAB BLOOD ORDERABLES Adrianna l Result Performing Organization Address City/[facility]/ZIP Co de Phone Number [facility] [address] [place] [address], [place] [phone] * Occult blood stool, guaiac (04/06/2025 9:20 AM EDT) Occult Blood, Stool #1 Negative Negative 04/06/2025 10:29 AM EDT [facility] Stool Rectum structure / Unknown Non-blood Collection / Unknown 04/06/2025 9:20 AM EDT 04/06/2025 10:05 AM EDT Olya DAHL LAB BODY FLUIDS AND STOOLS O RDERABLES Final Result Performing Organization Address [facility]/ZIP Co de Phone Number [facility] [address] [place] [address], [place] [phone] * (ABNORMAL) Complete blood count (04/05/2025 4:11 AM EDT) WBC 4.8 4.8 - 10.8 K/mcL LAB HEMETOLOGY METHOD 04/05/2025 5:25 AM EDT [facility] RBC 4.00(L) 4.50 - 5.50 M/mcL LAB HEMETOLOGY METHOD 04/05/2025 5:25 AM EDT [facility] Hemoglobin 11.6(L) 13.5 - 17.5 g/dL LAB HEMETOLOGY METHOD 04/05/2025 5:25 AM EDT [facility] Hematocrit 35.2(L) 42.0 - 54.0 % LAB HEMETOLOGY METHOD 04/05/2025 5:25 AM EDT [facility] MCV 87.8 79.0 - 98.0 FL LAB HEMETOLOGY METHOD 04/05/2025 5:25 AM EDT [facility] MCH 28.9 27.0 - 32.0 pcg LAB HEMETOLOGY METHOD 04/05/2025 5:25 AM EDT [facility] MCHC 33.0 32.0 - 37.0 g/dL LAB HEMETOLOGY METHOD 04/05/2025 5:25 AM EDT [facility] RDW 13.3 11.0 - 15.0 % LAB HEMETOLOGY METHOD 04/05/2025 5:25 AM EDT [facility] Platelets 257 130 - 400 K/mcL LAB HEMETOLOGY METHOD 04/05/2025 5:25 AM EDT [facility] MPV 9.7 7.0 - 11.0 FL LAB HEMETOLOGY METHOD 04/05/2025 5:25 AM EDT [facility] NRBC 0.0 <1.0 % LAB HEMETOLOGY METHOD 04/05/2025 5:25 AM EDT [facility] NRBC Absolute 0.00 <0.10 K/mcL LAB HEMETOLOGY METHOD 04/05/2025 5:25 AM EDT [facility] Blood Venous blood specimen / Unknown Venipuncture / Unknown 04/05/2025 4:11 AM EDT 04/05/2025 5:11 AM EDT us Olya DAHL LAB BLOOD ORDERABLES Final R esult [facility] [address] [place] [address], * (ABNORMAL) Comprehensive metabolic panel (04/05/2025 4:11 AM EDT) Only the most recent of2 resultswithin the time period is included. Sodium 140 133 - 145 mmol/L LAB CHEMISTRY METHOD 04/05/2025 5:57 AM [facility] Potassium 3.7 3.5 - 5.5 mmol/L LAB CHEMISTRY METHOD 04/05/2025 5:57 AM [facility] Comment:Hemolysis present Chloride 105 96 - 110 mmol/L LAB CHEMISTRY METHOD 04/05/2025 5:57 AM [facility] CO2 27 21 - 32 mmol/L LAB CHEMISTRY METHOD 04/05/2025 5:57 AM [facility] Anion Gap 8 3 - 11 LAB CHEMISTRY METHOD 04/05/2025 5:57 AM [facility] Glucose 94 70 - 100 mg/dL LAB CHEMISTRY METHOD 04/05/2025 5:57 AM [facility] BUN 35(H) 5 - 25 mg/dL LAB CHEMISTRY METHOD 04/05/2025 5:57 AM [facility] Creatinine 1.91(H) 0.70 - 1.30 mg/dL LAB CHEMISTRY METHOD 04/05/2025 5:57 AM [facility] eGFR 37(L) >=60 mL/min/1. 73m2 LAB CHEMISTRY METHOD 04/05/2025 5:57 AM [facility] Comment:Calculation based on the Chronic Kidney Disease Epidemiology Collaboration (CKD-EPI) equation refit without adjustment for race. BUN/Creatinine Ratio 18.3 LAB CHEMISTRY METHOD 04/05/2025 5:57 AM [facility] Calcium 9.0 8.5 - 10.5 mg/dL LAB CHEMISTRY METHOD 04/05/2025 5:57 AM [facility] AST (SGOT) 22 10 - 42 unit/L LAB CHEMISTRY METHOD 04/05/2025 5:57 AM [facility] Comment:Hemolysis present ALT (SGPT) 26 10 - 60 unit/L LAB CHEMISTRY METHOD 04/05/2025 5:57 AM EDT [facility] Alkaline Phosphatase 65 42 - 121 unit/L LAB CHEMISTRY METHOD 04/05/2025 5:57 AM EDT [facility] Total Protein 5.6(L) 6.0 - 8.0 g/dL LAB CHEMISTRY METHOD 04/05/2025 5:57 AM EDT [facility] Albumin 3.0(L) 3.2 - 5.0 g/dL LAB CHEMISTRY METHOD 04/05/2025 5:57 AM T [facility] Total Bilirubin 0.8 0.0 - 1.4 mg/dL LAB CHEMISTRY METHOD 04/05/2025 5:57 AM [facility] Blood Venous blood specimen / Unknown Venipuncture / Unknown 04/05/2025 4:11 AM EDT 04/05/2025 5:10 AM EDT us Olya DAHL LAB BLOOD ORDERABLES Final R esult [facility] [address] [place] [address], [place] [phone] from Last 3 Months Insurance [facility] MEDICARE Advance Directives Documents on File Type Date Recorded Patient Automotive Internet Sales Manager Expl anation Advance Directives and Living Will [...] currently active code status orders. Care Teams Sheet Pile Hammer Operator Relationship Specialty Start Date End Date Bhavesh Arora MD PCP - General Internal Medicine 01/14/25
--- OUTSIDE RECORDS SUMMARY | 2025-06-27 12:05 | XMS_ITS | Clinical Summary ---
Author Organization [facility] Address [address] [address] Phone Care Team Providers Care Chief Maintenance Supervisor Name Role Phone Bhavesh Arora MD Primary Care Provider [phone] Allergies Active Allergy Reactions Criticality Noted Date [...] age to complete this topic Insurance Medicare [facility] Medicare [facility] Care Teams Chief Maintenance Supervisor Relationship Specialty Start Date End Date Bhavesh Arora MD [address] [place] [id number] PCP - General Internal Medicine 08/25/22
--- OUTSIDE RECORDS SUMMARY | 2025-06-27 12:05 | XMS_ITS | Clinical Summary ---
Author Organization [facility] Address [address] [place] [address] Care Team Providers Care Marketing Strategy Analyst Name Role Phone Unavailable Primary Care Provider [...] (2 - Td or Tdap) 01/25/2020 010 [id number] (4 - season) 2024 02/21/2022, 09/06/2021, 01/07/2021 Alcohol and Drug Screen 11/08/2024 Depression Annual Screen 11/08/2024 Imm-Influenza (#1) 2025 08/28/2021, 0 07/30/2020, 08/26/2018, Additional history exists Insurance MEDICARE - [place]
== END 2025-06-27 11:35 | disposition home or self-care (01) ==
LOC: HO.HKA 10:44
PROVIDERS: PCP Internal Medicine; Visit Provider Internal Medicine Nephrology
DX: Q61.3 Polycystic kidney, unspecified (principal); N18.30 Chronic kidney disease, stage 3 unspecified; I10 Essential (primary) hypertension
CPT/HCPCS: 99214

== ENCOUNTER → 2025-06-27 10:43 | Outpatient (BNVA) | payer MEDICARE, SELFPAY | PROVIDERS: PCP Internal Medicine; Visit Provider Internal Medicine Nephrology | DX: I12.9 Hypertensive chronic kidney disease with stage 1 through stage 4 chronic kidney disease, or unspecified chronic kidney disease (principal); N18.30 Chronic kidney disease, stage 3 unspecified; Q61.3 Polycystic kidney, unspecified | CPT/HCPCS: 99212 ==

== ENCOUNTER → 2025-07-05 23:59 | Outpatient (BNV) | payer MEDICARE, SELFPAY | PROVIDERS: PCP Internal Medicine; Visit Provider Internal Medicine | DX: S06.32 Contusion and laceration of left cerebrum (principal); M51.369 Other intervertebral disc degeneration, lumbar region without mention of lumbar back pain or lower extremity pain; I12.9 Hypertensive chronic kidney disease with stage 1 through stage 4 chronic kidney disease, or unspecified chronic kidney disease; N18.30 Chronic kidney disease, stage 3 unspecified | CPT/HCPCS: G0180 ==

== ENCOUNTER 2025-07-19 12:28 | Outpatient (AMB) | payer MEDICARE, SELFPAY ==
[2025-07-19 12:53] VITALS: BMI 33.6
--- NOTE | 2025-07-19 12:53 | A.OFFVIS_ITS ---
Vital Signs 07/19/25 12:53 Height 5 ft 4.5 in Weight 199 lb BMI 33.6 Intake Visit Reasons: New Pt- bilateral tinea unguim Intake Note: Wyatt is a 75 year old male who presents today as a New Patient for evaluation of Bilateral Tinea Unguium. Patient states this has been going on for years. He is not feeling any pain but he feels bilateral stiffness in his toes when he tries to move them. He was seen at an outside Podiatry office in 2020 where Bilateral Toes 1-5 where debridement of the painful mycotic nail plates were performed. Allergies Penicillins Allergy (Verified 07/19/25 12:53) Unknown irbesartan Adverse Reaction (Verified 07/19/25 12:53) Stomach Upset Medication List - Last Reconciled 07/19/25 by Shonda Walton DPM atorvastatin 80 mg PO BEDTIME 90 days ciclopirox 8% 1 appl topical BEDTIME 4 weeks diltiazem HCl CD 240 mg PO QAM 90 days finasteride 5 mg PO DAILY 90 days hydralazine 50 mg PO TID 90 days labetalol 100 mg PO BID 90 days losartan 50 mg PO BID 90 days meclizine 12.5 mg PO BID PRN melatonin 6 mg (2 x 3 mg) PO BEDTIME PRN 90 days nystatin 1 appl topical BID terbinafine HCl 250 mg PO DAILY HPI Comments Details: Patient is a 75 year old male with a PMH as seen below who presents today with thickened, discolored, and elongated toenails x10. He states he has noticed the condition for a few years, but has been unable to attend to his feet due to his stroke. Patient states he had a brain bleed, but states he is recovering well. He denies any previous treatment for this condition. He denies any pain to the feet and toes unless the if the nails are too thick. He states he wears supportive shoe gear (patient is wearing sneakers). Patient also seen wearing compression stockings. Denies any other pedal concerns. Denies any nausea, vomiting, fever, or chills. 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 Psoriasis Lumbar degenerative disc disease Abscess of leg Pure hypercholesterolemia Onychomycosis Chronic kidney disease (CKD), stage III (moderate) Obesity (BMI 30-39.9) Hematuria Gait instability Vitamin D deficiency Hypokalemia Polycystic kidney disease Multiple thyroid nodules Impaired fasting glucose Cerebrovascular accident (CVA) Benign essential hypertension History of postoperative nausea Gout Thyroid nodule Renal cyst Benign prostatic hyperplasia CVA (cerebral vascular accident) COVID-19 virus antibody negative History of snoring Surgical History H/O partial thyroidectomy (~10/22/14) H/O arthroscopic knee surgery H/O varicose vein ligation and stripping Hx of colonoscopy (~08/2020) Family History Father Diabetes Mother Chronic mental illness Other Mental health problem Social History Household Members: None Housing: Apartment Do you presently have visiting nurse or other home services: No Alcohol intake: current Alcohol intake frequency: holidays/special occasions only Alcohol type: beer Patient Tobacco Use Status: Former Tobacco user e-Cigarette/Vaping Use: Former Use Second Hand Smoke Exposure: Yes service: No Current occupational status: employed 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 Mottled appearance of skin noted. Scars noted to the legs diffusely, due to healed ulcers. Hyperpigmentation noted to the legs and feet bilaterally. No clinical signs of infection. Vascular: DP/PT pulses nonpalpable. Capillary refill time greater than 3 seconds. No edema noted. Varicosities noted. Neuro: Protective sensation is grossly intact. Musculoskeletal: Pes planus foot type. No pain on palpation to the forefoot or hindfoot or ankle. Stiffness noted to the ankles bilaterally. Range of motion of the forefoot within normal limits. Office Procedures AMB Debridement/Avulsion Podia Details: Debrided toenails 1 - 10 using a nail Nipper and obtain nail biopsy to be sent to pathology. [id number] of Nail 6+ Nail Biopsy: [id number] Nail unit biopsy Procedure code (CPT) selection complete Results Reviewed Results Reviewed: Laboratory Tests 06/07/25 09:34 AST 25 ALT 18 Assessment & Plan Assessment & Plan (1) Tinea unguium: Code(s): B35.1 - Tinea unguium Category: Medical (2) Nail dystrophy: Code(s): L60.3 - Nail dystrophy Category: Medical (3) Peripheral vascular disease: Code(s): I73.9 - Peripheral vascular disease, unspecified Category: Medical (4) Varicose veins of left lower extremity with inflammation: Code(s): I83.12 - Varicose veins of left lower extremity with inflammation Category: Medical (5) Varicose veins of right lower extremity with inflammation: Code(s): I83.11 - Varicose veins of right lower extremity with inflammation Category: Medical Plan Discussed the diagnoses of onychomycosis and peripheral vascular disease with the patient. Discussed various treatment options for onychomycosis including topical and oral medication. Patient opts for debridement of nails, topical medication, and oral medication. Debrided toenails 1-10 using a nail Nipper and obtained a nail biopsy to be sent to pathology. Advised patient to file down the dorsal aspect of nails in between each application of the topical medication. Prescribed ciclopirox 8% solution and terbinafine 250 mg. Advised patient to continue to wear supportive shoe gear and avoid barefoot walking. Advised patient to continue wearing compression stockings. Patient states he sees a vascular specialist, advised patient to continue to follow-up with his doctor. Patient is to return to the office in 1 month for re-evaluation. If patient continues to experience stiffness of ankles, we will consider physical therapy. Orders: Orders AMB Debridement/Avulsion Podiatry Today B35.1 - Tinea unguium, L60.3 - Nail dystrophy Surgical Today B35.1 - Tinea unguium, L60.3 - Nail dystrophy Medications: New terbinafine HCl 250 mg PO DAILY 30 tabs 0RF Onychomycosis B35.1 - Tinea unguium, L60.3 - Nail dystrophy ciclopirox 8% 1 appl topical BEDTIME 6.6 mL 0RF Onychomycosis 4 weeks B35.1 - Tinea unguium, L60.3 - Nail dystrophy Coding Level of Care Code New Pt Level 3 (98582) Diagnoses Tinea unguium B35.1 Nail dystrophy L60.3 Peripheral vascular disease I73.9 Varicose veins of left lower extremity with inflammation I83.12 Varicose veins of right lower extremity with inflammation I83.11 CPT Codes Skin Debridement - CPT: 97236-Hxjqozinnvx of Nail 6+ ([id number]) Skin Debridement - CPT: 93481 Nail unit biopsy ([id number]) Time Spent (min) 35
--- OUTSIDE RECORDS SUMMARY | 2025-07-19 16:45 | XMS_ITS | Clinical Summary ---
Author Organization [facility] Address [address] [address] Phone Care Team Providers Care Saw Setter Name Role Phone Bhavesh Arora MD Primary Care Provider [phone] Allergies Active Allergy Reactions Criticality Noted Date [...] age to complete this topic Insurance Medicare [facility] Medicare [facility] Care Teams Saw Setter Relationship Specialty Start Date End Date Bhavesh Arora MD [address] [place] [id number] PCP - General Internal Medicine 08/25/22
--- OUTSIDE RECORDS SUMMARY | 2025-07-19 16:45 | XMS_ITS | Clinical Summary ---
Author Organization [facility] Address [address] [place] [address] Care Team Providers Care Grooming Assistant Name Role Phone Unavailable Primary Care Provider [...] (2 - Td or Tdap) 01/25/2020 010 Alcohol and Drug Screen 11/08/2024 Depression Annual Screen 11/08/2024 [id number] ( season) 2025 02/21/2022, 09/06/2021, 01/07/2021 Imm-Influenza (#1) 2025 08/28/2021, 0 07/30/2020, 08/26/2018, Additional history exists Insurance [place]ICARE - [place]
== END 2025-07-19 13:42 | disposition home or self-care (01) ==
LOC: HO.HPODS 12:29
PROVIDERS: PCP Internal Medicine; Visit Provider Student in an Organized Health Care Education/Training Program
DX: B35.1 Tinea unguium (principal); L60.3 Nail dystrophy; I73.9 Peripheral vascular disease, unspecified; I83.12 Varicose veins of left lower extremity with inflammation; I83.11 Varicose veins of right lower extremity with inflammation
CPT/HCPCS: 11721; 99203

== ENCOUNTER 2025-07-19 13:28 | Outpatient (REF) | payer MEDICARE, SELFPAY ==
--- OUTSIDE RECORDS SUMMARY | 2025-07-19 17:26 | XMS_ITS | Clinical Summary ---
Author Organization [facility] Address [address] [place] [address] Phone Care Team Providers Care Client Services Vice President Name Role Phone Bhavesh Arora MD Primary [...] dysplastic nevus Overview (03/31/2025): DX:H/O dysplastic nevus Surgical History Surgery Date Site/Laterality Comments OTHER SURGICAL HISTORY PROCEDURE: UT STAB PHLEBT VARICOSE VEINS 1 XTR 10-20 [...] 04/24/2023, 08/22/2022, Additional history exists Influenza Vaccine (#1) 2025 , 08/17/2022, 08/28/2021, Additional history exists Hypertension/CHF/CAD Annual BMP Blood Test 04/05/2026 04/05/2025, [...] Procedure Name Priority Date/Time Associated Diagnosis Comments OCCULT BLOOD STOOL, GUAIAC Routine 04/06/2025 9:20 AM EDT COMPREHENSIVE METABOLIC PANEL Routine 04/05/2025 4:11 AM EDT from Last 3 Months or Most Recently Relevant to Health Maintenance Results * Occult blood stool, guaiac (04/06/2025 9:20 AM EDT) Occult Blood, Stool #1 Negative Negative 04/06/2025 10:29 AM EDT [facility] Stool Rectum structure / Unknown Non-blood Collection / Unknown 04/06/2025 9:20 AM EDT 04/06/2025 10:05 AM EDT us [facility] BODY FLUIDS AND STOOLS O RDERABLES Final Result [facility] [address] [place] [address], [place] [phone] * (ABNORMAL) Comprehensive metabolic panel (04/05/2025 4:11 AM EDT) Sodium 140 133 - 145 mmol/L LAB CHEMISTRY METHOD 04/05/2025 5:57 AM [facility] Potassium 3.7 3.5 - 5.5 mmol/L LAB CHEMISTRY METHOD 04/05/2025 5:57 AM [facility] Comment:Hemolysis present Chloride 105 96 - 110 mmol/L LAB CHEMISTRY METHOD 04/05/2025 5:57 AM [facility] CO2 27 21 - 32 mmol/L LAB CHEMISTRY METHOD 04/05/2025 5:57 AM [facility] Anion Gap 8 3 - 11 LAB CHEMISTRY METHOD 04/05/2025 5:57 AM [facility] Glucose 94 70 - 100 mg/dL LAB CHEMISTRY METHOD 04/05/2025 5:57 AM [facility] BUN 35(H) 5 - 25 mg/dL LAB CHEMISTRY METHOD 04/05/2025 5:57 AM [facility] Creatinine 1.91(H) 0.70 - 1.30 mg/dL LAB CHEMISTRY METHOD 04/05/2025 5:57 AM [facility] eGFR 37(L) >=60 mL/min/1. 73m2 LAB CHEMISTRY METHOD 04/05/2025 5:57 AM [facility] Comment:Calculation based on the Chronic Kidney Disease Epidemiology Collaboration (CKD-EPI) equation refit without adjustment for race. BUN/Creatinine Ratio 18.3 LAB CHEMISTRY METHOD 04/05/2025 5:57 AM [facility] Calcium 9.0 8.5 - 10.5 mg/dL LAB CHEMISTRY METHOD 04/05/2025 5:57 AM [facility] AST (SGOT) 22 10 - 42 unit/L LAB CHEMISTRY METHOD 04/05/2025 5:57 AM [facility] Comment:Hemolysis present ALT (SGPT) 26 10 - 60 unit/L LAB CHEMISTRY METHOD 04/05/2025 5:57 AM EDT [facility] Alkaline Phosphatase 65 42 - 121 unit/L LAB CHEMISTRY METHOD 04/05/2025 5:57 AM EDT [facility] Total Protein 5.6(L) 6.0 - 8.0 g/dL LAB CHEMISTRY METHOD 04/05/2025 5:57 AM EDT [facility] Albumin 3.0(L) 3.2 - 5.0 g/dL LAB CHEMISTRY METHOD 04/05/2025 5:57 AM T [facility] Total Bilirubin 0.8 0.0 - 1.4 mg/dL LAB CHEMISTRY METHOD 04/05/2025 5:57 AM T [facility] Blood Venous blood specimen / Unknown Venipuncture / Unknown 04/05/2025 4:11 AM EDT 04/05/2025 5:10 AM EDT us [facility] BLOOD ORDERABLES Final R esult [facility] [address] [place] [address], [place] [phone] from Last 3 Months or Most Recently Relevant to Health Maintenance Insurance [facility] MEDICARE Advance Directives Documents on File Type Date Recorded Patient Filler Room Attendant Expl anation Advance Directives and Living Will [...] currently active code status orders. Care Teams Client Services Vice President Relationship Specialty Start Date End Date Bhavesh Arora MD PCP - General Internal Medicine 01/14/25
== END 2025-07-19 13:29 | disposition home or self-care (01) ==
LOC: HO.LNP 13:28
PROVIDERS: Visit Provider Student in an Organized Health Care Education/Training Program
DX: Z13.89 Encounter for screening for other disorder (principal)
CPT/HCPCS: 88304

== ENCOUNTER 2025-08-16 12:22 | Outpatient (AMB) | payer MEDICARE, SELFPAY ==
--- NOTE | 2025-08-16 12:43 | A.OFFVIS_ITS ---
Vital Signs 08/16/25 12:45 Height 5 ft 4.5 in Weight 199 lb BMI 33.6 Intake Visit Reasons: OV - Onycholysis & Bilateral Ankle Stiffness Intake Note: Ed is a 75 year old male who presents today for a follow up of Onycholysis and bilateral peripheral vascular disease. At the last visit a a complete nail debridement was done, he was prescribed Ciclopirox and Terbinafine. Advised to wear compression stockings and avoid barefoot walking. Patient reports he has not started the terbinafine however he started the ciclopirox and sees improvement with his onycholysis. He states he is not having any ankle stiffness at this time. Allergies Penicillins Allergy (Verified 08/16/25 12:46) Unknown irbesartan Adverse Reaction (Verified 08/16/25 12:46) Stomach Upset Medication List - Last Reconciled 08/16/25 by Shonda Walton DPM ammonium lactate 12% 1 appl topical DAILY atorvastatin 80 mg PO BEDTIME 90 days ciclopirox 8% 1 appl topical BEDTIME 4 weeks diltiazem HCl CD 240 mg PO QAM 90 days finasteride 5 mg PO DAILY 90 days hydralazine 50 mg PO TID 90 days labetalol 100 mg PO BID 90 days losartan 50 mg PO BID 90 days meclizine 12.5 mg PO BID PRN melatonin 6 mg (2 x 3 mg) PO BEDTIME PRN 90 days nystatin 1 appl topical BID HPI Comments Details: The patient is a 75-year-old male presenting for follow-up of bilateral onychomycosis to toenails x 10. The nail fungus has been managed with topical treatment, specifically Ciclopirox applied daily. The patient has not yet started the Terbinafine prescribed and states it is because he take 6 other oral medications daily. Patient states he may start the oral medication soon. He states he notices slight improvement to the nails and has been consistent with applying the topical solution. He denies any new pedal injuries, but states he recently injured his left elbow causing a lump. He denies any other concerns at this time. He states he continues to wear supportive shoe gear (patient is wearing sneakers). Patient also seen wearing compression stockings. 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 Psoriasis Lumbar degenerative disc disease Abscess of leg Pure hypercholesterolemia Onychomycosis Chronic kidney disease (CKD), stage III (moderate) Obesity (BMI 30-39.9) Hematuria Gait instability Vitamin D deficiency Hypokalemia Polycystic kidney disease Multiple thyroid nodules Impaired fasting glucose Cerebrovascular accident (CVA) Benign essential hypertension History of postoperative nausea Gout Thyroid nodule Renal cyst Benign prostatic hyperplasia CVA (cerebral vascular accident) COVID-19 virus antibody negative History of snoring Surgical History H/O partial thyroidectomy (~10/22/14) H/O arthroscopic knee surgery H/O varicose vein ligation and stripping Hx of colonoscopy (~08/2020) Family History Father Diabetes Mother Chronic mental illness Other Mental health problem Social History Household Members: None Housing: Apartment Do you presently have visiting nurse or other home services: No Alcohol intake: current Alcohol intake frequency: holidays/special occasions only Alcohol type: beer Patient Tobacco Use Status: Former Tobacco user e-Cigarette/Vaping Use: Former Use Second Hand Smoke Exposure: Yes service: No Current occupational status: employed 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 Reports left elbow pain and swelling after an injury. All systems reviewed & are unremarkable except as noted in HPI and below Physical Exam Vital Signs: BMI result Body Mass Index 33.6 Extrem Other: Bilateral lower extremity focused physical exam: Derm: Toenails 1 through 10 noted to be thickened, discolored, and dystrophic with subungual debris (appearance of ciclopirox noted). Mottled appearance of skin noted. Scars noted to the legs diffusely, due to healed ulcers. Hyperpigmentation noted to the legs and feet bilaterally. No clinical signs of infection. Vascular: DP/PT pulses nonpalpable. Capillary refill time greater than 3 seconds. No edema noted. Varicosities noted. Pedal hair absent. Neuro: Protective sensation is grossly intact. Musculoskeletal: Pes planus foot type. No pain on palpation to the forefoot or hindfoot or ankle. Reduced stiffness noted to the ankles bilaterally. Range of motion of the forefoot within normal limits. Nonantalgic unassisted gait noted. Office Procedures AMB Debridement/Avulsion Podia Details: Debrided toenails x10 of thickness using a dremel. [id number] of Nail 6+ Procedure code (CPT) selection complete Results Reviewed Results Reviewed: Laboratory Tests 06/07/25 09:34 AST 25 ALT 18 Pathology of toenail samples (07/20/25): Positive for fungal hyphae. Assessment & Plan Assessment & Plan (1) Tinea unguium: Code(s): B35.1 - Tinea unguium Category: Medical (2) Nail dystrophy: Code(s): L60.3 - Nail dystrophy Category: Medical (3) Peripheral vascular disease: Code(s): I73.9 - Peripheral vascular disease, unspecified Category: Medical (4) Varicose veins of left lower extremity with inflammation: Code(s): I83.12 - Varicose veins of left lower extremity with inflammation Category: Medical (5) Varicose veins of right lower extremity with inflammation: Code(s): I83.11 - Varicose veins of right lower extremity with inflammation Category: Medical (6) Left elbow pain: Code(s): M25.522 - Pain in left elbow Category: Medical (7) Effusion, left elbow: Code(s): M25.422 - Effusion, left elbow Category: Medical Plan Patient was informed and verbally consented to the use of an ambient scribe for clinic note documentation during this visit. - Continue with Ciclopirox for nail fungus and consider starting Terbinafine to expedite treatment. Refilled Ciclopirox. - Debrided toenails x10 of thickness with a dremel. - Advised patient to file down the dorsal aspect of nails in between each application of the topical medication. - Advised patient to continue to wear supportive shoe gear and avoid barefoot walking. - Advised patient to continue wearing compression stockings. - Referral to orthopedics for evaluation of elbow pain and swelling. Patient is to return to the office in 2 month for re-evaluation. Orders: Orders AMB Debridement/Avulsion Podiatry Today B35.1 - Tinea unguium, I73.9 - Peripheral vascular disease, unspecified, I83.11 - Varicose veins of right lower extremity with inflammation, I83.12 - Varicose veins of left lower extremity with inflammation, L60.3 - Nail dystrophy Referrals Orthopedics Referral M25.422 - Effusion, left elbow, M25.522 - Pain in left elbow Medications: Refilled ciclopirox 8% 1 appl topical BEDTIME 6.6 mL 1RF Onychomycosis 4 weeks B35.1 - Tinea unguium, L60.3 - Nail dystrophy Discontinued terbinafine HCl Discontinued Reason: Patient Refused 250 mg PO DAILY 30 tabs 0RF On ychomycosis B35.1 - Tinea unguium, L60.3 - Nail dystrophy Coding Level of Care Code Est Pt Level 3 (89109) Diagnoses Tinea unguium B35.1 Nail dystrophy L60.3 Peripheral vascular disease I73.9 Varicose veins of left lower extremity with inflammation I83.12 Varicose veins of right lower extremity with inflammation I83.11 Left elbow pain M25.522 Effusion, left elbow M25.422 CPT Codes Skin Debridement - CPT: 15610-Tjaaicihvjl of Nail 6+ ([id number]) Time Spent (min) 35
[2025-08-16 12:45] VITALS: BMI 33.6
== END 2025-08-16 13:03 | disposition home or self-care (01) ==
LOC: HO.HPODS 12:23
PROVIDERS: PCP Internal Medicine; Visit Provider Student in an Organized Health Care Education/Training Program
DX: B35.1 Tinea unguium (principal); L60.3 Nail dystrophy; I73.9 Peripheral vascular disease, unspecified; I83.12 Varicose veins of left lower extremity with inflammation; I83.11 Varicose veins of right lower extremity with inflammation; M25.522 Pain in left elbow; M25.422 Effusion, left elbow
CPT/HCPCS: 11721; 99213

== ENCOUNTER → 2025-08-16 12:22 | Outpatient (BNVA) | payer MEDICARE, SELFPAY | PROVIDERS: PCP Internal Medicine; Visit Provider Student in an Organized Health Care Education/Training Program | DX: I61.4 Nontraumatic intracerebral hemorrhage in cerebellum (principal); I69.320 Aphasia following cerebral infarction; B35.1 Tinea unguium; L60.3 Nail dystrophy; I73.9 Peripheral vascular disease, unspecified; I83.12 Varicose veins of left lower extremity with inflammation; I83.11 Varicose veins of right lower extremity with inflammation; M25.522 Pain in left elbow; M25.422 Effusion, left elbow | CPT/HCPCS: 11721; 99202; 99212 ==

== ENCOUNTER 2025-08-16 15:21 | Outpatient (AMB) | payer MEDICARE, SELFPAY ==
--- NOTE | 2025-08-16 15:52 | A.OFFVIS_ITS ---
Intake Visit Reasons: Seen 2020, Contusion/laceration of left cerebral Allergies Penicillins Allergy (Verified 08/16/25 12:46) Unknown irbesartan Adverse Reaction (Verified 08/16/25 12:46) Stomach Upset HPI Comments Details: 75 y/o RH man with underlying HTN and hyperlipidemia had an embolic looking right splenial ischemic infarct, and migraine. Headaches were happening sporadically. He is presenting with neurological follow-up for stroke-related complications. On March 17, following a fall that resulted in head injury, he suffered a cerebrovascular accident with a left parietal hemorrhage. Initially managed at [place], he was transferred to [facility] for further treatment, which included a hospitalization lasting several weeks. 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 Memory remains largely unaffected, although he does experience occasional difficulty recalling names. His sister maría rodríguezdes daily informal speech therapy to assist in his recovery. He also manages chronic hypertension and is conscious of renal impairment, as indicated by a measured low GFR, taking blood pressure medications regularly. The patient reports increased fatigue but remains physically active, maintaining a regular exercise regimen. His mobility has improved from wheelchair dependence to unassisted walking. 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 Psoriasis Lumbar degenerative disc disease Abscess of leg Pure hypercholesterolemia Onychomycosis Chronic kidney disease (CKD), stage III (moderate) Obesity (BMI 30-39.9) Hematuria Gait instability Vitamin D deficiency Hypokalemia Polycystic kidney disease Multiple thyroid nodules Impaired fasting glucose Cerebrovascular accident (CVA) Benign essential hypertension History of postoperative nausea Gout Thyroid nodule Renal cyst Benign prostatic hyperplasia CVA (cerebral vascular accident) COVID-19 virus antibody negative History of snoring Surgical History H/O partial thyroidectomy (~10/22/14) H/O arthroscopic knee surgery H/O varicose vein ligation and stripping Hx of colonoscopy (~08/2020) Family History Father Diabetes Mother Chronic mental illness Other Mental health problem Social History Household Members: None Housing: Apartment Do you presently have visiting nurse or other home services: No Alcohol intake: current Alcohol intake frequency: holidays/special occasions o nly Alcohol type: beer Patient Tobacco Use Status: Former Tobacco user e-Cigarette/Vaping Use: Former Use Second Hand Smoke Exposure: Yes service: No Current occupational status: employed 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 - Cardiovascular: Reports hypertension. - Renal: Reports low GFR; reports taking blood pressure medications. - Musculoskeletal: Reports falling and head injury; reports improvement in mobility. - Psychiatric: Denies significant memory loss; reports vocational impact due to speech impairment. Physical Exam Neuro Other: Mental Status: Alert and awake with decreased spontaneity and fluency of speech. Cranial Nerves: CN II: Visual suazo full to confrontation, visual acuity intact. CN III, IV, : Pupils equal, round, reactive to light and accommodation. Extraocular movements are normal. CN V: Facial sensation is normal. CN VII: Facial movements symmetrical. CN VIII: Hearing intact to bedside conversation is normal. CN IX, X: Palate elevates symmetrically. CN XI: Shoulder shrug and head turn symmetrical. CN XII: Tongue midline without atrophy or fasciculations. Deep tendon reflexes are absent. Kkonza-td-lnne testing did not reveal any significant ataxia. Gait is slow. Extrapyramidal: Full facial expressions and blinking. No rigidity. Movements are appropriate with no tremor or abnormality. Speech: Mild dysarthria Assessment & Plan Assessment & Plan (1) Cerebellar hemorrhage: Comment: MRI brain at [facility] in Sep 2016: no acute lesion CT brain WO at [facility] in 2016: no acute lesion MRI brain WWO at [facility] in 2016: acute right medial frontal/splenial atypical infarct with no left sided lesion MRA brain at [facility] in 2016: focal rights P2 cutoff, otherwise ok MRA neck at [facility] in 2016: no carotid or post circ stenosis MRA brain at [facility] in 2016: [place] CT brain WO at [facility] in Jul 2016: mild chronic MVD NICS at [facility] in Jul 2016: OK Holter at [facility] in 2016: NSR. Code(s): I61.4 - Nontraumatic intracerebral hemorrhage in cerebellum Category: Medical (2) Multiple cerebral infarctions: Code(s): I63.9 - Cerebral infarction, unspecified Category: Medical (3) Aphasia as late effect of cerebrovascular accident: Code(s): I69.320 - Aphasia following cerebral infarction Category: Medical Plan Impression: 75 yo man with h/o cerebral microvascular disease of brain had a left cerebellar hemorrhage in March of 2025 affecting his balance and speech. Exam suggested a combinatoin of motor aphasia with mild dysarthria Rec: a: Speech therapy b: BP control c: PT Orders: Orders PT Evaluation and Treatment Today I61.4 - Nontraumatic intracerebral hemorrhage in cerebellum Referrals Speech and Hearing Referral I61.4 - Nontraumatic intracerebral hemorrhage in cerebellum Coding Level of Care Code New Pt Level 4 (45645) Diagnoses Cerebellar hemorrhage I61.4 Multiple cerebral infarctions I63.9 Aphasia as late effect of cerebrovascular accident I69.320
== END 2025-08-16 16:06 | disposition home or self-care (01) ==
LOC: HO.HSM 15:22
PROVIDERS: PCP Internal Medicine; Visit Provider Psychiatry & Neurology Neurology
DX: I61.4 Nontraumatic intracerebral hemorrhage in cerebellum (principal); I63.9 Cerebral infarction, unspecified; I69.320 Aphasia following cerebral infarction
CPT/HCPCS: 99204

== ENCOUNTER 2025-09-12 13:52 | Outpatient (AMB) | payer MEDICARE, SELFPAY ==
--- OUTSIDE RECORDS SUMMARY | 2025-09-06 22:59 | XMS_ITS | Continuity of Care Document ---
Author Organization [facility] y [address] [place] [address]- Care Team Providers Care Mother'S Helper Name Role Phone Bhavesh Arora MD Primary Care Physician Encounter [facility] Date(s): 08/07/25 - 09/06/[address] [place], [place] [address] Attending Physician: Travis Strickland Admitting Physician: Travis Strickland Referring Physician: Travis Strickland Encounter Type: Triage Allergies, Adverse Reactions, Alerts Substance Criticality Severity Reaction Reaction Severity Status irbesartan Unable to assess criticality Persistent Moderate Upset stomach Active penicillins Active Medications acetaminophen 325 mg oral tablet 650 mg, By Mouth, Every 4 hours, PRN, Refills 0, Maintenance, Pain , Mild, 03/29/25 9:47:00 AM EDT, Partial fill upon patient request if the prescription is for a schedule II opioid drug. Start Date: 03/29/25 Status: Ordered Medication Dispense Status: Completed Total Allowed Fills: 1 Fills Dispensed: 0 atorvastatin 80 mg oral tablet TAKE 1 TABLET BY MOUTH AT BEDTIME Start Date: 03/18/25 Status: Ordered Medication Dispense Status: Completed Total Allowed Fills: 1 Fills Dispensed: 0 DilTIAZem (Eqv-Cardizem CD) 240 mg/24 hours oral capsule, extended release TAKE 1 CAPSULE BY MOUTH EVERY MORNING Start Date: 03/18/25 Status: Ordered Medication Dispense Status: Completed Total Allowed Fills: 1 Fills Dispensed: 0 finasteride 5 mg oral tablet TAKE 1 TABLET BY MOUTH DAILY Start Date: 03/18/25 Status: Ordered Medication Dispense Status: Completed Total Allowed Fills: 1 Fills Dispensed: 0 hydrALAZINE 25 mg oral tablet 75 mg, By Mouth, Every 8 hours, Refills 0, Maintenance, 03/29/25 9:47:00 AM EDT, Partial fill upon patient request if the prescription is for a schedule II opioid drug. Start Date: 03/29/25 Status: Ordered Medication Dispense Status: Completed Total Allowed Fills: 1 Fills Dispensed: 0 labetalol 200 mg oral tablet = 300 mg, By Mouth, 2 times a day, 0 Refills, Maintenance, 03/29/25 9:47:00 AM EDT, Tablet, Partial fill upon patient request if the prescription is for a schedule II opioid drug. Start Date: 03/29/25 Status: Ordered Medication Dispense Status: Completed Total Allowed Fills: 1 Fills Dispensed: 0 losartan 50 mg oral tablet 50 mg, 1, tablet, By Mouth, Daily, # 30 tablet, Refills 0, Maintenance, 03/18/25 10:07:00 AM EDT, Partial fill upon patient request if the prescription is for a schedule II opioid drug. Start Date: 03/18/25 Status: Ordered Medication Dispense Status: Completed Quantity: 30.0 Unit: tablet Total Allowed Fills: 1 Fills Dispensed: 0 meclizine 12.5 mg oral tablet 60 each, 0 Refill(s), TAKE 1 TABLET BY MOUTH TWICE DAILY, 0 Refills, 07/11/25 11:18:00 AM EDT, Partial fill upon patient request if the prescription is for a schedule II opioid drug. Start Date: 07/11/25 Status: Ordered Medication Dispense Status: Completed Total Allowed Fills: 1 Fills Dispensed: 0 Nystatin Powder 1 applicator, Topically, 2 times a day, 0 Refills, Maintenance, Powder Start Date: 03/29/25 Stop Date: 04/03/25 Status: Ordered Medication Dispense Status: Completed Total Allowed Fills: 1 Fills Dispensed: 0 ondansetron 4 mg oral tablet, disintegrating DISSOLVE 1 TABLET ON THE TONGUE THREE TIMES DAILY NEEDED FOR NAUSEA AND VOMITING Start Date: 03/18/25 Status: Ordered Medication Dispense Status: Completed Total Allowed Fills: 1 Fills Dispensed: 0 Senna 8.6 mg oral tablet 8.6 mg, 1, tablet, By Mouth, Daily, with plenty of water. Hold for loose stool, >2BM in 24 hours., Refills 0, Maintenance, 03/29/25 9:47:00 AM EDT, Tablet, Partial fill upon patient request if the prescription is for a schedule II opioid drug. Start Date: 03/29/25 Stop Date: 04/08/25 Status: Ordered Medication Dispense Status: Completed Total Allowed Fills: 1 Fills Dispensed: 0 Problem List Condition Confirmation Course Effective Dates Status Health St atus Informant Obese class I Confirmed Active Social History Social History Type Response Smoking Status Never (less than 100 in lifetime) entered on: 08/07/25 Sex Sex Representation Male (finding) Patient Care team information Care Team Personnel Name: Ulysses DIAZ, Bhavesh Del Rosario Position: Reference Physician Member Role: PCP Address: [address] [place] [address] [address] [place] [address]- Telecom: Name: Renu Barillas RN Position: [facility] ED RN W/OE and Tasks Member Role: Primary Care Nurse Name: Nusrat Cho RN Position: [facility] RN Member Role: Primary Care Nurse Name: Carmina Lopez NP Position: [facility] Associate Professional Member Role: Lifetime Consulting Provider Address: [address] [facility] [address] [facility] [address] [facility] [place] [place] [address]- Telecom: Name: Anai Bauer RN Position: [facility] RN Member Role: Primary Care Nurse Name: Sarina Sanabria RN Position: [facility] Hospital Systems Software Developer Member Role: Primary Care Nurse Name: Angella Koo RN Position: [facility] RN Member Role: Primary Care Nurse Name: Isaiah Jacobs RN Position: [facility] RN Member Role: Primary Care Nurse Name: Jacobo Live MD Position: [facility] Renal MD Member Role: Lifetime Consulting Physician Address: [address] [facility] [address] [facility] [place] [address]- [place] Telecom: Care Team Related Persons Name: SUYAPA QUIROZ Insurance Providers Guarantor name: VALE QUIROZ Health Plan Information #: 1 Payer: MEDICARE B Payer Identifier: NA Member Number: [id number] Group Number: NA Subscriber Identifier: NA Relationship to Subscriber: self Coverage Type: NA Coverage Verification Date: NA Telecom: NA Address: [facility] Plan Information #: 2 Payer: MEDEX SECONDARY ONLY Payer Identifier: NGOZI Member Number: [id number] Group Number: [id number] Subscriber Identifier: NGOZI Relationship to Subscriber: self Coverage Type: Medicare Other Coverage Verification Date: NGOZI Telecom: NA Address:
[2025-09-12 13:55] VITALS: BP 152/86; PULSE 73; TEMP 36.8; O2SAT 97; BMI 34.5
--- NOTE | 2025-09-12 13:55 | AM.OFFWIN_ITS ---
Intake Vital Signs 09/12/25 13:55 Height 5 ft 4.5 in Weight 204 lb BMI 34.5 BP 152/86 H Blood Pressure Location Rt brachial Position Sitting Pulse 73 Pulse Source Pulse Oximeter Temp 98.3 F Temp Source Oral Pulse Oximetry (%) 97 Oxygen Delivery Method Room Air Intake Visit Reasons: EP Lump on left elbow Intake Note: pt presents with swelling to LT elbow for a couple weeks- denies injury Patient Tobacco Use Status: Former Tobacco user Allergies Penicillins Allergy (Verified 09/12/25 14:02) Unknown irbesartan Adverse Reaction (Verified 09/12/25 14:02) Stomach Upset Do you need a note to return to daycare/school/sports/work: No HPI HPI Comments History of Present Illness Details History of Present Illness - The patient is a 75-year-old male pres enting with a fluid-filled sac on the left elbow - The issue started a couple of weeks ag o following trauma to the elbow. - The patient reports the presence of a large bump along the elbow since the incident, which has remained since. - The condition is not associated with p ain, but the patient desires resolution of the swelling. - There is no history of gout or rheumat oid arthritis, and the patient does not take blood thinners. - The patient has full range of motion i n the elbow despite the swelling. Review of Systems - Musculoskeletal: Reports swelling in t he elbow. Denies pain. - Hematologic: Denies use of blood thinn ers. - Rheumatologic: Denies history of gout or rheumatoid arthritis. All systems reviewed and are unremarkable except as noted in HPI Physical Exam General: Cooperative, healthy appearing, comfortable, no acute distress and well developed Orientation: Patient oriented x3 Limitations: No limitations Head: Normal to inspection Ears: Hearing grossly normal bilaterally Nose: Normal External nose present Face and sinus: Normal facial exam Eyes: Appearance normal, both eyes and all related structures Neck: Normal visual inspection and Yes full ROM Respiratory: Normal respiratory effort and able to speak in complete sentences. Skin: No rashes or lesions noted Neuro: Patient oriented x3 Extremities: Normal to inspection, except for a fluid-filled sac on the left elbow, consistent with bursitis. Full range of motion in the left elbow. 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 Psoriasis Lumbar degenerative disc disease Abscess of leg Pure hypercholesterolemia Onychomycosis Chronic kidney disease (CKD), stage III (moderate) Obesity (BMI 30-39.9) Hematuria Gait instability Vitamin D deficiency Hypokalemia Polycystic kidney disease Multiple thyroid nodules Impaired fasting glucose Cerebrovascular accident (CVA) Benign essential hypertension History of postoperative nausea Gout Thyroid nodule Renal cyst Benign prostatic hyperplasia CVA (cerebral vascular accident) COVID-19 virus antibody negative History of snoring Surgical History H/O partial thyroidectomy (~10/22/14) H/O arthroscopic knee surgery H/O varicose vein ligation and stripping Hx of colonoscopy (~08/2020) Family History Father Diabetes Mother Chronic mental illness Other Mental health problem Social History Household Members: None Housing: Apartment Do you presently have visiting nurse or other home services: No Alcohol intake: current Alcohol intake frequency: holidays/special occasions only Alcohol type: beer Patient Tobacco Use Status: Former Tobacco user e-Cigarette/Vaping Use: Former Use Second Hand Smoke Exposure: Yes service: No Current occupational status: employed 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 Left elbow olecranon bursitis - Recommend cold compresses and nonsteroidal anti-inflammatory drugs (NSAIDs) such as Aleve for inflammation reduction. - Advise use of an ice pack for 15 minutes multiple times a day to help reduce swelling. - Follow-up with orthopedics is scheduled for October 18 for further evaluation and management. Coding Level of Care Code Est Pt Level 3 (09318) Diagnoses Olecranon bursitis of left elbow M70.22
--- OUTSIDE RECORDS SUMMARY | 2025-09-12 17:04 | XMS_ITS | Clinical Summary ---
Author Organization [facility] Address [address] [place] [address] Phone Care Team Providers Care Instructor Of Sociology Name Role Phone Bhavesh Arora MD Primary Care Provider [phone] Allergies Active Allergy Reactions Criticality Noted Date [...] Date Site/Laterality Comments OTHER SURGICAL HISTORY PROCEDURE: [place] STAB PHLEBT VARICOSE VEINS 1 XTR 10-20 [...] Safety Answer Date Record ed Physical Abuse Unrecognized value 03/29/2025 Verbal Abuse Unrecognized value 03/29/2025 Sex and Gender Information Value Date [...] #1 Negative Negative 04/06/2025 10:29 AM EDT [facility] Stool Rectum structure / Unknown Non-blood Collection / Unknown 04/06/2025 9:20 AM EDT 04/06/2025 10:05 AM EDT us [facility] BODY FLUIDS AND STOOLS O RDERABLES Final Result [facility] [address] [place] [address], * (ABNORMAL) Comprehensive metabolic panel (04/05/2025 4:11 AM EDT) Sodium 140 133 - 145 mmol/L LAB CHEMISTRY METHOD 04/05/2025 5:57 AM [facility] Potassium 3.7 3.5 - 5.5 mmol/L LAB CHEMISTRY METHOD 04/05/2025 5:57 AM [facility] Comment:Hemolysis present Chloride 105 96 - 110 mmol/L LAB CHEMISTRY METHOD 04/05/2025 5:57 AM [facility] CO2 27 21 - 32 mmol/L LAB CHEMISTRY METHOD 04/05/2025 5:57 AM [facility] Anion Gap 8 3 - 11 LAB CHEMISTRY METHOD 04/05/2025 5:57 AM [facility] Glucose 94 70 - 100 mg/dL LAB CHEMISTRY METHOD 04/05/2025 5:57 AM [facility] BUN 35(H) 5 - 25 mg/dL LAB CHEMISTRY METHOD 04/05/2025 5:57 AM [facility] Creatinine 1.91(H) 0.70 - 1.30 mg/dL LAB CHEMISTRY METHOD 04/05/2025 5:57 AM [facility] eGFR 37(L) >=60 mL/min/1. 73m2 LAB CHEMISTRY METHOD 04/05/2025 5:57 AM [facility] Comment:Calculation based on the Chronic Kidney Disease Epidemiology Collaboration (CKD-EPI) equation refit without adjustment for race. BUN/Creatinine Ratio 18.3 LAB CHEMISTRY METHOD 04/05/2025 5:57 AM [facility] Calcium 9.0 8.5 - 10.5 mg/dL LAB CHEMISTRY METHOD 04/05/2025 5:57 AM [facility] AST (SGOT) 22 10 - 42 unit/L LAB CHEMISTRY METHOD 04/05/2025 5:57 AM [facility] Comment:Hemolysis present ALT (SGPT) 26 10 - 60 unit/L LAB CHEMISTRY METHOD 04/05/2025 5:57 AM EDT [facility] Alkaline Phosphatase 65 42 - 121 unit/L LAB CHEMISTRY METHOD 04/05/2025 5:57 AM EDT [facility] Total Protein 5.6(L) 6.0 - 8.0 g/dL LAB CHEMISTRY METHOD 04/05/2025 5:57 AM EDT [facility] Albumin 3.0(L) 3.2 - 5.0 g/dL LAB CHEMISTRY METHOD 04/05/2025 5:57 AM T [facility] Total Bilirubin 0.8 0.0 - 1.4 mg/dL LAB CHEMISTRY METHOD 04/05/2025 5:57 AM T [facility] Blood Venous blood specimen / Unknown Venipuncture / Unknown 04/05/2025 4:11 AM EDT 04/05/2025 5:10 AM EDT us [facility] BLOOD ORDERABLES Final R esult [facility] [address] [place] [address], from Last 3 Months or Most Recently Relevant to Health Maintenance Insurance [facility] MEDICARE Advance Directives Documents on File Type Date Recorded 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 Care Teams Instructor Of Sociology Relationship Specialty Start Date End Date Bhavesh Arora MD PCP - General Internal Medicine 01/14/25
== END 2025-09-12 14:36 | disposition home or self-care (01) ==
PROVIDERS: PCP Internal Medicine; Visit Provider Physician Assistant
DX: M70.22 Olecranon bursitis, left elbow (principal)

== ENCOUNTER → 2025-09-12 13:52 | Outpatient (BNVA) | payer MEDICARE, SELFPAY | PROVIDERS: PCP Internal Medicine; Visit Provider Physician Assistant | DX: M70.22 Olecranon bursitis, left elbow (principal) | CPT/HCPCS: 99212 ==

== ENCOUNTER 2025-09-20 10:25 | Outpatient (RCR) | payer MEDICARE, SELFPAY ==
--- NOTE | 2025-09-21 15:30 | MHC.SP.ADU ---
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 Per referral note, ?On March 17, following a fall that resulted in head injury, he suffered a cerebrovascular accident with a left parietal hemorrhage? Since the stroke, the patient has experienced significant speech impairment, struggling with clarity of speech.? Wyatt reports going to rehab at [facility]. He reports that rehab was more focused on his physical abilities vs communication abilities. Wyatt lived with his sister for a couple months after the stroke, but now is back to residing alone in his apartment in [place]. Wyatt?s sister is a retired Speech-Language Pathologist and provided him with informal speech therapy; he reports that she had him reading sentences and paragraphs aloud and working on breathing and going slow. 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 Wyatt has a goal of improving communication and reports a need for speech therapy to assist his stroke recovery. Medical History: L elbow pain, dry skin, Peripheral vascular disease, Nail dystrophy, Lumbar degenerative disc disease, CKD, CVA, Gait instability Medication List: Recent Hospitalizations: No Respiratory Needs: Room Air Patient Orientation: Alert & Oriented x 4 Social History: Employment Status: Self-Employed Highest level of education obtained: Completed Bachelor's Current Living Situation: Wyatt currently lives in alone in an apartment Assistive Devices in use: Glasses/Contacts Past Speech Language Therapy: Wyatt has been receiving informal speech therapy from his sister who is a retire Speech-Language Pathologist. Other Therapies Seen in Current Calendar Year: Occupational Therapy, Physical Therapy Reported Speech, Language, Cognition difficulties: Speaking Comments: I need a speech therapist. I had a stroke and am recovering. Quality of Life: Wyatt's current communication difficulties have a mild-moderate impact on his every day life. Patient Stated Goal of Speech-Language Therapy: Improving communication difficulties. Assessment Speech Production: Dysarthric Garbled Slurred Clinical Impression: Impaired Observations: Wyatt?s speech was mildly fast in rate and moderately garbled and slurred. Edsammie?s AMR?s were slow, but precise and his SMR?s were slow but imprecise. Wyatt was asked to repeat the word ?Buttercup?; noticeable change in rate and imprecision as Wyatt repeated the word multiple times. Limited labial movement/range of motion (ROM) with both AMR?s and SMR?s. Wyatt was able to create labial retraction and protrusion, slowly. He was also able to hold air in his cheeks with adequate labial seal. Wyatt displayed gross facial symmetry at rest and with labial retraction. Within normal limits for lingual ROM and strength, as well as jaw ROM and strength. During conversational speech, noted difficulties with managing saliva, facial grimacing and excessive blinking. Wyatt reported childhood onset of stuttering; noted stuttering and dysfluencies during evaluation prompting further evaluation of fluency. Tests of Speech & Lang Adults: WAB-R Clinical Impression: Impaired Observations: Wyatt completed the Western Aphasia Battery- Revised this date. Record Form 1 SPONTANEOUS SPEECH: Conversational Questions For this task the subject must respond verbally to six personal questions (e.g., name, address, occupation, and reason for being in hospital or clinic). Wyatt correctly answered 6/6 questions with appropriate and few short-worded responses. Picture Description For this task the subject must describe a picture presented in the Stimulus book. Subjects are encouraged to answer in full sentences. Wyatt described this picture with great detail, noted occasional dysfluencies (part-word repetitions, prolongations and pausing). Task A and B for Spontaneous Speech are scored together in both Information Content and Fluency, Grammatical Competence, and Paraphasias. Wyatt scored a 10 on the Information Content and a 9 on the Fluency, Grammatical Competence, and Paraphasias. The scores combine and create the overall score for Spontaneous Speech. Wyatt had a total score of 19/20 for this section. AUDITORY VERBAL COMPREHENSION: Yes/No Questions For this task, the subject must answer Yes or No to several types of questions: personal (e.g. Is your name [place]?), environmental (e.g. Are the lights on in this room?), and general (e.g. Do you eat a banana before you peel it?). Wyatt scored a 60/60, answered all yes/no questions accurately. Auditory Word Recognition For this task, the subject must identify something (e.g. common object, shape, letter, body part) from an array of items in the same category by pointing to it. (person) scored a 59/60, missing identification of index finger. Sequential Commands For this task, the subject must follow verbal commands of increasing length and complexity. Wyatt scored an 80/80. He followed all verbal commands with great accuracy. Tasks A, B and C for Auditory Verbal Comprehension are scored together, these scores combine and create the overall score for this section.Wyatt scored a 199/200. REPETITION For this task the subject must repeat words, phrases and sentences of increasing length and complexity. Wyatt accurately repeated sentences of 5 words, he had difficulties with the last item which was a 10-word sentence; he was able to repeat part of the sentence but not the entirety. Wyatt scored a total of 98/100 for this section. NAMING AND WORD FINDING Object Naming For this task, the subject must name common objects from various categories. Wyatt was able to accurately name 20/20 items leading to a score of 60/60. Word Fluency For this task, the subject must name as many animals as he or she can in one minute. Wyatt was able to name 20 animals in the allotted time. Valente scoring a total of 20/20. Note- repetition of an animal. Sentence Completion For this task, the subject must complete five orally presented sentences. Wyatt accurately completed 5/5 sentences leading to a score of 10/10. Responsive Speech For this task the subject must respond verbally to five simple questions. Wyatt accurately answered 5/5 questions leading to a score of 10/10. Task A, B, C and D combine and form a total for the section of Naming and Word Finding. Wyatt scored a 100/100. The totals for all of these sections are then inputted into the score summary and each are divided by 10 to get the score needed for Aphasia Quotient (AQ); ?the Aphasia Quotient is the essential summary value of the individual?s aphasic deficit, and it is proportional to the severity of aphasia regardless of the type or etiology.? Wyatt with an AQ of 97.5, placing them into the mild range. The subject?s scores are then compared with the rows of scores associated with each aphasia type to determine the WAB-R Aphasia Classification. Wyatt with classification of anomic aphasia. Impression: Wyatt completed all subtests of the Western Aphasia Battery- Revised with very mild difficulties. Wyatt presents with very mild anomic aphasia. Wyatt may benefit from Reading and Writing testing as noted errors in intake form that he filled out. Impressions and Recommendations Summary: Wyatt is a 75 year old male who presents with very mild anomic aphasia and mild-moderate dysarthria as residual effects of a CVA that he had in March of this year. He is recommended outpatient speech therapy 1x/week for 45 minutes for 10-12 weeks to train dysarthria strategies and further assess fluency as well as reading and writing. Recommendation for Speech Therapy: Outpatient Speech Therapy Frequency/Duration: 1/wk for 45 minutes Date Range for Service Requested: 10-12 weeks Time to Reassess: PRN Halfway Goals: LTG 1: Wyatt will participate in conversation at 80% intelligibility given minimal verbal cues to utilize clear speech strategies in order to communicate thoughts, feelings, and needs. LTG 2: Wyatt will complete the Reading and Writing subtests of the [place] Diagnostic Aphasia Examination- Third Edition Short Form (BDAE-3) to 100% completion. LTG 3: Wyatt will complete assessment of fluency to 100% completion. Short Term Goals: Goal # : 1.1 Wyatt will use at least two compensatory strategies (over articulation/ slow rate/ writing law word/increase respiratory support for speech) to improve speech intelligibility while engaging in a semi-structured conversation in 80% of opportunities when provided with minimal verbal cues 1.2 Wyatt will over articulate words and short phrases with target sounds (consonant clusters, p, b, t, s, k) in 80% of opportunities when provided with minimal verbal cues Goal Status: New Goal Goal# : 1.3: Wyatt will produce sentences with 7 or more words by placing pauses in appropriate places in 80% of opportunities given moderate verbal and visual cues Goal Status: New Goal Recommended Referrals to be Discussed with Primary Care Provider: Patient Education: Completed: Yes Patient/Caregiver Education: Described Results of Evaluation Patient expressed understanding of evaluation Patient agrees with goals and treatment plan Comments/Barriers to Learning: Baker [employer] Clinican/Clinical Fellow: No Supervisory Statement: No Speech Language Pathologist: Debbie Muñiz M.A., CCC-HIM MANAGER
== END 2025-10-01 10:37 | disposition still patient (30) ==
LOC: HO.SH 10:25
PROVIDERS: PCP Internal Medicine; Visit Provider Psychiatry & Neurology Neurology
DX: I61.4 Nontraumatic intracerebral hemorrhage in cerebellum (principal)
CPT/HCPCS: 92523

== ENCOUNTER 2025-10-01 12:44 | Outpatient (REF) | payer MEDICARE, SELFPAY ==
[2025-10-01 13:07] LABS: MANUAL DIFF FLAG NO
[2025-10-01 13:27] LABS: Hematocrit 40.8 % (42.0-52.0); Hemoglobin 13.1 g/dl (14.0-18.0); Imm Gran Abs Auto 0.01 X10*3/uL (0.00-0.03); Imm Gran Pct Auto 0.2 % (0.0-0.4); Lymphocytes Absolute Auto 0.5 X10*3/uL (1.2-4.9); Mean Corpuscular HGB Conc 32.1 g/dl (31.0-36.0); Mean Corpuscular Hemoglobin 27.9 pg (27.0-33.0); Mean Corpuscular Volume 87.0 fL (80.0-98.0); NRBC Abs Auto 0.000 X10*3/uL (0.0-0.012); NRBC Pct Auto 0.0 /100WBC (0.0-0.2); Platelet Count 261 X10*3/uL (160-400); Red Blood Count 4.69 X10*6/uL (4.60-5.80); White Blood Count 4.0 X10*3/uL (4.8-10.8)
[2025-10-01 14:26] LABS: Parathyroid Hormone Intact 136.4 pg/mL (8.7-77.1)
[2025-10-01 14:35] LABS: Anion Gap 12 (12-20); Blood Urea Nitrogen 30 mg/dL (9-16); Calcium 9.2 mg/dL (8.4-10.2); Carbon Dioxide 31 mmol/L (22-29); Chloride 108 mmol/L (96-108); Estimated Glomerular Filt Rate 29; Potassium 3.8 mmol/L (3.3-5.1); Sodium 147 mmol/L (135-145)
== END 2025-10-01 12:45 | disposition home or self-care (01) ==
LOC: HO.LAB 12:44
PROVIDERS: PCP Internal Medicine; Visit Provider Internal Medicine Nephrology
DX: I12.9 Hypertensive chronic kidney disease with stage 1 through stage 4 chronic kidney disease, or unspecified chronic kidney disease (principal); N18.30 Chronic kidney disease, stage 3 unspecified; Q61.3 Polycystic kidney, unspecified; Z13.1 Encounter for screening for diabetes mellitus
CPT/HCPCS: 36415; 80051; 82306; 82310; 82565; 83036; 83970; 84100; 84520; 85025

== ENCOUNTER 2025-10-09 07:08 | Outpatient (REF) | payer MEDICARE, SELFPAY ==
--- OUTSIDE RECORDS SUMMARY | 2025-10-09 07:12 | XMS_ITS | Clinical Summary ---
Author Organization [facility] Address [address] [address] Phone Care Team Providers Care Medical Research Assistant Name Role Phone Bhavesh Arora MD Primary Care Provider [phone] Allergies Active Allergy Reactions Criticality Noted Date [...] age to complete this topic Insurance Medicare [facility] Medicare [facility] Care Teams Medical Research Assistant Relationship Specialty Start Date End Date Bhavesh Arora MD [address] [place] [id number] PCP - General Internal Medicine 08/25/22
[2025-10-09 07:23] LABS: MANUAL DIFF FLAG NO
[2025-10-09 07:48] LABS: Hematocrit 40.7 % (42.0-52.0); Hemoglobin 13.3 g/dl (14.0-18.0); Imm Gran Abs Auto 0.02 X10*3/uL (0.00-0.03); Imm Gran Pct Auto 0.5 % (0.0-0.4); Lymphocytes Absolute Auto 0.6 X10*3/uL (1.2-4.9); Mean Corpuscular HGB Conc 32.7 g/dl (31.0-36.0); Mean Corpuscular Hemoglobin 27.7 pg (27.0-33.0); Mean Corpuscular Volume 84.8 fL (80.0-98.0); NRBC Abs Auto 0.000 X10*3/uL (0.0-0.012); NRBC Pct Auto 0.0 /100WBC (0.0-0.2); Platelet Count 249 X10*3/uL (160-400); Red Blood Count 4.80 X10*6/uL (4.60-5.80); White Blood Count 4.2 X10*3/uL (4.8-10.8)
[2025-10-09 07:57] LABS: Appearance Urine Clear; Glucose Urine UA Negative (Negative); PH 7.0 (5.0-9.0); Specific Gravity - Urine 1.010 (1.005-1.025)
[2025-10-09 08:43] LABS: Folate 11.8 ng/mL (> or = 4.0); Vitamin B12 236 pg/mL (200-900)
[2025-10-09 08:52] LABS: Alanine Aminotransferase 32 U/L (0-40); Albumin Level 4.4 g/dL (3.5-5.0); Alkaline Phosphatase 62 U/L (39-117); Anion Gap 13 (12-20); Aspartate Amino Transferase 34 U/L (5-37); Blood Urea Nitrogen 39 mg/dL (9-16); Calcium 9.3 mg/dL (8.4-10.2); Carbon Dioxide 31 mmol/L (22-29); Chloride 107 mmol/L (96-108); Cholesterol 118 mg/dL (<200); Estimated Glomerular Filt Rate 26; HDL Cholesterol 42 mg/dL (>40); Potassium 3.5 mmol/L (3.3-5.1); Sodium 147 mmol/L (135-145); Total Protein 6.7 g/dL (6.5-8.0); Triglycerides 68 mg/dL (<150); Uric Acid 6.8 mg/dL (3.4-7.0)
== END 2025-10-09 07:09 | disposition home or self-care (01) ==
LOC: HO.LAB 07:08
PROVIDERS: PCP Internal Medicine; Visit Provider Internal Medicine
DX: E53.8 Deficiency of other specified B group vitamins (principal); R30.0 Dysuria; E78.00 Pure hypercholesterolemia, unspecified; E55.9 Vitamin D deficiency, unspecified; M10.9 Gout, unspecified; R73.01 Impaired fasting glucose; D64.9 Anemia, unspecified; I10 Essential (primary) hypertension
CPT/HCPCS: 36415; 80053; 80061; 81003; 82306; 82607; 82746; 83036; 84443; 84550; 85025

== ENCOUNTER 2025-10-10 10:33 | Outpatient (AMB) | payer MEDICARE, SELFPAY ==
[2025-10-10 10:35] VITALS: BP 146/100; PULSE 76; O2SAT 96; BMI 34.9
--- NOTE | 2025-10-10 10:35 | MHC.PC.OV ---
Vital Signs 10/10/25 10:35 Height 5 ft 4.5 in Weight 206 lb 6 oz BMI 34.9 BP 146/100 H Blood Pressure Location Lt brachial Position Sitting Pulse 76 Pulse Source Pulse Oximeter Pulse Oximetry (%) 96 Oxygen Delivery Method Room Air Comment patient has not yet taken his BP meds this morning Intake Visit Reasons: Follow Up reschedule Value Engineer Required: No Accompanied by: Self / Same As Patient Allergies Penicillins Allergy (Verified 10/10/25 11:05) Unknown irbesartan Adverse Reaction (Verified 10/10/25 11:05) Stomach Upset Medication List - Last Reconciled 10/10/25 by Bhavesh Arora MD atorvastatin 80 mg PO BEDTIME 90 days ciclopirox 8% 1 appl topical BEDTIME 4 weeks diltiazem HCl CD 240 mg PO QAM 90 days finasteride 5 mg PO DAILY 90 days hydralazine 50 mg PO TID 90 days labetalol 100 mg PO BID 90 days losartan 50 mg PO BID 90 days meclizine 12.5 mg PO BID PRN melatonin 6 mg (2 x 3 mg) PO BEDTIME PRN 90 days nystatin 1 appl topical BID Tobacco use date assessed: 10/10/25 Fall risk assessment: 2 + Falls in past year Last assessed Fall Risk: 10/10/25 Dental Screening Dental Screen Date: 10/10/25 Did you have a dental visit in the last 12 months?: Yes Did you have a dental problem in the last 6 months where you did not have access to dental care?: No Was dental information given to patient?: Patient has dentist HPI Follow Up reschedule HPI Details Patient comes in today for his follow up visit States that he currently feels okay He continues to struggle with his speech - he has issues with stuttering in the past but his speech has declined significantly, with slurring of speech and garbled speech, ever since he had his CVA a few months ago in March 2025 He has been referred for speech therapy by neurology and is scheduled to start this, along with his physical therapy, next 10/15/2025 He also has a large cyst on his left elbow and is scheduled to be seen by orthopedics for this later next week on 10/18/2025 He is currently requesting for a referral to have a small cyst on his right cheek, just under his right eye, removed - states that this has been there for a while now but it does not hurt or itch He admits to NOT YET taking his BP med this morning as he was in a leon to get to a meeting - states that he will take his meds as soon as he gets home around lunch time He denies any headaches or dizziness Denies any chest pains, no increased SOB No nausea/vomiting, no abdominal pain No change in bowel habits noted He had his follow up labs done yesterday - to discuss his results [facility] Medical History (Updated 10/10/25 @ 12:03 by Bhavesh Arora MD) Chronic kidney disease, stage 4 (severe) Effusion, left elbow Left elbow pain Dry skin Peripheral vascular disease Nail dystrophy Tinea unguium 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 Psoriasis Lumbar degenerative disc disease Abscess of leg Pure hypercholesterolemia Onychomycosis Chronic kidney disease (CKD), stage III (moderate) Obesity (BMI 30-39.9) Hematuria Gait instability Vitamin D deficiency Hypokalemia Polycystic kidney disease Multiple thyroid nodules Impaired fasting glucose Cerebrovascular accident (CVA) Benign essential hypertension History of postoperative nausea Gout Thyroid nodule Renal cyst Benign prostatic hyperplasia CVA (cerebral vascular accident) COVID-19 virus antibody negative History of snoring Surgical History H/O partial thyroidectomy (~10/22/14) H/O arthroscopic knee surgery H/O varicose vein ligation and stripping Hx of colonoscopy (~08/2020) Family History Father Diabetes Mother Chronic mental illness Other Mental health problem Social History Household Members: None Housing: Apartment Do you presently have visiting nurse or other home services: No Alcohol intake: current Alcohol intake frequency: holidays/special occasions only Alcohol type: beer Patient Tobacco Use Status: Former Tobacco user e-Cigarette/Vaping Use: Former Use Second Hand Smoke Exposure: Yes service: No Current occupational status: employed 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 1. Little interest or pleasure in doing things: not at all 2. Feeling down, depressed, or hopeless: not at all 3. Trouble falling or staying asleep, or sleeping too much: not at all 4. Feeling tired or having little energy: not at all 5. Poor appetite or overeating: not at all 6. Feeling bad about yourself - or that you are a failure or have let yourself or your family down: not at all 7. Trouble concentrating on things, such as reading the newspaper or watching television: not at all 8. Moving or speaking so slowly that other people could have noticed. Or the opposite - being so fidgety or restless that you have been moving around a lot more than usual: not at all 9. Thoughts that you would be better off or of hurting yourself in some way: not at all Total score: 0 Depression Screening Interpretation: Negative Depression Screening Done: Yes 50885 - PHQ-9 Billing: Yes Source: Developed by Drs. Dilip Tian, Mirna Banuelos, Juan Lipscomb and colleagues, with an educational attila from [employer]. Thrive Questionnaire Date Thrive assessed: 10/10/25 I am a: Patient What is your living situation today?: I have a steady place to live Within the past 12 months, did the food you bought not last and you didn't have the money to get more?: Never true Within the past 12 months, did you worry whether your food would run out before you got money to buy more?: Never true Do you have trouble paying for medicines?: No Do you have trouble getting transportation to medical appointments?: No Do you have trouble paying your heating and electricity bill?: No Do you have trouble taking care of your child, family member or friend?: No Do you have trouble with day-to-day activities such as bathing, preparing meals, shopping, managing finances, etc.?: No Are you currently unemployed and looking for a job?: No Are you interested in more education?: No Please select the resources that you would like help with: None Currently or been in a relationship where the following occur: No concerns reported THRIVE Score: 0 AUDIT C Alcohol Use Questionnaire (AUDIT-C) 1. How often do you have a drink containing alcohol?: Never 3. How often do you have six or more drinks on one occasion?: Never Total Score: 0 Score Reviewed/Action Taken: Yes MARIA ESTHER-7 AMB Questionnaire MARIA ESTHER-7 Date MARIA ESTHER - 7 assessed: 10/10/25 Feeling nervous, anxious, or on edge: 0 = Not at all Not being able to stop or control worryin = Not at all Worrying too much about different things: 0 = Not at all Trouble relaxin = Not at all Being so restless that it is hard to sit still: 0 = Not at all Becoming easily annoyed or irritable: 0 = Not at all Feeling afraid as if something awful might happen: 0 = Not at all Total MARIA ESTHER-7 score (0-4 normal; 5-9 mild; 10-14 moderate; 15-21 severe): 0 Source: Developed by Drs. Dilip Tian, Mirna Banuelos, Juan Lipscomb and colleagues, with an educational attila from [employer]. Review of Systems Const Denies chills, Denies fatigue, Denies fever(s) and Denies headache(s) Eyes Denies blurry vision ENT Denies dysphagia, Denies dizziness, Denies otalgia, Denies headache(s), Denies neck pain, Denies odynophagia and Denies sore throat Card Denies chest pain, Denies palpitations and Denies dyspnea Resp Denies chest congestion, Denies cough and Denies dyspnea GI Denies abdominal pain, Denies constipation, Denies dysphagia, Denies heartburn, Denies diarrhea, Denies nausea, Denies odynophagia and Denies vomiting Denies difficulty urinating, Denies dysuria, Denies nocturia and Denies urinary frequency Musc Reports abnormal gait (poor balance - he will be going to PT for this), Reports back pain (recurrent, over the left lower back/flank area) and Denies neck pain Skin/Breast Details: (+) large synovial cyst on the left elbow; (+) small cyst on the right cheek under the right eye Reports rash (over the extensor aspect of both elbows) Neuro Details: patient has a tendency to stutter when he talks but this predates his CVA and cerebellar bleeding Reports Abnormal speech present ((+) Hx of stuttering but speech has been more slurred since his CVA), Reports abnormal gait (poor balance - he will be going to PT for this), Denies dizziness, Denies headache(s) and Denies memory loss Psych Denies memory loss Endo Denies fatigue and Denies palpitations Physical exam (Primary Care) Vital Signs: Last Vital Signs Pulse 76 10/10/25 10:35 BP 146/100 H 10/10/25 10:35 Pulse Ox 96 10/10/25 10:35 Oxygen Delivery Method Room Air 10/10/25 10:35 BMI result Body Mass Index 34.9 Tobacco/Smoking Status: Tobacco use Status Tobacco use date assessed 10/10/25 10/10/25 10:37 Patient Tobacco Use Status Former Tobacco user 10/10/25 10:37 e-Cigarette/Vaping Use Former Use 10/10/25 10:37 PHQ-9: PHQ-9 Score PHQ-9: Total score 0 10/10/25 10:37 Depression Screening Interpretation: Negative Thrive Assessment: Date of Thrive Assessment Date Thrive assessed 10/10/25 10/10/25 10:37 Currently or been in a relationship where the following occur: No concerns reported Const General: no acute distress and alert HENMT Ears: TM's normal bilaterally and EAC's normal Throat: Yes posterior oropharynx normal and Yes tonsils normal (no TP congestion noted) Neck Neck: Yes supple and No lymphadenopathy Thyroid: Thyroid normal Resp Auscultation: clear to auscultation bilaterally, no rales and no wheezes Cardio Rate: regular rate Rhythm: regular rhythm Heart sounds: no murmurs GI Palpation (GI): Soft to palpation and nontender Auscultation: normal bowel sounds General: Yes no CVA tenderness Back/Spine/Pelvis Back: no CVA tenderness Thoracic/Lumbar Spine: No lumbar spinal tenderness Skin Other: (+) patchy scaling rash (with whitish/silvery scales) over the extensor aspect of both elbows; (+) large, non-tender, synovial cyst on the left elbow (olecranon area); (+) small non-tender cyst on the right cheek a couple of inches under his right eye Neuro Speech: Abnormal speech present ((+) Hx of stuttering but speech has been more slurred since his CVA) garbled, slurred and stuttering Gait exam (Neuro): Normal gait present Extrem General: No clubbing, No cyanosis and Yes edema (trace bipedal edema) Results Reviewed Results Reviewed: Laboratory Tests 10/01/25 10/09/25 10/09/25 13:05 07:14 07:21 WBC 4.2 L Hgb 13.3 L Hct 40.7 L Plt Count 249 Sodium 147 H Potassium 3.5 Creatinine 2.43 H Estimated GFR 26 Fasting Glucose 104 H Hemoglobin A1c % 5.6 Uric Acid 6.8 Calcium 9.3 AST 34 ALT 32 Triglycerides 68 Cholesterol 118 LDL Cholesterol, Calc 63 HDL Cholesterol 42 Vitamin B12 236 25-OH Vitamin D Total 38.6 TSH 2.44 PTH Intact 136.4 H Ur Specific [place] 1.010 Urine Protein Trace Urine Glucose (UA) Negative Urine Blood Negative Urine Nitrite Negative Ur Leukocyte Esterase Negative Coding Level of Care Code Est Pt Level 4 (44762) Diagnoses Pure hypercholesterolemia E78.00 Benign essential hypertension I10 Chronic kidney disease, stage 4 (severe) N18.4 Polycystic kidney disease Q61.3 Cerebrovascular accident (CVA), unspecified mechanism I63.9 CVA mechanism: unspecified Impaired fasting glucose R73.01 Multiple thyroid nodules E04.2 Idiopathic gout, unspecified chronicity, unspecified site M10.00 Gout site: unspecified site Gout etiology: idiopathic Chronicity: unspecified Psoriasis L40.9 Vitamin D deficiency E55.9 Hypokalemia E87.6 Hematuria, unspecified type R31.9 Hematuria type: unspecified type Degeneration of intervertebral disc of lumbar region with discogenic back pain M51.360 Disc-related pain type: discogenic back pain only Cutaneous cyst L72.9 Synovial cyst of elbow M71.329 Obesity (BMI 30-39.9) E66.9 Additional Codes PHQ-9 - 35661 - PHQ-9 Billing: Yes ([id number]) Assessment & Plan Assessment & Plan (1) Pure hypercholesterolemia: Code(s): E78.00 - Pure hypercholesterolemia, unspecified Category: Medical Plan: Results of his labs done yesterday reviewed and discussed with patient Reinforced low cholesterol diet Continue Atorvastatin 80 mg QD Will recheck his labs and fasting lipids in 4 months for follow up (2) Benign essential hypertension: Code(s): I10 - Essential (primary) hypertension Category: Medical Plan: Reinforced?low-sodium diet -? goal is systolic BP of at least 130 to 140 mm or less due to his CKD He is advised that his blood pressure is high this morning but patient states that this is because he has NOT YET TAKEN HIS BP MEDS this morning as he was in a leon to get to a meeting earlier today States that he will take them as soon as he gets home by lunch time today Continue Diltiazem ER 240 mg QD, Hydralazine 50 mg TID, Labetalol 100 mg BID and Losartan 50 mg BID fow now Patient is reminded to continue monitoring his blood pressure regularly Follow up with nephrology as scheduled - he has an appointment coming up in a couple of days (3) Chronic kidney disease, stage 4 (severe): Code(s): N18.4 - Chronic kidney disease, stage 4 (severe) Category: Medical Plan: Patient's GFR has fluctuated between late stage 3 and early stage 4 CKD over the past year - his serum creatinine and GFR has been stable lately Have advised him again that he needs to take his blood pressure medications on time and that better control of his BP can help slow down his renal function decline Will continue to monitor his renal function closely Follow up with nephrology (Dr. Parra) as scheduled - he has an appointment coming up to see Dr. Parra in a couple of days (4) Polycystic kidney disease: Comment: MRI of the abdomen and pelvis done on 07/04/2019 revealed multiple bilateral renal cysts compatible with polycystic kidney disease Code(s): Q61.3 - Polycystic kidney, unspecified Category: Medical Plan: Patient remains asymptomatic at present Renal US done back in September 2023 revealed (+) multiple bilateral renal cysts with the largest cyst on the upper pole of the left kidney, which appears as a complex cyst with multiple septations Will continue to monitor his renal function closely; will also probably recheck his renal US in a couple of years for follow up and if (+) progression, may need urologic intervention (5) Cerebrovascular accident (CVA): Comment: 2016 Code(s): I63.9 - Cerebral infarction, unspecified Category: Medical Qualifiers: CVA mechanism: unspecified Qualified Code(s): I63.9 - Cerebral infarction, unspecified Plan: Patient currently has minimal residual neurologic deficits from his CVA that occurred back in 2015 He also does not seem to have had any sequelae from his recent left cerebellar intraparenchymal bleeding other than a more unsteady gait, which is currently being addressed by physical therapy, and some slurring of his speech He has since been referred for speech therapy as well by neurology Follow-up with Neurology as scheduled (6) Impaired fasting glucose: Code(s): R73.01 - Impaired fasting glucose Category: Medical Plan: His FBS was again slightly elevated at 104 mg/dl on his recent labs but his HgbA1c came back normal at 5.6% Reinforced low calorie/low carb diet; exercise as tolerated (7) Multiple thyroid nodules: Code(s): E04.2 - Nontoxic multinodular goiter Category: Medical Plan: S/P FNA biopsy about 3 years ago - results came back normal/benign His TSH remains normal on his recent labs Will continue to monitor his TFTs regularly Thyroid US done back in 2017 revealed enlarged left lobe with multiple bilateral thyroid nodules - 2 nodules appear increased in size and there appears to be a new nodule as well and recommended continued ultrasound follow up He had US ordered in 2019 but did not get that done US was reordered at his last visit and he finally had this done in January 2024, which showed (+) status post right hemithyroidectomy. Enlarged heterogeneous hypervascular left thyroid with multiple nodules, only one of which meets criteria for follow-up - recommend follow-up study in one year He was sent for repeat/follow up thyroid US at his last visit but he did not get this done, likely because of his IPH around that time (8) Gout: Code(s): M10.9 - Gout, unspecified Category: Medical Qualifiers: Gout site: unspecified site Gout etiology: idiopathic Chronicity: unspecified Qualified Code(s): M10.00 - Idiopathic gout, unspecified site Plan: Reinforced low purine diet -? patient has had no acute gout flares for several months His serum uric acid level was again normal when last checked yesterday (9) Psoriasis: Code(s): L40.9 - Psoriasis, unspecified Category: Medical Plan: This is mostly mild and are over the extensor aspect of his forearms/elbows Continue Clobetasol 0.05% cream BID PRN (10) Vitamin D deficiency: Code(s): E55.9 - Vitamin D deficiency, unspecified Category: Medical Plan: Continue Vitamin-D 81471 units once a week (11) Hypokalemia: Code(s): E87.6 - Hypokalemia Category: Medical Plan: His serum potassium level is normal at 3.5 on his labs done yesterday Continue Potassium Chloride ER 20 mEq?QD Will continue to monitor his serum potassium level regularly (12) Hematuria: Code(s): R31.9 - Hematuria, unspecified Category: Medical Qualifiers: Hematuria type: unspecified type Qualified Code(s): R31.9 - Hematuria, unspecified Plan: Resolved with no recurrence lately - may be related to his renal cysts Follow up with urology as scheduled (13) Lumbar degenerative disc disease: Code(s): M51.36 - Other intervertebral disc degeneration, lumbar region Category: Medical Qualifiers: Disc-related pain type: discogenic back pain only Qualified Code(s): M51.360 - Other intervertebral disc degeneration, lumbar region with discogenic back pain only Plan: Lumbar spine x-rays done back in 2019 revealed (+) sclerotic facet arthrosis that is most severe at L5-S1; (+) mild multilevel endplate spurring and no compression fractures or significant loss of disc height noted Repeat x-rays done in September 2023 revealed no interval change Reinforced activity and weight-lifting restrictions (14) Cutaneous cyst: Comment: on the right cheek, just under the right eye Code(s): L72.9 - Follicular cyst of the skin and subcutaneous tissue, unspecified Category: Medical Plan: Will refer to dermatology for consideration for excision of the cyst, per patient's wishes (15) Synovial cyst of elbow: Code(s): M71.329 - Other bursal cyst, unspecified elbow Category: Medical Plan: Patient has been referred to and is scheduled to be seen by orthopedics for this later next week (16) Obesity (BMI 30-39.9): Code(s): E66.9 - Obesity, unspecified Category: Medical Plan: Reinforced diet; exercise and weight are impractical given patient's poor balance and unsteady gait as well as his multiple comorbidities Plan Follow up in 4 months Orders: Orders Lipid Panel 4 Months E78.00 - Pure hypercholesterolemia, unspecified Complete Blood Count Auto Diff 4 Months D64.9 - Anemia, unspecified Comprehensive [place]. Panel Fast 4 Months E78.00 - Pure hypercholesterolemia, unspecified TSH reflex Free T4 4 Months E78.00 - Pure hypercholesterolemia, unspecified UA CC w/rflx Micro + Cult 4 Months R30.0 - Dysuria Vitamin D 25-OH Total 4 Months E55.9 - Vitamin D deficiency, unspecified Vitamin B12 and Folate 4 Months E53.8 - Deficiency of other specified B group vitamins Hemoglobin A1c 4 Months R73.01 - Impaired fasting glucose Uric Acid 4 Months M10.9 - Gout, unspecified Referrals Dermatology Referral L72.9 - Follicular cyst of the skin and subcutaneous tissue, unspecified
--- OUTSIDE RECORDS SUMMARY | 2025-10-10 12:07 | XMS_ITS | Clinical Summary ---
Author Organization [facility] Address [address] [place] [address] Phone Care Team Providers Care Insulation Mechanic Name Role Phone Bhavesh Arora MD Primary [...] Date Site/Laterality Comments OTHER SURGICAL HISTORY PROCEDURE: MO STAB PHLEBT VARICOSE VEINS 1 XTR 10-20 [...] #1 Negative Negative 04/06/2025 10:29 AM EDT [facility] ([facility] [place] Stool Rectum structure / Unknown Non-blood Collection / Unknown 04/06/2025 9:20 AM EDT 04/06/2025 10:05 AM EDT us [facility] BODY FLUIDS AND STOOLS O RDERABLES Final Result [facility] [address] [place] [address], * (ABNORMAL) Comprehensive metabolic panel (04/05/2025 4:11 AM EDT) Sodium 140 133 - 145 mmol/L LAB CHEMISTRY METHOD 04/05/2025 5:57 AM [facility] Potassium 3.7 3.5 - 5.5 mmol/L LAB CHEMISTRY METHOD 04/05/2025 5:57 AM [facility] Comment:Hemolysis present Chloride 105 96 - 110 mmol/L LAB CHEMISTRY METHOD 04/05/2025 5:57 AM [facility] CO2 27 21 - 32 mmol/L LAB CHEMISTRY METHOD 04/05/2025 5:57 AM [facility] Anion Gap 8 3 - 11 LAB CHEMISTRY METHOD 04/05/2025 5:57 AM [facility] Glucose 94 70 - 100 mg/dL LAB CHEMISTRY METHOD 04/05/2025 5:57 AM [facility] BUN 35(H) 5 - 25 mg/dL LAB CHEMISTRY METHOD 04/05/2025 5:57 AM [facility] Creatinine 1.91(H) 0.70 - 1.30 mg/dL LAB CHEMISTRY METHOD 04/05/2025 5:57 AM [facility] eGFR 37(L) >=60 mL/min/1. 73m2 LAB CHEMISTRY METHOD 04/05/2025 5:57 AM [facility] Comment:Calculation based on the Chronic Kidney Disease Epidemiology Collaboration (CKD-EPI) equation refit without adjustment for race. BUN/Creatinine Ratio 18.3 LAB CHEMISTRY METHOD 04/05/2025 5:57 AM [facility] Calcium 9.0 8.5 - 10.5 mg/dL LAB CHEMISTRY METHOD 04/05/2025 5:57 AM [facility] AST (SGOT) 22 10 - 42 unit/L LAB CHEMISTRY METHOD 04/05/2025 5:57 AM [facility] Comment:Hemolysis present ALT (SGPT) [...] esult [facility] [address] [place] [address], from Last 3 Months or Most Recently Relevant to Health Maintenance Insurance [facility] MEDICARE Advance Directives Documents on File Type Date Recorded 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 Care Teams Insulation Mechanic Relationship Specialty Start Date End Date Bhavesh Arora MD PCP - General Internal Medicine 01/14/25
--- OUTSIDE RECORDS SUMMARY | 2025-10-10 12:07 | XMS_ITS | Clinical Summary ---
Author Organization [facility] Address [address] [address] Phone Care Team Providers Care Mathematical Sciences Professor Name Role Phone Bhavesh Arora MD Primary Care Provider [phone] Allergies Active Allergy Reactions Criticality Noted Date [...] age to complete this topic Insurance Medicare [facility] Medicare [facility] Care Teams Mathematical Sciences Professor Relationship Specialty Start Date End Date Bhavesh Arora MD [address] [place] [id number] PCP - General Internal Medicine 08/25/22
== END 2025-10-10 11:21 | disposition home or self-care (01) ==
LOC: HO.HMCH 10:34
PROVIDERS: PCP Internal Medicine; Visit Provider Internal Medicine
DX: I12.9 Hypertensive chronic kidney disease with stage 1 through stage 4 chronic kidney disease, or unspecified chronic kidney disease (principal); N18.4 Chronic kidney disease, stage 4 (severe); I63.9 Cerebral infarction, unspecified; E78.00 Pure hypercholesterolemia, unspecified; E66.9 Obesity, unspecified; Z68.34 Body mass index [BMI] 34.0-34.9, adult; Q61.3 Polycystic kidney, unspecified; R73.01 Impaired fasting glucose; E04.2 Nontoxic multinodular goiter; M10.00 Idiopathic gout, unspecified site; L40.9 Psoriasis, unspecified; E55.9 Vitamin D deficiency, unspecified; E87.6 Hypokalemia; R31.9 Hematuria, unspecified; M51.360 Other intervertebral disc degeneration, lumbar region with discogenic back pain only; L72.9 Follicular cyst of the skin and subcutaneous tissue, unspecified; M71.329 Other bursal cyst, unspecified elbow

== ENCOUNTER → 2025-10-10 10:33 | Outpatient (BNVA) | payer MEDICARE, SELFPAY | PROVIDERS: PCP Internal Medicine; Visit Provider Internal Medicine | DX: I10 Essential (primary) hypertension (principal); E78.00 Pure hypercholesterolemia, unspecified; N18.4 Chronic kidney disease, stage 4 (severe); Q61.3 Polycystic kidney, unspecified; R73.01 Impaired fasting glucose; E04.2 Nontoxic multinodular goiter; M10.00 Idiopathic gout, unspecified site; L40.9 Psoriasis, unspecified; E55.9 Vitamin D deficiency, unspecified; R31.9 Hematuria, unspecified; E87.6 Hypokalemia; M51.360 Other intervertebral disc degeneration, lumbar region with discogenic back pain only; L72.9 Follicular cyst of the skin and subcutaneous tissue, unspecified; M71.329 Other bursal cyst, unspecified elbow; E66.9 Obesity, unspecified; Z13.31 Encounter for screening for depression; Z13.39 Encounter for screening examination for other mental health and behavioral disorders | CPT/HCPCS: 96127; 99212 ==

== ENCOUNTER 2025-10-12 10:42 | Outpatient (AMB) | payer MEDICARE, SELFPAY ==
--- NOTE | 2025-10-12 10:49 | HO.NEPHOV ---
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 He had EVERETTE at that time but his serum creatinine is close to baseline . He is on multiple antihypertensive medications. His blood pressure control is quite optimal. He denies nausea, vomiting, diarrhea, chest pain, shortness of breath, hematuria. He tries to maintain good hydration. 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 Psoriasis Lumbar degenerative disc disease Abscess of leg Pure hypercholesterolemia Onychomycosis Chronic kidney disease (CKD), stage III (moderate) Obesity (BMI 30-39.9) Hematuria Gait instability Vitamin D deficiency Hypokalemia Polycystic kidney disease Multiple thyroid nodules Impaired fasting glucose Cerebrovascular accident (CVA) Benign essential hypertension History of postoperative nausea Gout Thyroid nodule Renal cyst Benign prostatic hyperplasia CVA (cerebral vascular accident) COVID-19 virus antibody negative History of snoring Surgical History H/O partial thyroidectomy (~10/22/14) H/O arthroscopic knee surgery H/O varicose vein ligation and stripping Hx of colonoscopy (~08/2020) Family History Father Diabetes Mother Chronic mental illness Other Mental health problem Social History Household Members: None Housing: Apartment Do you presently have visiting nurse or other home services: No Alcohol intake: current Alcohol intake frequency: holidays/special occasions only Alcohol type: beer Patient Tobacco Use Status: Former Tobacco user e-Cigarette/Vaping Use: Former Use Second Hand Smoke Exposure: Yes service: No Current occupational status: employed 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 Cognitive needs: No Hearing needs: No Vision needs: Yes (glasses) Review of Systems Const All systems reviewed & are unremarkable except as noted in HPI and below Physical Exam Vital Signs: Last Vital Signs Pulse 53 10/12/25 10:50 BP 130/88 10/12/25 10:50 Pulse Ox 98 10/12/25 10:50 Oxygen Delivery Method Room Air 10/12/25 10:50 BMI result Body Mass Index 35.0 Const General: comfortable and no acute distress Orientation/consciousness: patient oriented x3 HEENT Head: Yes normocephalic Mouth: Normal oral and palatal mucosa present Eyes EOM: EOMs intact bilaterally Neck Neck: Yes supple Resp Auscultation: clear to auscultation bilaterally Cardio Jugular venous distension: no JVD Rate: regular rate GI Palpation (GI): Soft to palpation Auscultation: normal bowel sounds General: Yes no CVA tenderness Back/Spine/Pelvis Back: no CVA tenderness Skin General skin exam: no rashes or lesions noted Neuro General: patient oriented x3 and moves all extremities Extrem General: Yes no pedal edema Results Reviewed Nephrology Results: Hgb, (14.0-18.0) 13.3 g/dl L 10/09/25 WBC, (4.8-10.8) 4.2 X10*3/uL L 10/09/25 Plt Count, (160-400) 249 X10*3/uL 10/09/25 Sodium, (135-145) 147 mmol/L H 10/09/25 Potassium, (3.3-5.1) 3.5 mmol/L 10/09/25 Chloride, (96-108) 107 mmol/L 10/09/25 Carbon Dioxide, (22-29) 31 mmol/L H 10/09/25 BUN, (9-16) 39 mg/dL H 10/09/25 Creatinine, (0.5-1.4) 2.43 mg/dL H 10/09/25 Calcium, (8.4-10.2) 9.3 mg/dL 10/09/25 Phosphorus, (2.7-4.5) 3.3 mg/dL 10/01/25 PTH Intact, (8.7-77.1) 136.4 pg/mL H 10/01/25 Urine Protein, (Neg-Trace) Trace mg/dL 10/09/25 Renal US 10/28/23 Assessment & Plan Assessment & Plan (1) Benign essential hypertension: Code(s): I10 - Essential (primary) hypertension Category: Medical (2) Polycystic kidney disease: Comment: MRI of the abdomen and pelvis done on 07/04/2019 revealed multiple bilateral renal cysts compatible with polycystic kidney disease Code(s): Q61.3 - Polycystic kidney, unspecified Category: Medical (3) Chronic kidney disease, stage 4 (severe): Code(s): N18.4 - Chronic kidney disease, stage 4 (severe) Category: Medical Plan Wyatt has polycystic kidney disease. His blood pressure is at goal. He is tolerating angiotensin receptor juvencio, dose of which I may back off if his serum creatinine worsens. He is not taking any nonsteroidal anti-inflammatories. His last renal ultrasound showed a complex cyst which will need Urology follow up in the future. Genetic studies for polycystic kidney disease has not been done for him ( has strong family H/O of PKD). He is on statins. I shall consider SGLT2 i for him in the future. He tries to remain himself well hydrated . I did not make any medication changes today. All his questions were answered Orders: Orders Parathyroid Hormone Intact 3 Months I10 - Essential (primary) hypertension, N18.4 - Chronic kidney disease, stage 4 (severe), Q61.3 - Polycystic kidney, unspecified Phosphorus 3 Months I10 - Essential (primary) hypertension, N18.4 - Chronic kidney disease, stage 4 (severe), Q61.3 - Polycystic kidney, unspecified Electrolytes 3 Months I10 - Essential (primary) hypertension, N18.4 - Chronic kidney disease, stage 4 (severe), Q61.3 - Polycystic kidney, unspecified Blood Urea Nitrogen 3 Months I10 - Essential (primary) hypertension, N18.4 - Chronic kidney disease, stage 4 (severe), Q61.3 - Polycystic kidney, unspecified Vitamin D 25-OH Total 3 Months I10 - Essential (primary) hypertension, N18.4 - Chronic kidney disease, stage 4 (severe), Q61.3 - Polycystic kidney, unspecified Calcium 3 Months I10 - Essential (primary) hypertension, N18.4 - Chronic kidney disease, stage 4 (severe), Q61.3 - Polycystic kidney, unspecified Creatinine 3 Months I10 - Essential (primary) hypertension, N18.4 - Chronic kidney disease, stage 4 (severe), Q61.3 - Polycystic kidney, unspecified Complete Blood Count Auto Diff 3 Months I10 - Essential (primary) hypertension, N18.4 - Chronic kidney disease, stage 4 (severe), Q61.3 - Polycystic kidney, unspecified Hemoglobin A1c 3 Months I10 - Essential (primary) hypertension, N18.4 - Chronic kidney disease, stage 4 (severe), Q61.3 - Polycystic kidney, unspecified Coding Level of Care Code Est Pt Level 4 (10678) Diagnoses Benign essential hypertension I10 Polycystic kidney disease Q61.3 Chronic kidney disease, stage 4 (severe) N18.4
[2025-10-12 10:50] VITALS: BP 130/88; PULSE 53; O2SAT 98; BMI 35.0
--- OUTSIDE RECORDS SUMMARY | 2025-10-12 12:50 | XMS_ITS | Clinical Summary ---
Author Organization [facility] Address [address] [place] [address] Phone Care Team Providers Care Manager Technical Sales Name Role Phone Bhavesh Arora MD Primary [...] Date Site/Laterality Comments OTHER SURGICAL HISTORY PROCEDURE: [place] STAB PHLEBT VARICOSE VEINS 1 XTR 10-20 [...] #1 Negative Negative 04/06/2025 10:29 AM EDT [facility] ([facility]) [facility] Stool Rectum structure / Unknown Non-blood Collection / Unknown 04/06/2025 9:20 AM EDT 04/06/2025 10:05 AM EDT us Olya [facility] BODY FLUIDS AND STOOLS O RDERABLES Final Result [facility] [address] [place] [address], * (ABNORMAL) Comprehensive metabolic panel (04/05/2025 4:11 AM EDT) Sodium 140 133 - 145 mmol/L LAB CHEMISTRY METHOD 04/05/2025 5:57 AM [facility] Potassium 3.7 3.5 - 5.5 mmol/L LAB CHEMISTRY METHOD 04/05/2025 5:57 AM [facility] Comment:Hemolysis present Chloride 105 96 - 110 mmol/L LAB CHEMISTRY METHOD 04/05/2025 5:57 AM [facility] CO2 27 21 - 32 mmol/L LAB CHEMISTRY METHOD 04/05/2025 5:57 AM [facility] Anion Gap 8 3 - 11 LAB CHEMISTRY METHOD 04/05/2025 5:57 AM [facility] Glucose 94 70 - 100 mg/dL LAB CHEMISTRY METHOD 04/05/2025 5:57 AM [facility] BUN 35(H) 5 - 25 mg/dL LAB CHEMISTRY METHOD 04/05/2025 5:57 AM [facility] Creatinine 1.91(H) 0.70 - 1.30 mg/dL LAB CHEMISTRY METHOD 04/05/2025 5:57 AM [facility] eGFR 37(L) >=60 mL/min/1. 73m2 LAB CHEMISTRY METHOD 04/05/2025 5:57 AM [facility] Comment:Calculation based on the Chronic Kidney Disease Epidemiology Collaboration (CKD-EPI) equation refit without adjustment for race. BUN/Creatinine Ratio 18.3 LAB CHEMISTRY METHOD 04/05/2025 5:57 AM [facility] Calcium 9.0 8.5 - 10.5 mg/dL LAB CHEMISTRY METHOD 04/05/2025 5:57 AM [facility] AST (SGOT) 22 10 - 42 unit/L LAB CHEMISTRY METHOD 04/05/2025 5:57 AM [facility] Comment:Hemolysis present ALT (SGPT) 26 10 - 60 unit/L LAB CHEMISTRY METHOD 04/05/2025 5:57 AM EDT [facility] Alkaline Phosphatase 65 42 - 121 unit/L LAB CHEMISTRY METHOD 04/05/2025 5:57 AM EDT [facility] Total Protein 5.6(L) 6.0 - 8.0 g/dL LAB CHEMISTRY METHOD 04/05/2025 5:57 AM EDT [facility] Albumin 3.0(L) 3.2 - 5.0 g/dL LAB CHEMISTRY METHOD 04/05/2025 5:57 AM T [facility] Total Bilirubin 0.8 0.0 - 1.4 mg/dL LAB CHEMISTRY METHOD 04/05/2025 5:57 AM T [facility] Blood Venous blood specimen / Unknown Venipuncture / Unknown 04/05/2025 4:11 AM EDT 04/05/2025 5:10 AM EDT us Olya [facility] LAB BLOOD ORDERABLES Final R esult [facility] [address] [place] [address], from Last 3 Months or Most Recently Relevant to Health Maintenance Insurance [facility] MEDICARE Advance Directives Documents on File Type Date Recorded Patient Sign Out Clerk Expl anation Advance Directives and Living Will [...] currently active code status orders. Care Teams Manager Technical Sales Relationship Specialty Start Date End Date Bhavesh Arora MD PCP - General Internal Medicine 01/14/25
--- OUTSIDE RECORDS SUMMARY | 2025-10-12 12:50 | XMS_ITS | Clinical Summary ---
Author Organization [facility] Address [address] [address] Phone Care Team Providers Care Pastoral Assistant Name Role Phone Bhavesh Arora MD Primary Care Provider [phone] Allergies Active Allergy Reactions Criticality Noted Date [...] age to complete this topic Insurance Medicare [facility] Medicare [facility] Care Teams Pastoral Assistant Relationship Specialty Start Date End Date Bhavesh Arora MD [address] [place] [id number] PCP - General Internal Medicine 08/25/22
== END 2025-10-12 11:05 | disposition home or self-care (01) ==
LOC: HO.HKA 10:43
PROVIDERS: PCP Internal Medicine; Visit Provider Internal Medicine Nephrology
DX: I12.9 Hypertensive chronic kidney disease with stage 1 through stage 4 chronic kidney disease, or unspecified chronic kidney disease (principal); Q61.3 Polycystic kidney, unspecified; N18.4 Chronic kidney disease, stage 4 (severe)
CPT/HCPCS: 99214

== ENCOUNTER → 2025-10-12 10:42 | Outpatient (BNVA) | payer MEDICARE, SELFPAY | PROVIDERS: PCP Internal Medicine; Visit Provider Internal Medicine Nephrology | DX: I10 Essential (primary) hypertension (principal); Q61.3 Polycystic kidney, unspecified; N18.4 Chronic kidney disease, stage 4 (severe) | CPT/HCPCS: 99212 ==

== ENCOUNTER 2025-10-15 12:19 | Outpatient (AMB) | payer MEDICARE, SELFPAY ==
[2025-10-15 12:34] VITALS: BMI 34.6
--- NOTE | 2025-10-15 12:34 | A.OFFVIS_ITS ---
Vital Signs 10/15/25 12:34 Height 5 ft 4.5 in Weight 205 lb BMI 34.6 Intake Visit Reasons: f/u fungal nails Intake Note: Wyatt is a 75 year old male who presents to the office today for a 2 month follow up fungal nails. At last visit patient was instructed to continue with Ciclopirox for nail fungus and advised to continue wearing compression stockings. Pt states hehas been using the ciclopirox and finds that his nails has improved slightly. Allergies Penicillins Allergy (Verified 10/15/25 12:34) Unknown irbesartan Adverse Reaction (Verified 10/15/25 12:34) Stomach Upset HPI Comments Details: The patient is a 75 year old male presenting for a follow-up visit for onychomycosis. He has been using the ciclopirox and reports the nails have started to lighten, indicating improvement. Patient states he is in need of a refill. Patient states he has been using compression stockings. He denies any new pedal injuries. He denies any other pedal concerns. 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 Psoriasis Lumbar degenerative disc disease Abscess of leg Pure hypercholesterolemia Onychomycosis Chronic kidney disease (CKD), stage III (moderate) Obesity (BMI 30-39.9) Hematuria Gait instability Vitamin D deficiency Hypokalemia Polycystic kidney disease Multiple thyroid nodules Impaired fasting glucose Cerebrovascular accident (CVA) Benign essential hypertension History of postoperative nausea Gout Thyroid nodule Renal cyst Benign prostatic hyperplasia CVA (cerebral vascular accident) COVID-19 virus antibody negative History of snoring Surgical History H/O partial thyroidectomy (~10/22/14) H/O arthroscopic knee surgery H/O varicose vein ligation and stripping Hx of colonoscopy (~08/2020) Family History Father Diabetes Mother Chronic mental illness Other Mental health problem Social History Household Members: None Housing: Apartment Do you presently have visiting nurse or other home services: No Alcohol intake: current Alcohol intake frequency: holidays/special occasions only Alcohol type: beer Patient Tobacco Use Status: Former Tobacco user e-Cigarette/Vaping Use: Former Use Second Hand Smoke Exposure: Yes service: No Current occupational status: employed 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 All systems reviewed & are unremarkable except as noted in HPI and below Physical Exam Exam Exam: Physical Exam - Feet: Toenails demonstrate lightening of discoloration. - No signs of redness. - Debridement of all ten toenails was performed with nail nippers and a Dremel. Vital Signs: BMI result Body Mass Index 34.6 Extrem Other: Bilateral lower extremity focused physical exam: Derm: Toenails 1 - 10 noted to be thickened, discolored, elongated, and dystrophic with subungual debris (appearance of ciclopirox application noted). Mottled appearance of skin noted. Scars noted to the legs diffusely, due to healed ulcers. Hyperpigmentation noted to the legs and feet bilaterally. No clinical signs of infection. Vascular: DP/PT pulses nonpalpable. Capillary refill time greater than 3 seconds. No edema noted. Varicosities noted. Pedal hair absent. Neuro: Protective sensation is grossly intact. Musculoskeletal: Pes planus foot type. No pain on palpation to the forefoot or hindfoot or ankle. Reduced stiffness noted to the ankles bilaterally. Range of motion of the forefoot within normal limits. Nonantalgic unassisted gait noted. Class B findings noted. Office Procedures AMB Debridement/Avulsion Podia Details: Debrided toenails x10 using sterile nail nippers and sterile Dremel without any incidents. [id number]-[id number] of Nail 6+ Procedure code (CPT) selection complete Results Reviewed Results Reviewed: Laboratory Tests 10/09/25 07:21 WBC 4.2 L Fasting Glucose 104 H Estimat Average Glucose 114 Hemoglobin A1c % 5.6 Uric Acid 6.8 AST 34 ALT 32 Pathology of toenail samples (07/20/25): Positive for fungal hyphae. Assessment & Plan Assessment & Plan (1) Tinea unguium: Code(s): B35.1 - Tinea unguium Category: Medical (2) Nail dystrophy: Code(s): L60.3 - Nail dystrophy Category: Medical (3) Peripheral vascular disease: Code(s): I73.9 - Peripheral vascular disease, unspecified Category: Medical (4) Varicose veins of left lower extremity with inflammation: Code(s): I83.12 - Varicose veins of left lower extremity with inflammation Category: Medical (5) Varicose veins of right lower extremity with inflammation: Code(s): I83.11 - Varicose veins of right lower extremity with inflammation Category: Medical (6) Left elbow pain: Code(s): M25.522 - Pain in left elbow Category: Medical (7) Effusion, left elbow: Code(s): M25.422 - Effusion, left elbow Category: Medical (8) Nail disorder: Code(s): L60.9 - Nail disorder, unspecified Category: Medical Plan Patient was informed and verbally consented to the use of an ambient scribe for clinic note documentation during this visit. I discussed with the patient that his toenails are showing signs of improvement and are starting to lighten. I explained that it will likely take a full year for the nails to completely grow out with noticeable improvement. I performed routine debridement of all ten toenails, explaining that this helps the topical medication penetrate the nail plate. I informed the patient that I would send a refill of his topical medication to his pharmacy. We scheduled a follow-up appointment in approximately two months for continued care. - Sent a refill for ciclopirox. - Advised patient to apply ciclopirox daily and to file his nails in between each application. - Debridement of all ten toenails was performed to enhance the penetration of the topical medication. - Advised patient to avoid barefoot walking and to wear supportive shoe gear. - Advised patient to keep feet clean and dry. - Continue wearing compression stockings. RTC in 2 months. Orders: Orders AMB Debridement/Avulsion Podiatry 10/15/25 B35.1 - Tinea unguium, I73.9 - Peripheral vascular disease, unspecified, I83.11 - Varicose veins of right lower extremity with inflammation, I83.12 - Varicose veins of left lower extremity with inflammation, L60.3 - Nail dystrophy, L60.9 - Nail disorder, unspecified Medications: Refilled ciclopirox 8% 1 appl topical BEDTIME 6.6 mL 1RF Onychomycosis 4 weeks B35.1 - Tinea unguium, L60.3 - Nail dystrophy Coding Level of Care Code Est Pt Level 3 (95234) Diagnoses Tinea unguium B35.1 Nail dystrophy L60.3 Peripheral vascular disease I73.9 Varicose veins of left lower extremity with inflammation I83.12 Varicose veins of right lower extremity with inflammation I83.11 Left elbow pain M25.522 Effusion, left elbow M25.422 Nail disorder L60.9 CPT Codes Skin Debridement - CPT: 02651-Mstrahlhubq of Nail 6+ ([id number]) Time Spent (min) 28 Comment 8 mins for procedure
== END 2025-10-15 12:49 | disposition home or self-care (01) ==
LOC: HO.HPODS 12:20
PROVIDERS: PCP Internal Medicine; Visit Provider Student in an Organized Health Care Education/Training Program
DX: B35.1 Tinea unguium (principal); L60.3 Nail dystrophy; I73.9 Peripheral vascular disease, unspecified; I83.12 Varicose veins of left lower extremity with inflammation; I83.11 Varicose veins of right lower extremity with inflammation; M25.522 Pain in left elbow; M25.422 Effusion, left elbow; L60.9 Nail disorder, unspecified
CPT/HCPCS: 11721; 99213

== ENCOUNTER → 2025-10-15 12:19 | Outpatient (BNVA) | payer MEDICARE, SELFPAY | PROVIDERS: PCP Internal Medicine; Visit Provider Student in an Organized Health Care Education/Training Program | DX: B35.1 Tinea unguium (principal); L60.3 Nail dystrophy; I73.9 Peripheral vascular disease, unspecified; I83.12 Varicose veins of left lower extremity with inflammation; I83.11 Varicose veins of right lower extremity with inflammation; L60.9 Nail disorder, unspecified; M25.422 Effusion, left elbow | CPT/HCPCS: 11721; 99212 ==

== ENCOUNTER 2025-10-18 08:42 | Outpatient (REF) | payer MEDICARE, SELFPAY ==
--- NOTE | ~2025-10-18 | XR_ITS ---
EXAMINATION: XR ELBOW 3 VIEWS LEFT HISTORY: M25.529 - Pain in unspecified elbow COMPARISON: Comparison is made with the prior examination dated 10/14/2022. FINDINGS: Three views of the left elbow are submitted. Osseous mineralization is normal. There is no fracture or dislocation. The joint spaces are preserved. There is soft tissue swelling over the olecranon process of the ulna, likely representing olecranon bursitis. There is no joint effusion. XR/XR elbow LT min 3V IMPRESSION: Probable olecranon bursitis. No osseous abnormality is identified. Electronically signed by: Dilip Chun MD 10/18/2025 01:50 PM [facility]
== END 2025-10-18 08:43 | disposition home or self-care (01) ==
LOC: HO.HOSX 08:42
PROVIDERS: Visit Provider Physician Assistant
DX: M70.22 Olecranon bursitis, left elbow (principal)
CPT/HCPCS: 73080

== ENCOUNTER 2025-10-18 13:18 | Outpatient (AMB) | payer MEDICARE, SELFPAY ==
--- NOTE | 2025-10-18 13:47 | A.OFFVIS_ITS ---
Intake Visit Reasons: OV - left elbow pain Intake Note: Wyatt is a 75 year old right hand dominant male who presents today for a follow up of her left elbow pain. At his last visit he was referred to go to occupational therapy. Patient reports he had a stroke in March and he had to do Physical therapy and Speech therapy. He went to the walk in to get his elbow bubble drained and it looks like it came back. Patient is not having pain and is wondering if he can have it removed. Allergies Penicillins Allergy (Verified 10/18/25 13:49) Unknown irbesartan Adverse Reaction (Verified 10/18/25 13:49) Stomach Upset HPI Comments Details: The patient is a 75-year-old right-hand dominant male presenting for evaluation of left elbow swelling. He reports developing swelling on his left elbow after hitting it in August when he moved into his apartment. The patient was previously seen in November 2022 for left arm pain located in the biceps area, which radiated down the arm. At that time, he was referred to cupational therapy for range of motion and strengthening, and was prescribed topical diclofenac. Pain Description - Location: The patient presents for evaluation of left elbow swelling. - Current Symptoms: He denies any pain over the elbow at the time of the visit. - Prior History: In November 2022, he had pain in his left biceps area that radiated down the arm. Results - Imaging: - Left Elbow X-ray: Results were reviewed and are normal, with no intra- articular pathology noted. 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 Psoriasis Lumbar degenerative disc disease Abscess of leg Pure hypercholesterolemia Onychomycosis Chronic kidney disease (CKD), stage III (moderate) Obesity (BMI 30-39.9) Hematuria Gait instability Vitamin D deficiency Hypokalemia Polycystic kidney disease Multiple thyroid nodules Impaired fasting glucose Cerebrovascular accident (CVA) Benign essential hypertension History of postoperative nausea Gout Thyroid nodule Renal cyst Benign prostatic hyperplasia CVA (cerebral vascular accident) COVID-19 virus antibody negative History of snoring Surgical History H/O partial thyroidectomy (~10/22/14) H/O arthroscopic knee surgery H/O varicose vein ligation and stripping Hx of colonoscopy (~08/2020) Family History Father Diabetes Mother Chronic mental illness Other Mental health problem Social History Household Members: None Housing: Apartment Do you presently have visiting nurse or other home services: No Alcohol intake: current Alcohol intake frequency: holidays/special occasions only Alcohol type: beer Patient Tobacco Use Status: Former Tobacco user e-Cigarette/Vaping Use: Former Use Second Hand Smoke Exposure: Yes service: No Current occupational status: employed 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 - Denies pain over the elbow. Physical Exam Exam Exam: Physical Exam - Musculoskeletal: Inspection of the left elbow reveals swelling over the olecranon bursa. No tenderness to palpation over the olecranon. No tenderness to the medial or lateral epicondyle. Full range of motion. NVI. Assessment & Plan Assessment & Plan (1) Olecranon bursitis of left elbow: Code(s): M70.22 - Olecranon bursitis, left elbow Category: Medical Plan 1. Olecranon Bursitis Of Left Elbow The patient's left elbow swelling is consistent with olecranon bursitis, an inflamed bursa sac, which developed after he hit his elbow. His x-rays are normal, ruling out an intra-articular issue. His request for drainage was declined due to the high likelihood of recurrence, persistent drainage, and risk of infection. The plan is for conservative management with compression. An Scooby wrap will be applied to the left elbow in the office, and he is instructed to wear it continuously, removing it only for showering. He was advised that the condition can take months to resolve but will eventually reabsorb on its own. Patient will follow up PRN, sooner if needed. Consent Patient was informed and verbally consented to the use of an ambient scribe for clinic note documentation during this visit. X-rays of the left elbow obtained in the office today were reviewed by me and reveal no evidence of fracture or dislocation. There is soft tissue swelling over the olecranon bursa. Orders: Orders XR elbow LT min 3V Today M25.529 - Pain in unspecified elbow Coding Level of Care Code New Pt Level 3 (21019) Add On Problem Visit Only Diagnoses Olecranon bursitis of left elbow M70.22
== END 2025-10-18 14:19 | disposition home or self-care (01) ==
LOC: HO.HOS 13:19
PROVIDERS: PCP Internal Medicine; Visit Provider Physician Assistant
DX: M70.22 Olecranon bursitis, left elbow (principal)
CPT/HCPCS: 99213; G2211

== ENCOUNTER → 2025-10-18 13:28 | Outpatient (BNV) | payer MEDICARE, SELFPAY | PROVIDERS: Visit Provider Radiology Diagnostic Radiology | DX: M25.522 Pain in left elbow (principal) | CPT/HCPCS: 73080 ==